=== PATIENT | female | born 1980 | race Caucasian/White ===

== ENCOUNTER → 2016-08-29 | Outpatient (CLI) | payer BC, OTHER ==
[~2016-08-29] MED LIST: ADAL1KIT INJ; ALPR-411 PO; AMT50 PO; CITA20TA4 PO; CLOP1TAB54 PO; DTR5 PO; HYDR-5688 PO; MELO15TA3 PO; MRP1 PO; OMEP40CA PO
--- NOTE | 2016-08-29 13:29 | MAMMOGRAPHY REPORT ---
BILATERAL DIGITAL DIAGNOSTIC MAMMOGRAM TOMOSYNTHESIS WITH CAD AND TARGETED BILATERAL ULTRASOUND: 08/01 CLINICAL HISTORY: 35 year old woman with a family history of breast cancer = mother, grandmother and great grandmother who presents with a new palpable lump in the lower inner quadrant of the right br east. On physical exam her physician felt a lump in the superior left breast. TECHNIQUE: Bilateral breast tomosynthesis in addition to standard 2D mammography was performed. Curr ent study was also evaluated with a Computer Aided Detection (CAD) system. COMPARISON: Comparison is made to exams dated: 10/15/2013 mammogram, 02/20/2013 mammogram, 04/20/2014 mammogram, 10/15/2013 ultrasound, 02/20/2013 ultrasound, and 07/15/2010 mammogram - [facility]. BREAST COMPOSITION: The tissue of both breasts is extremely dense, which lowers the sensitivity of mammography. FINDINGS: Triangular skin palpable markers overlie the areas of concern in the lower inner right jamel ast and 12:00 to 1:00 left breast. There are a few benign-appearing microcalcifications scattered i n the right breast. A grouping of coarse heterogeneous microcalcifications previously identified in the upper outer posterior right breast is no longer seen. No suspicious mass, focal area of ramos ectural distortion or cluster of new suspicious microcalcifications is identified. Targeted ultrasound was performed in the area of palpable ridge or cylindrical mass in the 4:00 righ t breast, 5 cm from the nipple, pointed out by the patient. In the area of concern, there is a ridg e of dense glandular tissue that courses near the skin surface in between 2 fat lobules. This may e xplain the palpable abnormality. No suspicious solid mass is seen within this area of concern. In the 9:00 through 12:00 and 1:00 axes of the left breast, numerous scattered anechoic subcentimeter c ysts are seen, compatible with fibrocystic changes. No discrete suspicious solid mass is identified . IMPRESSION: ACR BI-RADS CATEGORY 2: BENIGN, TARGETED ULTRASOUND ACR BI-RADS CATEGORY 2: BENIGN 1. There is no mammographic or targeted sonographic evidence of malignancy. 2. Clinical follow-up is recommended for the palpable lumps in the lower inner right breast and sup erior left breast, as biopsy of a clinically suspicious mass should not be precluded by negative ave ging. 3. These results and recommendations were discussed with the patient at the time of the exam. We h ad an additional discussion regarding follow-up screening recommendations given her strong family hi story of breast cancer and extremely dense breasts. Given that her mother was diagnosed in her 40s she should continue with annual bilateral screening mammography from here forward, and she will also likely qualify for additional screening breast MRI, with mother, grandmother and great grandmother all with a history of breast cancer. Approximately 10% of breast cancers are not detected with mammography. A negative mammographic repor t should not delay biopsy if a clinically suggestive mass is present. Juanita Arce M.D. ay/:08/29/2016 12:15:29 Broadcast Meteorologist: Ryland CORDERO)([place]), [facility] letter sent: Normal 1/2 BI-RADS Code: ACR BI-RADS Category 2: Benign Ultrasound BI-RADS: ACR BI-RADS Category 2: Benign
== END | disposition home or self-care (01) ==
LOC: C.MAMM 09:01
DX: N63 Unspecified lump in breast (principal); Z80.3 Family history of malignant neoplasm of breast

== ENCOUNTER 2024-04-08 10:44 | Inpatient (IN) ==
--- NOTE | 2024-04-08 11:03 | Emergency Department Note ---
Impression & Plan Pyelonephritis, Hypokalemia, Hyponatremia, Acute hypotension ED Provider Note NAME: WILLIS GUERRA AGE: 43 SEX: F : 1980 ARRIVES VIA: Walk-In INFORMANT: Patient ED PROVIDER(S): Stan Beebe DO CHIEF COMPLAINT: abdominal pain HPI: Patient is a 43-year-old female who presents ER with dysuria, urgency, and frequency that started on Sunday. Has been gradually getting worse. Denies any headache or change in vision. No chest pain or shortness of breath. Admits to shaking chills and sweats. Does feel really weak and rundown. Notes this feels like her previous UTIs but worse. ADDITIONAL HISTORY OBTAINED: Per HPI Chronic Medical/Social Conditions Affecting Care: Per HPI PAST MEDICAL HISTORY:See Below PAST SURGICAL HISTORY:See Below FAMILY HISTORY:See Below SOCIAL HISTORY:See Below HOME MEDICATIONS:See Below ALLERGIES:See Below VITALS:See Below PHYSICAL EXAMINATION: GENERAL: Sitting up in bed, alert, ill-appearing, diaphoretic EYE EXAM: normal conjunctiva. PERRL and EOM's grossly intact. OROPHARYNX: Dry mucous membranes LUNGS: Clear to auscultation. Normal chest wall mechanics HEART: no murmurs, S1 normal and S2 normal ABDOMEN: abdomen soft, non-tender, normo-active bowel sounds, no masses, no rebound or guarding. BACK: Back is symmetrical on inspection and there is no deformity, no midline tenderness, no CVA tenderness. UPPER EXTREMITIES: upper extremities are grossly normal. LOWER EXTREMITIES: No pitting edema. NEURO EXAM: Normal sensorium, cranial nerves II-XII grossly intact, normal speech, no gross weakness of arms, no gross weakness of legs. MEDICAL DECISION MAKING: Patient is a 43-year-old female who presents to the ER for the above-stated complaint. IV was established medicos obtained. Vitals were remarkable for hypertension with systolic pressures of 80. Labs show no significant leukocytosis or anemia. BMP with mild hyponatremia at 132. Mild hypokalemia 3.3. LFTs bilirubin is unremarkable. Lipase is unremarkable. UA is consistent with UTI. CT abdomen pelvis confirms pyelonephritis. Patient was given IV Rocephin and IV fluids. Systolic pressures improved. Discussed case with the hospitalist for further evaluation management treatment. Patient was also given IV Toradol while in the ER. Consults/Care Managements Discussions: Per MDM Triage Nursing notes reviewed. Limited review of prior medical records performed Vital Signs: reviewed and remarkable for hypotension and tachy Differential diagnosis: Differential diagnoses includes but is not limited to gastritis, peptic ulcer disease, GERD, gallbladder disease, pancreatitis, small bowel obstruction, appendicitis, diverticulitis, hernia, urinary tract infection, torsion, /ectopic (if female), perforation, trauma, infectious. ER treatment provided: See below Diagnostics interpreted by me include EKG and cardiac monitoring as listed below: -Cardiac Monitoring: An order was placed for continuous cardiac monitoring. The monitor shows a rate of 80 with sinus rhythm. -ECG: none -Laboratory studies:Interpreted by me as stated above in MDM and shown below. Imaging studies: Xrays: As interpreted by me:none CTs show: CT abdomen pelvis per my pulm interpretation showed no obvious bowel obstruction CT and pelvis per radiology shows cystitis and pyelonephritis Procedures:none Critical Care: None Past Med/Surg History Problem List (Updated 04/08/24 @ 14:24 by Stan Beebe DO) Acute hypotension (Acute) Hypotension Hyponatremia (Acute) Hypokalemia (Acute) Pyelonephritis (Acute) Malignant neoplasm of overlapping sites of left breast in female, estrogen receptor positive (Chronic 09/26/21) Thumb laceration (Acute) Headache (Acute) Arthritis (Chronic) COVID-19 (Acute) Encounter for pre-operative examination Medical History Endometriosis Chronic back pain Gastroparesis Fibromyalgia Ankylosing spondylitis Depression Anxiety Factor 5 Leiden mutation, heterozygous reason for plavix Surgical History H/O: hysterectomy 07/2020 H/O bilateral mastectomy History of right breast biopsy benign History of left breast biopsy benign History of endometrial ablation History of colonoscopy with polypectomy History of esophagogastroduodenoscopy (EGD) History of oral surgery History of wisdom tooth extraction History of tonsillectomy and adenoidectomy Hx of sinus surgery Family History Father Family history of diabetes mellitus Mother Cancer breast Grandmother (Maternal) Cancer breast Sister Cancer breast Other No family history of adverse response to anesthesia Social History Smoking Status: Former smoker Tobacco Type: Cigarettes Cigarettes Per Day: 4 per day; Second Hand Exposure: No; Do You Dip or Chew Tobacco: No; Hx Alcohol Use: Yes Alcohol type: beer Hx Substance Use: No Preferred Language: Sami Communication Ability: Effective Hearing Ability: Normal 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 Beliefs That Will Affect Care: None marital status: Current Living Situation: Spouse and Family Current Living Situation Comment: Lives with and daughter Feels Safe at Home: Yes Diet: regular during the past year weight has: remained stable Physical Activity Frequency: Does not Exercise Assistive Devices: Contacts and Glasses Allergies Allergies Allergy/AdvReac Type Severity Reaction Status Date / Time No Known Allergies Allergy Unknown Verified 12/06/21 08:25 Home Meds Home Medications Medication Instructions Recorded Confirmed alprazolam 0.5 mg tablet (Xanax) 0.5 mg PO DAILY PRN Anxiety 01/30/20 04/08/24 clopidogrel 75 mg tablet (Plavix) 75 mg PO HS 01/30/20 04/08/24 omeprazole 40 mg capsule,delayed 40 mg PO HS 01/30/20 04/08/24 release citalopram 40 mg tablet (Celexa) 40 mg PO DAILY 08/09/21 04/08/24 hydrocodone 5 mg-acetaminophen 325 1 tab PO DIRECTED PRN Pain 08/09/21 04/08/24 mg tablet cholecalciferol (vitamin D3) 50 50 mcg PO DAILY 12/06/21 04/08/24 mcg (2,000 unit) capsule gabapentin 100 mg capsule 300 mg PO TID 12/06/21 04/08/24 vitamin B complex (B 1 tab PO DAILY 12/06/21 04/08/24 Complex-Vitamin B12 tablet) Rinvoq 15 mg PO Q OTHER DAY 04/08/24 04/08/24 Results & Data (ED) Vital Signs Vital Signs - 24 hr 04/08/24 10:46 04/08/24 12:17 04/08/24 13:59 Temperature 36.8 C Temperature Source Oral Pulse Rate 113 H Pulse Rate [Radial] 93 H 78 Pulse Rhythm [Radial] Regular Regular Respiratory Rate 14 18 18 Respiratory Effort / Characteristics Non-Labored Non-Labored Respiratory Depth Normal Normal Respiratory Pattern Regular Regular Blood Pressure 81/58 L Blood Pressure [Left Arm] 91/56 L 90/58 L Blood Pressure Mean 65 Blood Pressure Mean [Left Arm] 67 68 Pulse Oximetry 95 97 96 Oxygen Delivery Method Room Air Room Air Room Air Sepsis New/Unexplained Change in Mental Status No Sepsis Action Taken by Nursing No Action Required Laboratory Data 04/08/24 11:10 04/08/24 11:10 Lab Results 04/08/24 04/08/24 Range/Units 11:10 12:12 WBC 6.32 (4.8-10.8) K/ul RBC 4.55 (4.20-5.40) M/uL Hgb 13.2 (12.0-16.0) g/dl Hct 38.4 (37.0-47.0) % MCV 84.4 (80.0-100.0) fL MCH 29.0 (25.0-34.0) pg MCHC 34.4 (32.0-36.0) g/dL RDW Std Deviation 42.7 (36.4-46.3) fL RDW Coeff of Jean Claude 13.8 (11.5-14.5) % Plt Count 216 (130-400) K/uL MPV 9.6 (9.4-12.4) fL Immature Gran % (Auto) 0.3 % Neut % (Auto) 84.8 % Lymph % (Auto) 10.6 % [place] % (Auto) 4.1 % Eos % (Auto) 0.0 % Baso % (Auto) 0.2 % Neut # (Auto) 5.36 (1.40-6.50) K/uL Lymph # (Auto) 0.67 L (1.20-3.40) K/uL [place] # (Auto) 0.26 (0.11-0.59) K/uL Eos # (Auto) 0.00 (0.00-0.50) K/uL Baso # (Auto) 0.01 (0.00-0.20) K/uL Immature Gran # (Auto) 0.02 (0.01-0.20) K/uL Sodium 132 L (136-145) mmol/L Potassium 3.3 L (3.5-5.1) mmol/L Chloride 96 L (98-107) mmol/L Carbon Dioxide 24 (21-32) mmol/L Anion Gap 12 H (3-11) BUN 8 (6-23) mg/dl Creatinine 0.88 (0.6-1.2) mg/dl Est Cr Clr Drug Dosing Not Reportable Est GFR ( Amer) 92.6 ml/min Est GFR (Non-Af Amer) 79.9 ml/min BUN/Creatinine Ratio 9.1 L (10-20) Glucose 134 H (70-99(Fasting)) mg/dl Calcium 9.3 (8.6-10.3) mg/dl Total Bilirubin 0.9 (0.2-1.0) mg/dl AST 27 (13-39) U/L ALT 26 (7-52) U/L Alkaline Phosphatase 108 H (34-104) U/L Total Protein 7.5 (6.0-8.3) gm/dl Albumin 4.5 (3.4-5.0) gm/dl Globulin 3.0 (2.5-4.0) gm/dl Albumin/Globulin Ratio 1.5 (0.9-2) Lipase 6 L (11-82) U/L Urine Color Yellow Urine Appearance Clear (Clear) Urine pH 6.5 (4.5-7.5) Ur Specific [place] 1.016 (1.000-1.030) Urine Protein Negative (Negative) Urine Glucose (UA) Negative (Negative) Urine Ketones Negative (Negative) Urine Blood Trace H (Negative) Urine Nitrite Negative (Negative) Urine Bilirubin Negative (Negative) Urine Urobilinogen Negative (Negative) Ur Leukocyte Esterase 2+ H (Negative) Urine WBC (Auto) 11-20 H (0-5) /hpf Urine RBC (Auto) 0-2 (0-2) /hpf U Hyaline Cast (Auto) 0-2 (0-2) /lpf U Epithel Cells (Auto) 0-2 (0-2) /hpf Urine Bacteria (Auto) None Seen (None Seen) Administered Medications Discontinued Medications Sodium Chloride (Nss) 1,000 mls @ 999 mls/hr IV .Q1H1M MOI Stop: 04/08/24 13:00 Last Infusion: 04/08/24 13:35 Dose: Infused Documented By: Admin: 04/08/24 12:15 Dose: 999 mls/hr Documented By: Infusion: 04/08/24 12:15 Dose: Infused Documented By: Admin: 04/08/24 11:14 Dose: 999 mls/hr Documented By: SHERWIN Ceftriaxone Sodium (Rocephin) 2,000 mg in 50 mls @ 100 mls/hr IV NOW STA Stop: 04/08/24 11:27 Last Infusion: 04/08/24 12:15 Dose: Infused Documented By: Admin: 04/08/24 11:28 Dose: 100 mls/hr Documented By: SHERWIN Ioversol (Optiray 320 100ml) 93 ml IV ONCE ONE Stop: 04/08/24 11:51 Last Admin: 04/08/24 11:51 Dose: 93 ml Documented By: OSCAR Ketorolac Tromethamine (Ketorolac Tromethamine 15 Mg/Ml Vial) 15 mg IV NOW ONE Stop: 04/08/24 12:38 Last Admin: 04/08/24 12:43 Dose: 15 mg Documented By: ANH Potassium Chloride (Potassium Chloride Crtab 20 Meq Tabcr) 40 meq PO NOW STA Stop: 04/08/24 13:36 Last Admin: 04/08/24 13:57 Dose: 40 meq Documented By: SHERWIN Imaging Data Radiologist's Impression: Abdomen/Pelvis CT 04/08/24 10:59 CT OF THE ABDOMEN AND PELVIS WITH CONTRAST CLINICAL HISTORY: Abdominal and back pain. COMPARISON STUDY: CT of the abdomen and pelvis December 09, 2020. PET/CT April 26, 2023. Renal ultrasound September 12, 2023. TECHNIQUE: Following IV administration of 93 mL of Optiray, axial images of the abdomen and pelvis were obtained from the lung bases to the proximal femurs. Images were reviewed in the axial, sagittal, and coronal planes. IV contrast was administered without complication. Automated exposure control was utilized for the study. A dose lowering technique was utilized adhering to the principles of ALARA. CT DOSE: 927.51 mGy.cm FINDINGS: A small left lower lobe pulmonary nodules unchanged since CT of December 09, 2020. This is benign given stability. There is hepatic steatosis. There are no hepatic lesions. Spleen, adrenal glands and pancreas are unremarkable. There is moderate wall thickening of the bladder with mild adjacent stranding. There is also urothelial thickening of both ureters and collecting systems. There is subtle heterogeneous enhancement within the upper pole the left kidney. There is no renal fluid collection. Slight bilateral perinephric stranding is present. There is no evidence for a bowel obstruction. The appendix is normal. There is no lymphadenopathy. There are no suspicious lesions within the visualized skeletal structures. Intracanalicular catheter is in place. IMPRESSION: 1. Findings suggestive of cystitis, bilateral pyelitis and probable left pyelonephritis. No hydronephrosis. No renal abscess. 2. No bowel obstruction. No bowel wall thickening. ACT 112: Negative or not required by law. Electronically signed by: Jose De Jesus Bennett M.D. 04/08/2024 12:26 PM Discharge Plan Visit Data Chief Complaint: Urinary Symptoms Stated Complaint: UTI, ABD PAIN, BACK PAIN ED Provider: Stan Beebe Discharge Problem: Pyelonephritis, Hypokalemia, Hyponatremia, Acute hypotension Forms Stand Alone Forms: My [employer] Prescriptions Prescriptions: No Action cholecalciferol (vitamin D3) 50 mcg (2,000 unit) capsule 50 mcg PO DAILY vitamin B complex [B Complex-Vitamin B12] Tablet 1 tab PO DAILY clopidogrel [Plavix] 75 mg Tablet 75 mg PO HS omeprazole 40 mg Capsule,Delayed Release(Dr/Ec) 40 mg PO HS alprazolam [Xanax] 0.5 mg Tablet 0.5 mg PO DAILY PRN (Reason: Anxiety) citalopram [Celexa] 40 mg Tablet 40 mg PO DAILY hydrocodone-acetaminophen 5-325 mg Tablet 1 tab PO DIRECTED PRN (Reason: Pain) gabapentin 100 mg capsule 300 mg PO TID Rinvoq tablet 15 mg PO Q OTHER DAY Referrals Referrals: Ian Morocho MD [Primary Care Provider] -
[2024-04-08] MEDS: SODIUM CHLORIDE 0.9% 1,000 ML IV SCH (11:14)
[2024-04-08 11:28] LABS: Basophils # (auto) 0.01 K/uL (0.00-0.20); Basophils % (auto) 0.2 %; Hematocrit (blood only) 38.4 % (37.0-47.0); Hemoglobin 13.2 g/dl (12.0-16.0); Immature Granulocytes # (auto) 0.02 K/uL (0.01-0.20); Immature Granulocytes % (auto) 0.3 %; Lymphocytes # (auto) 0.67 K/uL (1.20-3.40); Lymphocytes % (auto) 10.6 %; Mean Corpuscular Hgb Conc 34.4 g/dL (32.0-36.0); Mean Corpuscular Volume 84.4 fL (80.0-100.0); Mean Platelet Volume 9.6 fL (9.4-12.4); Monocytes # (auto) 0.26 K/uL (0.11-0.59); Monocytes % (auto) 4.1 %; Neutrophils # (auto) 5.36 K/uL (1.40-6.50); Neutrophils % (auto) 84.8 %; Platelet Count 216 K/uL (130-400); RDW Coefficient of Variation 13.8 % (11.5-14.5); RDW Standard Deviation 42.7 fL (36.4-46.3); Red Blood Count 4.55 M/uL (4.20-5.40); White Blood Count 6.32 K/ul (4.8-10.8)
[2024-04-08] MEDS: cefTRIAXone SODIUM 2,000 MG/50 ML BAG IV STA (11:28)
[2024-04-08 11:50] LABS: Alanine Aminotransferase 26 U/L (7-52); Albumin Globulin Ratio 1.5 (0.9-2); Albumin Level 4.5 gm/dl (3.4-5.0); Alkaline Phosphatase 108 U/L (34-104); Anion Gap 12 (3-11); Aspartate Aminotransferase 27 U/L (13-39); BUN Creatinine Ratio 9.1 (10-20); Bilirubin,Total 0.9 mg/dl (0.2-1.0); Blood Urea Nitrogen 8 mg/dl (6-23); Calcium 9.3 mg/dl (8.6-10.3); Carbon Dioxide 24 mmol/L (21-32); Chloride 96 mmol/L (98-107); Est GFR (African American) 92.6 ml/min; Est GFR (Non-African American) 79.9 ml/min; Glucose 134 mg/dl (70-99(Fasting)); Lipase 6 U/L (11-82); Potassium 3.3 mmol/L (3.5-5.1); Sodium 132 mmol/L (136-145); Total Protein 7.5 gm/dl (6.0-8.3)
[2024-04-08] MEDS: OPTIRAY 320 100ml IV ONE (11:51)
--- NOTE | 2024-04-08 12:27 | CT Scan Report ---
CT OF THE ABDOMEN AND PELVIS WITH CONTRAST CLINICAL HISTORY: Abdominal and back pain. COMPARISON STUDY: CT of the abdomen and pelvis December 09, 2020. PET/CT April 26, 2023. Renal ultras ound September 12, 2023. TECHNIQUE: Following IV administration of 93 mL of Optiray, axial images of the abdomen and pelvis we re obtained from the lung bases to the proximal femurs. Images were reviewed in the axial, sagittal, and coronal planes. IV contrast was administered without complication. Automated exposure control wa s utilized for the study. A dose lowering technique was utilized adhering to the principles of ALARA . CT DOSE: 927.51 mGy.cm FINDINGS: A small left lower lobe pulmonary nodules unchanged since CT of December 09, 2020. This is benig n given stability. There is hepatic steatosis. There are no hepatic lesions. Spleen, adrenal glands a nd pancreas are unremarkable. There is moderate wall thickening of the bladder with mild adjacent str anding. There is also urothelial thickening of both ureters and collecting systems. There is subtle h eterogeneous enhancement within the upper pole the left kidney. There is no renal fluid collection. S light bilateral perinephric stranding is present. There is no evidence for a bowel obstruction. The a ppendix is normal. There is no lymphadenopathy. There are no suspicious lesions within the visualized skeletal structures. Intracanalicular catheter is in place. IMPRESSION: 1. Findings suggestive of cystitis, bilateral pyelitis and probable left pyelonephritis. No hydroneph rosis. No renal abscess. 2. No bowel obstruction. No bowel wall thickening. ACT 112: Negative or not required by law. Electronically signed by: Jose De Jesus Bennett M.D. 04/08/2024 12:26 PM
[2024-04-08 12:32] LABS: Appearance Urine Clear (Clear); Bacteria Urine Automated None Seen (None Seen); Bilirubin Urine Negative (Negative); Blood Urine Trace (Negative); Cast Urine Automated 0-2 /lpf (0-2); Color Urine Yellow; Epithelial Cell Urine Auto 0-2 /hpf (0-2); Glucose Urine UA Negative (Negative); Ketones Urine Negative (Negative); Leukocyte Esterase Urine 2+ (Negative); Nitrite Urine Negative (Negative); Protein Urine Negative (Negative); RBC Urine Automated 0-2 /hpf (0-2); Specific Gravity Urine 1.016 (1.000-1.030); Urobilinogen Urine Negative (Negative); pH Urine 6.5 (4.5-7.5)
[2024-04-08] MEDS: KETOROLAC TROMETHAMINE 15 MG/ML VIAL IV ONE (12:43)
--- NOTE | 2024-04-08 12:59 | History & Physical Report ---
Date of Service April 08, 2024 Assessment & Plan (1) Pyelonephritis: Plan: - with UTI, bilateral pyelitis, and left pyelonephritis seen on CT scan - patient with increased urinary frequency, urinary incontinence, abdominal pain, low back pain, and chills on admission - UA on admission showed trace blood and WBCs - 2 g of IV Rocephin given in ER - WBC on admission 6.32, hypotensive, other VSS; no other signs of systemic infection at this time - CRP on admission 15.30, lactate 0.7 - Tylenol and oxy 5 mg for pain prn - Zofran as needed, QTc 483 on admisson - Continue with Ceftriaxone 2g IV Q24h - Continue to trend CBC - Urine culture pending - Holding home Rinvoq (2) Hypokalemia: Plan: - asymptomatic - K+ 3.3 on admission - Given 40 MeQ potassium PO on admission - Recheck BMP with AM labs (3) Hyponatremia: Plan: - asymptomatic - Na+ 132 on admission - likely secondary to recent increase in hydration with Liquid IV - Recheck BMP with AM labs (4) Hypotension: Plan: - hypotensive on admission - likely secondary to infection - asymptomatic on admission - continue to monitor for MAP < 60 - 2 L NSS bolus ordered Plan VTE ppx: continue home plavix and SCDs Diet: Regular Code status: FULL CODE Chronic stable diagnoses: Anxiety/depression - Continue Xanax prn and Celexa Gastroparesis - continue omeprazole and MiraLAX. Factor 5 Liden - continue plavix Ankylosing spondylitis - Continue hydrocodone, holding Rinvoq at this time Low lipase level on admission (6) - no signs of chronic pancreatitis on CT Admission and Anticipated Discharge Date Admission Date: 04/08/24 History of Present Illness Chief Complaint: UTI Primary Care Provider: Ian Morocho MD Patient is a 43-year-old with a past medical history of fibromyalgia, endom etriosis, gastroparesis, ankylosing spondylitis, depression, anxiety, factor 5 liden, and breast cancer s/p double mastectomy. She presents today with ongoing UTI symptoms since Sunday last week. She stated that it started with increasing urinary frequency on Sunday. By Sunday she started to have constant abdominal and low back pain along with urinary incontinence. She has felt feverish on and off; with sweats and chills. Last night was her worst episode of chills. She also has had headaches on and off since her symptoms began on Sunday. On Sunday she started drinking liquid IV to help with hydration. She has had a history of UTIs that felt similar, but never pyelonephritis. She denies dizziness, lightheadedness, nausea, vomiting, swelling, numbness, and tingling. Her appetite has not been well since symptoms began about one week ago. She has chronic constipation which she takes Miralax as needed at home. She was on her way to her cardiology appointment this morning to be assessed for POTS disease, but came to the ER instead. She currently takes Rinvoq for her ankylosing spondylitis, along with daily hydrocodone. She take Xanax for anxiety about 2-3 times per week. She had a history of breast cancer in which she has a double mastectomy in 2021. She was a former smoker who quit in December of this year, she smoke 1 ppd for 20 years. She does not drink alcohol or use illicit drugs. She took her home medications last night, but not this morning. She quit taking her Rinvoq 2 days ago due to her UTI like symptoms. She wishes to be full code at this time. Allergies Allergy/AdvReac Type Severity Reaction Status Date / Time No Known Allergies Allergy Unknown Verified 12/06/21 08:25 Home Medications Medication Instructions Recorded Confirmed Type alprazolam 0.5 mg tablet (Xanax) 0.5 mg PO DAILY PRN Anxiety 01/30/20 04/08/24 History clopidogrel 75 mg tablet (Plavix) 75 mg PO HS 01/30/20 04/08/24 History omeprazole 40 mg capsule,delayed 40 mg PO HS 01/30/20 04/08/24 History release citalopram 40 mg tablet (Celexa) 40 mg PO DAILY 08/09/21 04/08/24 History hydrocodone 5 mg-acetaminophen 325 1 tab PO DIRECTED PRN Pain 08/09/21 04/08/24 History mg tablet cholecalciferol (vitamin D3) 50 50 mcg PO DAILY 12/06/21 04/08/24 History mcg (2,000 unit) capsule gabapentin 100 mg capsule 300 mg PO TID 12/06/21 04/08/24 History vitamin B complex (B 1 tab PO DAILY 12/06/21 04/08/24 History Complex-Vitamin B12 tablet) Rinvoq 15 mg PO Q OTHER DAY 04/08/24 04/08/24 History Past Med/Surg History Problem List (Updated 04/08/24 @ 14:24 by Stan Beebe DO) Acute hypotension (Acute) Hypotension Hyponatremia (Acute) Hypokalemia (Acute) Pyelonephritis (Acute) Malignant neoplasm of overlapping sites of left breast in female, estrogen receptor positive (Chronic 09/26/21) Thumb laceration (Acute) Headache (Acute) Arthritis (Chronic) COVID-19 (Acute) Encounter for pre-operative examination Medical History Endometriosis Chronic back pain Gastroparesis Fibromyalgia Ankylosing spondylitis Depression Anxiety Factor 5 Leiden mutation, heterozygous reason for plavix Surgical History H/O: hysterectomy 07/2020 H/O bilateral mastectomy History of right breast biopsy benign History of left breast biopsy benign History of endometrial ablation History of colonoscopy with polypectomy History of esophagogastroduodenoscopy (EGD) History of oral surgery History of wisdom tooth extraction History of tonsillectomy and adenoidectomy Hx of sinus surgery Family History Father Family history of diabetes mellitus Mother Cancer breast Grandmother (Maternal) Cancer breast Sister Cancer breast Other No family history of adverse response to anesthesia Social History Smoking Status: Former smoker Tobacco Type: Cigarettes Cigarettes Per Day: 4 per day; Second Hand Exposure: No; Do You Dip or Chew Tobacco: No; Hx Alcohol Use: No Hx Substance Use: No Preferred Language: Ukrainian Communication Ability: Effective Hearing Ability: Normal Pit Recorder Required: No Beliefs That Will Affect Care: None marital status: Current Living Situation: Family Current Living Situation Comment: Lives with and daughter Feels Safe at Home: Yes Diet: regular during the past year weight has: remained stable Physical Activity Frequency: Does not Exercise Assistive Devices: Cane, Contacts and Wheelchair Review of Systems Review of Systems: See hpi Physical Exam Physical Exam: The patient is awake, alert and oriented 3, well developed and well nourished, normocephalic and atraumatic, in no acute distress. Non-toxic appearing. HEENT- EOMI, mucous membranes moist. Hearing grossly intact. Heart-normal S1 and S2. No murmurs, rubs or gallops. Lungs-clear bilaterally, no respiratory distress, no accessory muscle use. Abdomen-normal bowel sounds and soft. No ascites noted. Non-tender. No CVA tenderness. Extremities- no clubbing, cyanosis, or edema. Rheumatologic-normal range of motion. Results & Data Results & Data Vital Signs (Past 12 Hours) Vital Signs Temp Pulse Pulse Resp BP BP Pulse Ox 04/08/24 12:17 93 H 18 91/56 L 97 04/08/24 10:46 36.8 C 113 H 14 81/58 L 95 O2 Del Method 04/08/24 12:17 Room Air 04/08/24 10:46 Room Air Code Status & VTE Plan Code Status Full code VTE Prophylaxis Plan VTE Prophylaxis will be ordered: Yes Supervising Physician Co-Signing Physician Notes I personally saw and examined the patient. I independently reviewed the labs, EKG, imaging, problem list, medication list, past medical history and family history. I verified all buchanan points and agree with Shelly Yarbrough PA-C with the following exceptions and/or additions: 43 year old female presents to the ER with urinary frequency, incontinence, abdominal/back pain. O/E A&Ox3, HS RRR, no murmurs, Chest CTAB, Abdo SNT, b/l CVA tenderness A/P Pyelonephritis - noted on CT although no WBC, UA with LE and WBC, Similar symptoms with prior UTIs, no Hx pseudomonas, Ceftriaxone IV daily, Follow up urine and blood culture PG Care Time/CCT Total # of Minutes Spent Total Time Spent with Patient: Total time spent is greater than 50% in coordination of care (as documented) at patient's floor/unit and/or counseling patient: Coding Level of Care Code None Diagnoses Pyelonephritis N12 Hypokalemia E87.6 Hyponatremia E87.1 Hypotension I95.9
[2024-04-08] MEDS: POTASSIUM CHLORIDE CRTAB 20 MEQ TABCR PO STA (13:57)
[2024-04-08] MEDS: LACTATED RINGER'S 1,000 ML IV SCH (14:37)
[2024-04-08 14:56] LABS: Pregnancy Test, Serum Negative (Negative)
[2024-04-08] MEDS: SODIUM CHLORIDE 0.9% 1,000 ML IV STA ×2 (15:00→18:31)
--- OUTSIDE RECORDS SUMMARY | 2024-04-08 15:19 | External Medical Summary | Summary of Care ---
Author Name Unknown Organization [facility] Address [address] [place] [address] Phone [phone] Care Team Providers Care Alumni Relations Coordinator Name Role Phone Ian Morocho MD Primary Care Provid er Reason for Visit * Auth/Cert Specialty Diagnoses / Procedures Referred By Jose nelson Referred To Contact Diagnoses History of colon polyps History of colon polyps [Z86.010] Procedures COLONOSCOPY, DIAGNOSTIC (RECTUM) COLONOSCOPY FLEXIBLE PROXIMAL DIAGNOSTIC Beatriz Tony MD [address] [place] [address] [facility] [address] [place] [address] Referral ID Status Reason Start Date Expiration Date Visits Re quested Visits Authorized [id number] [phone] Encounter Details Date Type Department Care Team (Latest Contact Info) Description 03/27/2024 9:35 AM EDT - 03/27/2024 11:32 AM EDT Hospital Encounter [facility], Endoscopy [facility] [address] [place] [phone] Radha Zabala DO [address] [place] [address] Colonoscopy Discharge Disposition: Home - Self Care Allergies Active Allergy Reactions Criticality Noted Date Comments Sulfamethoxazole-Trimethoprim Nausea/vomiting 0 04/13/2023 Duloxetine 07/27/2020 MALAISE documented as of this encounter (statuses as of 03/27/2024) Medications Medication Sig Dispensed Refills Start Date End Date Status ondansetron ODT (ZOFRAN) [address] 1 Tab on tongue every 8 hours as needed for Nausea. dissolve on tongue. 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 30 Tab 3 07/19/2020 Active Additional Information Patient not taking.Reported on 03/19/2024 Cholecalciferol 50 MCG (2000 UT) Oral Capsule Take 1 Capsule by mouth. Active Saccharomyces boulardii 250 MG Oral Capsule (FLORASTOR) Take 1 Capsule by mouth. Active Cyanocobalamin 1000 MCG/ML Injection Solution (Cyanocobalamin) Inject 1 mL subcutaneous every 2 weeks. 05/19/2021 Active Albuterol Sulfate HFA 108 (90 Base) MCG/ACT Inhalation Aerosol SolutionIndication s:Wheezing Inhale by mouth 2 Puffs every 4 hours as needed for Shortness of Breath or Wheezing. 18 g 04/17/2022 Active Additional Information Patient not taking.Reported on 03/19/2024 Fluticasone Furoate-Vilanterol 200-25 MCG/INH Inhalation Aerosol Powder Breath Activated (BREO ellipta) Inhale by mouth 1 Puff in the morning. 60 Blister Dosing Unit 3 05/16/2022 Active Additional Information Patient not taking.Reported on 03/19/2024 Clopidogrel Bisulfate 75 MG Oral Tablet (pLAVix) Take by mouth 1 Tablet in the morning. 30 Tablet 5 05/19/2022 Active HYDROcodone-Acetam inophen 10-325 MG Oral TabletIndications: Inflammation of sacroiliac joint (HCC),Ankylosing spondylitis of multiple sites in spine (HCC),Sacroiliitis (HCC),Neuropathy,C hronic prescription opiate use,MEDICATION USE AGREEMENT Take 2 Tablets by mouth every 6 hours as needed for Pain, Severe. 170 Tablet 07/11/2022 Active Syringe 23G X 1" 3 MLIndications:Anky losing spondylitis of multiple sites in spine (HCC),Sacroiliitis (HCC) Use to inject toradol once daily as needed for pain in lower back. 10 Each 11 09/05/2022 Active Omeprazole 40 MG Oral Capsule Delayed Release (PriLOSEC) TAKE ONE CAPSULE BY MOUTH EVERY MORNING AND AT BEDTIME 60 Capsule 5 09/29/2022 Active Additional Information Patient taking differently: 40 mg Daily(AM), Reported on 02/23/2023 ALPRAZolam 0.5 MG Oral Tablet (xaNAX) 1/2-1 tablet every 6-8 hours as needed for anxiety. 30 Tablet 10/19/2022 Active Citalopram Hydrobromide 40 MG Oral Tablet (CeleXA) TAKE ONE TABLET BY MOUTH EVERY MORNING 30 Tablet 5 10/30/2022 Active Additional Information Patient taking differently: HS, Reported on 03/19/2024 NSS 0.9 % SOLN 19.8 mL with HYDROmorphone 50 MG/5ML SOLN 2 mg Inject into spinal canal continuous. ? dose Active Ketorolac Tromethamine 30 MG/ML Injection Solution Inject 30 mg into a large muscle once as needed for Pain, Severe. 03/08/2023 Active BD Luer-Keri Syringe 25G X 1" 3 ML 04/04/2023 Active Mupirocin 2 % External Ointment (Bactroban) Apply topically to affected area 2 times a day. Apply to open area 22 g 04/09/2023 Active Additional Information Patient not taking.Reported on 03/19/2024 Prochlorperazine Maleate 5 MG Oral Tablet (Compazine)Indicat ions:Nausea Take 1 Tablet by mouth every 6 hours as needed for Nausea. 30 Tablet 2 11/12/2023 Active Additional Information Patient not taking.Reported on 03/19/2024 mupirocin calcium 2 % NA OINT Administer 0.5 g into each nostril in the morning and 0.5 g before bedtime. 15 g 2 02/13/2024 Active Sulfamethoxazole-T rimethoprim 800-160 MG Oral Tablet (Bactrim DS) Take 1 Tablet by mouth in the morning and 1 Tablet before bedtime. Active Rinvoq 15 MG Oral Tablet Extended Release 24 Hour (Upadacitinib ER)Indications:Ank ylosing spondylitis of multiple sites in spine (HCC) Take 1 Tablet by mouth every other day. 30 Tablet 1 03/25/2024 Active Rinvoq 15 MG Oral Tablet Extended Release 24 Hour (Upadacitinib ER)Indications:Ank ylosing spondylitis of multiple sites in spine (HCC) Take 1 Tablet by mouth every other day. 30 Tablet 12/03/2023 03/24/20 24 Discontinu ed(Refill) documented as of this encounter (statuses as of 03/27/2024) Active Problems Problem Noted Date Diagnosed Date Cigarette smoker 05/05/2022 Malignant neoplasm of upper- outer quadrant of left female breast 01/22/2022 Factor V Leiden mutation 01/18/2022 Vitamin D deficiency 01/18/2022 Vitamin B 12 deficiency 01/18/2022 Trigeminal neuralgia 01/18/2022 Tobacco user 01/18/2022 Positive autoantibody screening for celiac disea se 01/18/2022 History of Clostridium difficile colitis 022 Gastroesophageal reflux disease 01/18/2022 BRCA negative 12/28/2021 Overview: Genetic Testing Completed 12/27/2021: Test Results: Negative Type of test: Expansive testing for breast and nutritional services host cancer risk -- 36 genes Genes Included: ABRAXAS1, AKT1, EARL, BARD1, BRCA1, BRCA2, BRIP1, CDC73, CDH1, CHEK2, DICER1, EPCAM, FANCC, FANCM, MLH1, MRE11, MSH2, MSH6, MUTYH, NBN, NF1, PALB2, PIK3CA, PMS2, POLD1, PTEN, RAD51C, RAD51D, RECQL, RINT1, SDHB, SDHD, SMARCA4, STK11, TP53, XRCC2' Laboratory: [facility] History of transient ischemic attack (TIA) 11/30 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 ?vasculitis, ?Behcet's, documented uveitis and sacroiliitis on xray; 12/15/13 ordered MRI brain, cervical, thoracic and lumbar spine Sacroiliitis 12/26/2013 Overview: Chronic back pain, disabled. HLA B 27 negative, no h/o enthesopathy, synovitis or dactylitis; No h/o IBD or psoriasis. H/o MRI small L5-S1 disc herniation small; prior imaging not c/w Anklyosing Spondylitis (seen by two rheumatologists including Dr. Osorio and recently Dr. Lazar 12/10) was on MTX up to 30 mg weekly without much improvement. Prior followed by pain management Dr. Rubio with radiofrequency ablation and SI joint injections with temporary relief. Insomnia 12/26/2013 Fibromyalgia 12/26/2013 Overview: Chronic pain, disabled. Cymbalta, Meloxicam, Hydrocodone prn, Amitriptyline 25 QHS; s/p trigger point injections Dr. Ramires [facility] [phone] Anxiety 12/26/2013 Depression 12/26/2013 Overview: Reviewed prior records - no history of bridgette, h/o anger/rage sec to depression. Headache 12/26/2013 Overview: ICD-10 update of inactive term Other social stressor 12/26/2013 Overview: Psychosocial stress related to son's behavior (defiant) according to prior records. Displacement of lumbar inter vertebral disc without myelopathy 05/25/2011 ADVANCE DIRECTIVE INFORMATION 12/14/2004 Overview: Brochure declined documented as of this encounter (statuses as of 03/27/2024) Resolved Problems Problem Noted Date Diagnosed Date Resolved Date Inflammation of sacroiliac joint 09/05/2017 06/05/2022 Factor V Leiden 12/26/2013 06/05/2022 Overview: No h/o documented VTE, on Pradaxa due to ?TIA, did not tolerate Warfarin TIA (transient ischemic attack) 12/26/2013 11/30/2021 Overview: ?complex migraines vs TIA, consultants did not recommend Coumadin but PCP and pt prefer to continue. Coumadin exacerbated her fibromyalgia generalized pain so switched to Pradaxa 2012 (pt assistance program) off label Not current TIA-Hx added to PL documented as of this encounter (statuses as of 03/27/2024) Immunizations Name Administration Dates Next Due DTaP Dipth/Tet/Acell Pertussis (Infanrix), Peds 02/01/2010 Pneumococcal Conjugate Vacc, 13 Valent (Prevnar) 08/04/2019 Pneumococcal Polysaccharide PPV23 (Pneumovax) 03/02/2014 Seasonal Influenza Virus Vac cine, Unspecified Formulation 07/30/2019 Seasonal Influenza, PF, 6 M & above, IM , (FluLaval or Fluzone) 05/16/2022,05/24/2020,05/23/2018,06/13 Seasonal Influenza, Quadriva lent, No Preserve, IM 05/22/2016 Seasonal Influenza, Recombin ant, RIV4, PF, (Flublock) 08/04/2019 Seasonal Influenza, Trivalen t, (IIV3), with Preserv, (Fluzone) 09/17/2010,07/30/2007 Zoster Vaccine Recombinant (Shingrix) 01/28/2018 ,11/26/2017 documented as of this encounter Social History Tobacco Use Types Packs/Day Years Used Date Smoking Tobacco: Every Day Cigarettes 0.5 5 Smokeless Tobacco: Never Comments:1/2 pack a day,6 ye arssmokes electronic cigarette - currently using nicotine patches 10/19/23 Alcohol Use Standard Drinks/Week Comments Not Currently 0 (1 standard drink = 0.6 oz pur e alcohol) rare PHQ-2 Answer Date Recorded PHQ Adult Total Score 1 01/18/2022 Utilities Answer Date Recorded Do you have trouble paying y our heating, water, or electric bill? (Adult - for ages 18 years and over) Not on file 01/15/2024 Is your family able to pay t he heat, water, or electric bill? (Household - for ages 0-17 years) Not on file 01/15/2024 Does your family have access to good internet? (Household - for ages 0-17 years) Not on file 01/15/2024 Social Connections Answer Date Recorded How often do you feel lonely or isolated from those around you? (Adult - for ages 18 years and over) Not on file 01/15/2024 Sex and Gender Information Value Date Recorded Sex Assigned at Female 08/11/2022 9:00 AM EST Gender Identity Female 08/11/2022 9:00 AM EST Sexual Orientation Straight 08/11/2022 9: 00 AM EST Job Start Date Occupation Industry Not on file Not on file Not on file documented as of this encounter Last Filed Vital Signs Vital Sign Reading Time Taken Comments Blood Pressure 99/68 03/27/2024 11:20 AM EDT Pulse 64 03/27/2024 11:20 AM EDT Temperature 36.8 C (98.2 F) 03/27/2024 11:03 AM E DT Respiratory Rate 16 03/27/2024 11:20 AM EDT Oxygen Saturation 97% 03/27/2024 11:03 AM EDT Inhaled Oxygen Concentration - - Weight 71.7 kg (158 lb) 03/19/2024 9:47 AM EDT Height 165.1 cm (5' 5") 03/19/2024 9:47 AM EDT Body Mass Index 26.29 03/19/2024 9:47 AM EDT documented in this encounter Functional Status Functional Status Response Date of Assess ment Are you deaf or do you have serious difficulty h earing? No 02/05/2014 Are you blind or do you have serious difficulty seeing, even when wearing glasses? No 02/05/2014 Do you have serious difficul ty walking or climbing stairs? (5 years old or older) Yes 02/05/2014 Do you have difficulty dress ing or bathing? (5 years old or older) Yes 02/05/2014 Because of a physical, menta l, or emotional condition, do you have difficulty doing errands alone such as visiting a doctor s office or shopping? (15 years old or older) Yes 02/06/20 14 Cognitive Status Response Date of Assessm ent Because of a physical, menta l, or emotional condition, do you have serious difficulty concentrating, remembering, or making decisions? (5 years old or older) Yes 02/05/2014 documented as of this encounter H&P Notes * Radha Zaabla DO - 03/27/2024 10:29 AM EDT Endoscopy Pre-Procedure Assessment Name: Shwetha Bolanos Date: 03/27/2024 Time: 10:29 AM Procedure: Colonoscopy; with Indication(s) of colon polyp surveillance Endoscopy Pre-Procedure Assessment: Prior to the procedure, the patient was identified. The patient's history, medications and allergies were reviewed as per the Anesthesia Assessment. The patient is competent. The risks and benefits of the proposed procedure and the planned sedation were discussed with the patient. All questions were answered and informed consent for the procedure was obtained. This patient has undergone a preprocedural evaluation. A determination has been made to proceed with the planned procedure under [facility] procedural guidelines and the [facility] Non-Emergent, Elective Medical Services and Treatment Recommendations (published on 11-04-19). The community and hospital prevalence of COVID-19 has been discussed as well as this patient's specific risks associated with SARS-CoV-19 infection. Based upon the clinical acuity and patient-specific care considerations, this procedure is deemed a Tier II - Intermediate acuity treatment or service with either progression or the threat of progressive disease related to the delay in treatment. Not providing the service has the potential for increasing morbidity or mortality. BP 117/91 | Pulse 79 | Temp 36.9 C (98.4 F) (Tympanic) | Resp 14 | Ht 1.651 m (5' 5") | Wt 71.7kg (158 lb) | LMP 10/11/2018 | SpO2 98% | BMI 26.29 kg/m | BSA 1.81 m Prior to Admission medications Medication Sig Last Dose Discont. Rinvoq 15 MG Oral Tablet Extended Release 24 Hour (Upadacitinib ER) Take 1 Tablet by mouth every other day. 03/26/2024 Sulfamethoxazole-Trimethoprim 800-160 MG Oral Tablet (Bactrim DS) Take 1 Tablet by mouth in the morning and 1 Tablet before bedtime. Past Week mupirocin calcium 2 % NA OINT Administer 0.5 g into each nostril in the morning and 0.5 g before bedtime. 03/18/2024 BD Luer-Keri Syringe 25G X 1" 3 ML Past Week Ketorolac Tromethamine 30 MG/ML Injection Solution Inject 30 mg into a large muscle once as needed for Pain, Severe. Past Week Citalopram Hydrobromide 40 MG Oral Tablet (CeleXA) TAKE ONE TABLET BY MOUTH EVERY MORNING Patient taking differently: at bedtime. 03/26/2024 ALPRAZolam 0.5 MG Oral Tablet (xaNAX) 1/2-1 tablet every 6-8 hours as needed for anxiety. Past Week Omeprazole 40 MG Oral Capsule Delayed Release (PriLOSEC) TAKE ONE CAPSULE BY MOUTH EVERY MORNING AND AT BEDTIME Patient taking differently: 1 Capsule in the morning. 03/26/2024 Syringe 23G X 1" 3 ML Use to inject toradol once daily as needed for pain in lower back. Past Week HYDROcodone-Acetaminophen 10-325 MG Oral Tablet Take 2 Tablets by mouth every 6 hours as needed forPain, Severe. 03/27/2024 Clopidogrel Bisulfate 75 MG Oral Tablet (pLAVix) Take by mouth 1 Tablet in the morning. 03/22/2024 Cyanocobalamin 1000 MCG/ML Injection Solution (Cyanocobalamin) Inject 1 mL subcutaneous every 2 weeks. Past Week Cholecalciferol 50 MCG (2000 UT) Oral Capsule Take 1 Capsule by mouth. Past Month Saccharomyces boulardii 250 MG Oral Capsule (FLORASTOR) Take 1 Capsule by mouth. Past Week Clindamycin HCl 150 MG Oral Capsule (Cleocin) Take 2 Capsules by mouth in the morning and 2 Capsules before bedtime. Do all this for 14 days. for 14 days.. Prochlorperazine Maleate 5 MG Oral Tablet (Compazine) Take 1 Tablet by mouth every 6 hours as needed for Nausea. Patient not taking: Reported on 03/19/2024 Not Taking Mupirocin 2 % External Ointment (Bactroban) Apply topically to affected area 2 times a day. Apply to open area Patient not taking: Reported on 03/19/2024 Not Taking NSS 0.9 % SOLN 19.8 mL with HYDROmorphone 50 MG/5ML SOLN 2 mg Inject into spinal canal continuous. ? dose Patient not taking: Reported on 03/19/2024 Not Taking Fluticasone Furoate-Vilanterol 200-25 MCG/INH Inhalation Aerosol Powder Breath Activated (BREO ellipta) Inhale by mouth 1 Puff in the morning. Patient not taking: Reported on 03/19/2024 Not Taking Albuterol Sulfate HFA 108 (90 Base) MCG/ACT Inhalation Aerosol Solution Inhale by mouth 2 Puffs every 4 hours as needed for Shortness of Breath or Wheezing. 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 Patient not taking: Reported on 03/19/2024 Not Taking ondansetron ODT (ZOFRAN) [address] 1 Tab on tongue every 8 hours as needed for Nausea. dissolve on tongue. Patient not taking: Reported on 03/27/2024 Not Taking Review of patient's allergies indicates: Allergen Reactions Bactrim [Sulfamethoxazole-Trimethoprim] Nausea/vomiting Duloxetine MALAISE Physical Exam: Mental Status Examination: alert and oriented. General: nad, calm Airway Examination: normal oropharyngeal airway and neck mobility. Respiratory Examination: symmetrical excursion Cardiac: RRR, no murmurs Abd:soft/ntd ASA Grade: II - A patient with mild systemic disease. After reviewing the risks and benefits, the patient was deemed in satisfactory condition to undergothe procedure. The anesthesia plan was to use general anesthesia. Radha Zabala DO Gastroenterology and Hepatology 03/27/2024 documented in this encounter Procedure Notes * Ian Morocho MD - 03/27/2024 10:35 AM EDTAssociated Order(s): COLONOSCOPY [facility] Patient Name: Shwetha Bolanos Procedure Date: 03/27/2024 10:35 AM Date of : 1980 Admit Type: Outpatient Note Status: Finalized Date of : 1980 Admit Type: Outpatient Age: 43 Room: [facility] 3 Gender: Female Note Status: Finalized Procedure: Colonoscopy Indications: High risk colon cancer surveillance: Personal history of colonic polyps Providers: Radha Zabala DO (Doctor) Patient Profile: This is a 43 year old female. Refer to note in patient chart for documentation of history and physical. Referring MD: Ian Morocho MD (Referring MD) Medicines: General Anesthesia Complications: No immediate complications. Procedure: Pre-Anesthesia Assessment: - Prior to the procedure, a History and Physical was performed, and patient medications and allergies were reviewed. The risks and benefits of the procedure and the sedation options and risks were discussed with the patient. All questions were answered and informed consent was obtained. Patient identification and proposed procedure were verified by the physician, the nurse and the senior windows systems administrator in the procedure room. Mental Status Examination: alert and oriented. Airway Examination: Mallampati Class II (the uvula but not tonsillar pillars visualized). Respiratory Examination: clear to auscultation. CV Examination: RRR, no murmurs, no S3 or S4. Prophylactic Antibiotics: The patient does not require prophylactic antibiotics. Prior Anticoagulants: The patient has taken Plavix (clopidogrel), last dose was 5 days prior to procedure. ASA Grade Assessment: II - A patient with mild systemic disease. After reviewing the risks and benefits, the patient was deemed in satisfactory condition to undergo the procedure. The anesthesia plan was to use general anesthesia. Immediately prior to administration of medications, the patient was re-assessed for adequacy to receive sedatives. The physical status of the patient was re-assessed after the procedure. After I obtained informed consent, the scope was passed under direct vision. All instruments were visually inspected immediately before and after removal from the patient to ensure they are fully intact. Throughout the procedure, the patient's blood pressure, pulse, and oxygen saturations were monitored continuously. The colonoscopy was performed without difficulty. The patient tolerated the procedure well. The quality of the bowel preparation was good. The [id number]-[id number] Colonoscope ([id number]) was introduced through the anus and advanced to the cecum, identified by appendiceal orifice and ileocecal valve. Findings & Specimens: Hemorrhoids were found on perianal exam. Internal hemorrhoids were found during retroflexion. The exam was otherwise normal throughout the examined colon. Impression: - Hemorrhoids found on perianal exam. - Internal hemorrhoids. - No specimens collected. Recommendation: - Patient has a contact number available for emergencies. The signs and symptoms of potential delayed complications were discussed with the patient. Return to normal activities tomorrow. Written discharge instructions were provided to the patient. - The patient will be observed post-procedure, until all discharge criteria are met. - Discharge patient to home (with escort). - Resume previous diet. - Continue present medications. - Repeat colonoscopy in 5 years for surveillance. Radha Zabala DO 03/27/2024 11:03:12 AM This report has been signed electronically. documented in this encounter Nursing Notes * Doug Carcamo RN - 03/27/2024 11:32 AM EDT Patient is alert, pain free and tolerating po fluids prior to discharge. Patient has been visited by Dr. Zabala. Patient has received and demonstrates understanding of discharge instructions. Patient ambulated to private auto accompanied by endo staff. * Doug Carcamo RN - 03/27/2024 11:03 AM EDT Patient transferred to post endo s/p colonoscopy. Patient sleeping Respirations are even and unlabored on room air. NSR in the 60s on the monitor. Abdomen soft and non distended. Vital signs stable. * Naomi Gonzalez RN - 03/27/2024 11:02 AM EDT See anesthesia record for medication administered during procedure. Naomi Gonzalez RN Pre cleaning of scope at the bedside started by electromechanical technologist. Mid abdominal pressure given per Dr. Zabala to assist with scope advancement. Pt tolerated well * Nevaeh Deleon RN - 03/27/2024 10:13 AM EDT The following pt discharge instructions reviewed with pt prior to prodedure: No driving today. No alcohol today. No signing of legal documents. Rest as much as possible today and can return to normal activities tomorrow. No operating any heavy equipment today. Diet as tolerated. Pt verbalized understanding. * Nevaeh Deleon RN - 03/27/2024 10:13 AM EDT Pt prepped and ready for anesthesia to assess. Call harden in reach. * Nevaeh Deleon RN - 03/27/2024 10:12 AM EDT Patient does not meet criteria for testing. documented in this encounter Plan of Treatment Upcoming Encounters Date Type Department Care Team (Late st Contact Info) Description 04/03/2024 11:00 AM EDT Office Visit Gastroenterology, [facility] [place] [address] [place] [address] Tatiana Bee CRNP [address] [place] [address] 04/23/2024 10:30 AM EDT Telemedicine Rheumatology, [place] [address] [place] [address] Agc5, Pharmacist Rheumatology [address] [place] [address] 04/25/2024 9:00 AM EDT Office Visit Radiation Oncology, [facility] [address] [place] [address] IovoliNahun MD [address] [place] [phone] 05/01/2024 9:15 AM EDT [facility] [address] [place] [address] Karli Aldana MD [address] [place] [address] 05/22/2024 10:00 AM EDT Office [facility] [address] [place] [address] BackerRomana CRNP [address] [facility] [address] 06/09/2024 1:15 PM EST Office Visit Plastic Surgery, [place] [address] [place] [address] Olena Baldwin PA-C [address] [place] [address] [place], Nurse Plastic Surg [address] [place] [address] 07/08/2024 7:15 AM EST Hospital Encounter OR [facility], OPERATING ROOM [facility], [facility] [address] [place] [id number] Gera Julien MD [address], [place] [id number] 07/08/2024 7:15 AM EST - 07/08/2024 4:25 PM EST Surgery OR [facility], OPERATING ROOM [facility], [address] [place] [address] [id number] Gera Julien MD [address], [place] [id number] BREAST RECONSTRUCTION; WITH FREE FLAP (EG, FTRAM, TAE, SIEA, GAP FLAP) 08/29/2024 9:10 AM EST Office Visit Rheumatology, [place] [address], [place] [id number] Soha Amato MD [address] [place] [address] Scheduled Procedures Name Priority Associated Diagnoses Date/Ti me COLONOSCOPY FLEXIBLE PROXIMAL DIAGNOSTIC Recall History of colon polyps 03/27/2024 10:42 AM EDT BREAST RECONSTRUCTION; WITH FREE FLAP (EG, FTRAM, TAE, SIEA, GAP FLAP) Malignant neoplasm of left female breast, unspecified estrogen receptor status, unspecified site of breast (HCC) 07/08/2024 7:15 AM EST Health Maintenance Due Date Last Done Comments HIV Screening 12/06/1994 Hepatitis B Vaccine (1 of 3 - 19+ 3-dose series) 12/06/1998 DTap/Tdap Vaccines (2 - Tdap) 02/02/2020 02/01/2010, 12/14/2004 Depression Monitoring 01/18/2023 01/18/2022 COVID-19 Vaccine (1 - season) 2023 Influenza Vaccine (FLU shot) (#1) 2024 05/16/2022, 05/24/2020, 08/04/2019, Additional history exists Diabetes Screening 07/04/2026 07/04/2023, 1 08/02/2021, 05/05/2022, Additional history exists Lipid Panel 10/17/2028 10/18/2023, 11/28, 12/17/2014 Colonoscopy 03/27/2029 03/27/2024, 11/2018, 11/01/2018 Pneumococcal Vaccine: Pediatrics (0 to 5 Years) and At-Risk Patients (6 to 64 Years) (3 of 3 - PPSV23 or PCV20) 12/06/2044 08/04/2019, 03/02/2014 Pap Smear Discontinued 04/13/2023, 01/03/2022 RETIRED - COLONOSCOPY-EVERY 5 YRS AGES 18-100 Discontinued 03/27/2024, 11/01/2018, 11/01/2018 HPV (Gardasil) Vaccine Aged Out No lo nger eligible based on patient's age to complete this topic MENINGOCOCCAL (MENACTRA/MENVEO) Aged Out No longer eligible based on patient's age to complete this topic documented as of this encounter Medical Devices Implanted Type Area Form Presser Device Identifier Shelf Expiration Date Model / Serial / Lot Alloderm Select 16x20 (320 Units) - [id number] - [id number] Implanted:Qty: 1 on 11/03/2021 by Gera Julien MD at OR [facility] [place] Right: Breast ALLERGAN 02/26/2023 [id number] / [id number] / [id number] Alloderm Select 16x20 (320 Units) - [id number] - [id number] Implanted:Qty: 1 on 11/03/2021 by Gera Julien MD at OR [facility] [place] Left: Breast ALLERGAN 04/28/2023 [id number] / [id number] / [id number] Breast [employer] Implanted:Qty: 1 on 11/03/2021 by Gera Julien MD at OR [facility] [place] Right: Breast MENTOR BREAST IMPLANTS 2024 [facility] [place], [place]-120H / [id number] [address] Breast [employer] Implanted:Qty: 1 on 11/03/2021 by Gera Julien MD at OR [facility] [place] Left: Breast [employer]ENTOR BREAST IMPLANT[employer] 2024 [facility] [place] [place]-120H / [id number] / [id number] documented as of this encounter Procedures Procedure Name Priority Date/Time Associated Diagnosis Comments COLONOSCOPY 03/27/2024 10:35 AM EDT documented in this encounter Results * COLONOSCOPY (03/27/2024 10:35 AM EDT) 03/27/2024 10:3 5 AM EDT Narrative Procedure Note Ian Morocho MD - 03/27/2024 10:35 AM EDT [facility] Patient Name: Shwetha Bolanos Procedure Date: 03/27/2024 10:35 AM Date of : 1980 Admit Type: Outpatient Note Status:Finalized Date of : 1980 Admit Type: Outpatient Age: 43 Room: [facility] 3 Gender: Female Note Status: Finalized Procedure: Colonoscopy Indications: High risk colon cancer surveillance: Personalhistory of colonic polyps Providers: Radha Zabala DO (Doctor) Patient Profile: This is a 43 year old female. Refer to note inpatient chart for documentation of history and physical. Referring MD: Ian Morocho MD (Referring MD) Medicines: General Anesthesia Complications: No immediate complications. Procedure: Pre-Anesthesia Assessment: - Prior to the procedure, a History and Physicalwas performed, and patient medications and allergies were reviewed. The risksand benefits of the procedure and the sedation options and risks were discussed withthe patient. All questions were answered and informed consent was obtained. Patientidentification and proposed procedure were verified by the physician, the nurseand the senior windows systems administrator in the procedure room. Mental Status Examination: alertand oriented. Airway Examination: Mallampati Class II (the uvula but not tonsillarpillars visualized). Respiratory Examination: clear to auscultation. CV Examination:RRR, no murmurs, no S3 or S4. Prophylactic Antibiotics: The patient does notrequire prophylactic antibiotics. Prior Anticoagulants: The patient has taken Plavix(clopidogrel), last dose was 5 days prior to procedure. ASA Grade Assessment: II -A patient with mild systemic disease. After reviewing the risks and benefits,the patient was deemed in satisfactory condition to undergo the procedure.The anesthesia plan was to use general anesthesia. Immediately prior toadministration of medications, the patient was re-assessed for adequacy to receive sedatives.The physical status of the patient was re-assessed after the procedure. After I obtained informed consent, the scope waspassed under direct vision. All instruments were visually inspected immediatelybefore and after removal from the patient to ensure they are fully intact. Throughout the procedure, the patient's bloodpressure, pulse, and oxygen saturations were monitored continuously. The colonoscopy wasperformed without difficulty. The patient tolerated the procedure well. The qualityof the bowel preparation was good. The [id number] Colonoscope ([id number]) was introducedthrough the anus and advanced to the cecum, identified by appendiceal orifice andileocecal valve. Findings & Specimens: Hemorrhoids were found on perianal exam. Internal hemorrhoids were found during retroflexion. The exam was otherwise normal throughout the examined colon. Impression: - Hemorrhoids found on perianal exam. - Internal hemorrhoids. - No specimens collected. Recommendation: - Patient has a contact number available foremergencies. The signs and symptoms of potential delayed complications were discussed withthe patient. Return to normal activities tomorrow. Written discharge instructionswere provided to the patient. - The patient will be observed post-procedure,until all discharge criteria are met. - Discharge patient to home (with escort). - Resume previous diet. - Continue present medications. - Repeat colonoscopy in 5 years for surveillance. Radha ZabalaDO 03/27/2024 11:03:12 AM This report has been signed electronically. Ian Morocho MD GASTRO LOWER documented in this encounter Administered Medications Inactive Administered Medications - up to 3 most recent administrations Medication Order MAR Action Action Date Dose Rate Site isolyte-S pH 7.4 infusion Intravenous, at 75 mL/hr, for Outpatient patient Plasma-LYTE 148, isolyte-S, and isolyte-S pH 7.4 are considered equivalent - including for MAR barcode scanning., CONTINUOUS, Starting on Opal 03/27/24 at 1030, Until Opal 03/27/24 at 1532, Pre-Op Continue from Pre-Op 03/27/2024 10:40 AM EDT 75 mL/hr New Bag 03/27/2024 10:30 AM EDT 75 mL/hr 75 mL/hr documented in this encounter Active and Recently Administered Medications Times are shown in EDT. Continuous Medication Order 03/25/2024 03/26/2024 03/27/2024 isolyte-S pH 7.4 infusion Intravenous, at 75 mL/hr, for Outpatient patient Plasma-LYTE 148, isolyte-S, and isolyte-S pH 7.4 are considered equivalent - including for MAR barcode scanning., CONTINUOUS, Starting on Opal 03/27/24 at 1030, Until Opal 03/27/24 at 1532, Pre-Op 1030 (New Bag - Prov ider: Nevaeh Deleon RN)1040 (Continue from Pre-Op - Provider: Genesis Jarrell CRNA)1101 (Anes Intra-Op Fluid - Provider: Genesis Jarrell CRNA) documented in this encounter Advance Directives * Full Code (Latest Code Status on File) Date Activated Date Inactivated Comments 11/03/2021 11:07 AM 11/04/2021 1:17 PM This order re flects the patients wishes and were consensually agreed upon. Care Teams Alumni Relations Coordinator Relationship Specialty Start Date End Date Ian Morocho MD [address] [place] [address] PCP - General Family Medicine 12/06/22 documented as of this encounter
--- OUTSIDE RECORDS SUMMARY | 2024-04-08 15:19 | External Medical Summary | Continuity of Care Document ---
Author Name Unknown Organization [facility] [id number] [address] [place] [address] [id number] Care Team Providers Care Core Checker Name Role Phone Ian Morocho Primary Care Physician [phone] [id number] Date(s): 04/01/24 - 04/01/24 [facility] [address] [facility] [address] [place] [phone] Encounter Diagnosis Physical exam(Discharge Diagnosis) - 04/01/24 Acute infection of nasal sinus(Discharge Diagnosis) - 04/01/24 Acute sinusitis, unspecified(Final) - Discharge Disposition: Home or Self Care Attending Physician: MD Morocho Christopher Allergies, Adverse Reactions, Alerts Substance Criticality Severity Reaction Reaction Severity Status buPROPion agitation, nastiness Active naloxegol worsening of chronic pain Active varenicline agitation Active DULoxetine Anxiety Active Assessment and Plan Extracted from: Title:Office Visit Note Author:DO Wallace Alonn a Paige Date:04/01/24 1.Physical exam - encouraged diet and exercise routine that is appropriate for age and history - dental and eye care discussed - encouraged yearly eye exams and biannual dental care - reviewed vaccinations, discussed COVID/Flu - screening labs ordered, none at visit, UTD - breast cancer screening ongoing w/ Oncologist - colon cancer screening discussed, up to date - cervical cancer screening discussed, UTD at visit, follows w/ [facility] - not actively smoking or overusing alcohol 2.Acute infection of nasal sinus - Acute on chronic, not at goal - Diagnosed with MSSA infection at ENT - Failed trial of Bactrim (unable to complete) and Mupirocin - Prior cultures negative for MRSA - Repeat culture at visit - Will Rx Abxpending cultures d/t hx of CDifficile - Advised starting probiotic now Immunizations Given and Recorded Vaccine Date Status Refusal Reason zoster vaccine, inactivated 08/20/23 Recorded pneumococcal 13-valent vaccine 1 08/04/19 Recorded tetanus/diphtheria/pertuss, acel (Tdap) 2 01/15/15 Recorded diphtheria/pertussis, whole cell/tetanus 3 01/15/15 Recorded poliovirus vaccine, inactivated 4 02/08/05 Recorde d tetanus toxoids-diphtheria, Td (Adult) 5 12/14/04 Recorded 1Result Comment: 2022-08-31: Historical information-source unspecified 2Result Comment: 2022-08-31: Historical information-source unspecified 3Result Comment: 2022-08-31: Historical information-source unspecified 4Result Comment: 2022-08-31: Historical information-source unspecified 5Result Comment: 2022-08-31: Historical information-source unspecified Medications acetaminophen-HYDROcodone 325 mg-5 mg oral tablet Start: 11/16/22 10:16:00 AM EDT, 2 tab, PO, q6h, Refills: 0, PRN: as needed for pain Start Date: 11/16/22 Status: Ordered Albuterol (Eqv-ProAir HFA) 90 mcg/inh inhalation aerosol Start: 11/16/22 10:11:00 AM EDT Start Date: 11/16/22 Status: Ordered ALPRAZolam 0.5 mg oral tablet Start: 02/11/24 1:59:00 PM EDT, See Instructions, Disp# 30 tab, Refills: 0, TAKE 1 TABLET BY MOUTH ONCE DAILY IF NEEDED FOR ANXIETY, Pharmacy: [id number] Start Date: 02/11/24 Status: Ordered BD 3 mL Luer-Keri Syringe 25G x 1" Start: 06/20/23 10:08:00 AM EST, See Instructions, Disp# 100 each, Refills: 0, Use as directed. Max1/day. Use new syringe with each injection., Pharmacy: [id number] Start Date: 06/20/23 Status: Ordered BD Luer-Keri Syringe Miscellaneous 25G X 1" 3 ML Start: 09/17/23 11:28:00 AM EST, BD Luer-Keri Syringe Miscellaneous 25G X 1" 3 ML, See Instructions, Disp# 100 unknown unit, Refills: 0, USE DIRECTED. MAX 1/DAY. USE NEW SYRINGE WITH EACH INJECTION., Pharmacy [id number] Start Date: 09/17/23 Status: Ordered citalopram 40 mg oral tablet Start: 12/10/23 3:54:00 PM EDT, 1 tab, PO, Daily, Disp# 90 tab, Refills: 4, Pharmacy: [id number] Start Date: 12/10/23 Status: Ordered cloNIDine Start: 03/12/24 3:13:00 PM EDT Start Date: 03/12/24 Status: Ordered clopidogrel 75 mg oral tablet Start: 02/11/24 8:45:00 AM EDT, 1 tab, PO, Daily, Disp# 30 tab, Refills: 2, Pharmacy: [id number] Start Date: 02/11/24 Status: Ordered cyanocobalamin 1000 mcg/mL injectable solution Start: 01/07/24 10:04:00 AM EDT, 1 mL, IM, [id number], Disp# 30 mL, Refills: 0, Pharmacy: [id number] Start Date: 01/07/24 Status: Ordered ergocalciferol 1.25 mg (50,000 intl units) oral capsule Start: 11/16/22 10:15:00 AM EDT, 1 cap, PO, q7days Start Date: 11/16/22 Status: Ordered hydromorphone Start: 02/15/23 10:19:00 AM EDT, hydromorphone, pump Start Date: 02/15/23 Status: Ordered HYDROmorphone 2 mg oral tablet Start: 11/16/22 10:02:00 AM EDT, 1 tab, PO, q4h, Refills: 0, PRN: as needed for pain Start Date: 11/16/22 Status: Ordered ketoconazole 2% topical shampoo Start: 11/16/22 10:16:00 AM EDT, 1 appl, topical Start Date: 11/16/22 Status: Ordered ketorolac 30 mg/mL injectable solution Start: 03/13/24 10:57:00 AM EDT, See Instructions, Disp# 2 mL, Refills: 0, INJECT 1 ML INTO A MUSCLEEVERY 2 WEEKS, Pharmacy: [id number] Start Date: 03/13/24 Status: Ordered Milk of Magnesia 8% oral suspension Start: 10/29/23 9:42:00 AM EDT, 15 mL, PO, qhs, Disp# 360 mL, PRN: as needed for constipation, Pharmacy: [id number] Start Date: 10/29/23 Status: Ordered omeprazole 40 mg oral delayed release capsule Start: 12/10/23 3:54:00 PM EDT, 1 cap, PO, qhs, Disp# 90 cap, Refills: 4, Pharmacy: [id number] Start Date: 12/10/23 Status: Ordered ondansetron 4 mg oral tablet, disintegrating Start: 11/16/22 10:17:00 AM EDT, 1 tab, PO, tid, PRN: as needed for nausea/vomiting Start Date: 11/16/22 Status: Ordered Penlac Nail Lacquer 8% topical solution Start: 11/16/22 10:58:00 AM EDT, 1 appl, topical, Daily, Disp# 6.6 mL, Refills: 1, Pharmacy: [id number] Start Date: 11/16/22 Stop Date: 09/18/24 Status: Ordered Rinvoq 15 mg oral tablet, extended release Start: 09/05/23 3:00:00 PM EST, 1 tab, PO, Daily, Supply Start Date: 09/05/23 Status: Ordered saccharomyces boulardii lyo 250 mg oral capsule Start: 11/16/22 10:18:00 AM EDT, 1 cap, PO, bid, PRN: as needed for loose stool Start Date: 11/16/22 Status: Ordered triamcinolone 0.1% topical cream Start: 03/12/23 2:08:00 PM EDT, See Instructions, Disp# 30 g, Refills: 0, APPLY TOPICAL TWICE A DAY FOR 14 DAYS, Pharmacy: [id number] Start Date: 03/12/23 Status: Ordered Mental Status 04/01/24 Barriers to Learning one year None evide nt Mandatory Health Literacy Documentation Yes Health Literacy Communication Barriers N ever Primary Language Northern Irish Problem List Condition Confirmation Course Effective Dates Status H ealt Status Informant Ankylosing spondylitis 1 Confirmed Active Asthma Confirmed Active Chronic pain syndrome Confirmed Active Constipation Confirmed Active Depression Confirmed Active Factor V Confirmed Active Fibromyalgia Confirmed Active GERD without esophagitis Confirmed Active Gastroparesis Confirmed Active History of Clostridium difficile colitis Confirmed Active Right hip pain Confirmed Active History of breast cancer in female Confirmed Active Implantable intrathecal infusion pump present Confirmed Active Knee pain, right Confirmed Active Lumbar radiculopathy, chronic Confirmed Active Opioid dependence Confirmed Active Tobacco user Confirmed Active 1diagnosed 2013; neg. HLA-B27; has had uveitus twice. See Diagnosis Diagnosis Type Effective Dates Health Status Cl inical Service Informant Physical exam Discharge Diagnosis 04/01/24 Non-Specified Acute infection of nasal sinus Discharge Diagnosis 04/01/24 Non-Specified Procedures Procedure Date Related Diagnosis Body Site Status Oophorectomy 10/2022 Completed Bilateral mastectomy 10/2021 Comp leted Lumpectomy of breast 08/2020 Comp leted Laparoscopic total hysterect beverley using robotic assistance 08/27/20 Completed FESS - Functional endoscopic sinus surgery 2014 Completed Tonsillectomy and adenoidectomy 2010 Completed Endometrial ablation 07/29/09 Comp leted Colposcopy of cervix 07/29/04 Comp leted Results Orders for Microbiology Reports Name Date Nasal Culture (THROAT/NASAL CULTURE) 04/01 Microbiology Reports TEST:Thr/Nasal.Cx STATUS:Auth (Verified) BODY SITE: SOURCE:Nasal COLLECTED DATE/TIME:04/01/24 3:20 PM Status FINAL 04/03/2024 Vital Signs Most recent to oldest [Reference Range]: 1 Height 165 cm (04/01/24 1:17 PM) Patient Weight 73.9 kg (04/01/24 1:17 PM) Body Mass Index 27.14 kg/m2 (04/01/24 1:17 PM) Temperature [36.5-37.9 DegC] 37.2 DegC (04/01/24 1:17 PM) Blood Pressure 122/74mmHg (04/01/24 1:17 PM) BP Location # 1 Left Arm (04/01/24 1:17 PM) Social History Social History Type Response Tobacco Current every day sm oker, Cigarettes, 0.5 per day. Started age 17 Years. Ready to change: Yes. 1 Smoking Status Former Smoker, quit in last 30 days Sex Female Sex Representation Female (finding) 1has had hypnotherapy once. FCM Outpt Note * DO Walalce Alonna Paige: ELIZABETH Hernández MD, Merrill Amezcua: MODIFY Event Display: FCM Outpt Note Authored Date: [id number] Chief Complaint Here for CPE. History of Present Illness Millie javier 43F w/ PMH of CPS, asthma, depression, fibromyalgia, gastroparesis, GERD, breast cancer, ankylosing spondylitis, lumbar radiculopathy and opioid dependence who presents for CPE. Acute Concerns: - Cardio/Neuro referrals pending from 03/12/24 appointment - Staph Infection in Nostril - S/p Bactrim, couldn't complete d/t gastroparesis associated nausea and emesis, diagnosed in November, was MRSA negative at that time, does note increased amount of clear drainage from the nose, mostly concerned with pain, no pain extending into cheek,no fevers or chills,did have a sinus endoscope in 2010 but no prior surgeries. Has been using Mupirocin BID for 2 months. Has seen ENT for nasal lesion in the past. Interval History: - No hospitalizations or UC visits in last 12 mo. - Receives dental care q6mo. - Receives eye care q1yr. w/o complaint - PMH and PSH reviewed & updated - Immunizations reviewed & updated Problems - Hx BC - Dx 2020, s/p double mastectomy, s/p radiation no chemotherapy, reconstruction later this year, some pain ongoing from radiation - CPS/Fibromyalgia/Radiculopathy - Intrathecal pain pump w/ Clonidine and Hydromorphone - GERD: Ongoing omeprazole, sx controlled - Asthma: Stable, no need for inhalers - Depression: Stable on current meds - Gastroparesis: FH, 5 years of sx,no helpful interventions thus far,s tarted prior to intrathecal pain medications Social: Feeling safe at home and in relationships without concern. Job: Disabled Enjoys her dogs Alcohol: None Tobacco: 4 weeks ago quit with patch Diet: Limited intake d/t gastroparesis pain, Premier protein supplements Exercise: None Health Maintenance: - Cervical Cancer Screening: UTD, prior abnormals but last 2 were wnl, last done 2022, follows jules Caba of endometriosis - Breast Cancer Screening: Following with oncology and breast surgeon for imaging and treatments - Colon Cancer Screening: No FH, not indicated at this time, 2023 wnl - Lung Cancer Screening: Not indicated at this time, but will be at 49 d/t smoking history - Metabolic Screening: Not indicated at this time, had fasting CMPand Lipid Profile in September 2023 - Depression Screening: Performed, negative Physical Exam Vitals & Measurements T:37.2C BP:122/74 SpO2:97% HT:165cm WT:73.900kg(Dosing) WT:73.9kg BMI:27.14 PHQ2 Data(Data Documented on:04/01/2024 13:16) Emotional health assessment NEGATIVE General: NAD, alert, interactive HEENT: NC/AT, PERRL, EOMI, MMM - Patent nares bilaterally, right w/ increased erythema, significant erythema to lateral wall and nasal turbinates, R nasal ring Neck: Supple, no LAD, normal ROM Respiratory: Non-labored, no wheezing/rhonchi/rales, CTAB Cardiovascular: RRR, normal S1/S2, no murmur/rubs/gallops Abdomen: Soft, non-distended, no TTP, normoactive bowel sounds, no masses Extremities: Full ROM, strength/sensation intact, cap refill <2s, 2+ dp bilaterally, no peripheral edema Neurologic: Alert/oriented X3, CN II-XII grosslyintact, reflexes 2+ Assessment/Plan 1.Physical exam - encouraged diet and exercise routine that is appropriate for age and history - dental and eye care discussed - encouraged yearly eye exams and biannual dental care - reviewed vaccinations, discussed COVID/Flu - screening labs ordered, none at visit, UTD - breast cancer screening ongoing w/ Oncologist - colon cancer screening discussed, up to date - cervical cancer screening discussed, UTD at visit, follows w/ [facility] - not actively smoking or overusing alcohol 2.Acute infection of nasal sinus - Acute on chronic, not at goal - Diagnosed with MSSA infection at ENT - Failed trial of Bactrim (unable to complete) and Mupirocin - Prior cultures negative for MRSA - Repeat culture at visit - Will Rx Abxpending cultures d/t hx of CDifficile - Advised starting probiotic now Attestation I separately obtained a brief history and evaluation on this patient, discussed the case with and agree with the assessment and plan of Dr. Wallace. Problem List/Past Medical History Ongoing Ankylosing spondylitis Asthma Chronic pain syndrome Constipation Depression Factor V Fibromyalgia Gastroparesis GERD without esophagitis History of breast cancer in female History of Clostridium difficile colitis Implantable intrathecal infusion pump present Knee pain, right Lumbar radiculopathy, chronic Opioid dependence Right hip pain Tobacco user Procedure/Surgical History Oophorectomy| Service Date: ilateral mastectomy| Service Date: 10/2021Lumpectomy of breast| Service Date: aparoscopic total hysterectomy using robotic assistance| Service Date: 08/27/2020FESS - Functional endoscopic sinus surgery| Service Date: 2014Tonsillectomy and adenoidectomy| Service Date: 2010Endometrial ablation| Service Date: 07/29/2009Colposcopy ofcervix| Service Date: 07/29/2004 Medications acetaminophen-HYDROcodone(acetaminophen-HYDROcodone 325 mg-5 mg oral tablet), 2 tab, PO, q6h, PRN albuterol(Albuterol (Eqv-ProAir HFA) 90 mcg/inh inhalation aerosol) ALPRAZolam(ALPRAZolam 0.5 mg oral tablet), See Instructions ciclopirox topical(Penlac Nail Lacquer 8% topical solution), 1 appl, topical, Daily, 1 refills citalopram(citalopram 40 mg oral tablet), 1 tab, PO, Daily cloNIDine clopidogrel(clopidogrel 75 mg oral tablet), 1 tab, PO, Daily cyanocobalamin(cyanocobalamin 1000 mcg/mL injectable solution), 1 mL, IM, [id number] ergocalciferol(ergocalciferol 1.25 mg (50,000 intl units) oral capsule), [id number] Int_Unit= 1 cap, PO,q7days HYDROmorphone(HYDROmorphone 2 mg oral tablet), 2 mg= 1 tab, PO, q4h, PRN ketoconazole topical(ketoconazole 2% topical shampoo), 1 appl, topical ketorolac(ketorolac 30 mg/mL injectable solution), See Instructions magnesium hydroxide(Milk of Magnesia 8% oral suspension), 1.2 g= 15 mL, PO, qhs, PRN omeprazole(omeprazole 40 mg oral delayed release capsule), 1 cap, PO, qhs ondansetron(ondansetron 4 mg oral tablet, disintegrating), 4 mg= 1 tab, PO, tid, PRN saccharomyces boulardii lyo(saccharomyces boulardii lyo 250 mg oral capsule), 250 mg= 1 cap, PO, bid, PRN syringe(BD 3 mL Luer-Keri Syringe 25G x 1"), See Instructions triamcinolone topical(triamcinolone 0.1% topical cream), See Instructions unlisted medication(BD Luer-Keri Syringe Miscellaneous 25G X 1" 3 ML), See Instructions unlisted medication(hydromorphone) upadacitinib(Rinvoq 15 mg oral tablet, extended release), 15 mg= 1 tab, PO, Daily Allergies DULoxetineAnxiety buPROPionagitation, nastiness naloxegolworsening of chronic pain vareniclineagitation Social History Smoking Status Former Smoker, quit in last 30 days Alcohol - Denies Alcohol Use Nutrition/Health Type of diet:Regular Wants to lose weight:Yes Substance Abuse - Denies Substance Abuse Tobacco - Low Risk Use:Current every day smoker Type:Cigarettes Tobacco use per day:0.5 Started at age:17Years Ready to change:Yes - Comments: has had hypnotherapy once. Family History Bleeding disorder: Unknown. Breast cancer: Mother (Dx at 56 years). Cancer: Unknown. Diabetes: Unknown. Factor V Leiden mutation......: Father. Migraine: Mother. Type II diabetes mellitus: Father. Health Status Family Member(s) Immunizations Vaccine Date Status zoster vaccine, inactivated 08/20/2023 Recorded pneumococcal 13-valent vaccine 08/04/2019 Recorded Comments : 2022-08-31: Historical information-source unspecified tetanus/diphtheria/pertuss, acel (Tdap) 01/15/2015 Recorded Comments : 2022-08-31: Historical information-source unspecified diphtheria/pertussis, whole cell/tetanus 01/15/2015 Recorded Comments : 2022-08-31: Historical information-source unspecified poliovirus vaccine, inactivated 02/08/2005 Recorded Comments : 2022-08-31: Historical information-source unspecified tetanus toxoids-diphtheria, Td (Adult) 12/14/2004 Recorded Comments : 2022-08-31: Historical information-source unspecified Recommendations Health Maintenance Pending(in the next year) OverDue Adult Influenza Vaccine due01/27/24and every 1year Due Adult COVID-19 Vaccination due04/01/24Unknown Frequency Adult Folic Acid Supplementation due04/01/24and every 3year Adult Social Determinants of Health Screening due04/01/24Unknown Frequency Pneumococcal Vaccine Adults and Adolescents with Chronic Illness due04/01/24One-time only Shingles Vaccine due04/01/24One-time only Satisfied(in the past 1 year) Satisfied Body Mass Index on04/01/24.Satisfied by LINDA Figueroa Paula Lipid Screening on10/05/23.Satisfied by Contributor_system, [id number] Shingles Vaccine on08/20/23.Satisfied by MD Morocho Christopher Electronic Signature on File Electronically Reviewed/Signed by: Rosie Wallace DO Author Signature Dt/Tm:04/01/2024 03:00 PM Resident Department of Family Medicine Electronically Reviewed/Signed by: Merrill Hernández MD Cosigner Signature Dt/Tm: 04/01/2024 03:57 PM Assoc. [facility], [facility] [address] [place] [address] , APQ Patient Care team information Care Team Personnel Name: MD Edgar, Merrill Amezcua Position: Physician - Family Med Member Role: Lifetime Relationship Address: [address] [place] [address] [place] Name: MD Morocho Christopher Position: Physician - Family Med Member Role: Primary Care Provider Address: [address] [place] [address] [place] Care Team Related Persons Name: BEATA GUERRA Name: MARGUERITE BLISS I
--- OUTSIDE RECORDS SUMMARY | 2024-04-08 15:20 | External Medical Summary | Summary of Care ---
Author Name Unknown Organization [facility] Address [address] [place] [address] Phone [phone] Care Team Providers Care Pharmacy Resource Tech Name Role Phone Ian Morocho MD Primary Care Provid er Reason for Visit * Reason Onset Date Comments Surgery 03/10/2024 Encounter Details Date Type Department Care Team ([facility] st Contact Info) Description 03/10/2024 Telephone Plastic Surgery, [place] [address], [place] [phone] Gera Julien MD [address], [place] [phone] Surgery Allergies Active Allergy Reactions Criticality Noted Date Comments Sulfamethoxazole-Trimethoprim Nausea/vomiting 0 04/13/2023 Duloxetine 07/27/2020 MALAISE documented as of this encounter (statuses as of 03/10/2024) Medications Medication Sig Dispensed Refills Start Date End Date Status ondansetron ODT (ZOFRAN) [address] 1 Tab on tongue every 8 hours as needed for Nausea. dissolve on tongue. 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 Active Saccharomyces boulardii 250 MG Oral Capsule (FLORASTOR) Take 1 Capsule by mouth. Active Cyanocobalamin 1000 MCG/ML Injection Solution (Cyanocobalamin) Inject 1 mL subcutaneous every 2 weeks. 05/19/2021 Active Albuterol Sulfate HFA 108 (90 Base) MCG/ACT Inhalation Aerosol SolutionIndications :Wheezing Inhale by mouth 2 Puffs every 4 hours as needed for Shortness of Breath or Wheezing. 18 g 04/17/2022 Active Fluticasone Furoate-Vilanterol 200-25 MCG/INH Inhalation Aerosol Powder Breath Activated (BREO ellipta) Inhale by mouth 1 Puff in the morning. 60 Blister Dosing Unit 3 05/16/2022 Active Additional Information Patient taking differently:1 Puff InhalationPRN, Reported on 02/23/2023 Clopidogrel Bisulfate 75 MG Oral Tablet (pLAVix) Take by mouth 1 Tablet in the morning. 30 Tablet 5 05/19/2022 Active HYDROcodone-Acetami nophen 10-325 MG Oral TabletIndications:I nflammation of sacroiliac joint (HCC),Ankylosing spondylitis of multiple sites in spine (HCC),Sacroiliitis (HCC),Neuropathy,Ch ronic prescription opiate use,MEDICATION USE AGREEMENT Take 2 Tablets by mouth every 6 hours as needed for Pain, Severe. 170 Tablet 07/11/2022 Active Syringe 23G X 1" 3 MLIndications:Ankyl osing spondylitis of multiple sites in spine (HCC),Sacroiliitis [...] 10/30/2022 Active Additional Information Patient taking differently: Takes at night, Reported on 11/12/2023 NSS 0.9 % SOLN 19.8 mL with [...] to open area 22 g 04/09/2023 Active Prochlorperazine Maleate 5 MG Oral Tablet (Compazine)Indicati ons:Nausea Take 1 Tablet by mouth every 6 hours as needed for Nausea. 30 Tablet 2 11/12/2023 Active Rinvoq 15 MG Oral Tablet Extended Release 24 Hour (Upadacitinib ER)Indications: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 30 Tablet 12/03/2023 Active mupirocin calcium 2 % NA OINT Administer 0.5 g into each nostril in the morning and 0.5 g before bedtime. 15 g 2 02/13/2024 Active documented as of this encounter (statuses as of 03/10/2024) Active Problems Problem Noted Date Diagnosed Date [...] of test: Expansive testing for breast and astronomy department chair cancer risk -- 36 genes Genes Included: [...] QHS; s/p trigger point injections Dr. [facility] [phone] Anxiety 12/26/2013 Depression 12/26/2013 Overview: Reviewed prior [...] as of this encounter (statuses as of 03/10/2024) Resolved Problems Problem Noted Date Diagnosed Date [...] as of this encounter (statuses as of 03/10/2024) Immunizations Name Administration Dates Next Due DTaP Dipth/Tet/Acell Pertussis (Infanrix), Peds 02/01/2010 Pneumococcal Conjugate Vacc, 13 Valent (Prevnar) 08/04/2019 Pneumococcal Polysaccharide PPV23 (Pneumovax) 03/02/2014 Seasonal Influenza Virus Vac cine, Unspecified Formulation 07/30/2019 Seasonal Influenza, PF, 6 M & above, IM , (FluLaval or Fluzone) 05/16/2022,05/24/2020,05/23/2018,06/13 Seasonal Influenza, Quadriva lent, No Preserve, IM 05/22/2016 Seasonal Influenza, Recombin ant, RIV4, PF, (Flublock) 08/04/2019 Seasonal Influenza, Split, I IV3, With Preserve, Inj 09/17/2010,07/30/2007 Zoster Vaccine Recombinant (Shingrix) 01/28/2018 ,11/26/2017 [...] on file documented as of this encounter Functional Status Functional Status Response [...] Yes 02/05/2014 documented as of this encounter Miscellaneous Notes * Telephone Encounter - Vannessa Carrillo OSA - 03/10/2024 1:45 PM EDT Phoned to discuss OR date, LVM to call us back to discuss [phone] documented in this encounter Plan of Treatment Upcoming Encounters Date Type Department Care Team (Late st Contact Info) Description 03/28/2024 1:30 PM EDT Hospital Encounter ENDO OSS[facility], Endoscopy Room [facility] [address] [place] [phone] Beatriz Tony MD [address] [place] [address] 03/28/2024 1:30 PM EDT - 03/28/2024 2:00 PM EDT Surgery ENDO [facility], Endoscopy Room [facility] [address] [place] [phone] Beatriz Tony MD [address] [place] [address] COLONOSCOPY FLEXIBLE PROXIMAL DIAGNOSTIC 04/03/2024 11:00 AM EDT Office Visit Gastroenterology, [facility] [address] [place] [address] Tatiana Bee CRNP [address] [place] [address] 04/23/2024 10:30 AM EDT Telemedicine Rheumatology, [address] [address] Agc5, Pharmacist Rheumatology [facility] [place] [facility] [address] 04/25/2024 9:00 AM EDT Office Visit Radiation Oncology, [address] [place] [address] Nahun Aguillon MD [address] [place] [phone] 05/01/2024 9:15 AM EDT [facility]medicine [facility] [address] [place] [address] Karli Aldana MD [address] [place] [address] 05/22/2024 10:00 AM EDT Office Visit Gynecology/Obstetr [facility] [address] [place] [address] Romana Streeter CRNP [address] [place] [address] 08/29/2024 9:10 AM EST Office Visit Rheumatology, [place] [address] [place] [address] Soha Amato MD [address] [place] [address] Scheduled Procedures Name Priority Associated Diagnoses Date/Ti me COLONOSCOPY FLEXIBLE PROXIMAL DIAGNOSTIC Recall History of colon polyps 03/28/2024 1:30 PM EDT BREAST RECONSTRUCTION; WITH FREE FLAP (EG, FTRAM, TAE, SIEA, GAP FLAP) Malignant neoplasm of left female breast, unspecified estrogen receptor status, unspecified site of breast (HCC) Health Maintenance Due Date Last Done Comments COVID-19 Vaccine (#1) 12/06/1984 HIV Screening 12/06/1994 Hepatitis B Vaccine (1 of 3 - 19+ 3-dose series) 12/06/1998 Pneumococcal Vaccine: Pediatrics (0 to 5 Years) and At-Risk Patients (6 to 64 Years) (3 of 3 - PPSV23 or PCV20) 09/29/2019 08/04/2019, 03/02/2014 DTaP,Tdap,and Td Vaccines (2 - Tdap) 02/02/2020 02/01/2010, 12/14/2004 Depression Monitoring 01/18/2023 01/18/2022 Influenza Vaccine (FLU shot) (#1) 2024 05/16/2022, 05/24/2020, 08/04/2019, Additional history exists Colonoscopy 12/06/2024 11/01/2018, 11/01/2018 Diabetes Screening 07/04/2026 07/04/2023, 1 08/02/2021, 05/05/2022, Additional history exists Lipid Panel 10/17/2028 10/18/2023, 11/28, 12/17/2014 RETIRED - COLONOSCOPY-EVERY 5 YRS AGES 18-100 Discontinued 11/01/2018, 11/01/2018 Pap Smear Discontinued 04/13/2023, 01/03/2022 HPV (Gardasil) Vaccine Aged Out No lo nger eligible based on patient's age to complete this topic MENINGOCOCCAL (MENACTRA/MENVEO) Aged Out No longer eligible based on patient's age to complete this topic documented as of this encounter Medical Devices Implanted Type Area Resource Manager Device Identifier Shelf Expiration Date Model / Serial / Lot Alloderm Select 16x20 (320 Units) - [id number] - [id number] Implanted:Qty: 1 on 11/03/2021 by Gera Julien [place] [facility] [place]: Breast ALLERGAN 02/26/2023 [id number] / [id number] / [id number] Alloderm Select 16x20 (320 Units) - [id number] - [id number] Implanted:Qty: 1 on 11/03/2021 by Gera Julien MD at [place] [facility] Left: Breast ALLERGAN 04/28/2023 [id number] / [id number] / [id number] 375 [place] Breast Inking Machine Tender Implanted:Qty: 1 on 11/03/2021 by Gera Julien MD [place] [facility] [place] Right: Breast MENTOR BREAST IMPLANTS 2024 [facility] / [id number] 375 [place] Breast Inking Machine Tender Implanted:Qty: 1 on 11/03/2021 by Gera Julien MD at [facility] Left: Breast MENTOR BREAST IMPLANTS 2024 [facility] / [id number] documented as of this encounter Advance Directives * Full Code (Latest Code Status on File) Date Activated Date Inactivated Comments 11/03/2021 11:07 AM 11/04/2021 1:17 PM This order re flects the patients wishes and were consensually agreed upon. Care Teams Pharmacy Resource Tech Relationship Specialty Start Date End Date Ian Morocho MD [address] [address] PCP - General Family Medicine 12/06/22 documented as of this encounter
--- OUTSIDE RECORDS SUMMARY | 2024-04-08 15:20 | External Medical Summary | Summary of Care ---
Author Name Unknown Organization [facility] Address [address] [place] [address] Phone [phone] Care Team Providers Care Entry Level Sales Consultant Name Role Phone Ian Morocho MD Primary Care Provid er Reason for Visit * Reason Onset Date Comments Surgery 03/14/2024 Encounter Details Date Type Department Care Team ([facility] st Contact Info) Description 03/14/2024 Telephone Plastic Surgery, [place] [address], [place] [phone] Gera Julien MD [address], [place] [phone] Surgery Allergies Active Allergy Reactions Criticality Noted Date Comments Sulfamethoxazole-Trimethoprim Nausea/vomiting 0 04/13/2023 Duloxetine 07/27/2020 MALAISE documented as of this encounter (statuses as of 03/14/2024) Medications Medication Sig Dispensed Refills Start Date [...] as of this encounter (statuses as of 03/14/2024) Active Problems Problem Noted Date Diagnosed Date [...] of test: Expansive testing for breast and health care attorney cancer risk -- 36 genes Genes Included: [...] QHS; s/p trigger point injections [facility] [phone] Anxiety 12/26/2013 Depression 12/26/2013 Overview: Reviewed prior [...] as of this encounter (statuses as of 03/14/2024) Resolved Problems Problem Noted Date Diagnosed Date [...] as of this encounter (statuses as of 03/14/2024) Immunizations Name Administration Dates Next Due DTaP [...] Telephone Encounter - Vannessa Carrillo OSA - 03/14/2024 9:47 AM EDT Phoned pt to discuss an OR date, pt accepted OR date 07/08. Call transferred to POD to schedule H&P appt documented in this encounter Plan of Treatment Upcoming Encounters Date Type Department Care Team (Late st Contact Info) Description 03/28/2024 1:30 PM EDT Hospital Encounter ENDO OSSC, Endoscopy Room [facility] [address] [place] [phone] Beatriz Tony MD [address] [place] [address] 03/28/2024 1:30 PM EDT - 03/28/2024 2:00 PM EDT Surgery ENDO O[facility], Endoscopy Room [facility] [address] [place] [phone] Beatriz Tony MD [address] [place] [address] COLONOSCOPY FLEXIBLE PROXIMAL DIAGNOSTIC 04/03/2024 11:00 AM EDT Office Visit Gastroenterology, [facility] [address] [place] [address] Tatiana Bee CRNP [address] [place] [address] 04/23/2024 10:30 AM EDT Telemedicine Rheumatology, [place] [address] [place] [address] Agc5, Pharmacist Rheumatology [address] [place] [facility] [place] [address] 04/25/2024 9:00 AM EDT Office Visit Radiation Oncology, [facility] [address] [place] [address] IovoliNahun MD [address] [place] [address] 05/01/2024 9:15 AM EDT Telemedicine Otolaryngology, [place] [facility] [address] [facility] [address] Karli Aldana MD [address] [place] [address] 05/22/2024 10:00 AM EDT Office Visit Gynecology/Obstetr ics [facility] [address] [place] [address] Romana Streeter CRNP [address] [place] [address] 06/09/2024 1:15 PM EST Office Visit Plastic Surgery, [place] [address] [facility], [place] [phone] Olena Baldwin PA-C [address] [facility], [place] [phone] [place] Nurse Plastic Surg [address] [place] [address] 07/08/2024 7:15 AM EST Hospital Encounter [facility], OPERATING ROOM [facility] [address] [place] [place] [phone] Gera Julien MD [address] [place] [address] 07/08/2024 7:15 AM EST - 07/08/2024 4:25 PM EST Surgery [facility], [facility] ROOM [facility] [address] [facility] [place] [phone] Gera Julien MD [address] [place] [address] BREAST RECONSTRUCTION; WITH FREE FLAP (EG, FTRAM, TAE, SIEA, GAP FLAP) 08/29/2024 9:10 AM EST Office Visit [facility] [address] [place] [address] Soha Amato MD [address] [place] [address] Scheduled Procedures Name Priority Associated Diagnoses Date/Ti [...] of 3 - 19+ 3-dose series) 12/06/1998 DTaP,Tdap,and Td Vaccines (2 - Tdap) 02/02/2020 02/01/2010, 12/14/2004 Depression Monitoring 01/18/2023 01/18/2022 COVID-19 Vaccine ( - season) 2023 Influenza Vaccine (FLU shot) (#1) 2024 05/16/2022, 05/24/2020, 08/04/2019, Additional history exists Colonoscopy 12/06/2024 11/01/2018, 11/01/2018 Diabetes Screening 07/04/2026 07/04/2023, 1 08/02/2021, 05/05/2022, Additional history exists Lipid Panel 10/17/2028 10/18/2023, 11/28, 12/17/2014 Pneumococcal Vaccine: Pediatrics (0 to 5 Years) and At-Risk Patients (6 to 64 Years) (3 of 3 - PPSV23 or PCV20) 12/06/2044 08/04/2019, 03/02/2014 RETIRED - COLONOSCOPY-EVERY 5 YRS AGES 18-100 Discontinued 11/01/2018, 11/01/2018 Pap Smear Discontinued 04/13/2023, 01/03/2022 HPV (Gardasil) Vaccine Aged Out No lo nger eligible based on patient's age to complete this topic MENINGOCOCCAL (MENACTRA/MENVEO) Aged Out No longer eligible based on patient's age to complete this topic documented as of this encounter Medical Devices Implanted Type Area Decorating Consultant Device Identifier Shelf Expiration Date Model / Serial / Lot Alloderm Select 16x20 (320 Units) - [id number] - [id number] Implanted:Qty: 1 on 11/03/2021 by Gera Julien MD [place] [facility] [place]: Breast ALLERGAN 02/26/2023 [id number] / [id number] / [id number] Alloderm Select 16x20 (320 Units) - [id number] - [id number] Implanted:Qty: 1 on 11/03/2021 by Gera Julien MD [place] [facility] [place] Left: Breast ALLERGAN 04/28/2023 [id number] / [id number] / [id number] 375 [place] Breast Brick Unloader Tender Implanted:Qty: 1 on 11/03/2021 by Gera Julien MD [place] [facility] [place]: Breast MENTOR BREAST IMPLANTS 2024 [facility]H / [id number] 375 [place] Breast Brick Unloader Tender Implanted:Qty: 1 on 11/03/2021 by Gera Julien MD [place] [facility] [place]: Breast MENTOR BREAST IMPLANTS 2024 [facility]H / [id number] documented as of this encounter Advance Directives * Full Code (Latest Code Status on File) Date Activated Date Inactivated Comments 11/03/2021 11:07 AM 11/04/2021 1:17 PM This order re flects the patients wishes and were consensually agreed upon. Care Teams Entry Level Sales Consultant Relationship Specialty Start Date End Date Ian Morocho MD [address] [place] [address] PCP - General Family Medicine 12/06/22 documented as of this encounter
--- OUTSIDE RECORDS SUMMARY | 2024-04-08 15:20 | External Medical Summary | Summary of Care ---
Author Name Unknown Organization [facility] Address [address] [place] [address] Phone [phone] Care Team Providers Care Client Services Coordinator Name Role Phone Ian Morocho MD Primary Care Provid er Encounter Details Date Type Department Care Team (Late st Contact Info) Description 03/24/2024 Telephone Gastroenterology, [facility] [address] [place] [address] Radha Zabala DO [address] [place] [address] Allergies Active Allergy Reactions Criticality Noted Date Comments Sulfamethoxazole-Trimethoprim Nausea/vomiting 0 04/13/2023 Duloxetine 07/27/2020 MALAISE documented as of this encounter (statuses as of 03/24/2024) Medications Medication Sig Dispensed Refills Start Date [...] not taking.Reported on 03/19/2024 Cholecalciferol 50 MCG (1999 UT) Oral Capsule Take 1 Capsule by [...] 03/19/2024 Prochlorperazine Maleate 5 MG Oral Tablet (Compazine)Indicati ons:Nausea Take 1 Tablet by mouth every 6 hours as needed for Nausea. 30 Tablet 2 11/12/2023 Active Additional Information Patient not taking.Reported on 03/19/2024 Rinvoq 15 MG Oral Tablet Extended Release 24 Hour (Upadacitinib ER)Indications: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 30 Tablet 12/03/2023 Active Additional Information Patient taking differently:15 mg Oral EVERY OTHER DAY,In the evening, Reported on 03/19/2024 mupirocin calcium 2 % NA OINT Administer 0.5 g into each nostril in the morning and 0.5 g before bedtime. 15 g 2 02/13/2024 Active documented as of this encounter (statuses as of 03/24/2024) Active Problems Problem Noted Date Diagnosed Date [...] of test: Expansive testing for breast and ship's cook cancer risk -- 36 genes Genes Included: [...] 25 QHS; s/p trigger point injections [facility] [phone] Anxiety 12/26/2013 Depression 12/26/2013 Overview: Reviewed prior [...] as of this encounter (statuses as of 03/24/2024) Resolved Problems Problem Noted Date Diagnosed Date [...] as of this encounter (statuses as of 03/24/2024) Immunizations Name Administration Dates Next Due DTaP [...] Yes 02/05/2014 documented as of this encounter Plan of Treatment Upcoming Encounters Date Type Department Care Team (Late st Contact Info) Description 03/27/2024 10:15 AM EDT Hospital Encounter ENDO [facility], Endoscopy Room [facility] [address] [place] [phone] Radha Zabala DO [address] [place] [address] 03/27/2024 10:15 AM EDT - 03/27/2024 10:45 AM EDT Surgery ENDO OSSC, Endoscopy Room [facility] [address] [place] [phone] Radha Zabala DO [address] [place] [address] COLONOSCOPY FLEXIBLE PROXIMAL DIAGNOSTIC 04/03/2024 11:00 AM EDT Office Visit Gastroenterology, [facility] [address] [place] [address] Tatiana Bee CRNP [address] [place] [address] 04/23/2024 10:30 AM EDT Telemedicine Rheumatology, [place] [address] [place] [address] Agc5, Pharmacist Rheumatology [facility] [place] [address] 04/25/2024 9:00 AM EDT Office Visit Radiation Oncology, [facility] [address] [facility] [address] IovoliNahun MD [address] [place] [address] 05/01/2024 9:15 AM EDT Telemedicine Otolaryngology, [facility] [address] [address] Karli Aldana MD [address] [place] [address] 05/22/2024 10:00 AM EDT Office Visit Gynecology/Obstetr ics [facility] [address] [place] [address] Backer, ROSHIN Melgar [address] [place] [address] 06/09/2024 1:15 PM EST Office Visit Plastic Surgery, [place] [address] [place] [address] Olena Baldwin PA-C [address] [place] [address] [facility] [address] [place] [address] 07/08/2024 7:15 AM EST Hospital Encounter [place] [facility] [facility] [address] [place] [phone] Gera Julien MD [address] [place], [place] [phone] 07/08/2024 7:15 AM EST - 07/08/2024 4:25 PM EST Surgery [place] [facility] OPER[facility] ROOM [facility] [address] [place] [facility] [place] [address] Gera Julien MD [address] [place], [place] [phone] BREAST RECONSTRUCTION; WITH FREE FLAP (EG, FTRAM, TAE, SIEA, GAP FLAP) 08/29/2024 9:10 AM EST Office Visit Rheumatology, [place] [address] [place] [address] Soha Amato MD [address] [place] [address] Scheduled Procedures Name Priority Associated Diagnoses Date/Ti me COLONOSCOPY FLEXIBLE PROXIMAL DIAGNOSTIC Recall History of colon polyps 03/27/2024 10:15 AM EDT BREAST RECONSTRUCTION; WITH FREE FLAP [...] this encounter Medical Devices Implanted Type Area Shellfish Grower Device Identifier Shelf Expiration Date Model / Serial / Lot Alloderm Select 16x20 (320 Units) - [id number] - [id number] Implanted:Qty: 1 on 11/03/2021 by Gera Julien MD [place] [facility] [place] Right: Breast ALLERGAN 02/26/2023 [id number] / [id number] / [id number] Alloderm Select 16x20 (320 Units) - [id number] - [id number] Implanted:Qty: 1 on 11/03/2021 by Gera Julien MD [place] [facility] [place] Left: Breast ALLERGAN 04/28/2023 [id number] / [id number] / [id number] 375 [place] Breast Fnps Implanted:Qty: 1 on 11/03/2021 by Gera Julien MD [place] [facility] [place] Right: Breast MENTOR BREAST IMPLANTS 2024 [facility]H / [id number] 375 [place] Breast Fnps Implanted:Qty: 1 on 11/03/2021 by Gera Julien MD [place] [facility] Left: Breast MENTOR BREAST IMPLANTS 2024 [facility] / [id number] documented as of this encounter Advance Directives * Full Code (Latest Code Status on File) Date Activated Date Inactivated Comments 11/03/2021 11:07 AM 11/04/2021 1:17 PM This order re flects the patients wishes and were consensually agreed upon. Care Teams Client Services Coordinator Relationship Specialty Start Date End Date Ian Morocho MD [address] [address] PCP - General Family Medicine 12/06/22 documented as of this encounter
--- OUTSIDE RECORDS SUMMARY | 2024-04-08 15:20 | External Medical Summary | Summary of Care ---
Author Name Unknown Organization [facility] Address [address] [place] [address] Phone [phone] Care Team Providers Care Bag Bleacher Name Role Phone Ian Morocho MD Primary Care Provid er Reason for Visit * Reason Onset Date Comments Medication Refill 03/24/2024 Encounter Details Date Type Department Care Team (Late st Contact Info) Description 03/24/2024 Refill Rheumatology, [place] [address] [place] [address] Soha Eaton MD [address] [place] [address] Ankylosing spondylitis of multiple sites in spine (HCC) Allergies Active Allergy Reactions Criticality Noted Date Comments Sulfamethoxazole-Trimethoprim Nausea/vomiting 0 04/13/2023 Duloxetine 07/27/2020 MALAISE documented as of this encounter (statuses as of 03/25/2024) Medications Medication Sig Dispensed Refills Start Date [...] before bedtime. 15 g 2 02/13/2024 Active Rinvoq 15 MG Oral Tablet Extended [...] as of this encounter (statuses as of 03/25/2024) Active Problems Problem Noted Date Diagnosed Date [...] of test: Expansive testing for breast and leather tacker cancer risk -- 36 genes Genes Included: ABRAXAS1, AKT1, EARL, BARD1, BRCA1, BRCA2, BRIP1, CDC73, CDH1, CHEK2, DICER1, EPCAM, FANCC, FANCM, MLH1, MRE11, MSH2, MSH6, MUTYH, NBN, NF1, PALB2, PIK3CA, PMS2, POLD1, PTEN, RAD51C, RAD51D, RECQL, RINT1, SDHB, SDHD, SMARCA4, STK11, TP53, XRCC2' Laboratory: [facility] History of transient ischemic attack (TIA) 11/30 [...] QHS; s/p trigger point injections [facility] [phone] Anxiety 12/26/2013 Depression 12/26/2013 Overview: Reviewed prior [...] as of this encounter (statuses as of 03/25/2024) Resolved Problems Problem Noted Date Diagnosed Date [...] as of this encounter (statuses as of 03/25/2024) Immunizations Name Administration Dates Next Due DTaP [...] encounter Miscellaneous Notes * Telephone Encounter - Carter Hall RPh - 03/25/2024 12:08 PM EDTSigned Prescriptions: Disp Refills Rinvoq 15 MG Oral Tablet Extended Release *30 Tab*1 Sig: Take 1 Tablet by mouth every other day.Authorizing Provider: SOHA EATON User: Galen HALL * Telephone Encounter - Carter Hall RPh - 03/25/2024 11:56 AM EDT Rheumatology: Refill Request(s) Per review of the refill parameters, Medication was refilled Carter Hall RPh [facility] Clinical Pharmacist Rheumatology Department 03/25/2024,12:01 PM documented in this encounter Plan of Treatment Upcoming Encounters Date Type Department Care Team (Late st Contact Info) Description 03/27/2024 10:15 AM EDT Hospital Encounter ENDO [facility], Endoscopy Room [facility] [address] [place] [phone] Radha Zabala DO [address] [place] [address] 03/27/2024 10:15 AM EDT - 03/27/2024 10:45 AM EDT Surgery ENDO [facility], Endoscopy Room [facility] [address] [place] [phone] Radha Zabala DO [address] [place] [address] COLONOSCOPY FLEXIBLE PROXIMAL DIAGNOSTIC 04/03/2024 11:00 AM EDT Office Visit Gastroenterology, [facility] [address] [place] [address] Tatiana Bee CRNP [address] [place] [address] 04/23/2024 10:30 AM EDT Telemedicine Rheumatology, [address] [address] Agc5, Pharmacist Rheumatology [address] [place] [address] 04/25/2024 9:00 AM EDT Office Visit Radiation Oncology, [facility] [address] [place] [address] IovoliNahun MD [address] [place] [phone] 05/01/2024 9:15 AM EDT Telemedicine Otolaryngology, [facility] [address] [place] [address] Karli Aldana MD [address] [place] [address] 05/22/2024 10:00 AM EDT Office Visit Gynecology/Obstetr ics [facility] [address] [place] [address] Romana Streeter CRNP [address] [place] [address] 06/09/2024 1:15 PM EST Office Visit Plastic Surgery, [place] [address], [place] [phone] Olena Baldwin PA-C [address] [place] [address] [place], Nurse Plastic Surg [address], [place] [phone] 07/08/2024 7:15 AM EST Hospital Encounter OR [facility], OPERATING ROOM [facility], [facility] [place] [phone] Gera Julien MD [facility] [place] [address] 07/08/2024 7:15 AM EST - 07/08/2024 4:25 PM EST Surgery OR [facility], OPERATING ROOM [facility], ESTHELA PAVILI [address] [place] [address] Gera Julien MD [facility] [place] [address] BREAST RECONSTRUCTION; WITH FREE FLAP (EG, FTRAM, TAE, SIEA, GAP FLAP) 08/29/2024 9:10 AM EST Office Visit Rheumatology, [place] [address], [place] [phone] Soha Eaton MD [facility] [place] [address] Scheduled Procedures Name Priority Associated Diagnoses Date/Ti [...] this encounter Medical Devices Implanted Type Area Machine Filler Device Identifier Shelf Expiration Date Model / Serial / Lot Alloderm Select 16x20 (320 Units) - [id number] - [id number] Implanted:Qty: 1 on 11/03/2021 by Gera Julien MD at OR [facility] Right: Breast ALLERGAN 02/26/2023 [id number] / [id number] / [id number] Alloderm Select 16x20 (320 Units) - [id number] - [id number] Implanted:Qty: 1 on 11/03/2021 by Gera Julien MD at OR [facility] Left: Breast ALLERGAN 04/28/2023 [id number] / [id number] / [id number] 375 Superior Breast Clinical Lab Assistant Implanted:Qty: 1 on 11/03/2021 by Gera Julien MD at [facility] Right: Breast MENTOR BREAST IMPLANTS 2024 [facility] / [id number] Superior Breast Clinical Lab Assistant Implanted:Qty: 1 on 11/03/2021 by Gera Julien MD at OR [facility] Left: Breast MENTOR BREAST IMPLANTS 2024 [facility] / [id number] documented as of this encounter Visit Diagnoses Diagnosis Ankylosing spondylitis of multiple sites in spine (HCC) Ankylosing spondylitis History of colon polyps Personal history of colonic polyps Malignant neoplasm of left female breast, unspecified estrogen receptor status, unspecified site of breast (HCC) documented in this encounter Advance Directives * Full Code (Latest Code Status on File) Date Activated Date Inactivated Comments 11/03/2021 11:07 AM 11/04/2021 1:17 PM This order re flects the patients wishes and were consensually agreed upon. Care Teams Bag Bleacher Relationship Specialty Start Date End Date Ian Morocho MD [address] [place] [address] PCP - General Family Medicine 12/06/22 documented as of this encounter
--- OUTSIDE RECORDS SUMMARY | 2024-04-08 15:20 | External Medical Summary | Summary of Care ---
Author Name Unknown Organization [facility] Address [address] [place] [address] Phone [phone] Care Team Providers Care Pneumatic Tool Operator Name Role Phone Ian Morocho MD Primary Care Provid er Reason for Visit * Reason Onset Date Comments Health Maintenance 02/22/2024 Encounter Details Date Type Department Care Team ([facility] st Contact Info) Description 02/22/2024 Telephone [facility] [address] [place] [address] Ian Morocho MD [address] [address] Health Maintenance Allergies Active Allergy Reactions Criticality Noted Date Comments Sulfamethoxazole-Trimethoprim Nausea/vomiting 0 04/13/2023 Duloxetine 07/27/2020 MALAISE documented as of this encounter (statuses as of 02/22/2024) Medications Medication Sig Dispensed Refills Start Date [...] arm., Reported on 02/23/2023 Cholecalciferol 50 MCG (1999 UT) Oral Capsule [...] before bedtime. 15 g 2 02/13/2024 Active Clindamycin HCl 150 MG Oral Capsule (Cleocin) Take 2 Capsules by mouth in the morning and 2 Capsules before bedtime. Do all this for 14 days. for 14 days.. 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 Ramires [facility] [phone] Anxiety 12/26/2013 Depression 12/26/2013 Overview: Reviewed prior [...] as of this encounter (statuses as of 02/22/2024) Resolved Problems Problem Noted Date Diagnosed Date [...] as of this encounter (statuses as of 02/22/2024) Immunizations Name Administration Dates Next Due DTaP [...] encounter Miscellaneous Notes * Telephone Encounter - Kelly Vela LPN - 02/22/2024 10:22 AM EDT Care Gaps Comprehensive Care Outreach Last Office/Telemedicine Visit: 07/21/2022 (in office), 08/15/2022 (telemedicine) Next Office Visit: Visit date not found Hemoglobin AIC Results: Lab Results Component Value Date/Time HEMOGLOBIN A1C - [facility] 5.4 01/27/2022 10:26 AM HEMOGLOBIN A1C - [facility] 5.3 09/20/2004 05:00 PM BP Readings from Last 1 Encounters: 01/18/24 122/72 Reviewed Health Maintenance below: Health Maintenance Topic Date Due COVID-19 Vaccine (1) Never done HIV Screening Never done Hepatitis B Vaccine (1 of 3 - 19+ 3-dose series) Never done Pneumococcal Vaccine: Pediatrics (0 to 5 Years) and At-Risk Patients (6 to 64 Years) (3 of 3 - PPSV23 or PCV20) 09/29/2019 DTaP,Tdap,and Td Vaccines (2 - Tdap) 02/02/2020 Depression Monitoring 01/18/2023 Influenza Vaccine (FLU shot) (1) 03/30/2024 Colonoscopy 12/06/2024 Diabetes Screening 07/04/2026 Lipid Panel 10/17/2028 MENINGOCOCCAL (MENACTRA/MENVEO) Aged Out HPV (Gardasil) Vaccine Aged Out Pap Smear Discontinued RETIRED - COLONOSCOPY-EVERY 5 YRS AGES 18-100 Discontinued Ghp recapture Care Gap Outreach Action Taken: Non-[facility] PCP chart updated documented in this encounter Plan of Treatment Upcoming Encounters Date Type Department Care Team (Late st Contact Info) Description 03/28/2024 1:30 PM EDT Hospital Encounter [facility]O [facility], Endoscopy Room [facility] [address] [place] [address] Beatriz Tony MD [address] [place] [address] 03/28/2024 1:30 PM EDT - 03/28/2024 2:00 PM EDT Surgery ENDO [facility], Endoscopy Room [facility] [address] [place] [phone] Beatriz Tony MD [address] [place] [address] COLONOSCOPY FLEXIBLE PROXIMAL DIAGNOSTIC 04/03/2024 11:00 AM EDT Office Visit Gastroenterology, [facility] [address] [place] [address] Tatiana Bee CRNP [address] [place] [address] 04/23/2024 10:30 AM EDT Telemedicine Rheumatology, [place] [address] [place] [address] Agc5, Pharmacist Rheumatology [facility] [place] [address] 04/25/2024 9:00 AM EDT Office Visit Radiation Oncology, [facility] [address] [place], [place] [phone] IovoliNahun MD [address] [place] [phone] 05/01/2024 9:15 AM EDT Telemedicine Otolaryngology, [facility] [address] [place] [address] Karli Aldana MD [address] [place] [address] 05/22/2024 10:00 AM EDT Office Visit Gynecology/Obstetr ics Alexi Roche [address] [place] [address] [place], ROSHNI Melgar [address] [place] [address] 08/29/2024 9:10 AM EST Office Visit Rheumatology, [place] [address] [place] [address] Soha Amato MD [address] [place] [address] Scheduled Procedures Name Priority Associated Diagnoses Date/Ti [...] Additional history exists Lipid Panel 10/17/2028 10/18/2023, 0509/2017, 12/17/2014 RETIRED - COLONOSCOPY-EVERY 5 YRS AGES 18-100 Discontinued 11/01/2018, 11/01/2018 Pap Smear Discontinued 04/13/2023, 01/03/2022 HPV (Gardasil) Vaccine Aged Out No lo nger eligible based on patient's age to complete this topic MENINGOCOCCAL (MENACTRA/MENVEO) Aged Out No longer eligible based on patient's age to complete this topic documented as of this encounter Medical Devices Implanted Type Area Epilepsy Physician Device Identifier Shelf Expiration Date Model / Serial / Lot Alloderm Select 16x20 (320 Units) - [id number] - [id number] Implanted:Qty: 1 on 11/03/2021 by Gera Julien MD at OR [facility] Right: Breast ALLERGAN 02/26/2023 [id number] / [id number] / [id number] Alloderm Select 16x20 (320 Units) - [id number] - [id number] Implanted:Qty: 1 on 11/03/2021 by Gera Julien MD at OR [facility] Left: Breast ALLERGAN 04/28/2023 [id number] / [id number] / [id number] 375 [place] Breast Decatizer Implanted:Qty: 1 on 11/03/2021 by Gera Julien MD at OR [facility] Right: Breast MENTOR BREAST IMPLANTS 2024 [facility] / [id number] 375 [place] Breast Decatizer Implanted:Qty: 1 on 11/03/2021 by Gera Julien MD at OR [facility] Left: Breast MENTOR BREAST IMPLANTS 2024 [facility] / [id number] documented as of this encounter Advance Directives * Full Code (Latest Code Status on File) Date Activated Date Inactivated Comments 11/03/2021 11:07 AM 11/04/2021 1:17 PM This order re flects the patients wishes and were consensually agreed upon. Care Teams Pneumatic Tool Operator Relationship Specialty Start Date End Date Ian Morocho MD [address] [place] [address] PCP - General Family Medicine 12/06/22 documented as of this encounter
--- OUTSIDE RECORDS SUMMARY | 2024-04-08 15:20 | External Medical Summary | Summary of Care ---
Author Name Unknown Organization [facility] Address [address] [place] [address] Phone [phone] Care Team Providers Care Torch Straightener And Heater Name Role Phone Ian Morocho MD Primary Care Provid er Reason for Visit * Reason Onset Date Comments Test Results 02/13/2024 Encounter Details Date Type Department Care Team ([facility] st Contact Info) Description 02/13/2024 Telephone [facility] Otolaryngology [address] [facility] [place] [address] Karli Aldana MD [address] [facility] [address] Test Results Allergies Active Allergy Reactions Criticality Noted Date Comments Sulfamethoxazole-Trimethoprim Nausea/vomiting 0 04/13/2023 Duloxetine 07/27/2020 MALAISE documented as of this encounter (statuses as of 02/13/2024) Medications Medication Sig Dispensed Refills Start Date [...] as of this encounter (statuses as of 02/13/2024) Active Problems Problem Noted Date Diagnosed Date [...] of test: Expansive testing for breast and glass furnace tender cancer risk -- 36 genes Genes Included: [...] QHS; s/p trigger point injections Dr. Ramires [facility] [phone] Anxiety 12/26/2013 Depression 12/26/2013 Overview: Reviewed prior [...] as of this encounter (statuses as of 02/13/2024) Resolved Problems Problem Noted Date Diagnosed Date [...] as of this encounter (statuses as of 02/13/2024) Immunizations Name Administration Dates Next Due DTaP [...] encounter Miscellaneous Notes * Telephone Encounter - Jacqueline Casas LPN - 02/13/2024 11:08 AM EDT Patient verbalizes understanding of all instructions and explanations given. * Telephone Encounter - Karli Aldana MD - 02/13/2024 11:03 AM EDT Please let patient know culture grew staph aureus. I can send in a rx for mupirocen ointment to [facility] two weeks. If that doesn't seem to help can try oral bactrim documented in this encounter Plan of Treatment Upcoming Encounters Date Type Department Care Team (Late st Contact Info) Description 03/28/2024 1:30 PM EDT Hospital Encounter ENDO [facility], Endoscopy Room [facility] [address] [place] [phone] Beatriz Tony MD [address] [place] [address] 03/28/2024 1:30 PM EDT - 03/28/2024 2:00 PM EDT Surgery ENDO [facility], Endoscopy Room [facility] [address] [place] [phone] Beatriz Tony MD [address] [place] [address] COLONOSCOPY FLEXIBLE PROXIMAL DIAGNOSTIC 04/03/2024 11:00 AM EDT Office Visit Gastroenterology, [facility] [address] [place] [address] Tatiana Bee CRNP [address] [place] [address] 04/23/2024 10:30 AM EDT Telemedicine Rheumatology, [address] [address] Agc5, Pharmacist Rheumatology [address] [place] [address] 04/25/2024 9:00 AM EDT Office Visit Radiation Oncology, [facility] [address] [place] [address] IovoliNahun MD [address] [place] [address] 05/01/2024 9:15 AM EDT Telemedicine Otolaryngology, [facility] [address] [place] [address] Karli Aldana MD [address] [facility] [place] [address] 05/22/2024 10:00 AM EDT Office Visit [facility]necology[facility] [address] [facility] [place] [address] BackRomana benavides CRNP [address] [place] [address] 08/29/2024 9:10 AM EST Office Visit Rheumatology, [address] [address] Soha Amato MD [address] [place] [address] Scheduled Procedures Name Priority Associated Diagnoses Date/Ti [...] this encounter Medical Devices Implanted Type Area Tapper Hand Device Identifier Shelf Expiration Date Model / Serial / Lot Alloderm Select 16x20 (320 Units) - [id number] - [id number] Implanted:Qty: 1 on 11/03/2021 by Gera Julien MD at [place] [facility] Right: Breast ALLERGAN 02/26/2023 [id number] / [id number] / [id number] Alloderm Select 16x20 (320 Units) - [id number] - [id number] Implanted:Qty: 1 on 11/03/2021 by Gera Julien MD at [place] [facility] Left: Breast ALLERGAN 04/28/2023 [id number] / [id number] / [id number] 375 [place] Breast Fiber Locking Supervisor Implanted:Qty: 1 on 11/03/2021 by Gera Julien MD at [place] [facility] Right: Breast MENTOR BREAST IMPLANTS 2024 [facility] / [id number] [place] Breast Fiber Locking Supervisor Implanted:Qty: 1 on 11/03/2021 by Gera Julien MD at [place] [facility] Left: Breast MENTOR BREAST IMPLANTS 2024 [facility] / [id number] / [id number] documented as of this encounter Advance Directives * Full Code (Latest Code Status on File) Date Activated Date Inactivated Comments 11/03/2021 11:07 AM 11/04/2021 1:17 PM This order re flects the patients wishes and were consensually agreed upon. Care Teams Torch Straightener And Heater Relationship Specialty Start Date End Date Ian Morocho MD [address] [place] [address] PCP - General Family Medicine 12/06/22 documented as of this encounter
--- OUTSIDE RECORDS SUMMARY | 2024-04-08 15:20 | External Medical Summary | Continuity of Care Document ---
Author Name Unknown Organization [facility] [address] [place] [address] [phone] Care Team Providers Care Watcher Lookout Tower Name Role Phone Ian Morocho Primary Care Physician [phone] Encounter [facility] [id number] Date(s): 03/12/24 - 03/12/24 [facility] [address] [facility] [address] [place] [phone] Encounter Diagnosis Dizziness(Discharge Diagnosis) - 03/12/24 Arm paresthesia, left(Discharge Diagnosis) - 03/12/24 Discharge Disposition: Home or Self Care Attending Physician: MD Morocho Christopher Allergies, Adverse Reactions, Alerts Substance Criticality Severity Reaction Reaction Severity Status buPROPion agitation, nastiness Active naloxegol worsening of chronic pain Active varenicline agitation Active DULoxetine Anxiety Active Assessment and Plan Extracted from: Title:FCM - tachycardia posi tionally, paresthesias Author:MD Morocho Christopher Date:03/12/24 1.Dizziness Undifferentiated new problem with uncertain prognosis Goal: evaluation Data:EKG, CBC,TSH, CMP Plan: - reviewed results and orthostatics today - symptoms reported are concerning but with shared decisionmaking will defer inpatient evaluation unless symptoms arise - referral to cardiology placed for evaluation for undelryingcause in the setting of breast cancer history 2.Arm paresthesia, left Undifferentiated new problem with uncertain prognosis Goal: evaluation Data:none Plan: - pareshtesiasseem like ulnar nerve compression but without reproducible sx andwith subjective sxinconsistent with that diagnosis - would be worthwhile to evaluate for nerve entrapment vs. other etiology w/ EMG, referral placed to Dr. Coates, though can consider neurology referral instead if needed with precautions for worsening/changing symptoms and instructions for follow up. Time:Total time spent with this patient on day of evaluation including chart review, ordering, education and coordination of care elements: 45 minutes Immunizations Given and Recorded Vaccine Date Status [...] ONCE DAILY IF NEEDED FOR ANXIETY, Pharmacy: [id number] Start Date: 02/11/24 Status: Ordered Bactrim DS 800 mg-160 mg oral tablet Start: 03/12/24 3:40:00 PM EDT, trimethoprim 1 tab, PO, bid, Disp# 20 tab, X 10 day, Stop: 03/22/24 3:40:00 PM EDT, Pharmacy: [id number] Start Date: 03/12/24 Stop Date: 03/22/24 Status: Ordered BD 3 mL Luer-Keri Syringe 25G x 1" Start: 06/20/23 10:08:00 AM EST, See Instructions, Disp# 100 each, Refills: 0, Use as directed. Max1/day. Use new syringe with each injection., Pharmacy: [id number] Start Date: 06/20/23 Status: Ordered BD Luer-Keri Syringe Miscellaneous 25G X 1" 3 ML Start: 09/17/23 11:28:00 AM EST, BD Luer-Keri Syringe Miscellaneous 25G X 1" 3 ML, See Instructions, Disp# 100 unknown unit, Refills: 0, USE DIRECTED. MAX 1/DAY. USE NEW SYRINGE WITH EACH INJECTION., Pharmacy [id number] Start Date: 09/17/23 Status: Ordered Breo Ellipta 200 mcg-25 mcg/inh inhalation powder Start: 11/16/22 10:15:00 AM EDT, 1 puff, inhaled, Daily, Disp# 1 each Start Date: 11/16/22 Stop Date: 12/16/22 Status: Ordered citalopram 40 mg oral tablet Start: 12/10/23 3:54:00 PM EDT, 1 tab, PO, Daily, Disp# 90 tab, Refills: 4, Pharmacy: [id number] Start Date: 12/10/23 Status: Ordered cloNIDine Start: 03/12/24 3:13:00 PM EDT Start Date: 03/12/24 Status: Ordered clopidogrel 75 mg oral tablet Start: 02/11/24 8:45:00 AM EDT, 1 tab, PO, Daily, Disp# 30 tab, Refills: 2, Pharmacy: [facility] Start Date: 02/11/24 Status: Ordered cyanocobalamin 1000 mcg/mL injectable solution Start: 01/07/24 10:04:00 AM EDT, 1 mL, IM, [id number], Disp# 30 mL, Refills: 0, Pharmacy: [facility] Start Date: 01/07/24 Status: Ordered ergocalciferol [...] ML INTO A MUSCLEEVERY 2 WEEKS, Pharmacy: [facility] Start Date: 03/13/24 Status: Ordered Milk of Magnesia 8% oral suspension Start: 10/29/23 9:42:00 AM EDT, 15 mL, PO, qhs, Disp# 360 mL, PRN: as needed for constipation, Pharmacy: [facility] Start Date: 10/29/23 Status: Ordered omeprazole 40 mg oral delayed release capsule Start: 12/10/23 3:54:00 PM EDT, 1 cap, PO, qhs, Disp# 90 cap, Refills: 4, Pharmacy: [facility] Start Date: 12/10/23 Status: Ordered ondansetron 4 mg oral tablet, disintegrating Start: 11/16/22 10:17:00 AM EDT, 1 tab, PO, tid, PRN: as needed for nausea/vomiting Start Date: 11/16/22 Status: Ordered Penlac Nail Lacquer 8% topical solution Start: 11/16/22 10:58:00 AM EDT, 1 appl, topical, Daily, Disp# 6.6 mL, Refills: 1, Pharmacy: [id number] Start Date: 11/16/22 Stop Date: [...] TWICE A DAY FOR 14 DAYS, Pharmacy: [facility] Start Date: 03/12/23 Status: Ordered Mental Status 03/12/24 Barriers to Learning one year None evide nt Mandatory Health Literacy Documentation Yes Health Literacy Communication Barriers N ever Primary Language Congolese Problem List Condition Confirmation Course Effective Dates Status H ealth Status Informant Ankylosing spondylitis 1 Confirmed Active Asthma Confirmed Active Chronic pain syndrome Confirmed Active Constipation Confirmed Active Depression Confirmed Active Factor V Confirmed Active Fibromyalgia Confirmed Active GERD without esophagitis Confirmed Active Gastroparesis Confirmed Active Right hip pain Confirmed Active History of breast cancer in female Confirmed Active Implantable intrathecal infusion pump present Confirmed Active Knee pain, right Confirmed Active Lumbar radiculopathy, chronic Confirmed Active Opioid dependence Confirmed Active Tobacco user Confirmed Active 1diagnosed 2013; neg. HLA-B27; has had uveitus twice. See Diagnosis Diagnosis Type Effective Dates Health Status Cl inical Service Informant Dizziness Discharge Diagnosis 03/12/24 Non-Specified Arm paresthesia, left Discharge Diagnosis 03/12/24 Non-Specified Procedures Procedure Date Related Diagnosis Body Site Status Oophorectomy 10/2022 Completed Bilateral mastectomy 10/2021 Comp leted Lumpectomy of breast 08/2020 Comp leted Laparoscopic total hysterect beverley using robotic assistance 08/27/20 Completed FESS - Functional endoscopic sinus surgery 2014 Completed Tonsillectomy and adenoidectomy 2010 Completed Endometrial ablation 07/29/09 Comp leted Colposcopy of cervix 07/29/04 Comp leted Vital Signs Most recent to oldest [Reference Range]: 1 Patient Weight 71.9 kg (03/12/24 3:16 PM) Temperature [36.5-37.9 DegC] 36.6 DegC (03/12/24 3:16 PM) Blood Pressure 100/78mmHg (03/12/24 3:16 PM) Social History Social History Type Response Tobacco Current every day sm oker, Cigarettes, 0.5 per day. Started age 17 Years. Ready to change: Yes. 1 Smoking Status Former Smoker, quit in last 30 days Sex Female Sex Representation Female (finding) 1has had hypnotherapy once. FCM Outpt Note * MD Morocho Christopher: PERFORM Event Display: FCM Outpt Note Authored Date: [id number] Chief Complaint Here for 3 month f/u. History of Present Illness Dizziness with tachycardia - previously evaluated with CBC, TSH, CMP (reviewed) and EKG (reviewed) - no significant changes - home BP still with significant swings with mild presyncopal symptoms - symptoms today remained unchanged during orthostatics today - general overall fatigue with intermittent tremulousness/palpitations when she feels her HR is up - reports no syncopal episodes in this interval, some darkening at vision edges with sudden standing - no previous cardiac evaluation reported Paresthesias of the left arm x 8 months - no apparent trauma/trigger at onset - noted paresthesias of the forearm/hand/fingers distal to the elbow when leaning on it in bed - symptoms quickly resolve with relief of direct pressure but will rapidly recur - has been doing postural modification to avoid exacerbation with some benefit but without change in sensitivity over months - reports diffuse paresthesia at the elbow and distally Physical Exam Vitals & Measurements T:36.6C BP:100/78 SpO2:97% WT:71.9kg WT:71.900kg(Dosing) PHQ2 Data(Data Documented on:03/12/2024 15:14) Emotional health assessment NEGATIVE General: _Alert and oriented, No acute distress Cardiovascular: _Normal rate, Regular rhythm, No murmur, No gallop. Respiratory: _Lungs are clear to auscultation, Respirations are non-labored, Breath sounds are equal Psych: Mood-affect congruence. Reports no SI/HI. Speech is of normal pace and content Neurologic:Normal sensory, Normal motor function of the bilateral UE from the elbow, shoulder, wrist, fingers. No pain w/ tap of the ulnar nerve or with phalens/tinnel of the wrist Integumentary: _Warm, Dry, [place]psoriatic patch over the left olecranon Assessment/Plan 1.Dizziness Undifferentiated new problem with uncertain prognosis Goal: evaluation Data:EKG, CBC,TSH, CMP Plan: - reviewed results and orthostatics today - symptoms reported are concerning but with shared decisionmaking will defer inpatient evaluation unless symptoms arise - referral to cardiology placed for evaluation for undelryingcause in the setting of breast cancer history 2.Arm paresthesia, left Undifferentiated new problem with uncertain prognosis Goal: evaluation Data:none Plan: - pareshtesiasseem like ulnar nerve compression but without reproducible sx andwith subjective sxinconsistent with that diagnosis - would be worthwhile to evaluate for nerve entrapment vs. other etiology w/ EMG, referral placedto Dr. Coates, though can consider neurology referral instead if needed with precautions for worsening/changing symptoms and instructions for follow up. Time:Total time spent with this patient on day of evaluation including chart review, ordering, education and coordination of care elements: 45 minutes Problem List/Past Medical History Ongoing Ankylosing spondylitis Asthma Chronic pain syndrome Constipation Depression Factor V Fibromyalgia Gastroparesis GERD without esophagitis History of breast cancer in female Implantable intrathecal infusion pump present Knee pain, [...] 1000 mcg/mL injectable solution), 1 mL, IM, [id number] ergocalciferol(ergocalciferol 1.25 mg (50,000 intl units) oral capsule), 24339 Int_Unit= 1 cap, PO,q7days fluticasone-vilanterol(Breo Ellipta 200 mcg-25 mcg/inh inhalation powder), 1 puff, inhaled, Daily HYDROmorphone(HYDROmorphone 2 mg oral tablet), 2 mg= [...] 250 mg= 1 cap, PO, bid, PRN sulfamethoxazole-trimethoprim(Bactrim DS 800 mg-160 mg oral tablet), 1 tab, PO, bid syringe(BD 3 mL Luer-Keri Syringe 25G x [...] due01/27/24and every 1year Due Adult COVID-19 Vaccination due03/12/24Unknown Frequency Adult Folic Acid Supplementation due03/12/24and every 3year Adult Social Determinants of Health Screening due03/12/24Unknown Frequency Pneumococcal Vaccine Adults and Adolescents with Chronic Illness due03/12/24One-time only Shingles Vaccine due03/12/24One-time only Satisfied(in the past 1 year) Satisfied Body Mass Index on01/11/24.Satisfied by Corneal, JOURNEYMAN PRESSMAN, Jono Lipid Screening on10/05/23.Satisfied by Contributor_system, [email or web address] Shingles Vaccine on08/20/23.Satisfied by MD Morocho Christopher Electronic Signature on File Electronically Reviewed/Signed by: Ian Morocho MD Author Signature Dt/Tm:03/12/2024 04:33 PM Department of Family Medicine [facility] Patient Care team information Care Team Personnel Name: MD Morocho Christopher Position: Physician - Family Med Member Role: Primary Care Provider Address: [facility] [place] [address] [place] Care Team Related Persons Name: BEATA GUERRA Name: MARGUERITE BLISS I
--- OUTSIDE RECORDS SUMMARY | 2024-04-08 15:20 | External Medical Summary | Summary of Care ---
Author Name Unknown Organization [facility] Address [address] [place] [address] Phone [phone] Care Team Providers Care Other Spatial Scientist Name Role Phone Ian Morocho MD Primary Care Provid er Reason for Visit * Reason Onset Date Comments Surgery 03/10/2024 Encounter Details Date Type Department Care Team ([facility] st Contact Info) Description 03/10/2024 Telephone Plastic Surgery, [place] [address], [place] [phone] Gera Julien MD [address], [place] [phone] Surgery Allergies Active Allergy Reactions Criticality Noted Date Comments Sulfamethoxazole-Trimethoprim Nausea/vomiting 0 04/13/2023 Duloxetine 07/27/2020 MALAISE documented as of this encounter (statuses as of 03/13/2024) Medications Medication Sig Dispensed Refills Start Date [...] as of this encounter (statuses as of 03/13/2024) Active Problems Problem Noted Date Diagnosed Date [...] of test: Expansive testing for breast 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 Ramires [facility] [phone] Anxiety 12/26/2013 Depression 12/26/2013 Overview: Reviewed prior [...] as of this encounter (statuses as of 03/13/2024) Resolved Problems Problem Noted Date Diagnosed Date [...] as of this encounter (statuses as of 03/13/2024) Immunizations Name Administration Dates Next Due DTaP Dipth/Tet/Acell Pertussis (Infanrix), Peds 02/01/2010 IPV - Polio Virus Vaccine (Inact) 02/08/2005 Pneumococcal Conjugate Vacc, 13 Valent (Prevnar) 08/04/2019 Pneumococcal Polysaccharide PPV23 (Pneumovax) 03/02/2014 Seasonal Influenza Virus Vac cine, Unspecified Formulation 07/30/2019 Seasonal Influenza, PF, 6 M & above, IM , (FluLaval or Fluzone) 05/16/2022,05/24/2020,05/23/2018,06/13 Seasonal Influenza, Quadriva lent, No Preserve, IM 05/22/2016 Seasonal Influenza, Recombin ant, RIV4, PF, (Flublock) 08/04/2019 Seasonal Influenza, Split, I IV3, With Preserve, Inj 09/17/2010,07/30/2007 TD - Tetanus/Diptheria (ADULT) 12/14/2004 Zoster Vaccine Recombinant (Shingrix) 01/28/2018 ,11/26/2017 documented [...] shopping? (15 years old or older) Yes 07/10/20 14 Cognitive Status Response Date of Assessm ent Because of a physical, menta l, or emotional condition, do you have serious difficulty concentrating, remembering, or making decisions? (5 years old or older) Yes 02/05/2014 documented as of this encounter Miscellaneous Notes * Telephone Encounter - Radha Cervantes OSA - 03/13/2024 12:50 PM EDT Pt called back in to try and get scheduled I tried to call over but got no answer so I told the pt I would have you call her back. * Telephone Encounter - Vannessa Carrillo OSA - 03/10/2024 1:45 PM EDT Phoned to discuss OR date, LVM to call us back to discuss [phone] documented in this encounter Plan of Treatment Upcoming Encounters Date Type Department Care Team (Late st Contact Info) Description 03/28/2024 1:30 PM EDT Hospital Encounter ENDO [facility], Endoscopy Room [facility] [address] [phone] Beatriz Tony MD [address] [place] [address] 03/28/2024 1:30 PM EDT - 03/28/2024 2:00 PM EDT Surgery ENDO [facility], Endoscopy Room [facility] [address] [phone] Beatriz Tony MD [address] [place] [address] COLONOSCOPY FLEXIBLE PROXIMAL DIAGNOSTIC 04/03/2024 11:00 AM EDT Office Visit Gastroenterology, [facility] [address] [place] [address] Tatiana Bee CRNP [address] [place] [address] 04/23/2024 10:30 AM EDT Telemedicine Rheumatology, [address] [address] Agc5, Pharmacist Rheumatology [address] [place] [address] 04/25/2024 9:00 AM EDT Office Visit Radiation Oncology, [facility] [address] [place] [address] [place], Nahun Alvarez MD [address] [place] [phone] 05/01/2024 9:15 AM EDT Telemedicine Otolaryngology, [facility] [address] [place] [address] Karli Aldana MD [address] [place] [address] 05/22/2024 10:00 AM EDT Office Visit Gynecology/[facility] [address] [place] [address] Romana Streeter CRNP [address] [facility] [address] 08/29/2024 9:10 AM EST Office Visit Rheumatology, [address] [address] Soha Amato MD [address] [place] [address] Scheduled Procedures Name Priority Associated Diagnoses Date/Ti [...] Monitoring 01/18/2023 01/18/2022 COVID-19 Vaccine (1 - 2022- season) 2023 Influenza Vaccine (FLU shot) (#1) [...] this encounter Medical Devices Implanted Type Area Physician Device Identifier Shelf Expiration Date Model / Serial / Lot Alloderm Select 16x20 (320 Units) - [id number] - [id number] Implanted:Qty: 1 on 11/03/2021 by Gera Julien MD at [place] [facility] Right: Breast ALLERGAN 02/26/2023 [id number] / [id number] / [id number] Alloderm Select 16x20 (320 Units) - [id number] - [id number] Implanted:Qty: 1 on 11/03/2021 by Gera Julien MD at OR [facility] Left: Breast ALLERGAN 04/28/2023 [id number] / [id number] / [id number] Breast Senior Project Manager Implanted:Qty: 1 on 11/03/2021 by Gera Julien MD at OR [facility] Right: Breast [employer]PL[employer] [address] [facility]-120H / [id number] Breast Senior Project Manager Implanted:Qty: 1 on 11/03/2021 by Gera Julien MD at OR [facility] Left: Breast [employer] [address] [facility]-120H / [id number] / [id number] documented as of this encounter Advance Directives * Full Code (Latest Code Status on File) Date Activated Date Inactivated Comments 11/03/2021 11:07 AM 11/04/2021 1:17 PM This order re flects the patients wishes and were consensually agreed upon. Care Teams Other Spatial Scientist Relationship Specialty Start Date End Date Ian Morocho MD [address] [place] [address] PCP - General Family Medicine 12/06/22 documented as of this encounter
--- OUTSIDE RECORDS SUMMARY | 2024-04-08 15:21 | External Medical Summary | Summary of Care ---
Author Name Unknown Organization [facility] Address [address] [place] [address] Phone [phone] Care Team Providers Care Aeronautical Engineering Officer Name Role Phone Ian Morocho MD Primary Care Provid er Reason for Visit * Reason Onset Date Comments Advice 01/10/2024 Encounter Details Date Type Department Care Team ([facility] st Contact Info) Description 01/10/[address] [facility] [address], [place] [phone] Soha Amato MD [address], [place] [phone] Advice Allergies Active Allergy Reactions Criticality Noted Date Comments Sulfamethoxazole-Trimethoprim Nausea/vomiting 0 04/13/2023 Duloxetine 07/27/2020 MALAISE documented as of this encounter (statuses as of 01/11/2024) Medications Medication Sig Dispensed Refills Start Date [...] differently: Takes at night, Reported on 11/12/2023 Magnesium 250 MG Oral Tablet Take by mouth daily. Active NSS 0.9 % SOLN 19.8 mL with [...] for Nausea. 30 Tablet 2 11/12/2023 Active Lubiprostone 24 MCG Oral Capsule (Amitiza) Take 1 Capsule by mouth 2 times a day with morning and evening meals. 180 Capsule 3 11/19/2023 Active Naloxegol Oxalate 25 MG Oral Tablet (Movantik) Take 1 Tablet by mouth in the morning. 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 Ramires [facility] [phone] Anxiety 12/26/2013 Depression 12/26/2013 Overview: Reviewed prior [...] as of this encounter (statuses as of 01/11/2024) Resolved Problems Problem Noted Date Diagnosed Date [...] as of this encounter (statuses as of 01/11/2024) Immunizations Name Administration Dates Next Due DTaP [...] Recorded PHQ Adult Total Score 1 01/18/2022 Sex and Gender Information Value Date Recorded [...] encounter Miscellaneous Notes * Telephone Encounter - Maureen Arora LPN - 01/11/2024 1:04 PM EDT Patient was called and identified and reports she did go see her PCP today. I relayed the message that the low blood pressure is not a usual side effect of Rinvoq and patient voiced understanding. * Telephone Encounter - Soha Amato MD - 01/11/2024 12:33 PM EDT Rheum Nursing: Please let patient know low blood pressure would not be usual side effect of rinvoq.Please contact patient and find out if any additional symptoms or symptoms of infection or bleeding, which could cause low blood pressure. If continues to have issues, would recommend see PCP for further evaluation. * Telephone Encounter - Fara Duenas OSA - 01/10/2024 4:16 PM EDT Please review and advise. TOVA Coe * Telephone Encounter - Shilpi Owens OSA - 01/10/2024 3:33 PM EDT Voice Writing Reporter - Patient Related Communication Reason for Call: Pt called in stated she has been having issues with low BP . She is wondering of it could be a sideeffect from her RINVOQ 107/65. She would like a call back to discuss TOVA Ureña documented in this encounter Plan of Treatment Upcoming Encounters Date Type Department Care Team (Late st Contact Info) Description 01/18/2024 2:30 PM EDT Office Visit Rheumatology, [facility] [address] [place] [address] Soha Amato MD [address] [place] [address] 03/28/2024 1:30 PM EDT Hospital Encounter [facility], Endoscopy [facility] [address] [place] [phone] Beatriz Tony MD [address] [place] [address] 03/28/2024 1:30 PM EDT - 03/28/2024 2:00 PM EDT Surgery ENDO [facility], Endoscopy Room [facility] [address] [place] [phone] Beatriz Tony MD [address] [place] [phone] COLONOSCOPY FLEXIBLE PROXIMAL DIAGNOSTIC 04/03/2024 11:00 AM EDT Office Visit Gastroenterology, [facility] [address] [place] [phone] Tatiana Bee CRNP [address] [place] [phone] 04/23/2024 10:30 AM EDT Telemedicine Rheumatology, [facility] [address] [place] [address] Agc5, Pharmacist Rheumatology [address] [place] [address] 04/25/2024 9:00 AM EDT Office Visit Radiation Oncology, [place] [address] [place] [address] Rich Benavidez MD [address] [place] [id number] 05/22/2024 10:00 AM EDT Office Visit Gynecology/Obstetr ics [facility] [address] [place] [phone] Romana Streeter CRNP [address] [place] [phone] Scheduled Procedures Name Priority Associated Diagnoses Date/Ti me COLONOSCOPY FLEXIBLE PROXIMAL DIAGNOSTIC Recall History of colon polyps 03/28/2024 1:30 PM EDT BREAST RECONSTRUCTION; WITH FREE FLAP (EG, FTRAM, TAE, SIEA, GAP FLAP) Malignant neoplasm of left female breast, unspecified estrogen receptor status, unspecified site of breast (HCC) Health Maintenance Due Date Last Done Comments COVID-19 Vaccine (#1) 12/06/1984 HIV Screening 12/06/1994 Hepatitis B (1 of 3 - 19+ 3-dose series) 12/06/1998 Pneumococcal Vaccine: Pediatrics (0 to 5 Years) and At-Risk Patients (6 to 64 Years) (3 of 3 - PPSV23 or PCV20) 09/29/2019 08/04/2019, 03/02/2014 DTaP,Tdap,and Td Vaccines (2 - Tdap) 02/02/2020 02/01/2010, 12/14/2004 Depression Monitoring 01/18/2023 01/18/2022 Influenza Vaccine (FLU shot) (Season Ended) 2024 05/16/2022, 05/24/2020, 08/04/2019, Additional history exists Colonoscopy 12/06/2024 11/01/2018, 11/01/2018 Diabetes Screening 07/04/2026 07/04/2023, 1 08/02/2021, 05/05/2022, Additional history exists Lipid Panel 10/17/2028 10/18/2023, 11/28, 12/17/2014 RETIRED - COLONOSCOPY-EVERY 5 YRS AGES 18-100 Discontinued 11/01/2018, 11/01/2018 Pap Smear Discontinued 04/13/2023, 01/03/2022 GARDASIL-HPV IMMUNIZATION SERIES Aged Out No longer eligible based on patient's age to complete this topic MENINGOCOCCAL (MENACTRA/MENVEO) Aged Out No longer eligible based on patient's age to complete this topic documented as of this encounter Medical Devices Implanted Type Area Light Out Examiner Device Identifier Shelf Expiration Date Model / Serial / Lot Alloderm Select 16x20 (320 Units) - [id number] - [id number] Implanted:Qty: 1 on 11/03/2021 by Gera Julien MD [place] [facility] [place]: Breast [employer]ERGAN 02/26/2023 [id number] / [id number] / [id number] Alloderm Select 16x20 (320 Units) - [id number] - [id number] Implanted:Qty: 1 on 11/03/2021 by Gera Julien MD at [place] [facility] [place] Left: Breast [employer]ERGAN 04/28/2023 [id number] / [id number] / [id number] Breast Chief Physical Therapist Implanted:Qty: 1 on 11/03/2021 by Gera Julien MD at [place] [facility] [place] Right: Breast [employer] IMPLANT[employer] 2024 [facility] [place] / [id number] Breast Chief Physical Therapist Implanted:Qty: 1 on 11/03/2021 by Gera Julien MD at [place] [facility] [place] Left: Breast [employer] 2024 [facility] [place]H / [id number] / [id number] documented as of this encounter Advance Directives * Full Code (Latest Code Status on File) Date Activated Date Inactivated Comments 11/03/2021 11:07 AM 11/04/2021 1:17 PM This order re flects the patients wishes and were consensually agreed upon. Care Teams Aeronautical Engineering Officer Relationship Specialty Start Date End Date Ian Morocho MD [address] [place] [address] PCP - General Family Medicine 12/06/22 documented as of this encounter
--- OUTSIDE RECORDS SUMMARY | 2024-04-08 15:21 | External Medical Summary | Summary of Care ---
Author Name Unknown Organization [facility] Address [address] [place] [address] Phone [phone] Care Team Providers Care Shop Worker Name Role Phone Ian Morocho MD Primary Care Provid er Reason for Visit * Reason Comments NEW PATIENT Lesion in right nost ril Encounter Details Date Type Department Care Team (Late st Contact Info) Description 02/07/2024 8:00 AM EDT Office Visit Otolaryngology, [facility] [address] [address] Karli Aldana MD [address] [place] [address] Nasal lesion* Allergies Active Allergy Reactions Criticality Noted Date Comments Sulfamethoxazole-Trimethoprim Nausea/vomiting 0 04/13/2023 Duloxetine 07/27/2020 MALAISE documented as of this encounter (statuses as of 02/07/2024) Medications Medication Sig Dispensed Refills Start Date [...] as of this encounter (statuses as of 02/07/2024) Active Problems Problem Noted Date Diagnosed Date [...] of test: Expansive testing for breast and soil tester cancer risk -- 36 genes Genes Included: [...] QHS; s/p trigger point injections [facility] [phone] Anxiety 12/26/2013 Depression 12/26/2013 Overview: Reviewed prior [...] as of this encounter (statuses as of 02/07/2024) Resolved Problems Problem Noted Date Diagnosed Date [...] as of this encounter (statuses as of 02/07/2024) Immunizations Name Administration Dates Next Due DTaP [...] Day Cigarettes 0.5 5 Smokeless Tobacco: Never Tobacco Cessation:Ready to Q uit: Not Asked; Counseling Given: Not Answered Comments:1/2 pack a day,6 yearssmokes electronic cigarette - currently using nicotine patches [...] Sign Reading Time Taken Comments Blood Pressure - - Pulse - - Temperature 36.6 C (97.9 F) 02/07/2024 8:07 AM ED T Respiratory Rate - - Oxygen Saturation - - Inhaled Oxygen Concentration - - Weight 74.3 kg (163 lb 11.2 oz) 02/07/2024 8:07 AM EDT Height 165.1 cm (5' 5") 02/07/2024 8:07 AM EDT Body Mass Index 27.24 02/07/2024 8:07 AM EDT documented in this encounter Functional [...] Yes 02/05/2014 documented as of this encounter Progress Notes * Karli Aldana MD - 02/07/2024 8:41 AM EDT 02/07/2024 HISTORY OF PRESENT ILLNESS This 43 year old year old female is seen today for the initial complaint of nasal lesion. The provider requesting consultation is Self. Nursing Notes: Mata Santiago, [facility] 02/07/24 0810 Signed Chief Complaint Patient presents with NEW PATIENT Lesion in right nostril Shwetha Bolanos is a 43 year old female who presents today with a sore inside her right nostril that first appeared 2 months ago on her nasal septum and moved laterally over the past 6 months. She states that the sore appeared after a flare of her autoimmune conditions including ankylosing spondylitis. She states that the lesion is painful and bleeds and crusts over. She uses Vaseline and antibiotic ointments. 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) Positive autoantibody screening for celiac disease History of Clostridium difficile colitis Gastroesophageal reflux disease Endometriosis Displacement of lumbar intervertebral disc without myelopathy Malignant neoplasm of upper-outer quadrant of left female breast (HCC) Cigarette smoker Past Medical History: Diagnosis Date Anxiety 12/26/2013 BRCA negative 12/28/2021 Genetic Testing Completed 12/27/2021: Test Results: Negative Type of test: Expansive testing for breast and soil tester cancer risk -- 36 genes Genes Included: ABRAXAS1, AKT1, EARL, BARD1, BRCA1, BRCA2, BRIP1,CDC73, CDH1, CHEK2, DICER1, EPCAM, FANCC, FANCM, MLH1, MRE11, MSH2, MSH6, MUTYH, NBN, NF1, PALB2, PIK3CA, PMS2, POLD1, PTEN, RAD51C, RAD51D, RECQL, RINT1, SDHB, SDHD, SMARCA4, STK11, TP53, XRCC2' Breast cancer ([facility]) 09/26/2021 US bx results Cigarette smoker 05/05/2022 Depression 12/26/2013 Depressive disorder, not elsewhere classified Endometriosis 02/14/2020 See report of diagnostic laparoscopy January 2020 Factor V Leiden ([facility]) 12/26/2013 heterozygous Fibromyalgia 12/26/2013 Cymbalta, Meloxicam, Hydrocodone prn, Amitriptyline 25 QHS Gastroparesis pt reported hx Headache(784.0) 12/26/2013 Insomnia 12/26/2013 Myalgia and myositis Positive autoantibody screening for celiac disease 01/18/2022 Spondyloarthropathy TIA (transient ischemic attack) 12/26/2013 ?complex migraines vs TIA, consultants did not recommend Coumadin but PCP and pt prefer to continue. Coumadin exacerbated her fibromyalgia generalized pain so switched to Pradaxa 2012 (pt assistance program) off label Not current TIA-Hx added to PL Past Surgical History: Procedure Laterality Date BREAST RECONSTRUCTION W/AD COPY WRITER Bilateral 11/03/2021 TISSUE AD COPY WRITER PLACEMENT IN BREAST RECONSTRUCTION performed by Gera Julien MD at [facility] BX LYMPH NODE DEEP AXIL Bilateral 11/03/2021 BIOPSY LYMPH NODE DEEP AXILLARY OPEN performed by Camille Dunne MD at [facility] COLONOSCOPY, DIAGNOSTIC (RECTUM) 11/01/2018 hyperplastic polyps, repeat 5 yrs/COLONOSCOPY FLEXIBLE PROXIMAL DIAGNOSTIC performed by Beatriz Tony MD at ENDOSCOPY [facility] COLPOSCOPY OF CERVIX W/BIOPSY 2003 EGD, FLEXIBLE, DIAGNOSTIC 03/23/2015 acid reflux, sm HH/ESOPHAGOGASTRODUODENOSCOPY (EGD), FLEXIBLE, TRANSORAL, DIAGNOSTIC performed by Brice Manzo MD at ENDOSCOPY [facility] EGD, FLEXIBLE, DIAGNOSTIC 10/28/2018 normal bx, hiatal hernia/ESOPHAGOGASTRODUODENOSCOPY (EGD), FLEXIBLE, TRANSORAL, DIAGNOSTIC performed by Beatriz Tony MD at [facility]OSCOPY [facility] EXC BREAST LESION RADMARK Right 12/22/2020 EXCISION OF BREAST LESION RADIOLOGICAL MARKER performed by Camille Dunne MD at OR [facility] HYSTEROSCOPY;ENDOMETRIAL ABLAT 2009 IMPLANT, BIOLOGIC, SOFT TISSUE REINFORCE Bilateral 11/03/2021 IMPLANT, BIOLOGIC, SOFT TISSUE REINFORCE performed by Gera Julien MD at [facility] MAMMOGRAM BREAST NEEDLE BIOPSY CORE RIGHT Right 02/28/2017 Benign MAMMOGRAM BREAST NEEDLE BIOPSY CORE RIGHT Right 09/26/2021 MASTECTOMY, SIMPLE, COMPLETE Bilateral 11/03/2021 MASTECTOMY SIMPLE COMPLETE performed by Camille Dunne MD at [facility] MRI GUIDED BREAST BX RIGHT Right 11/10/2020 complex sclerosing lesion MT TOTAL ABDOMINAL HYSTERECT W/WO RMVL TUBE OVARY 08/09/2020 REMOVAL OF OVARY/OVIDUCT(S) Bilateral 09/2022 endometriosis REMOVAL OF TONSILS, UNDER AGE 11 1988 and adenoidectomy SENTINAL LYMPH NODE IDENTIFICATION, INTRAOP Bilateral 11/03/2021 SENTINAL LYMPH NODE IDENTIFICATION, INTRAOP performed by Camille Dunne MD at [facility] SINUS SURGERY PROCEDURE NEC 2010 US GUIDED BREAST BIOPSY LEFT Left 09/26/2021 breast & axilla Medications Current Outpatient Medications Medication Sig Dispense Refill valACYclovir HCl 500 MG Oral Tablet (Valtrex) Take 1 pill daily due to recurrent HSV II infections on arm. (Patient taking differently: as needed. Take 1 pill daily due to recurrent HSV II infectionson arm.) 30 Tab 3 Cholecalciferol 50 MCG (2000 UT) Oral Capsule Take 1 Capsule by mouth. Saccharomyces boulardii 250 MG Oral Capsule (FLORASTOR) Take 1 Capsule by mouth. Cyanocobalamin 1000 MCG/ML Injection Solution (Cyanocobalamin) Inject 1 mL subcutaneous every 2 weeks. Albuterol Sulfate HFA 108 (90 Base) MCG/ACT Inhalation Aerosol Solution Inhale by mouth 2 Puffs every 4 hours as needed for Shortness of Breath or Wheezing. 18 g 0 Fluticasone Furoate-Vilanterol 200-25 MCG/INH Inhalation Aerosol Powder Breath Activated (BREO ellipta) Inhale by mouth 1 Puff in the morning. (Patient taking differently: Inhale 1 Puff by mouth as needed.) 60 Blister Dosing Unit 3 Clopidogrel Bisulfate 75 MG Oral Tablet (pLAVix) Take by mouth 1 Tablet in the morning. 30 Tablet 5 HYDROcodone-Acetaminophen 10-325 MG Oral Tablet Take 2 Tablets by mouth every 6 hours as needed forPain, Severe. 170 Tablet 0 Syringe 23G X 1" 3 ML Use to inject toradol once daily as needed for pain in lower back. 10 Each 11 Omeprazole 40 MG Oral Capsule Delayed Release (PriLOSEC) TAKE ONE CAPSULE BY MOUTH EVERY MORNING AND AT BEDTIME (Patient taking differently: 1 Capsule in the morning.) 60 Capsule 5 ALPRAZolam 0.5 MG Oral Tablet (xaNAX) 1/2-1 tablet every 6-8 hours as needed for anxiety. 30 Tablet0 Citalopram Hydrobromide 40 MG Oral Tablet (CeleXA) TAKE ONE TABLET BY MOUTH EVERY MORNING (Patient taking differently: Takes at night) 30 Tablet 5 NSS 0.9 % SOLN 19.8 mL with HYDROmorphone 50 MG/5ML SOLN 2 mg Inject into spinal canal continuous. ? dose Ketorolac Tromethamine 30 MG/ML Injection Solution Inject 30 mg into a large muscle once as needed for Pain, Severe. BD Luer-Keri Syringe 25G X 1" 3 ML Mupirocin 2 % External Ointment (Bactroban) Apply topically to affected area 2 times a day. Apply to open area 22 g 0 Prochlorperazine Maleate 5 MG Oral Tablet (Compazine) Take 1 Tablet by mouth every 6 hours as needed for Nausea. 30 Tablet 2 Rinvoq 15 MG Oral Tablet Extended Release 24 Hour (Upadacitinib ER) Take 1 Tablet by mouth every other day. 30 Tablet 0 ondansetron ODT (ZOFRAN) [address] 1 Tab on tongue every 8 hours as needed for Nausea. dissolve on tongue. 30 Tab 5 No current facility-administered medications for this visit. Allergies Review of patient's allergies indicates: Allergen Reactions Bactrim [Sulfamethoxazole-Trimethoprim] Nausea/vomiting Duloxetine MALAISE Family History Family History Problem Relation Name Age of Onset Gastro-intestinal disorder Mother Amelia Gastroporesis Breast Cancer Mother Amelia 49 Diabetes Father Gabbie type 2 Hypertension Father [place] Blood Disorder Father Gabbie Endocrine Disorder Sister Breast Cancer Sister 46 Other (Autoimmune Disorder) Sister lupus Other (Blood Disorder) Sister Factor V Breast Cancer Grandmother (Maternal) Vanesa 60 Cancer Grandmother (Paternal) Bren Cancer Grandfather (Paternal) ?colon Social History Social History Tobacco Use Smoking status: Every Day Current packs/day: 0.50 Average packs/day: 0.5 packs/day for 5.0 years (2.5 ttl pk-yrs) Types: Cigarettes Smokeless tobacco: Never Tobacco comments: 1/2 pack a day,6 yearssmokes electronic cigarette - currently using nicotine patches 10/19/23 Substance Use Topics Alcohol use: Not Currently Comment: rare Vaping/E-Cigarette Use Vaping/E-Cigarette Use Former User Vaping/E-Cigarette Substances Nicotine No Other No Flavoring No THC No Cannabidiol (CBD) No Vaping/E-Cigarette Devices Disposable No Pre-filled or Refillable Cartridge No Refillable Tank No Pre-filled Pod No Occupational History Work: Review of Systems Negative for constitutional, eyes, cardiac, pulmonary, hepatic, renal, digestive, hematologic, epileptic, syncopal, musculo-skeletal, mental health, integumentary, hypertensive, lipid, arthritic, diabetic, thyroid or neurologic disorders (except as listed in the PMH and Problem List). Physical Examination: Temp 36.6 C (97.9 F) (Tympanic) | Ht 1.651 m (5' 5") | Wt 74.3 kg (163 lb 11.2 oz) | LMP 10/11/2018 | BMI 27.24 kg/m | BSA 1.85 m PHYSICAL EXAM General: This is a healthy appearing female who appears her stated age. The patient is alert and appropriately verbally conversant without hoarseness. Face: The face was inspected and no cutaneous masses or lesions were visualized. There was no erythema or edema noted. Facial movement was symmetric without weakness. No skin lesions were detected. The parotid and submandibular glands were normal to palpation. Eyes: Extra-ocular muscle function was intact. No nystagmus was observed. Pupils were equal. Cranial Nerves: Grossly intact Nose: Examination of the nose prior to decongestion revealed no masses, polyps, mucopus, or other lesion. The nasal septum was non-obstructing. The turbinates were without abnormality. No septal perforation. Small fissure along right floor of nose, cultured Oral Cavity: Examination of the oral cavity revealed no mass lesions nor infection. The palate was noted to be intact without evidence of clefting. The tongue exhibited normal mobility. Mucosa was moist without lesion. The lips were free of lesion. Gums were free of inflammation. Dentition: Unremarkable Oropharynx: The oral pharynx was free of mass lesion or mucosal abnormality. The palate was noted to be without lesion. The uvula was normal appearing. The tonsils were unremarkable. Hypopharynx: indirect exam did not provide good visualization. Flexible fiberoptic examination was not done since the patient did not have symptoms referable to this area. Larynx: indirect exam did not provide good visualization. Flexible fiberoptic examination was not done since the patient did not have symptoms referable to this area. Ears: Examination of the ears revealed that the auricles were normally formed with no lesions. The external auditory canals were cleaned of any obstructing cerumen. The tympanic membranes were intact. There are no significant retraction pockets. There is no inflammation visualized. No effusions areseen. Neck: Visualization and palpation of the neck revealed no mass lesions, no thyromegaly or thyroid masses. No skin lesions or inflammatory processes were detected. The cervical musculature was normal to palpation. Lymphatics (cervical): There were no palpable lymph nodes in the posterior triangle, submandibular triangle, jugulodigastric region, or central neck. Lungs: Breathing quietly. No use of accessory muscles. Heart: Regular rate. No JVD. Plan: Nasal lesion (Primary) - CULTURE, SINUS, AEROBIC AND ANAEROBIC; Future; Expected date: 02/07/2024 Will try RGO. Phone in 12 weeks, can see if improved start sinus regimen Extensive time was spent discussing the above diagnosis, management and treatment. I reviewed all outside documentation, labs, and imaging. I spent a total of 40-54 minutes (exact time 45 mins) on the date of service in preparation, delivery, and documentation of the care provided to Shwetha Bolanos excluding any time spent in the performance of separately billed services. Karli Aldana MD [facility] Otolaryngology - Head and Neck [place] 02/07/2024 8:41 AM documented in this encounter Nursing Notes * Mata Santiago CMA - 02/07/2024 8:08 AM EDT Chief Complaint Patient presents with NEW PATIENT Lesion in right nostril Shwetha Bolanos is a 43 year old female who presents today with a sore inside her right nostril that first appeared 2 months ago on her nasal septum and moved laterally over the past 6 months. She states that the sore appeared after a flare of her autoimmune conditions including ankylosing spondylitis. She states that the lesion is painful and bleeds and crusts over. She uses Vaseline and antibiotic ointments. documented in this encounter Plan of Treatment Upcoming Encounters Date Type Department Care Team (Late st Contact Info) Description 03/28/2024 1:30 PM EDT Hospital Encounter [facility]O [facility], Endoscopy Room [facility] [address] [place] [phone] Beatriz Tony MD [address] [place] [address] 03/28/2024 1:30 PM EDT - 03/28/2024 2:00 PM EDT Surgery ENDO [facility], Endoscopy Room [facility] [address] [place] [id number] Beatriz Tony MD [address] [place] [address] COLONOSCOPY FLEXIBLE PROXIMAL DIAGNOSTIC 04/03/2024 11:00 AM EDT Office Visit Gastroenterology, [facility] [address] [place] [address] Tatiana Bee CRNP [address] [place] [id number] 04/23/2024 10:30 AM EDT Telemedicine Rheumatology, [address] [address] Agc5, Pharmacist Rheumatology [address] [place] [address] 04/25/2024 9:00 AM EDT Office Visit Radiation Oncology, [facility] [address] [place] [address] IovoliNahun MD [address] [place] [id number] 05/01/2024 9:15 AM EDT Telemedicine Otolaryngology, [facility] [address] [place] [address] Karli Aldana MD [address] [place] [address] 05/22/2024 10:00 AM EDT Office Visit Gynecology/Obstetr ics [facility] [address] [place] [address] Romana Streeter CRNP [address] [place] [address] 08/29/2024 9:10 AM EST Office Visit Rheumatology, [address] [address] Soha Amato MD [facility]note 3[facility] [place] [address] Pending Results Name Type Priority Associated Diagnoses Date /Time CULTURE, SINUS, AEROBIC AND ANAEROBIC Lab Routine Nasal lesion 02/07/2024 11:22 AM EDT Scheduled Orders Name Type Priority Associated Diagnoses Orde r Schedule CULTURE, SINUS, AEROBIC AND ANAEROBIC Lab Routine Nasal lesion Expected: 02/07/2024, Expires: 02/06/2025 Scheduled Procedures Name Priority Associated Diagnoses Date/Ti [...] this encounter Medical Devices Implanted Type Area Invoice Coder Device Identifier Shelf Expiration Date Model / Serial / Lot Alloderm Select 16x20 (320 Units) - [id number] - [id number] Implanted:Qty: 1 on 11/03/2021 by Gera Julien MD at [facility] Right: Breast ALLERGAN 02/26/2023 [id number] / [id number] / [id number] Alloderm Select 16x20 (320 Units) - [id number] - [id number] Implanted:Qty: 1 on 11/03/2021 by Gera Julien MD at [facility] Left: Breast ALLERGAN 04/28/2023 [id number] / [id number] / [id number] [address] [place] Breast Scholarship Counselor Implanted:Qty: 1 on 11/03/2021 by Gera Julien MD at [facility] Right: Breast [employer] BREAST IMPLANT[employer] 2024 [facility]-120H / [id number] [place] Breast Scholarship Counselor Implanted:Qty: 1 on 11/03/2021 by Gera Julien MD at [facility] Left: Breast [employer] BREAST IMPLANT[employer] 2024 [facility]-120H / [id number] documented as of this encounter Visit Diagnoses Diagnosis Nasal lesion- Primary Other diseases of nasal cavity and sinuses History of colon polyps Personal history of colonic polyps documented in this encounter Advance Directives * Full Code (Latest Code Status on File) Date Activated Date Inactivated Comments 11/03/2021 11:07 AM 11/04/2021 1:17 PM This order re flects the patients wishes and were consensually agreed upon. Care Teams Shop Worker Relationship Specialty Start Date End Date Ian Morocho MD [address] [address] PCP - General Family Medicine 12/06/22 documented as of this encounter
--- OUTSIDE RECORDS SUMMARY | 2024-04-08 15:21 | External Medical Summary | Summary of Care ---
Author Name Unknown Organization [facility] Address [address] [place] [address] Phone [phone] Care Team Providers Care Senior Actuarial Analyst Name Role Phone Ian Morocho MD Primary Care Provid er Reason for Visit * Reason Comments NEW PATIENT Lesion in right nost ril Encounter Details Date Type Department Care Team (Late st Contact Info) Description 02/07/2024 8:00 AM EDT Office Visit Otolaryngology, [facility] Goldman [address] [address] Karli Aldana MD [address] [address] [...] of test: Expansive testing for breast and office support cancer risk -- 36 genes Genes Included: [...] QHS; s/p trigger point injections Dr. Ramires [facility] [phone] Anxiety 12/26/2013 Depression 12/26/2013 Overview: Reviewed prior [...] consultation is Self. Nursing Notes: Mata Santiago, [facility] 02/07/24 0810 Signed Chief Complaint Patient [...] List Diagnosis ADVANCE DIRECTIVE INFORMATION Neuropathy Sacroiliitis ([facility]) Insomnia Fibromyalgia Anxiety Depression Headache Other social [...] of test: Expansive testing for breast and office support cancer risk -- 36 genes Genes Included: ABRAXAS1, AKT1, EARL, BARD1, BRCA1, BRCA2, BRIP1,CDC73, CDH1, CHEK2, DICER1, EPCAM, FANCC, FANCM, MLH1, MRE11, MSH2, MSH6, MUTYH, NBN, NF1, PALB2, PIK3CA, PMS2, POLD1, PTEN, RAD51C, RAD51D, RECQL, RINT1, SDHB, SDHD, SMARCA4, STK11, TP53, XRCC2' Breast cancer ([facility]) 09/26/2021 bx results Cigarette smoker 05/05/2022 Depression 12/26/2013 Depressive disorder, not elsewhere classified Endometriosis 02/14/2020 See report of diagnostic laparoscopy January 2020 Factor V Leiden ([facility]) 12/26/2013 heterozygous Fibromyalgia 12/26/2013 Cymbalta, Meloxicam, Hydrocodone [...] Surgical History: Procedure Laterality Date BREAST RECONSTRUCTION W/MATERIAL REQUIREMENTS PLANNING MANAGER Bilateral 11/03/2021 TISSUE MATERIAL REQUIREMENTS PLANNING MANAGER PLACEMENT IN BREAST RECONSTRUCTION performed by Gera Julien MD at OR [facility] BX LYMPH NODE DEEP AXIL Bilateral 11/03/2021 BIOPSY LYMPH NODE DEEP AXILLARY OPEN performed by Camille Dunne MD at OR [facility] COLONOSCOPY, DIAGNOSTIC (RECTUM) 11/01/2018 hyperplastic polyps, repeat 5 yrs/COLONOSCOPY FLEXIBLE PROXIMAL DIAGNOSTIC performed by Beatriz Tony MD at ENDOSCOPY [facility] COLPOSCOPY OF CERVIX W/BIOPSY 2003 EGD, FLEXIBLE, DIAGNOSTIC 03/23/2015 acid reflux, sm HH/ESOPHAGOGASTRODUODENOSCOPY (EGD), FLEXIBLE, TRANSORAL, DIAGNOSTIC performed by Brice Manzo MD at ENDOSCOPY [facility] EGD, FLEXIBLE, DIAGNOSTIC 10/28/2018 normal bx, hiatal hernia/ESOPHAGOGASTRODUODENOSCOPY (EGD), FLEXIBLE, TRANSORAL, DIAGNOSTIC performed by Beatriz Tony MD at ENDOSCOPY [facility] EXC BREAST LESION RADMARK Right 12/22/2020 EXCISION OF BREAST LESION RADIOLOGICAL MARKER performed by Camille Dunne MD at OR [facility] HYSTEROSCOPY;ENDOMETRIAL ABLAT 2008 IMPLANT, BIOLOGIC, SOFT TISSUE REINFORCE Bilateral 11/03/2021 IMPLANT, BIOLOGIC, SOFT TISSUE REINFORCE performed by Gera Julien MD at OR [facility] MAMMOGRAM BREAST NEEDLE BIOPSY CORE RIGHT Right 02/28/2017 Benign MAMMOGRAM BREAST NEEDLE BIOPSY CORE RIGHT Right 09/26/2021 MASTECTOMY, SIMPLE, COMPLETE Bilateral 11/03/2021 MASTECTOMY SIMPLE COMPLETE performed by Camille Dunne MD at OR [facility] MRI GUIDED BREAST BX RIGHT Right 11/10/2020 complex sclerosing lesion VT TOTAL ABDOMINAL HYSTERECT W/WO RMVL TUBE OVARY 08/09/2020 REMOVAL OF OVARY/OVIDUCT(S) Bilateral 09/2022 endometriosis REMOVAL OF TONSILS, UNDER AGE 11 1988 and adenoidectomy SENTINAL LYMPH NODE IDENTIFICATION, INTRAOP Bilateral 11/03/2021 SENTINAL LYMPH NODE IDENTIFICATION, INTRAOP performed by Camille Dunne MD at OR [facility] SINUS SURGERY PROCEDURE NEC 2010 US GUIDED [...] arm.) 30 Tab 3 Cholecalciferol 50 MCG (1999 [place]) Oral Capsule [...] Diabetes Father Gabbie type 2 Hypertension Father Gabbie Blood Disorder Father Gabbie Endocrine Disorder Sister [...] of separately billed services. Karli Aldana MD [facility] Otolaryngology - Head and Neck [place] 02/07/2024 8:41 AM documented in this [...] Hospital Encounter ENDO [facility], Endoscopy Room [facility] [address] [place] [phone] Beatriz Tony MD [address] [place] [address] 03/28/2024 1:30 PM EDT - 03/28/2024 2:00 PM EDT Surgery ENDO [facility], Endoscopy Room [facility] [address] [place] [phone] Beatriz Tony MD [address] [place] [address] COLONOSCOPY FLEXIBLE PROXIMAL DIAGNOSTIC 04/03/2024 11:00 AM EDT Office Visit [facility] [address] [facility] [place] [address] Tatiana Bee CRNP [facility] [place] [address] 04/23/2024 10:30 AM EDT Telemedicine Rheumatology, [address] [address] Agc5, Pharmacist Rheumatology [address] [place] [address] 04/25/2024 9:00 AM EDT Office Visit Radiation Oncology, [facility] [address] [place] [address] IovoliNahun MD [address] [place] [phone] 05/01/2024 9:15 AM EDT Telemedicine Otolaryngology, [facility] [address] [place] [address] Karli Aldana MD [address] [facility] [address] 05/22/2024 10:00 AM EDT Office Visit Gynecology/Obstetr ics [facility] [address] [employer] [place] [address] Romana Streeter CRNP [address] [place] [place] [address] 08/29/2024 9:10 AM EST Office Visit Rheumatology, [address] [address] Soha Amato MD [address] [place] [address] Scheduled Orders Name Type Priority Associated Diagnoses [...] this encounter Medical Devices Implanted Type Area Terminal Gauger Device Identifier Shelf Expiration Date Model / Serial / Lot Alloderm Select 16x20 (320 Units) - [id number] - [id number] Implanted:Qty: 1 on 11/03/2021 by Gera Julien MD at OR [facility] Right: Breast ALLERGAN 02/26/2023 [id number] / [id number] / [id number] Alloderm Select 16x20 (320 Units) - [id number] - [id number] Implanted:Qty: 1 on 11/03/2021 by Gera Julien MD at OR [facility] Left: Breast ALLERGAN 04/28/2023 [id number] / [id number] / [id number] [address] [place] Breast Textile Pin Worker Implanted:Qty: 1 on 11/03/2021 by Gera Julien MD at OR [facility] Right: Breast MENTOR BREAST IMPLANTS 2024 [facility]-120H / [id number] [place] Breast Textile Pin Worker Implanted:Qty: 1 on 11/03/2021 by Gera Julien MD at OR [facility] Left: Breast MENTOR BREAST IMPLANTS 2024 [facility]-120H / [id number] documented as of this encounter Visit Diagnoses [...] and were consensually agreed upon. Care Teams Senior Actuarial Analyst Relationship Specialty Start Date End Date Ian Morocho MD [address] [place] [address] PCP - General Family Medicine 12/06/22 documented as of this encounter
--- OUTSIDE RECORDS SUMMARY | 2024-04-08 15:21 | External Medical Summary | Summary of Care ---
Author Name Unknown Organization [facility] Address [address] [place] [address] Phone [phone] Care Team Providers Care Butcher Or Smallgoods Maker Name Role Phone Ian Morocho MD Primary Care Provid er Reason for Visit * Reason Comments Medication Management Dosage Adjustment In Person (Anticoag Cl inic) Encounter Details Date Type Department Care Team (Late st Contact Info) Description 12/25/2023 10:30 AM EDT Telemedicine Rheumatology, [place] [address] [place] [id number] Agc5, Pharmacist Rheumatology [address] [place] [address] Ankylosing spondylitis of multiple sites in spine (HCC)* Allergies Active Allergy Reactions Criticality Noted Date Comments Sulfamethoxazole-Trimethoprim Nausea/vomiting 0 04/13/2023 Duloxetine 07/27/2020 MALAISE documented as of this encounter (statuses as of 12/25/2023) Medications Medication Sig Dispensed Refills Start Date [...] as of this encounter (statuses as of 12/25/2023) Active Problems Problem Noted Date Diagnosed Date [...] of test: Expansive testing for breast and boatbuilder apprentice wood cancer risk -- 36 genes Genes Included: [...] s/p trigger point injections Dr. Ramires [facility] [phone] Anxiety 12/26/2013 Depression 12/26/2013 Overview: Reviewed prior [...] as of this encounter (statuses as of 12/25/2023) Resolved Problems Problem Noted Date Diagnosed Date [...] as of this encounter (statuses as of 12/25/2023) Immunizations Name Administration Dates Next Due DTaP [...] as of this encounter Progress Notes * Soha Amato MD - 12/25/2023 4:03 PM EDT Yes, ok to resume rinvoq every other day now. Agree with obtaining lab work done at [facility] * Toan Gómez [facility] - 12/25/2023 12:02 PM EDT REviewed Clinical manager pharmacy's Note. Agree with the plan. We will obtain recent labs resultsfrom outside facility. Will also discuss with Dr. Amato if ok to resume Rinvoq 15mg every otherday Toan Gómez, Pharm. D., [facility] Clinical Pharmacist 12/25/2023,12:03 PM * Ozzie Leavitt, [facility] - 12/25/2023 10:34 AM EDT Clinical Pharmacy Service (Rheumatology): Medication Management Patient location: HOME. I was in a hospital or clinic location. After connecting through Direct Access Software,patient was verified with two unique identifiers. Patient (or authorized legal malt liquors sales representative) was then informed that this was a Telemedicine visit and being conducted confidentially over secure lines. Methods to assure confidentiality were taken. Patient acknowledged consent and understanding of pr ivacy and security of the Telemedicine visit. The patient agreed to participate. [facility] secretaries: Would you please be able to obtain patient's labs from [facility]? PHYSICIAN ACTION NEEDED: Patient has been off of Rinvoq since [id number] October and reports she ishaving a flare that has been ongoing for past 6 weeks. Patient also has a sore in her nostril that has been evaluated by her family doctor and is negative for infection. She had labs recently obtained at [facility] that we need to obtain. Is it okay for patient to restart Rinvoq 15 mg every o ther day, or should we wait for the blood work to be scanned into the chart? PROTOCOL IN PLACE Referral for: 3 month Diagnosis: Ankylosing spondylitis [M45.9] ASSESSMENT Patient is on the following medication(s): None Patient has been off of since [id number]-[id number] October Patient has been having a flare about 6 weeks Held Rinvoq for UTI that she was receiving antibiotic for and has not restarted, UTI symptoms resolved Reports red sore in her nostril, negative for HSV Had lab work completed recently at [facility] - will request lab results PLAN OF ACTION Medication Regimen: RESTART Rinvoq 15 mg PO once every other day - pending discussion with Dr. Amato Labs Needed: recently completed - need to obtain Follow-Up Appointment: Pharmacist: on 04/23/24 Physician: on 01/18/24 SOCIAL HISTORY CURRENT MEDICATION REGIMEN None Patient has been on this medication for Off since gustt-fz-rbo October Chronic use of prednisone or NSAIDS: using Tylenol Patient account of regimen effectiveness: Currently off of Rinvoq Patient reports side effects while being on medication: n/a DISEASE ACTIVITY ASSESSMENT Symptoms Include: Pain (Neuropathic) and Swelling Location of Symptoms: Face (Includes Neck/Scalp) , Upper Extremities (Hands/Fingers/Wrists/Elbows/Arms), and Lower Extremities (Feet, Toes, Ankles, Knees/Legs) Flares within past month: 1 flare within past month Hospitalization, ED visits, Infections, or surgery since last visit: no Activities of Daily Living: Cook, Drive, and Work Patient Global = 10 Considering all the ways in which your illness may affect you at this time, howare you doing? LABORATORY VALUES Lab Results Component Value Date/Time WBC 4.25 10/24/2023 10:48 AM WBC 3.88 (L) 10/18/2023 10:14 AM WBC 6.37 07/04/2023 10:26 AM WBC 6.34 05/24/2020 03:31 PM WBC 5.76 10/24/2019 08:41 AM WBC 5.75 08/02/2019 01:46 PM WBC, URINE - [facility] 0-2 07/04/2023 10:26 AM WBC, URINE - [facility] 0-2 07/02/2015 11:11 AM WBC, URINE - [facility] 1-4 02/13/2005 02:32 PM Lab Results Component Value Date/Time HGB 13.3 10/24/2023 10:48 AM HGB 13.5 10/18/2023 10:14 AM HGB 14.5 07/04/2023 10:26 AM HGB 14.7 05/24/2020 03:31 PM HGB 13.6 10/24/2019 08:41 AM HGB 14.3 08/02/2019 01:46 PM Lab Results Component Value Date/Time HCT 38.4 10/24/2023 10:48 AM HCT 40.1 10/18/2023 10:14 AM HCT 44.6 07/04/2023 10:26 AM HCT 44.3 05/24/2020 03:31 PM HCT 39.7 10/24/2019 08:41 AM HCT 43.6 08/02/2019 01:46 PM Lab Results Component Value Date/Time PLT 204 10/24/2023 10:48 AM PLT 191 10/18/2023 10:14 AM PLT 302 07/04/2023 10:26 AM PLT 293 05/24/2020 03:31 PM PLT 234 10/24/2019 08:41 AM PLT 250 08/02/2019 01:46 PM Lab Results Component Value Date/Time CREATINE KINASE, TOTAL 27 (L) 08/16/2021 02:55 PM CREATININE - [facility] 0.6 10/18/2023 10:14 AM CREATININE - [facility] 0.6 07/04/2023 10:26 AM CREATININE - [facility] 0.7 04/09/2023 12:00 PM CREATININE - [facility] 0.7 05/24/2020 03:31 PM CREATININE - [facility] 0.8 08/02/2019 01:46 PM CREATININE - [facility] 0.9 04/01/2019 03:54 PM CREATININE, RANDOM URINE - [facility] 171 07/04/2023 10:26 AM CREATININE, RANDOM URINE - [facility] 44 07/02/2015 11:11 AM Lab Results Component Value Date/Time BUN - [facility] 9 07/04/2023 10:26 AM BUN - [facility] 6 02/15/2023 02:25 PM BUN - [facility] 4 (L) 06/02/2022 11:33 AM BUN - [facility] 7 05/24/2020 03:31 PM BUN - [facility] 6 08/02/2019 01:46 PM BUN - [facility] 6 04/01/2019 03:54 PM Lab Results Component Value Date/Time AST - [facility] 54 (H) 10/18/2023 10:14 AM AST - [facility] 20 07/04/2023 10:26 AM AST - [facility] 19 04/09/2023 12:00 PM AST - [facility] 15 05/24/2020 03:31 PM AST - [facility] 12 08/02/2019 01:46 PM AST - [facility] 17 04/01/2019 03:54 PM Lab Results Component Value Date/Time ALT - [facility] 47 (H) 10/18/2023 10:14 AM ALT - [facility] 18 07/04/2023 10:26 AM ALT - [facility] 18 04/09/2023 12:00 PM ALT - [facility] 17 05/24/2020 03:31 PM ALT - [facility] 10 08/02/2019 01:46 PM ALT - [facility] 31 04/01/2019 03:54 PM Lab Results Component Value Date/Time LDL CHOLESTEROL (CALCULATED) - [facility] 139 (H) 10/18/2023 10:14 AM LDL CHOLESTEROL (CALCULATED) - [facility] 63 12/19/2017 08:51 AM LDL CHOLESTEROL (CALCULATED) - [facility] 58 12/17/2014 11:24 AM Ozzie Leavitt RPh [facility] Clinical Pharmacist Rheumatology Department 12/25/2023,10:34 AM documented in this encounter Plan of Treatment Upcoming Encounters Date Type Department Care Team (Late st Contact Info) Description 01/18/2024 2:30 PM EDT Office Visit Rheumatology, [place] [address] [place] [facility] [place] [address] Soha Amato MD [address] [place] [facility] [place] [address] 03/28/2024 1:30 PM EDT Hospital Encounter ENDO [facility], Endoscopy Room [facility] [address] [facility] [place] [phone] Beatriz Tony MD [address] [place] [address] 03/28/2024 1:30 PM EDT - 03/28/2024 2:00 PM EDT Surgery ENDO [facility], Endoscopy Room [facility] [address] [place] [phone] Beatriz Tony MD [address] [place] [address] COLONOSCOPY FLEXIBLE PROXIMAL DIAGNOSTIC 04/03/2024 11:00 AM EDT Office Visit Gastroenterology, [facility] [address] [place] [address] Tatiana Bee CRNP [address] [place] [address] 04/23/2024 10:30 AM EDT Telemedicine Rheumatology, [place] [address] [place] [address] Agc5, Pharmacist Rheumatology [facility] [address] 04/25/2024 9:00 AM EDT Office Visit Radiation Oncology, [address] [address] Rich Benavidez MD [address] [place] [address] 05/22/2024 10:00 AM EDT Office Visit Gynecology/Obstetr ics [facility] [address] [place] [address] Romana Streeter CRNP [address] [place] [address] Scheduled Procedures Name Priority Associated Diagnoses Date/Ti [...] Vaccines (2 - Tdap) 02/02/2020 02/01/2010, 12/14/2004 Influenza Vaccine (FLU shot) (Season Ended) 2024 [...] this encounter Medical Devices Implanted Type Area Sports Medicine Specialist Device Identifier Shelf Expiration Date Model / Serial / Lot Alloderm Select 16x20 (320 Units) - [id number] - [id number] Implanted:Qty: 1 on 11/03/2021 by Gera Julien MD at OR [facility] Right: Breast ALLERGAN 02/26/2023 [id number] / [id number] / [id number] Alloderm Select 16x20 (320 Units) - [id number] - [id number] Implanted:Qty: 1 on 11/03/2021 by Gera Julien MD at OR [facility] Left: Breast ALLERGAN 04/28/2023 [id number] / [id number] / [id number] [address] [place] Breast Welding Machine Assembler Implanted:Qty: 1 on 11/03/2021 by Gera Julien MD at OR [facility] Right: Breast MENTOR BREAST IMPLANTS 2024 [facility]-120H / [id number] [address] [place] Breast Welding Machine Assembler Implanted:Qty: 1 on 11/03/2021 by Gera Julien MD at OR [facility] Left: Breast MENTOR BREAST IMPLANTS 2024 [facility]-120H / [id number] / [id number] documented as of this encounter Visit Diagnoses Diagnosis Ankylosing spondylitis of multiple sites in spine (HCC)- Primary Ankylosing spondylitis History of colon polyps Personal history of colonic polyps documented in this encounter Advance Directives * Full Code (Latest Code Status on File) Date Activated Date Inactivated Comments 11/03/2021 11:07 AM 11/04/2021 1:17 PM This order re flects the patients wishes and were consensually agreed upon. Care Teams Butcher Or Smallgoods Maker Relationship Specialty Start Date End Date Ian Morocho MD [address] [place] [address] PCP - General Family Medicine 12/06/22 documented as of this encounter
--- OUTSIDE RECORDS SUMMARY | 2024-04-08 15:21 | External Medical Summary | Summary of Care ---
Author Name Unknown Organization [facility] Address [address] [place] [address] Phone [phone] Care Team Providers Care Nuclear Physics Teacher Name Role Phone Ian Morocho MD Primary Care Provid er Reason for Visit * Reason Onset Date Comments Med Request 12/25/2023 Encounter Details Date Type Department Care Team ([facility] st Contact Info) Description 12/25/2023 Telephone [facility] [address] [place] [address] [facility] [address] [place] [address] Med Request Allergies Active Allergy Reactions Criticality Noted Date Comments Sulfamethoxazole-Trimethoprim Nausea/vomiting 0 04/13/2023 Duloxetine 07/27/2020 MALAISE documented as of this encounter (statuses as of 01/02/2024) Medications Medication Sig Dispensed Refills Start Date [...] as of this encounter (statuses as of 01/02/2024) Active Problems Problem Noted Date Diagnosed Date [...] of test: Expansive testing for breast and credit union manager cancer risk -- 36 genes Genes Included: [...] QHS; s/p trigger point injections Dr. Ramires [facility] [phone] Anxiety 12/26/2013 Depression 12/26/2013 Overview: Reviewed prior [...] as of this encounter (statuses as of 01/02/2024) Resolved Problems Problem Noted Date Diagnosed Date [...] as of this encounter (statuses as of 01/02/2024) Immunizations Name Administration Dates Next Due DTaP [...] encounter Miscellaneous Notes * Telephone Encounter - Romana Swenson [facility] - 01/02/2024 12:03 PM EDT Labs scanned in. Plts 441 Cholesterol not complete. Per other msg Dr. Amato gave the okay to restart rinvoq QOD * Telephone Encounter - Fara Duenas OSA - 01/02/2024 11:55 AM EDT Labs were received from [facility]. They are scanned under the Media tab. TOVA Coe * Telephone Encounter - Fara Duenas OSA - 01/01/2024 2:54 PM EDT I called [facility]. #[phone]. They are faxing labs results that the patient completed in November 2023. TOVA Coe * Telephone Encounter - Ozzie Leavitt RPh - 12/25/2023 2:12 PM EDT [facility] secretaries- Would you please be able to obtain patient's recent labs from [facility]? Thanks! Ozzie Leavitt PharmD, [facility] PGY-1 Delinquent Notice Machine Operator - [facility] 12/25/2023, 2:14 PM documented in this encounter Plan of Treatment Upcoming Encounters Date Type Department Care Team (Late st Contact Info) Description 01/18/2024 2:30 PM EDT Office Visit Rheumatology, [place] [address] [facility] [address] Soha Amato MD [address] [facility] [place] [address] 03/28/2024 1:30 PM EDT Hospital Encounter ENDO [facility], Endoscopy Room [facility] [address] [place] [phone] Beatriz Tony MD [address] [place] [address] 03/28/2024 1:30 PM EDT - 03/28/2024 2:00 PM EDT Surgery ENDO [facility], Endoscopy Room [facility] [address] [place] [phone] Beatriz Tony MD [address] [place] [address] COLONOSCOPY FLEXIBLE PROXIMAL DIAGNOSTIC 04/03/2024 11:00 AM EDT Office Visit Gastroenterology, [facility] [address] [place] [address] Tatiana Bee CRNP [address] [place] [address] 04/23/2024 10:30 AM EDT Telemedicine Rheumatology, [address] [address] Agc5, Pharmacist Rheumatology [address] [place] [address] 04/25/2024 9:00 AM EDT Office Visit Radiation Oncology, [place] [address] [place], [place] [phone] Rich Benavidez MD [address] [place] [address] 05/22/2024 10:00 AM EDT Office Visit Gynecology/Obstetr ics [facility] [address] [place] [address] Romana Streeter CRNP [address] [place] [address] Scheduled Procedures Name Priority Associated Diagnoses Date/Ti [...] this encounter Medical Devices Implanted Type Area Sciences Dean Device Identifier Shelf Expiration Date Model / Serial / Lot Alloderm Select 16x20 (320 Units) - [id number] - [id number] Implanted:Qty: 1 on 11/03/2021 by Gera Julien MD at OR [facility] Right: Breast ALLERGAN 02/26/2023 [id number] / [id number] / [id number] Alloderm Select 16x20 (320 Units) - [id number] - [id number] Implanted:Qty: 1 on 11/03/2021 by Gera Julien MD at OR [facility] Left: Breast ALLERGAN 04/28/2023 [id number] / [id number] / [id number] [address] [place] Breast Infectious Disease Technician Implanted:Qty: 1 on 11/03/2021 by Gera Julien MD at [facility] Right: Breast MENTOR BREAST IMPLANTS 2024 [facility]120H / [id number] [address] [place] Breast Infectious Disease Technician Implanted:Qty: 1 on 11/03/2021 by Gera Julien MD at OR [facility] Left: Breast MENTOR BREAST IMPLANTS 2024 [facility]H / [id number] documented as of this encounter Advance Directives * Full Code (Latest Code Status on File) Date Activated Date Inactivated Comments 11/03/2021 11:07 AM 11/04/2021 1:17 PM This order re flects the patients wishes and were consensually agreed upon. Care Teams Nuclear Physics Teacher Relationship Specialty Start Date End Date Ian Morocho MD [address] [place] [address] PCP - General Family Medicine 12/06/22 documented as of this encounter
--- OUTSIDE RECORDS SUMMARY | 2024-04-08 15:21 | External Medical Summary ---
Author Name Unknown Address Unknown Organization K01:LABORATORY [facility] - [facility] [address] [place] [address] Laboratory Report Ordering Provider Test Date Status ANGELITO HARRIS 01/18/2024 14:01:30 Final Observation Date Value Abnormality Reference (Units ) Status Creatinine 01/18/2024 14:01:30 0.6 0.5-1.0 (mg/dL) Final Glomerular filtration rate/1.73 sq M.predicted [Volume Rate/Area] in Serum, Plasma or Blood by Creatinine-based formula (CKD-EPI) 01/18/2024 14:01:30 >90 >=60 (mL/min) Final eGFR is calculated based on the CKD-EPI 2020 equation Performing Location LABORATORY [facility] - [facility] [address] [place] [address]
--- OUTSIDE RECORDS SUMMARY | 2024-04-08 15:21 | External Medical Summary | Summary of Care ---
Author Name Unknown Organization [facility] Address [address] [place] [address] Phone [phone] Care Team Providers Care In Flight Refueling Craftsman Name Role Phone Ian Morocho MD Primary Care Provid er Reason for Visit * Reason Comments Medication Management Dosage Adjustment In Person (Anticoag Cl inic) Encounter Details Date Type Department Care Team (Late st Contact Info) Description 12/25/2023 10:30 AM EDT Telemedicine Rheumatology, [place] [address] [phone] Agc5, Pharmacist Rheumatology [address] [place] [address] Ankylosing spondylitis of multiple sites in spine [...] of test: Expansive testing for breast and yard clerk cancer risk -- 36 genes Genes Included: [...] QHS; s/p trigger point injections Dr. Ramires [facility] [phone] Anxiety 12/26/2013 Depression 12/26/2013 Overview: Reviewed prior [...] as of this encounter Progress Notes * Toan Gómez, [facility] - 12/25/2023 12:02 PM EDT REviewed Clinical digital traffic coordinator's Note. Agree with the plan. We will obtain recent labs resultsfrom outside facility. Will also discuss with Dr. Amato if ok to resume Rinvoq 15mg every otherday Toan Gómez, Pharm. D., [facility] Clinical Pharmacist 12/25/2023,12:03 PM Electronically signed by Toan Gómez [facility] at 12/25/2023 12:03 PM EDT * Ozzie Leavitt, [facility] - 12/25/2023 10:34 AM EDT Clinical Pharmacy Service (Rheumatology): Medication Management Patient location: HOME. I was in a hospital or clinic location. After connecting through [employer],patient was verified with two unique identifiers. Patient (or authorized legal retail service representative) was then informed that this was a Telemedicine visit and being conducted confidentially over secure lines. Methods to assure confidentiality were taken. Patient acknowledged consent and understanding of pr ivacy and security of the Telemedicine visit. The patient agreed to participate. [facility] secretaries: Would you please be able to obtain patient's labs from [facility]? PHYSICIAN ACTION NEEDED: Patient has been off of Rinvoq since dqrfx-qy-bqs October and reports she ishaving a flare that has been ongoing for past 6 weeks. Patient also has a sore in her nostril that has been evaluated by her family doctor and is negative for infection. She had labs recently obtained at [facility] that we need to obtain. Is it okay for patient to restart Rinvoq 15 mg every o ther day, or should we wait for the blood work to be scanned into the chart? PROTOCOL IN PLACE Referral for: 3 month Diagnosis: Ankylosing spondylitis [M45.9] ASSESSMENT Patient is on the following medication(s): None Patient has been off of since bgdwp-jy-kbf October Patient has been having a flare about 6 weeks Held Rinvoq for UTI that she was receiving antibiotic for and has not restarted, UTI symptoms resolved Reports red sore in her nostril, negative for HSV Had lab work completed recently at [facility] - will request lab results PLAN OF ACTION Medication Regimen: RESTART Rinvoq 15 mg PO once every other day - pending discussion with Dr. Amato Labs Needed: recently completed - need to obtain Follow-Up Appointment: Pharmacist: on 04/23/24 Physician: on 01/18/24 SOCIAL HISTORY CURRENT MEDICATION REGIMEN None Patient has been on this medication for Off since fgsdt-hs-xax October Chronic use of prednisone or NSAIDS: [...] [facility] 12/17/2014 11:24 AM Ozzie Leavitt [facility] Clinical Pharmacist Rheumatology Department 12/25/2023,10:34 AM documented in this encounter Plan of Treatment Upcoming Encounters Date Type Department Care Team (Late st Contact Info) Description 01/18/2024 2:30 PM EDT [facility] [address] [place] [address] Soha Amato MD [address] [place] [address] 03/28/2024 1:30 PM EDT Hospital Encounter ENDO [facility], Endoscopy Room [facility] [address] [place] [phone] Beatriz Tony MD [address] [place] [address] 03/28/2024 1:30 PM EDT - 03/28/2024 2:00 PM EDT Surgery ENDO [facility], Endoscopy Room [facility] [address] [place] [phone] Beatriz Tony MD [address] [place] [address] COLONOSCOPY FLEXIBLE PROXIMAL DIAGNOSTIC 04/03/2024 11:00 AM EDT Office Visit Gastroenterology, [facility] [address] [place] [address] Tatiana Bee CRNP [address] [place] [address] 04/23/2024 10:30 AM EDT Telemedicine Rheumatology, [place] [address] [place] [address] Agc5, Pharmacist Rheumatology [facility] [place] [address] 04/25/2024 9:00 AM EDT Office Visit Radiation Oncology, [place] [address] [place] [address] Rich Benavidez MD [address] [place] [phone] 05/22/2024 10:00 AM EDT Office Visit Gynecology/Obstetr [facility] [address] [facility] [place] [address] Romana Streeter CRNP [address] [place] [address] Scheduled Procedures Name Priority Associated Diagnoses Date/Ti [...] this encounter Medical Devices Implanted Type Area Child Care Attendant Device Identifier Shelf Expiration Date Model / Serial / Lot Alloderm Select 16x20 (320 Units) - [id number] - [id number] Implanted:Qty: 1 on 11/03/2021 by Gera Julien MD at OR [facility] Right: Breast ALLERGAN 02/26/2023 [id number] / [id number] / [id number] Alloderm Select 16x20 (320 Units) - [id number] - [id number] Implanted:Qty: 1 on 11/03/2021 by Gera Julien MD at OR [facility] Left: Breast ALLERGAN 04/28/2023 [id number] / [id number] / [id number] [address] [place] Breast Real Estate Associate Attorney Implanted:Qty: 1 on 11/03/2021 by Gera Julien MD at OR [facility] Right: Breast MENTOR BREAST IMPLANTS 2024 [facility]H / [id number] / [id number] [address] [place] Breast Real Estate Associate Attorney Implanted:Qty: 1 on 11/03/2021 by Gera Julien MD at [facility] Left: Breast MENTOR BREAST IMPLANTS 2024 [facility]H / [id number] / [id number] documented as of this encounter Visit Diagnoses [...] and were consensually agreed upon. Care Teams In Flight Refueling Craftsman Relationship Specialty Start Date End Date Ian Morocho MD [address] [address] PCP - General Family Medicine 12/06/22 documented as of this encounter
--- OUTSIDE RECORDS SUMMARY | 2024-04-08 15:21 | External Medical Summary ---
Author Name Unknown Address Unknown Organization K01:[facility] - [address] [place] [address] Laboratory Report Ordering Provider Test Date Status KEEGAN SEQUEIRAELIER 02/07/2024 11:22:14 Final No anaerobic growth.
Lig ht growth normal roxanne Observation Date Value Abnormality Reference (Units ) Status Bacteria identified in Specimen by Culture 02/07/2024 11:22:14 [id number]^STAPHY LOCOCCUS AUREUS Abnormal Final Moderate Staphylococcus jaquan us Gram Stain 02/07/2024 11:22:14 Occasional Polymorphonuclear leukocytes Final Gram Stain 02/07/2024 11:22:14 Occasional Gram positive cocc i Final Performing Location [facility] - [address] [place] [address] Ordering Provider Test Date Status KEEGAN SEQUEIRAELIER 02/07/2024 11:22:14 Final Observation Date Value Abnormality Reference (Units ) Status Clindamycin 02/07/2024 11:22:14 <=0.25 Susceptible Final Erythromycin susceptibility 02/07/2024 11:22:14 <=0.25 Susceptible Final Oxacillinsusceptibility 02/07/2024 11:22:14 <=0.25 Susceptible Final Tetracyclinesusceptibility 02/07/2024 11:22:14 <=1 Susceptible Final TMP-SMZ susceptibility 02/07/2024 11:22:14 <=10 Susceptible Final Vancomycinsusceptibility 02/07/2024 11:22:14 <=0.5 Susceptible Final Test: Culture, Sinus, Aerobi c and Anaerobic
Specimen Source: Maxillary Sinus, Right
Specimen Type: Upper Respiratory
Specimen Date: 02/07/2024 1122
Result Date: 02/12/2024 1432
Result Status: Final result
Abnormal: Yes
Resulting Lab: LABORATORY [facility]
[address]
[place] [address]

CULTURE

Moderate Staphylococcus aureus (Abnormal)

No anaerobic growth.Light growth normal roxanne

STAIN

Occasional Polymorphonuclear leukocytes

Occasional Gram positive cocci

SUSCEPTIBILITY

Staphylococcus
aureus
METHOD MICROBROTH
DILUTIONS

CLINDAMYCIN <=0.25 Susceptible
ERYTHROMYCIN <=0.25 Susceptible
OXACILLIN <=0.25 Susceptible
TETRACYCLINE <=1 Susceptible
TRIMETH/SULFAMETHOXAZOLE <=10 Susceptible
VANCOMYCIN <=0.5 Susceptible

null Performing Location LAB[facility]ORY [facility] - [address] [facility] [address]
--- OUTSIDE RECORDS SUMMARY | 2024-04-08 15:21 | External Medical Summary | Summary of Care ---
Author Name Unknown Organization [facility] Address [address] [place] [address] Phone [phone] Care Team Providers Care Distribution Driver Name Role Phone Ian Morocho MD Primary Care Provid er Reason for Visit * Reason Comments Medication Management Dosage Adjustment In Person (Anticoag Cl inic) Encounter Details Date Type Department Care Team (Late st Contact Info) Description 12/25/2023 10:30 AM EDT Telemedicine Rheumatology, [place] [address] [phone] Agc5, Pharmacist Rheumatology [address] [place] [address] Ankylosing spondylitis of multiple sites in spine (HCC)* Allergies Active Allergy Reactions Criticality Noted Date Comments Sulfamethoxazole-Trimethoprim Nausea/vomiting 0 04/13/2023 Duloxetine 07/27/2020 MALAISE documented as of this encounter (statuses as of 12/26/2023) Medications Medication Sig Dispensed Refills Start Date [...] as of this encounter (statuses as of 12/26/2023) Active Problems Problem Noted Date Diagnosed Date [...] of test: Expansive testing for breast and cook cold meat cancer risk -- 36 genes Genes Included: [...] s/p trigger point injections Dr. Ramires [facility] [phone] Anxiety 12/26/2013 Depression 12/26/2013 Overview: Reviewed prior [...] as of this encounter (statuses as of 12/26/2023) Resolved Problems Problem Noted Date Diagnosed Date [...] as of this encounter (statuses as of 12/26/2023) Immunizations Name Administration Dates Next Due DTaP [...] as of this encounter Progress Notes * Ozzie Leavitt, formerly [facility] - 12/26/2023 3:12 PM EDT Called and spoke with patient. Informed patient per Dr. Amato ok to resume Rinvoq 15 mg every other day. Patient expressed understanding. Ozzie Leavitt PharmD, formerly [facility] PGY-1 Systems Architecture Analyst - [facility] 12/26/2023, 3:14 PM * Soha Amato MD - 12/25/2023 4:03 PM EDT Yes, ok to resume rinvoq every other day now. Agree with obtaining lab work done at [facility] * Toan Gómez formerly [facility] - 12/25/2023 12:02 PM EDT REviewed Clinical senior dot net developer's Note. Agree with the plan. We will obtain recent labs resultsfrom outside facility. Will also discuss with Dr. Amtao if ok to resume Rinvoq 15mg every otherday Toan Gómez PharmJacob D., [facility] Clinical Pharmacist 12/25/2023,12:03 PM * Ozzie Leavitt, formerly [facility] - 12/25/2023 10:34 AM EDT Clinical Pharmacy Service (Rheumatology): Medication Management Patient location: HOME. I was in a hospital or clinic location. After connecting through [employer],patient was verified with two unique identifiers. Patient (or authorized legal c s s representative) was then informed that this was a Telemedicine visit and being conducted confidentially over secure lines. Methods to assure confidentiality were taken. Patient acknowledged consent and understanding of pr ivacy and security of the Telemedicine visit. The patient agreed to participate. [facility] secretaries: Would you please be able to obtain patient's labs from [facility]? PHYSICIAN ACTION NEEDED: Patient has been off of Rinvoq since djuth-nf-azv October and reports she ishaving a flare that has been ongoing for past 6 weeks. Patient also has a sore in her nostril that has been evaluated by her family doctor and is negative for infection. She had labs recently obtained at [facility] that we need to obtain. Is it okay for patient to restart Rinvoq 15 mg every o ther day, or should we wait for the blood work to be scanned into the chart? PROTOCOL IN PLACE Referral for: 3 month Diagnosis: Ankylosing spondylitis [M45.9] ASSESSMENT Patient is on the following medication(s): None Patient has been off of since xpzhc-sz-uxp April Patient has been having a flare about 6 weeks Held Rinvoq for UTI that she was receiving antibiotic for and has not restarted, UTI symptoms resolved Reports red sore in her nostril, negative for HSV Had lab work completed recently at [facility] - will request lab results PLAN OF ACTION Medication Regimen: RESTART Rinvoq 15 mg PO once every other day - pending discussion with Dr. Amato Labs Needed: recently completed - need to obtain Follow-Up Appointment: Pharmacist: on 04/23/24 Physician: on 01/18/24 SOCIAL HISTORY CURRENT MEDICATION REGIMEN None Patient has been on this medication for Off since pdhis-rf-qgn April Chronic use of prednisone or NSAIDS: using [...] 57 12/17/2014 11:24 AM Ozzie Leavitt RPh [facility] Clinical Pharmacist Rheumatology Department 12/25/2023,10:34 AM documented in this encounter Plan of Treatment Upcoming Encounters Date Type Department Care Team (Late st Contact Info) Description 01/18/2024 2:30 PM EDT Office Visit Rheumatology, [place] [address] [facility] [place] [address] Soha Amato MD [address] [place] [address] 03/28/2024 1:30 PM EDT Hospital Encounter ENDO [facility], Endoscopy Room [facility] [address] [place] [phone] Beatriz Tony MD [address] [place] [address] 03/28/2024 1:30 PM EDT - 03/28/2024 2:00 PM EDT Surgery ENDO [facility], Endoscopy Room [facility] [address] [place] [phone] Beatriz Tony MD [address] [place] [address] COLONOSCOPY FLEXIBLE PROXIMAL DIAGNOSTIC 04/03/2024 11:00 AM EDT Office Visit Gastroenterology, [facility] [address] [place] [address] Tatiana Bee CRNP [address] [place] [address] 04/23/2024 10:30 AM EDT Telemedicine Rheumatology, [place] [address] [place] [address] Agc5, Pharmacist Rheumatology [facility] [place] [facility] [place] [address] 04/25/2024 9:00 AM EDT Office Visit Radiation Oncology, [place] [address] [place] [address] Rich Benavidez MD [address] [place] [address] 05/22/2024 10:00 AM EDT Office Visit Gynecology/Obstetr ics Alexi Roche [address] [place] [address] [place], ROSHNI Melgar [address] [place] [address] Scheduled Procedures Name Priority Associated Diagnoses Date/Ti [...] this encounter Medical Devices Implanted Type Area Medical Information Officer Device Identifier Shelf Expiration Date Model / Serial / Lot Alloderm Select 16x20 (320 Units) - [id number] - [id number] Implanted:Qty: 1 on 11/03/2021 by Gera Julien [place] [facility] Right: Breast ALLERGAN 02/26/2023 [id number] / [id number] / [id number] Alloderm Select 16x20 (320 Units) - [id number] - [id number] Implanted:Qty: 1 on 11/03/2021 by Gera Julien MD [place] [facility] Left: Breast ALLERGAN 04/28/2023 [id number] / [id number] / [id number] [address] [place] Breast Supervisor Coke Handling Implanted:Qty: 1 on 11/03/2021 by Gera Julien MD [place] [facility] Right: Breast MENTOR BREAST IMPLANTS 2024 [facility] / [id number] [address] [place] Breast Supervisor Coke Handling Implanted:Qty: 1 on 11/03/2021 by Gera Julien MD [place] [facility] Left: Breast MENTOR BREAST IMPLANTS 2024 [facility] / [id number] documented as of this encounter Visit Diagnoses [...] and were consensually agreed upon. Care Teams Distribution Driver Relationship Specialty Start Date End Date Ian Morocho MD [address] [address] PCP - General Family Medicine 12/06/22 documented as of this encounter
--- OUTSIDE RECORDS SUMMARY | 2024-04-08 15:21 | External Medical Summary | Summary of Care ---
Author Name Unknown Organization [facility] Address [address] [place] [address] Phone [phone] Care Team Providers Care Survey Research Associate Name Role Phone Ian Morocho MD Primary Care Provid er Reason for Visit * Reason Comments Rheum Follow Up Encounter Details Date Type Department Care Team ([facility] st Contact Info) Description 01/18/2024 2:30 PM EDT Office Visit Rheumatology, [place] [address] [place] [address] Soha Amato MD [address] [place] [address] Ankylosing spondylitis of multiple sites in spine (HCC)*; Encounter for therapeutic drug monitoring Allergies Active Allergy Reactions Criticality Noted Date Comments Sulfamethoxazole-Trimethoprim Nausea/vomiting 0 04/13/2023 Duloxetine 07/27/2020 MALAISE documented as of this encounter (statuses as of 01/18/2024) Medications Medication Sig Dispensed Refills Start Date [...] Active Prochlorperazine Maleate 5 MG Oral Tablet (Compazine)Indicat ions:Nausea Take 1 Tablet by mouth every 6 hours as needed for Nausea. 30 Tablet 2 11/12/2023 Active Rinvoq 15 MG Oral Tablet Extended Release 24 Hour (Upadacitinib ER)Indications:Ank ylosing spondylitis of multiple sites in spine (HCC) Take 1 Tablet by mouth every other day. 30 Tablet 12/03/2023 Active Magnesium 250 MG Oral Tablet Take by mouth daily. 01/18/20 24 Discontinu ed(Medicat ion List Clean Up) Lubiprostone 24 MCG Oral Capsule (Amitiza) Take 1 Capsule by mouth 2 times a day with morning and evening meals. 180 Capsule 3 11/19/2023 01/18/20 24 Discontinu ed(Medicat ion List Clean Up) Naloxegol Oxalate 25 MG Oral Tablet (Movantik) Take 1 Tablet by mouth in the morning. 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 [phone] Anxiety 12/26/2013 Depression 12/26/2013 Overview: Reviewed prior [...] as of this encounter (statuses as of 01/18/2024) Resolved Problems Problem Noted Date Diagnosed Date [...] as of this encounter (statuses as of 01/18/2024) Immunizations Name Administration Dates Next Due DTaP [...] Sign Reading Time Taken Comments Blood Pressure 122/72 01/18/2024 2:21 PM EDT Pulse 96 01/18/2024 2:21 PM EDT Temperature 36.3 C (97.3 F) 01/18/2024 2:21 PM ED T Respiratory Rate - - Oxygen Saturation 98% 01/18/2024 2:21 PM EDT Inhaled Oxygen Concentration - - Weight 72.1 kg (159 lb) 01/18/2024 2:21 PM EDT Height - - Body Mass Index 26.46 04/13/2023 3:02 PM EDT documented in this encounter Functional Status [...] Progress Notes * Soha Amato MD - 01/18/2024 2:30 PM EDT Since Last Visit: Last seen 10/12/2023. Since our last visit, she has been tolerating rinvoq every other day with improvement in lab work and less nausea and headaches with this dose. She had flares of pain in back and severe diffuse pain as well as pain in legs after ablations for her back done in November. Has also been having low blood pressure and lightheaded and dizzy. Has been evaluated by PCP and thought to have possible POTS/autonomic dysfunction, recommended compression and increase salt intake. Reviewed PCP notes and labs during visit today. Would not be typical side effect of rinvoq. Swapna notes a heaviness and aching in her legs bilaterally from thighs to feet and some swelling in her knees and legs worse the longer she is on her feet over the day. Has ulcer right nares that is not healing, swabbed for HSV that was negative, seeing ENT for it next month. Permanent History: Per initial consult 01/01/2014: "33 year old female with a past medical history dating back 10 years or more. During delivery in 1997, she recalls having epidural for control of labor pain and remembers several attempts needed for correct placement of the medication, during the procedure, she developed a shooting neuropathic type of pain down her R leg. She did not have any residual symptoms after that until 4-5 years later when she began to develop similar neuropathic type symptoms in the R side (pain and parasthesias of the upper and lower extremities). In 2001, she noted problems with increased fatigue and myofascial pain in her shoulders, upper and mid-back as well as mood disturbance, fatigue and sleep difficulties. She had seen Dr. Ramires as a teenager, but started seeing him again in 2005 for these symptoms. He diagnosed her with fibromyalgia and myofascial pain syndrome. She has been treated over the years with various TCAs and SSRI's and is currently on amitriptyline and citalopram as well as cymbalta. She did not tolerate lyrica due to sedation. For these symptoms, she has also received trigger point injections from Dr. Ramires. Due to worsening symptoms as well as new symptoms in the low back, buttock and hip area, she eventually was unable to work andhas been disabled since 2012. 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 She developed other symptoms over the years as well, which I will attempt to summarize below: In 2006, she had sudden episode of transient visual blurriness where she couldn't read with associated numbness in the R upper and lower extremity. There was an episode in 2007 as well. She was seen in a local ER for this and then developed severe headache once there. The visual symptoms lasted about 10-15 minutes and were in both eyes. Eventually, she underwent an extensive hypercoagulable evaluation, which showed she is heterozygous + for Factor V Leiden. 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 Because of the factor V Leiden, she was started on anticoagulation with coumadin. I am not sure exactly when this was started. Coumadin was stopped due to thought that it might be worsening her myofascial pain and several months later, in 2010, she had another similar episode. Then she was started on pradaxa and remains on this. She has not had any other visual loss episodes since being on Pradaxa. Other symptoms include: 1. Uveitis: 2 episodes of L eye pain and redness in 2012. Seen by Dr. Ramires and then account information clerk (Dr. Waldron, his note was reviewed) diagnosed with grade 1 anterior uveitis. She was treated with pred-forte drops at that time. She has not had another episode since then. 2. Cutaneous Ulcers: Notes painful mouth ulcers every 3-4 months as well as painful ulcer in inner labia about every 4 months. These go away on their own. She has apparently seen [facility] for this and wastold she was negative for herpes (I didn't find those test results) and that this might be from HPV, which she had been positive for in the past. No abnormal paps recently. 2001 started noticing problems with fibromyalgia and chronic fatigue syndrome. Mid back numbness and tingling and trigger point pain and shoulders and chest wall at that time. Problems with hip area into lower buttocks on both sides. Lately in the neck and L arm. Morning stiffness for about 2 hours, wiped out by 2:30 pm. [phone], progressed more into chronic pain syndrome and hasn't been able to work. 2010, primary care physician wondered about ankylosing spondylitis with methotrexate and folic acid and trigger point injections, has improved her symptoms by about 40-45%. I am the 3rd match marker she has seen. Saw Dr. Osorio at [facility] and saw Dr. Lazar at [facility]. Lost insurance for a period of time. 3. Raynaud's: For several years in fingers and toes. Symptomatic for an hour. 4. Bowel Symptoms and Reflux: Can have alternating constipation or diarrhea, non-bloody. Reviewed 2006 EGD with esophageal biopsy (chronic inflammation, no eosinophils), gastric biopsy (non-specific inflammation), and small bowel biopsy (villous atrophy, but not with characteristic crypts seen in celiac disease). Of note, her celiac antibodies were negative in 2012 with a normal IgA. She has never had a colonoscopy. 5. Low back and buttock pain: This developed over the last 3-4 years and is associated with morningstiffness of about 2 hours and feels different to her than her fibromyalgia/myofascial pain. This pain has become gradually worse and is what led her to not be able to work. She has had various imaging of her spine, which I will outline below, but continues to show sclerosis of b/l SI joints on iliac side with plain film and MRI imaging, initially more on R side, but now visible on both sides. HLA B27 is negative, checked twice. Her inflammatory markers have always been normal. At some point, she had seen match marker at [facility] and this was apparently reviewed with [facility] radiologists there and the question of osteitis condensans ilii was discussed. She has seen several Rheumatologists for this and I have reviewed their notes, Dr. Osorio (2010 and 2011), Dr. Lazar (2013), and Dr. Weber (2010). They did not feel that this was ankylosing spondylitis. In the midst of this evaluation, Dr. Ramires tried her on hydroxychloroquine, this did not help her symptoms. She was started on methotrexate and folic acid. The dose has been gradually increased and she is currently on 30mg weekly. She did thinkthat the methotrexate has improved her symptoms by about 40%, but recently it doesn't seem to help as much. She received intermittent prednisone tapers, which provided some relief. She has also seen pain specialists and had steroid injections to the SI joints as well as radiofrequency ablation withsome mild improvement in symptoms. She lost her insurance at some point in time and was not able toreceive regular care. No family history of IBD, sister with lupus. No family history of psoriasis or personal history of psoriasis. No family history of ankylosing spondylitis, thyroid disease or other rheumatologic autoimmune condition. Testing summary per Dr. Corcoran's note, with modification based on numerous records which I have reviewed include: "11/28/13 - nl BMP, AST/ALT, VPA level 6 (50-100 normal range), CBC/diff normal except WBC 4.46 (4.8-10.8 normal range) 07/31/13 - CBC/diff normal 12/09 D dimer < 190 (negative) 10/10/12: SI joint xray: Bilateral sacroiliac joint sclerosis, no erosions. 11/11/11: L femur xray: focal area of thickening prox posterior femoral shaft 11/09/11: BONE SCAN - small area of uptake within midshaft of L femur, nonspecific, otherwise normalbody scan 11/09/11 LUE doppler - neg DVT, probable ganglion cyst L wrist 11/09/11: MRI lumbar spine - mild lateral disc bulge L4-5 creating mild narrowing of L and R neuroalforamina (L>R), otherwise negative; normal MRI cervical spine; MRI thoracic spine - min degenerative intervertebral disc change w slight degenerative endplate changes, no disc herniation or stenosis. 11/03/[address] - indeterminate 5 mm pulm nodule LLL, no abnormality of L clavicle 11/03/11 CT Chest - two tiny nodular densities within lungs, too small to evaluate, otherwise normal. 09/07/11 TSH 0.59, FT4 0.80, aldolase 6 (0-8.1 normal); MARCELINA negative, HCV Ab negative, HBsAg negative, u/a neg, ESR 13 05/25/11 Anti CCP Ab < 16, negative; CRP < 0.9 01/06/11 MRI lumbar spine and pelvis - disc bulge L5-S1, sclerosis and edema R>L SI joints suggest non-specific sacroiliitis 01/05/11 CT Abd/Pelvis - negative/normal 11/09/10 Lyme negative, ESR 1; TSH 0.79, FT4 1.11, FT3 3.53, HLA B27 negative, MARCELINA negative 09/2010: CT PE study negative" Reviewed her lumbar spine and SI joint xrays, which shows bilateral sacroiliitis and there is also possible erosive changes as well consistent with an inflammatory spondyloarthropathy. I reviewed this with our [facility] radiologist as well since last visit. 03/2014: Seen in neurology regarding hyperreflexia and hyperesthesia with concern for demyelinating process. Had MRI brain, cervical and thoracic spine with some mild disc bulging in thoracic spine, otherwise unremarkable. Reviewed neurology note. No evidence demyelinating process. Also seen in Opht[facility] regarding her history of uveitis and no inflammatory changes seen including posteriorly and the note was reviewed. Started on Enbrel beginning of February, has had 4 injections. Mid January had incapacitation low back pain, but this is starting to improve. Has had a few good days interspersed with baddays. Some adjustments in her cymbalta by Dr. Ramires. [place] and did better than in other years. No new ulcers, no red painful eye, nooral or genital ulcers. 06/2021 visit: Since last visit, we had switched her to secukinumab which she started in December of 2020 due to worsening ankylosing spondylitis symptoms in SI joints and lumbar spine. She has been taking the medication and has not noted any improvement in her symptoms, in fact, she has been doing worse over the last 4 months or so with she continues to have symptoms of ankylosing spondylitis in theSI joints and lumbar spine. Tried going back on humira but had some side effects. Reviewed xray cervical spine from last visit, which showed a fair amount of OA and DDD. Has gained quite a bit of weight since hysterectomy end of July 2020 with preservation of ovaries. No inflammatory eye symptoms since last visit. No peripheral joint swelling or stiffness. Started on gabapentin by PCP, which has helped a little bit. Also on baclofen. Currently on prednisone taper from Dr. Ramires (2nd one) and not helping, currently on 60 mg daily. Severe low back pain into his thighs, had lumbar MRI which showed some narrowing and facet arthropathy. She is scheduled with interventional pain clinic for inj ections in early July. Also have cervical pain which radiates into the right shoulder and arm. No weakness. Diffuse myofascial pain. 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 09/2021 visit: had double mastectomy for breast cancer ER/MD positive, Her2 negative. Having radiation therapy. Started on infliximab due to worsening after discussion with her oncologist, had first infusion earlier this week. Currently with expanders and will have a reconstruction 6 months or longer after radiation completed. Has struggled a lot of with low back pain, SI joint pain and buttockpain and stiffness as not on any therapies during initial cancer treatment. No peripheral symptoms.Significant myofascial pain right shoulder. Is using celebrex. Will be evaluated in [place] with pain management for spinal stimulator and pain pump. All other 10 point ROS completed and negative. Musculoskeletal ROS: . Joint pain and back pain and back stiffness, neck pain Other ROS: . Constitutional: fatigue . Head normal . Eyes: normal . Ears, nose, throat, mouth: nasal ulcers . Cardiovascular: normal . Respiratory: normal . Gastrointestinal: normal . Genitourinary: normal . Skin: rash . Neurologic: numbness . Psychiatric: normal . Endocrine: normal . Hematologic/lymphatic: normal . Allergic/immunologic: normal PMH was updated at this visit. 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 -- 36 genes Genes Included: ABRAXAS1, AKT1, EARL, BARD1, BRCA1, BRCA2, BRIP1,CDC73, CDH1, CHEK2, DICER1, EPCAM, FANCC, FANCM, MLH1, MRE11, MSH2, MSH6, MUTYH, NBN, NF1, PALB2, PIK3CA, PMS2, POLD1, PTEN, RAD51C, RAD51D, RECQL, RINT1, SDHB, SDHD, SMARCA4, STK11, TP53, XRCC2' Breast cancer (HCC) 09/26/2021 US bx results Cigarette smoker 05/05/2022 Depression 12/26/2013 Depressive disorder, not elsewhere classified Endometriosis 02/14/2020 See report of diagnostic laparoscopy January 2020 Factor V Leiden (HCC) 12/26/2013 heterozygous Fibromyalgia 12/26/2013 Cymbalta, Meloxicam, Hydrocodone [...] label Not current TIA-Hx added to PL PSH was updated at this visit. Past Surgical History: Procedure Laterality Date BREAST RECONSTRUCTION W/BAROMETERS CALIBRATOR Bilateral 11/03/2021 TISSUE BAROMETERS CALIBRATOR PLACEMENT IN BREAST RECONSTRUCTION performed by Gera Julien MD at [place] [facility] BX LYMPH NODE DEEP AXIL Bilateral 11/03/2021 BIOPSY LYMPH NODE DEEP AXILLARY OPEN performed by Camille Dunne MD at [facility] COLONOSCOPY, DIAGNOSTIC (RECTUM) 11/01/2018 hyperplastic polyps, repeat 5 yrs/COLONOSCOPY FLEXIBLE PROXIMAL DIAGNOSTIC performed by Beatriz Tony MD at [facility] COLPOSCOPY OF CERVIX W/BIOPSY 2003 EGD, FLEXIBLE, DIAGNOSTIC 03/23/2015 acid reflux, sm HH/ESOPHAGOGASTRODUODENOSCOPY (EGD), FLEXIBLE, TRANSORAL, DIAGNOSTIC performed by Brice Manzo MD at [facility]OSCOPY [facility] EGD, FLEXIBLE, DIAGNOSTIC 10/28/2018 normal bx, hiatal hernia/ESOPHAGOGASTRODUODENOSCOPY (EGD), FLEXIBLE, TRANSORAL, DIAGNOSTIC performed by Beatriz Tony MD at [facility] EXC BREAST LESION RADMARK Right 12/22/2020 EXCISION OF BREAST LESION RADIOLOGICAL MARKER performed by Camille Dunne MD at OR [facility] HYSTEROSCOPY;ENDOMETRIAL ABLAT 2009 IMPLANT, BIOLOGIC, SOFT TISSUE REINFORCE Bilateral 11/03/2021 IMPLANT, BIOLOGIC, SOFT TISSUE REINFORCE performed by Gera Julien MD at [place] [facility] MAMMOGRAM BREAST NEEDLE BIOPSY CORE RIGHT Right 02/28/2017 Benign MAMMOGRAM BREAST NEEDLE BIOPSY CORE RIGHT Right 09/26/2021 MASTECTOMY, SIMPLE, COMPLETE Bilateral 11/03/2021 MASTECTOMY SIMPLE COMPLETE performed by Camille Dunne MD at [facility] MRI GUIDED BREAST BX RIGHT Right 11/10/2020 complex sclerosing lesion MD TOTAL ABDOMINAL HYSTERECT W/WO RMVL TUBE OVARY 08/09/2020 REMOVAL OF OVARY/OVIDUCT(S) Bilateral 09/2022 endometriosis REMOVAL OF TONSILS, UNDER AGE 11 1988 and adenoidectomy SENTINAL LYMPH NODE IDENTIFICATION, INTRAOP Bilateral 11/03/2021 SENTINAL LYMPH NODE IDENTIFICATION, INTRAOP performed by Camille Dunne MD at [place] [facility] SINUS SURGERY PROCEDURE NEC 2010 US GUIDED BREAST BIOPSY LEFT Left 09/26/2021 breast & axilla Home Medications Current Outpatient Medications Medication Sig Dispense Refill Cholecalciferol 50 MCG (1999 UT) Oral Capsule [...] as needed forPain, Severe. 170 Tablet 0 Omeprazole 40 MG Oral Capsule Delayed Release [...] Luer-Keri Syringe 25G X 1" 3 ML Prochlorperazine Maleate 5 MG Oral Tablet (Compazine) [...] Nausea. dissolve on tongue. 30 Tab 5 valACYclovir HCl 500 MG Oral Tablet (Valtrex) Take 1 pill daily due to recurrent HSV II infections on arm. (Patient taking differently: as needed. Take 1 pill daily due to recurrent HSV II infectionson arm.) 30 Tab 3 Syringe 23G X 1" 3 ML Use to inject toradol once daily as needed for pain in lower back. 10 Each 11 Mupirocin 2 % External Ointment (Bactroban) Apply topically to affected area 2 times a day. Apply to open area 22 g 0 No current facility-administered medications for this visit. Social History was updated at this visit. Social History Tobacco Use Smoking status: Current Every Day Smoker Packs/day: 0.50 Years: 5.00 Pack years: 2.50 Types: Cigarettes Last attempt to quit: 12/29/2012 Years since quittin.5 Smokeless tobacco: Never Used Tobacco comment: 1/2 pack a day,6 yearssmokes electronic cigarette Substance Use Topics Alcohol use: Yes Comment: rare Physical Exam: BP 122/72 | Pulse 96 | Temp 36.3 C (97.3 F) | Wt 72.1 kg (159 lb) | LMP 10/11/2018 | SpO2 98% |BMI 26.46 kg/m | BSA 1.82 m General: alert, fatigued Head: normocephalic, atraumatic Eyes: sclera clear without injection or icterus, no redness Nose: right nare with erythema/ulceration Lungs: clear to auscultation bilaterally without wheezes, rales or rhonchi Heart: regular rate & rhythm, +S1, +S2, no murmurs, rubs or gallops Extremities: no clubbing, cyanosis, or edema Neuro: alert and answers questions appropriately Skin: acneform rash on chin, left elbow with non-tender hyperpigmentation MUSCULOSKELETAL: -Hands: normal -Wrists: normal -Elbows: normal -Shoulders: normal -Back: diffuse paraspinal muscle tenderness -Hips: normal -Knees: normal -Ankles: normal Assessment: 43 y/o female with history of fibromyalgia and chronic pain, with inflammatory low backpain and sacroiliitis consistent with ankylosing spondylitis, and prior history of anterior uveitisand cutaneous ulcers. Prior treatments included enbrel (initial benefit and lost response), humira (did well for several years and then lost response). Secukinumab initiated 12/2020 and no significantresponse. Had been on infliximab 5mg/kg every 6 weeks (lost response) and recently on rinvoq which was ok'd by her oncologist. (Dr. Marilee Tovar at [facility]). Rinvoq significantly improved symptoms for her overall, currently on every other day dosing as had nausea, headaches, and le ukopenia with daily dosing. Labs today are reassuring. Will continue current dosing. Some autonomicdysfunction, possible POTS. This as well as venous insufficiency could be contributing to overall leg heaviness. Consideration could be given to autonomic PT training. ICD-10-CM 1. Ankylosing spondylitis of multiple sites in spine (HCC) M45.0 2. Encounter for therapeutic drug monitoring Z51.81 Plan: 1. CBC/diff, LFT, Cr again in 2 months for medication toxicity monitoring 2. Continue rinvoq every other day dosing for now, can consider increasing dose after next labs 3. Defer to PCP re: management of autonomic symptoms. 4. Follow-up visit in 6 months I spent a total of 40-54 minutes (exact time 47 mins) on the date of service in preparation, delivery, and documentation of the care provided to Shwetha Bolanos excluding any time spent in the performance of separately billed services. Note to Drs. Morocho and La Amato MD Associate Department of Rheumatology [facility] documented in this encounter Plan of Treatment Upcoming Encounters Date Type Department Care Team (Late st Contact Info) Description 02/07/2024 8:00 AM EDT Office Visit Otolaryngology, [facility] [address] [id number] Karli Aldana MD [address] [place] [phone] 03/28/2024 1:30 PM EDT Hospital Encounter ENDO [facility], Endoscopy Room [facility] [address] [phone] Beatriz Tony MD [address] [place] [phone] 03/28/2024 1:30 PM EDT - 03/28/2024 2:00 PM EDT Surgery ENDO [facility], Endoscopy Room [facility] [address] [place] [phone] Beatriz Tony MD [address] [place] [address] COLONOSCOPY FLEXIBLE PROXIMAL DIAGNOSTIC 04/03/2024 11:00 AM EDT Office Visit Gastroenterology, [facility] [address] [place] [address] Tatiana Bee CRNP [address] [place] [address] 04/23/2024 10:30 AM EDT Telemedicine Rheumatology, [address] [address] Agc5, Pharmacist Rheumatology [address] [place] [address] 04/25/2024 9:00 AM EDT Office Visit Radiation Oncology, [address] [address] Rich Benavidez MD [address] [place] [address] 05/22/2024 10:00 AM EDT Office Visit Gynecology/Obstetr ics [facility] [address] [place] [phone] Romana Streeter CRNP [address] [place] [address] 08/29/2024 9:10 AM EST Office Visit Rheumatology, [address] [address] Soha Amato MD [facility] [place] [address] Scheduled Orders Name Type Priority Associated Diagnoses Orde r Schedule CREATININE Lab Routine Encounter for therapeutic drug monitoring Every 3 Months for 6 Occurrences starting 01/18/2024 until 01/17/2025 Scheduled Procedures Name Priority Associated Diagnoses Date/Ti [...] this encounter Medical Devices Implanted Type Area Automotive General Manager Device Identifier Shelf Expiration Date Model / Serial / Lot Alloderm Select 16x20 (320 Units) - [id number] - [id number] Implanted:Qty: 1 on 11/03/2021 by Gera Julien [place] [facility] [place]: Breast ALLERGAN 02/26/2023 [id number] / [id number] / [id number] Alloderm Select 16x20 (320 Units) - [id number] - [id number] Implanted:Qty: 1 on 11/03/2021 by Gera Julien MD [place] [facility] [place] Left: Breast ALLERGAN 04/28/2023 [id number] / [id number] / [id number] Falkner Breast Sumac Tanner Implanted:Qty: 1 on 11/03/2021 by Gera Julien MD [place] [facility] [place]: Breast MENTOR BREAST IMPLANTS 2024 [facility] / [id number] Falkner Breast Sumac Tanner Implanted:Qty: 1 on 11/03/2021 by Gera Julien MD [place] [facility] [place]: Breast MENTOR BREAST IMPLANTS 2024 [facility] / [id number] documented as of this encounter Visit Diagnoses Diagnosis Ankylosing spondylitis of multiple sites in spine (HCC)- Primary Ankylosing spondylitis Encounter for therapeutic drug monitoring History of colon polyps Personal history of colonic polyps documented in this encounter Advance Directives * Full Code (Latest Code Status on File) Date Activated Date Inactivated Comments 11/03/2021 11:07 AM 11/04/2021 1:17 PM This order re flects the patients wishes and were consensually agreed upon. Care Teams Survey Research Associate Relationship Specialty Start Date End Date Ian Morocho MD [address] [place] [address] PCP - General Family Medicine 12/06/22 documented as of this encounter
--- OUTSIDE RECORDS SUMMARY | 2024-04-08 15:21 | External Medical Summary ---
Author Name Unknown Address Unknown Organization K01:[facility] - [address] [facility] [address] Laboratory Report Ordering Provider Test Date Status ANGELITO HARRIS 01/18/2024 14:01:30 Final Observation Date Value Abnormality Reference (Units ) Status SYNC LEUKOCYTES IN BLOOD BY AUTOMATED COUNT 01/18/2024 14:01:30 6.10 4.00-10.80 (K/uL) Final Segs 01/18/2024 14:01:30 57.2 40.0-75.0 (%) Final Lymphs % 01/18/2024 14:01:30 35.4 18.0-42.0 (%) Final Monos 01/18/2024 14:01:30 5.9 1.0-11.0 (%) Final Eosinophils 01/18/2024 14:01:30 0.8 0.0-6.0 (%) Final Basos 01/18/2024 14:01:30 0.5 0.0-2.0 (%) Final Immature Granulocyte, Percent 01/18/2024 14:01:30 0.2 0.0-2.0 (%) Final Absolute Segs 01/18/2024 14:01:30 3.49 1.80-7.70 (K/uL) Final Lymphs, absolute 01/18/2024 14:01:30 2.16 1.00-4.80 (K/ul) Final Monos, Abs 01/18/2024 14:01:30 0.36 0.00-1.10 (K/uL) Final Eos, Abs 01/18/2024 14:01:30 0.05 0.00-0.70 (K/uL) Final Basos, Abs 01/18/2024 14:01:30 0.03 0.00-0.20 (K/uL) Final Immature Granulocytes, Number 01/18/2024 14:01:30 0.01 0.00-0.20 (K/uL) Final Performing Location [facility] - [address] [facility] [address]
--- OUTSIDE RECORDS SUMMARY | 2024-04-08 15:21 | External Medical Summary | Continuity of Care Document ---
Author Name Unknown Organization [place] [address] [place] [phone] Care Team Providers Care Change Management Lead Name Role Phone Ian Morocho Primary Care Physician [phone] Encounter [facility] JORGE LUISNBR [id number] Date(s): 01/11/24 - 01/11/24 [facility] [address] [address] [phone] Encounter Diagnosis Body mass index [BMI] 26.0-26.9, adult(Discharge Diagnosis) - 01/11/24 Tachycardia(Discharge Diagnosis) - 01/11/24 Lightheadedness(Discharge Diagnosis) - 01/11/24 Hypotension(Discharge Diagnosis) - 01/11/24 Autonomic dysfunction(Discharge Diagnosis) - 01/11/24 Tachycardia, unspecified(Final) - Dizziness and giddiness(Final) - Discharge Disposition: Home or Self Care Attending Physician: MD Romo Joseph P Allergies, Adverse Reactions, Alerts Substance Criticality Severity Reaction Reaction Severity Status buPROPion agitation, nastiness Active DULoxetine Anxiety Active naloxegol worsening of chronic pain Active varenicline agitation Active Assessment and Plan Extracted from: Title:FCM - Hypotension, Dizziness Author:MD Kaiser Margaret Date:01/11/24 Autonomic dysfunction Chronic condition exacerbated/progressive/side effects of treatment Goal:_Symptom management Data:unique tests ordered: _CBC TSH BMP Plan: Patient likely with some degree of underlying autonomic dysfunction. Orthostatics stable but with significant tachycardia upon standing. EKG sinus rhythm 91 BPM. Relativelyunchanged from prior. Would r/o metabolic causes with CBC TSH BMP. Recommend increased salt intake, hydration, and compression stockings. Patient has f/u scheduled with Dr. Morocho. Body mass index [BMI] 26.0-26.9, adult Hypotension Lightheadedness Tachycardia Immunizations Given and Recorded Vaccine Date Status [...] Ordered ALPRAZolam 0.5 mg oral tablet Start: 01/07/24 10:03:00 AM EDT, See Instructions, Disp# 30 tab, Refills: 0, TAKE 1 TABLET BY MOUTH ONCE DAILY IF NEEDED FOR ANXIETY, Pharmacy: [id number] Start Date: 01/07/24 Status: Ordered BD 3 mL Luer-Keri Syringe 25G x 1" Start: 06/20/23 10:08:00 AM EST, See Instructions, Disp# 100 each, Refills: 0, Use as directed. Max1/day. Use new syringe with each injection., Pharmacy: [id number] Start Date: 06/20/23 Status: Ordered BD Luer-Keri Syringe Miscellaneous 25G X 1" 3 ML Start: 09/17/23 11:28:00 AM EST, BD Luer-Keri Syringe Miscellaneous 25G X 1" 3 ML, See Instructions, Disp# 100 unknown unit, Refills: 0, USE DIRECTED. MAX 1/DAY. USE NEW SYRINGE WITH EACH INJECTION., Pharmacy [id number] Start Date: 09/17/23 Status: Ordered Breo Ellipta 200 mcg-25 mcg/inh inhalation powder Start: 11/16/22 10:15:00 AM EDT, 1 puff, inhaled, Daily, Disp# 1 each Start Date: 11/16/22 Stop Date: 12/16/22 Status: Ordered citalopram 40 mg oral tablet Start: 12/10/23 3:54:00 PM EDT, 1 tab, PO, Daily, Disp# 90 tab, Refills: 4, Pharmacy: [id number] Start Date: 12/10/23 Status: Ordered clopidogrel 75 mg oral tablet Start: 01/10/24 4:54:00 PM EDT, 1 tab, PO, Daily, Disp# 30 tab, Refills: 0, Pharmacy: [id number] Start Date: 01/10/24 Status: Ordered cyanocobalamin 1000 mcg/mL injectable solution Start: 01/07/24 10:04:00 AM EDT, 1 mL, IM, g1oclfv, Disp# 30 mL, Refills: 0, Pharmacy: [facility] Start Date: 01/07/24 Status: Ordered ergocalciferol [...] Ordered ketorolac 30 mg/mL injectable solution Start: 01/07/24 10:04:00 AM EDT, See Instructions, Disp# 2 mL, Refills: 0, INJECT 1 ML INTO A MUSCLEEVERY 2 WEEKS, Pharmacy: [id number] Start Date: 01/07/24 Status: Ordered Milk of Magnesia 8% oral suspension Start: 10/29/23 9:42:00 AM EDT, 15 mL, PO, qhs, Disp# 360 mL, PRN: as needed for constipation, Pharmacy: [id number] Start Date: 10/29/23 Status: Ordered omeprazole 40 mg oral delayed release capsule Start: 12/10/23 3:54:00 PM EDT, 1 cap, PO, qhs, Disp# 90 cap, Refills: 4, Pharmacy: [id number] Start Date: 12/10/23 Status: Ordered ondansetron 4 mg oral tablet, disintegrating Start: 11/16/22 10:17:00 AM EDT, 1 tab, PO, tid, PRN: as needed for nausea/vomiting Start Date: 11/16/22 Status: Ordered Penlac Nail Lacquer 8% topical solution Start: 11/16/22 10:58:00 AM EDT, 1 appl, topical, Daily, Disp# 6.6 mL, Refills: 1, Pharmacy: [id number] Start Date: 11/16/22 Stop Date: [...] TWICE A DAY FOR 14 DAYS, Pharmacy: [id number] Start Date: 03/12/23 Status: Ordered Mental Status 01/11/24 Barriers to Learning one year None evide nt Mandatory Health Literacy Documentation Yes Health Literacy Communication Barriers N ever Primary Language Dutch Problem List Condition Confirmation Course Effective Dates Status H ealth Status Informant Ankylosing spondylitis 1 Confirmed Active Asthma Confirmed Active Chronic pain syndrome Confirmed Active Constipation Confirmed Active Depression Confirmed Active Narcotic dependence Confirmed Active Factor V Confirmed Active Fibromyalgia Confirmed Active GERD without esophagitis Confirmed Active Gastroparesis Confirmed Active Right hip pain Confirmed Active History of breast cancer in female Confirmed Active Implantable intrathecal infusion pump present Confirmed Active Knee pain, right Confirmed Active Lumbar radiculopathy, chronic Confirmed Active Tobacco user Confirmed Active 1diagnosed 2013; neg. HLA-B27; has had uveitus twice. See Diagnosis Diagnosis Type Effective Dates Health Status Clinical Service Informant Lightheadedness Discharge Diagnosis 01/11/24 Non-Specified Body mass index [BMI] 26.0-26.9, adult Discharge Diagnosis 01/11/24 Non-Specified Hypotension Discharge Diagnosis 01/11/24 Non-Specified Autonomic dysfunction Discharge Diagnosis 01/11/24 Non-Specified Tachycardia Discharge Diagnosis 01/11/24 Non-Specified Procedures Procedure Date Related Diagnosis Body Site Status Oophorectomy 10/2022 Completed Bilateral mastectomy 10/2021 Comp leted Lumpectomy of breast 08/2020 Comp leted Laparoscopic total hysterect beverley using robotic assistance 08/27/20 Completed FESS - Functional endoscopic sinus surgery 2014 Completed Tonsillectomy and adenoidectomy 2010 Completed Endometrial ablation 07/29/09 Comp leted Colposcopy of cervix 07/29/04 Comp leted Results Laboratory List Name Date Basic Metabolic Panel (BASIC METAB PANEL ) 01/11/24 Complete Blood Count w Differential (CBC ,DIFFH) 01/11/24 Thyroid Stimulating Hormone (TSH) 4 Most recent to oldest [Reference Range]: 1 eGFR CKD-EPI [>60 mL/min/1.73 m2] >90 mL /min/1.73 m2 1 (01/11/24 10:05 AM) Estimated CrCl 141.03 mL/min (01/11/24 1:56 PM) MPV [9.0-12.2 fL] 9.6 fL (01/11/24 10:05 AM) Immature Gran% 0.7 % (01/11/24 10:05 AM) Neut% 67.6 % (01/11/24 10:05 AM) Lymph% 23.6 % (01/11/24 10:05 AM) Guadalupe% 6.8 % (01/11/24 10:05 AM) Baso% 0.6 % (01/11/24 10:05 AM) Eos% 0.7 % (01/11/24 10:05 AM) Immat Gran, Abs [0-0.4 K/uL] 0.05 K/uL (01/11/24 10:05 AM) Neut, Abs [2.0-7.7 K/uL] 4.84 K/uL (01/11/24 10:05 AM) Lymph, Abs [1.0-3.4 K/uL] 1.69 K/uL (01/11/24 10:05 AM) Guadalupe, Abs [0-1.0 K/uL] 0.49 K/uL (01/11/24 10:05 AM) Baso, Abs [0-0.1 K/uL] 0.04 K/uL (01/11/24 10:05 AM) Eos, Abs [0-0.5 K/uL] 0.05 K/uL (01/11/24 10:05 AM) Type of Diff: AUTO *Unknown* (01/11/24 10:05 AM) RDW [11.5-14.2 %] 12.3 % (01/11/24 10:05 AM) Anion Gap [5-14 mmol/L] 5 mmol/L (01/11/24 10:05 AM) BUN [7-20 mg/dL] 3 mg/dL *LOW* (01/11/24 10:05 AM) Ca [8.4-10.2 mg/dL] 9.2 mg/dL (01/11/24 10:05 AM) Cl- [96-107 mmol/L] 103 mmol/L (01/11/24 10:05 AM) HCO3 [22-30 mmol/L] 29 mmol/L (01/11/24 10:05 AM) Cret [0.60-1.00 mg/dL] 0.51 mg/dL *LOW* (01/11/24 10:05 AM) Glu [74-106 mg/dL] 108 mg/dL *HI* (01/11/24 10:05 AM) Hct [35-44 %] 40.6 % (01/11/24 10:05 AM) Hgb [11.7-15.0 g/dL] 13.8 g/dL (01/11/24 10:05 AM) K [3.5-5.1 mmol/L] 4.0 mmol/L (01/11/24 10:05 AM) MCH [28-33 pg] 30.3 pg (01/11/24 10:05 AM) MCHC [32-36 g/dL] 34.0 g/dL (01/11/24 10:05 AM) MCV [81-96 fL] 89.2 fL (01/11/24 10:05 AM) Na [137-145 mmol/L] 137 mmol/L (01/11/24 10:05 AM) Plts [150-350 K/uL] 381 K/uL *HI* (01/11/24 10:05 AM) RBC [3.90-5.00 M/uL] 4.55 M/uL (01/11/24 10:05 AM) TSH [0.47-4.68 uIU/mL] 1.36 uIU/mL 2 (01/11/24 10:05 AM) WBC [4.0-10.4 K/uL] 7.16 K/uL (01/11/24 10:05 AM) 1Result Comment: Testing Performed By: Dept of Pathology [facility] Calderon Perez, [address] [place] [address] 2Result Comment: Testing Performed [facility]: [facility], [address] [place] [address] Vital Signs Most recent to oldest [Reference Range]: 1 Height 165 cm (01/11/24 9:07 AM) Patient Weight 73.3 kg (01/11/24 9:07 AM) Body Mass Index 26.92 kg/m2 (01/11/24 9:07 AM) Heart Rate 114 bpm (01/11/24 9:07 AM) Respiratory Rate 12 br/min (01/11/24 9:07 AM) Blood Pressure 108/84mmHg (01/11/24 9:07 AM) Cuff Pulse Pressure 24 mmHg (01/11/24 9:07 AM) Social History Social History Type Response Tobacco Current every day sm oker, Cigarettes, 0.5 per day. Started age 17 Years. Ready to change: Yes. 1 Smoking Status Current every day he royer smoker Sex Female 1has had hypnotherapy once. Cardiology * Contributor_system, [id number]: VERIFY, PERFORM Event Display: EKG Authored Date: Please click on link to see image. FCM Outpt Note * MD Romo Joseph P: MODIFY MD Romo Joseph P: MODIFY Event Display: FCM Outpt Note Authored Date: [id number] Chief Complaint low BP dizzy and light headness x 1-2 months. History of Present Illness 43 y/o female with a PMHx of chronic pain syndrome, gastroparesis, fibromyalgia, ankylosing spondylitis, opioid induced constipation, intrathecal infusion pump placement, and tobacco use here to discuss hypotension, lightheadedness, dizziness. Patient with low BP for about a month. Is also having some dizziness and lightheaded for the last 24 hours. No CP, SOB, heart racing, or palpitations. Does have some reproducible sternal chest discomfort which she attributes to her multiple inflammatory conditions. No SOB, no bowel habit changes. Is generally on the dehydrated side with her gastroparesis. Nursing comes to fill her pain pump months and has noticed low blood pressuresthe lasttwo visits. Generally in the 100s/50s-60s. Orthostatics: 102/78 - 97 100/80 - 148 102/84 - 127 Physical Exam Vitals & Measurements HR:114(Monitored) RR:12 BP:108/84 SpO2:98% HT:165cm WT:73.300kg(Dosing) WT:73.3kg BMI:26.92 PHQ2 Data(Data Documented on:01/11/2024 09:07) Emotional health assessment NEGATIVE Gen: chronically ill appearing female in NAD HEENT: AT NC MMM CV: tachycardic, regularrhythm, no m/r/g 2+ peripheral pulses, clinically well perfused Resp: CTAB no wheezing no increased work of breathing Abd: non-distended MSK: no obvious deformities Skin: no bruising or rashes noted Psych: appropriate mood and affect Neuro: alert and oriented Assessment/Plan Autonomic dysfunction Chronic condition exacerbated/progressive/side effects of treatment Goal:_Symptom management Data:unique tests ordered: _CBC TSH BMP Plan: Patient likely with some degree of underlying autonomic dysfunction. Orthostatics stable but with significant tachycardia upon standing. EKG sinus rhythm 91 BPM. Relativelyunchanged from prior. Would r/o metabolic causes with CBC TSH BMP. Recommend increased salt intake, hydration, and compression stockings. Patient has f/u scheduled with Dr. Morocho. Body mass index [BMI] 26.0-26.9, adult Hypotension Lightheadedness Tachycardia Attestation I saw patient and was present for the buchanan portions of the history and physical. I agree with theresident's note and plan as documented in the resident's note. EKG reviewed and check TSH, CBC, BMP and try compression hose, increase salt intake and watch for syncope symptoms, especially at night. Chely Romo Problem List/Past Medical History Ongoing Ankylosing spondylitis Asthma Chronic pain syndrome Constipation Depression Factor V Fibromyalgia Gastroparesis GERD without esophagitis History of breast cancer in female Implantable intrathecal infusion pump present Knee pain, right Lumbar radiculopathy, chronic Narcotic dependence Right hip pain Tobacco user Procedure/Surgical [...] mg oral tablet), 1 tab, PO, Daily clopidogrel(clopidogrel 75 mg oral tablet), 1 tab, PO, Daily cyanocobalamin(cyanocobalamin 1000 mcg/mL injectable solution), 1 mL, IM, [id number] ergocalciferol(ergocalciferol 1.25 mg (50,000 intl units) oral capsule), 19918 Int_Unit= 1 cap, PO,q7days fluticasone-vilanterol(Breo Ellipta 200 [...] chronic pain vareniclineagitation Social History Smoking Status Current every day heavy smoker Alcohol - Denies Alcohol Use Nutrition/Health Type [...] the next year) OverDue Adult Influenza Vaccine due01/26/23and every 1year Due Adult COVID-19 Vaccination due01/11/24Unknown Frequency Adult Folic Acid Supplementation due01/11/24and every 3year Adult Social Determinants of Health Screening due01/11/24Unknown Frequency Pneumococcal Vaccine Adults and Adolescents with Chronic Illness due01/11/24One-time only Shingles Vaccine due01/11/24One-time only Satisfied(in the past 1 year) Satisfied Body Mass Index on01/11/24.Satisfied by Corneal, LUMBER HANDLER, Jono Lipid Screening on10/05/23.Satisfied by Contributor_system, [id number] Shingles Vaccine on08/20/23.Satisfied by MD Morocho Christopher Electronic Signature on File Electronically Reviewed/Signed by: Bailey Kaiser MD Author Signature Dt/Tm:01/11/2024 10:17 AM Resident Department of Family Medicine Electronically Reviewed/Signed by: Jonathon Romo MD Cosigner Signature Dt/Tm: 01/11/2024 10:56AM Department of Family Medicine MP Patient Care team information Care Team Personnel Name: MD Morocho Christopher Position: Physician - Family Med Member Role: Primary Care Provider Address: Address: [address] [address] [place] Care Team Related Persons Name: BEATA GUERRA Address: [place] Address: home [address], [place] [id number] Name: MARGUERITE BLISS I Address: [place] Address: home [address] [phone]
--- OUTSIDE RECORDS SUMMARY | 2024-04-08 15:21 | External Medical Summary | Summary of Care ---
Author Name Unknown Organization [facility] Address [address] [place] [address] Phone [phone] Care Team Providers Care Quitline Counselor Name Role Phone Ian Morocho MD Primary Care Provid er Reason for Visit * Reason Comments Outpatient Testing Encounter Details Date Type Department Care Team (Late st Contact Info) Description 01/18/2024 2:00 PM EDT Laboratory Outpatient Laboratory, [place] [address] [place] [address] [facility], Lab B1a [address] [place] [address] Encounter for therapeutic drug monitoring; Neutropenia, unspecified type (HCC) Allergies Active Allergy Reactions Criticality Noted [...] of test: Expansive testing for breast and safety supervisor cancer risk -- 36 genes Genes Included: [...] injections Dr. Ramires [facility] [phone] Anxiety 12/26/2013 Depression 12/26/2013 Overview: Reviewed prior [...] 01/18/2024 2:30 PM EDT Office Visit Rheumatology, [place] [address] [place] [address] Soha Amato MD [address] [place] [address] Ankylosing spondylitis of multiple sites in spine (HCC)*; Encounter for therapeutic drug monitoring 02/07/2024 8:00 AM EDT Office Visit Otolaryngology, [facility] [address] [address] Karli Aldana MD [address] [place] [address] 03/28/2024 1:30 PM EDT Hospital Encounter ENDO [facility], Endoscopy Room [facility] [address] [place] [phone] Beatriz Tony MD [address] [place] [address] 03/28/2024 1:30 PM EDT - 03/28/2024 2:00 PM EDT Surgery ENDO [facility], Endoscopy Room [facility] [address] [place] [phone] Beatriz Tony MD [address] [place] [address] COLONOSCOPY FLEXIBLE PROXIMAL DIAGNOSTIC 04/03/2024 11:00 AM EDT Office Visit Gastroenterology, [facility] [address] [place] [address] Tatiana Bee CRNP [address] [place] [address] 04/23/2024 10:30 AM EDT Telemedicine Rheumatology, [facility] [address] [place] [address] Agc5, Pharmacist Rheumatology [address] [place] [address] 04/25/2024 9:00 AM EDT Office Visit Radiation Oncology, [facility] [address] [place] [address] Rich Benavidez MD [address] [place] [phone] 05/22/2024 10:00 AM EDT Office Visit Gynecology/Obstetr [facility] [address] [place] [address] Romana Streeter CRNP [address] [place] [address] Scheduled Orders Name Type Priority Associated Diagnoses Orde r Schedule CBC Lab Routine Encounter for therapeutic drug monitoring Ordered: 01/18/2024 DIFFERENTIAL, AUTOMATED Lab Routine Encounter for therapeutic drug monitoring Ordered: 01/18/2024 Scheduled Procedures Name Priority Associated Diagnoses Date/Ti [...] this encounter Medical Devices Implanted Type Area Facility Operations Manager Device Identifier Shelf Expiration Date Model / Serial / Lot Alloderm Select 16x20 (320 Units) - [id number] - [id number] Implanted:Qty: 1 on 11/03/2021 by eGra Julien MD at OR [facility] [place] Right: Breast ALLERGAN 02/26/2023 [id number] / [id number] / [id number] Alloderm Select 16x20 (320 Units) - [id number] - [id number] Implanted:Qty: 1 on 11/03/2021 by Gera Julien MD at OR [facility] Left: Breast ALLERGAN 04/28/2023 [id number] / [id number] / [id number] Wallace Breast Computational Mathematician Implanted:Qty: 1 on 11/03/2021 by Gear Julien MD at OR [facility] Right: Breast MENTOR BREAST IMPLANTS 2024 [facility] / [id number] [address] Breast Computational Mathematician Implanted:Qty: 1 on 11/03/2021 by Gera Julien MD at [facility] Left: Breast MENTOR BREAST IMPLANTS 2024 [facility] / [id number] documented as of this encounter Visit Diagnoses Diagnosis Ankylosing spondylitis of multiple sites in spine (HCC)- Primary Ankylosing spondylitis Encounter for therapeutic drug monitoring Encounter for therapeutic drug monitoring Neutropenia, unspecified type (HCC) History of colon polyps Personal history of colonic polyps documented in this encounter Advance Directives * Full Code (Latest Code Status on File) Date Activated Date Inactivated Comments 11/03/2021 11:07 AM 11/04/2021 1:17 PM This order re flects the patients wishes and were consensually agreed upon. Care Teams Quitline Counselor Relationship Specialty Start Date End Date Ian Morocho MD [address] [address] PCP - General Family Medicine 12/06/22 documented as of this encounter
--- OUTSIDE RECORDS SUMMARY | 2024-04-08 15:21 | External Medical Summary ---
Author Name Unknown Address Unknown Organization K01:[facility] [address] [facility] [address] [facility] [address] Laboratory Report Ordering Provider Test Date Status ANGELITO HARRIS 01/18/2024 14:01:30 Final Observation Date Value Abnormality Reference (Units ) Status WBC, Total 01/18/2024 14:01:30 6.10 4.00-10.80 (K/uL) Final RBC 01/18/2024 14:01:30 4.56 3.85-5.15 (M/uL) Final Hemoglobin 01/18/2024 14:01:30 13.9 12.0-15.3 (g/dL) Final HCT 01/18/2024 14:01:30 42.3 36.0-45.2 (%) Final MCV 01/18/2024 14:01:30 92.8 81.5-97.5 (fL) Final MCH 01/18/2024 14:01:30 30.5 27.0-34.0 (pg) Final MCHC 01/18/2024 14:01:30 32.9 32.0-36.0 (g/dL) Final RDW 01/18/2024 14:01:30 12.2 11.5-15.5 (%) Final Platelets 01/18/2024 14:01:30 298 140-400 (K/uL) Final MPV 01/18/2024 14:01:30 9.3 6.6-11.1 (fL) Final Nucleated erythrocytes/100 leukocytes [Ratio] in Blood by Automated count 01/18/2024 14:01:30 0 <=0 (/100 WBCs) Final Performing Location [facility] [place] [address] [place] [address]
--- OUTSIDE RECORDS SUMMARY | 2024-04-08 15:22 | External Medical Summary | Summary of Care ---
Author Name Unknown Organization [facility] Address [address] [place] [address] Phone [phone] Care Team Providers Care Pipe Insulator Helper Name Role Phone Ian Morocho MD Primary Care Provid er Reason for Visit * Reason Comments Medication Management Dosage Adjustment In Person (Anticoag Cl inic) Encounter Details Date Type Department Care Team (Late st Contact Info) Description 12/25/2023 10:30 AM EDT Telemedicine Rheumatology, [place] [address] [phone] Agc5, Pharmacist Rheumatology [address] [place] [address] Ankylosing spondylitis of multiple sites in spine [...] of test: Expansive testing for breast and pest control applicator cancer risk -- 36 genes Genes Included: [...] QHS; s/p trigger point injections [facility] [phone] Anxiety 12/26/2013 Depression 12/26/2013 Overview: Reviewed prior [...] this encounter Progress Notes * Ozzie Leavitt, [facility] - 12/25/2023 10:34 AM EDT Clinical Pharmacy Service (Rheumatology): Medication Management Patient location: HOME. I was in a hospital or clinic location. After connecting through televDeYapao,patient was verified with two unique identifiers. Patient (or authorized legal sales representative printing) was then informed that this was a Telemedicine visit and being conducted confidentially over secure lines. Methods to assure confidentiality were taken. Patient acknowledged consent and understanding of pr ivacy and security of the Telemedicine visit. The patient agreed to participate. PHYSICIAN ACTION NEEDED: Patient has been off of Rinvoq since fiaab-pe-cag April and reports she ishaving a flare that has been ongoing for past 6 weeks. Patient also has a sore in her nostril that has been evaluated by her family doctor and is negative for infection. She had labs recently obtained at [facility] that we need to obtain. Is it okay for patient to restart Rinvoq 15 mg every o ther day, or should we wait for the blood work to be scanned into the chart? PROTOCOL IN PLACE Referral for: 3 month Diagnosis: Ankylosing spondylitis [M45.9] ASSESSMENT Patient is on the following medication(s): None Patient has been off of since ysnom-ue-xyu April Patient has been having a flare about 6 weeks Held Rinvoq for UTI that she was receiving antibiotic for and has not restarted, UTI symptoms resolved Reports red sore in her nostril, negative for HSV Had lab work completed recently at [facility] - will request lab results PLAN OF ACTION Medication Regimen: RESTART Rinvoq 15 mg PO once every other day - pending discussion with Dr. Amato Labs Needed: recently completed - need to obtain Follow-Up Appointment: Pharmacist: on 04/23/24 Physician: on 01/18/24 SOCIAL HISTORY CURRENT MEDICATION REGIMEN None Patient has been on this medication for Off since rfvcf-te-qwt April Chronic use of prednisone or NSAIDS: [...] [facility] 12/17/2014 11:24 AM Ozzie Leavitt [facility] Clinical Pharmacist Rheumatology Department 12/25/2023,10:34 AM Electronically signed by Ozzie Leavitt [facility] at 12/25/2023 11:28 AM EDT documented in this encounter Plan of Treatment Upcoming Encounters Date Type Department Care Team (Late st Contact Info) Description 01/18/2024 2:30 PM EDT [place] [address] [place] [address] Soha Amato MD [address] [place] [address] 03/28/2024 1:30 PM EDT Hospital Encounter ENDO OSS, Endoscopy Room [facility] [address] [place] [phone] Beatriz Tony MD [address] [place] [address] 03/28/2024 1:30 PM EDT - 03/28/2024 2:00 PM EDT Surgery ENDO OSSC, Endoscopy Room [facility] [address] [place] [phone] Beatriz Tony MD [address] [place] [address] COLONOSCOPY FLEXIBLE PROXIMAL DIAGNOSTIC 04/03/2024 11:00 AM EDT Office Visit Gastroenterology, [facility] [address] [place] [address] Tatiana Bee CRNP [address] [place] [address] 04/23/2024 10:30 AM EDT Telemedicine Rheumatology, [place] [address] [place] [address] Agc5, Pharmacist Rheumatology [address] [place] [address] 04/25/2024 9:00 AM EDT Office Visit Radiation Oncology, [facility] [address] [place] [address] Rich Benavidez MD [address] [place] [address] [phone] 05/22/2024 10:00 AM EDT Office Visit Gynecology/Obstetr ics [facility] [address] [place] [address] Romana Streeter CRNP [address] [place] [address] Scheduled Procedures Name Priority Associated Diagnoses Date/Ti [...] this encounter Medical Devices Implanted Type Area Business Law Professor Device Identifier Shelf Expiration Date Model / Serial / Lot Alloderm Select 16x20 (320 Units) - [id number] - [id number] Implanted:Qty: 1 on 11/03/2021 by Gera Julien MD at [place] [facility] Right: Breast ALLERGAN 02/26/2023 [id number] / [id number] / [id number] Alloderm Select 16x20 (320 Units) - [id number] - [id number] Implanted:Qty: 1 on 11/03/2021 by Gera Julien MD at OR [facility] [place] Left: Breast ALLERGAN 04/28/2023 [id number] / [id number] / [id number] [address] [place] Breast It Service Delivery Manager Implanted:Qty: 1 on 11/03/2021 by Gera Julien MD at OR [facility] [place] Right: Breast MENTOR BREAST IMPLANTS 2024 [facility] [place] / [id number] [address] [place] Breast It Service Delivery Manager Implanted:Qty: 1 on 11/03/2021 by Gera Julien MD at OR [facility] [place] Left: Breast MENTOR BREAST IMPLANTS 2024 [facility] [place] / [id number] / [id number] documented as of this encounter Visit Diagnoses [...] and were consensually agreed upon. Care Teams Pipe Insulator Helper Relationship Specialty Start Date End Date Ian Morocho MD [address] [facility] [address] [place] [address] PCP - General Family Medicine 12/06/22 documented as of this encounter
--- OUTSIDE RECORDS SUMMARY | 2024-04-08 15:22 | External Medical Summary | Summary of Care ---
Author Name Unknown Organization [facility] Address [address] [place] [address] Phone [phone] Care Team Providers Care Cloth Cutting Inspector Name Role Phone Ian Morocho MD Primary Care Provid er Reason for Visit * Reason Comments Medication Management Dosage Adjustment In Person (Anticoag Cl inic) Encounter Details Date Type Department Care Team (Late st Contact Info) Description 12/25/2023 10:30 AM EDT Telemedicine Rheumatology, [place] [address] [phone] Agc5, Pharmacist Rheumatology [address] [place] [address] Ankylosing spondylitis of multiple sites in spine [...] of test: Expansive testing for breast and medical assistant ob gyn cancer risk -- 36 genes Genes Included: [...] [facility] [phone] Anxiety 12/26/2013 Depression 12/26/2013 Overview: Reviewed prior [...] this encounter Progress Notes * Toan Gómez, [facility] - 12/25/2023 12:02 PM EDT REviewed Clinical teacher theater arts's Note. Agree with the plan. We will obtain recent labs resultsfrom outside facility. Will also discuss with Dr. Amato if ok to resume Rinvoq 15mg every otherday Toan Gómez, Pharm. D., [facility] Clinical Pharmacist 12/25/2023,12:03 PM * Ozzie Leavitt, [facility] - 12/25/2023 10:34 AM EDT Clinical Pharmacy Service (Rheumatology): Medication Management Patient location: HOME. I was in a hospital or clinic location. After connecting through Meddik,patient was verified with two unique identifiers. Patient (or authorized legal food service representative) was then informed that this was a Telemedicine visit and being conducted confidentially over secure lines. Methods to assure confidentiality were taken. Patient acknowledged consent and understanding of pr ivacy and security of the Telemedicine visit. The patient agreed to participate. [facility] secretaries: Would you please be able to obtain patient's labs from [facility]? PHYSICIAN ACTION NEEDED: Patient has been off of Rinvoq since ttkpt-ua-tti October and reports she ishaving a flare that has been ongoing for past 6 weeks. Patient also has a sore in her nostril that has been evaluated by her family doctor and is negative for infection. She had labs recently obtained at [facility] that we need to obtain. Is it okay for patient to restart Rinvoq 15 mg every o ther day, or should we wait for the blood work to be scanned into the chart? PROTOCOL IN PLACE Referral for: 3 month Diagnosis: Ankylosing spondylitis [M45.9] ASSESSMENT Patient is on the following medication(s): None Patient has been off of since qfhoy-ft-rik October Patient has been having a flare about 6 weeks Held Rinvoq for UTI that she was receiving antibiotic for and has not restarted, UTI symptoms resolved Reports red sore in her nostril, negative for HSV Had lab work completed recently at [facility] - will request lab results PLAN OF ACTION Medication Regimen: RESTART Rinvoq 15 mg PO once every other day - pending discussion with Dr. Amato Labs Needed: recently completed - need to obtain Follow-Up Appointment: Pharmacist: on 04/23/24 Physician: on 01/18/24 SOCIAL HISTORY CURRENT MEDICATION REGIMEN None Patient has been on this medication for Off since skzom-ig-fss October Chronic use of prednisone or NSAIDS: [...] [facility] 58 12/17/2014 11:24 AM Ozzie Leavitt [facility] Clinical Pharmacist Rheumatology Department 12/25/2023,10:34 AM documented in this encounter Plan of Treatment Upcoming Encounters Date Type Department Care Team (Late st Contact Info) Description 01/18/2024 2:30 PM EDT Office Visit Rheumatology, [place] [address] [place] [address] Soha Amato MD [address] [place] [facility] [place] [address] 03/28/2024 1:30 PM EDT Hospital Encounter ENDO [facility], Endoscopy Room [facility] [address] [place] [phone] Beatriz Tony MD [address] [place] [address] 03/28/2024 1:30 PM EDT - 03/28/2024 2:00 PM EDT Surgery ENDO O[facility]C, Endoscopy Room [facility] [address] [place] [phone] Beatriz Tony MD [address] [place] [address] COLONOSCOPY FLEXIBLE PROXIMAL DIAGNOSTIC 04/03/2024 11:00 AM EDT Office Visit Gastroenterology, [facility] [address] [place] [address] Tatiana Bee CRNP [address] [place] [address] 04/23/2024 10:30 AM EDT Telemedicine Rheumatology, [address] [address] Agc5, Pharmacist Rheumatology [address] [place] [address] 04/25/2024 9:00 AM EDT Office Visit Radiation Oncology, [address] [address] Rich Benavidez MD [address] [place] [address] [phone] 05/22/2024 10:00 AM EDT Office Visit Gynecology/Obstetr ics [facility] [address] [place] [address] Romana Streeter CRNP [address] [place] [address] Scheduled Procedures Name Priority Associated Diagnoses Date/Ti [...] this encounter Medical Devices Implanted Type Area Cloth Measurer Device Identifier Shelf Expiration Date Model / Serial / Lot Alloderm Select 16x20 (320 Units) - [id number] - [id number] Implanted:Qty: 1 on 11/03/2021 by Gera Julien MD at [place] [facility] Right: Breast ALLERGAN 02/26/2023 [id number] / [id number] / [id number] Alloderm Select 16x20 (320 Units) - [id number] - [id number] Implanted:Qty: 1 on 11/03/2021 by Gera Julien MD at [place] [facility] Left: Breast ALLERGAN 04/28/2023 [id number] / [id number] / [id number] [address] [place] Breast Corporate Director Talent Assessment Implanted:Qty: 1 on 11/03/2021 by Gera Julien MD at [place] [facility] Right: Breast MENTOR BREAST IMPLANTS 2024 [facility] [place] / [id number] / [id number] [address] [place] Breast Corporate Director Talent Assessment Implanted:Qty: 1 on 11/03/2021 by Gear Julien MD at [facility] Left: Breast MENTOR BREAST IMPLANTS 2024 [facility] [place] / [id number] / [id number] documented as of this encounter Visit Diagnoses [...] and were consensually agreed upon. Care Teams Cloth Cutting Inspector Relationship Specialty Start Date End Date Ian Morocho MD [address] [place] [address] PCP - General Family Medicine 12/06/22 documented as of this encounter
--- OUTSIDE RECORDS SUMMARY | 2024-04-08 15:22 | External Medical Summary | Summary of Care ---
Author Name Unknown Organization [facility] Address [address] [place] [address] Phone [phone] Care Team Providers Care Barrel Assembly Inspector Name Role Phone Ian Morocho MD Primary Care Provid er Reason for Visit * Reason Onset Date Comments Medication Problem 12/03/2023 Encounter Details Date Type Department Care Team (Late st Contact Info) Description [facility]/03[facility] [address] [place] [address] Soha Eaton MD [address] [place] [address] Ankylosing spondylitis of multiple sites in spine (HCC) Allergies Active Allergy Reactions Criticality Noted Date Comments Sulfamethoxazole-Trimethoprim Nausea/vomiting 0 04/13/2023 Duloxetine 07/27/2020 MALAISE documented as of this encounter (statuses as of 12/03/2023) Medications Medication Sig Dispensed Refills Start Date [...] Oral Capsule Take 1 Capsule by mouth. 0 Active Saccharomyces boulardii 250 MG Oral Capsule (FLORASTOR) Take 1 Capsule by mouth. 0 Active Cyanocobalamin 1000 MCG/ML Injection Solution (Cyanocobalamin) Inject 1 mL subcutaneous every 2 weeks. 0 05/19/2021 Active Albuterol Sulfate HFA 108 (90 Base) MCG/ACT Inhalation Aerosol SolutionIndication s:Wheezing Inhale by mouth 2 Puffs every 4 hours as needed for Shortness of Breath or Wheezing. 18 g 0 04/17/2022 Active Fluticasone Furoate-Vilanterol 200-25 MCG/INH Inhalation [...] as needed for Pain, Severe. 170 Tablet 0 07/11/2022 Active Syringe 23G X 1" 3 [...] hours as needed for anxiety. 30 Tablet 0 10/19/2022 Active Citalopram Hydrobromide 40 MG Oral Tablet (CeleXA) TAKE ONE TABLET BY MOUTH EVERY MORNING 30 Tablet 5 10/30/2022 Active Additional Information Patient taking differently: Takes at night, Reported on 11/12/2023 Magnesium 250 MG Oral Tablet Take by mouth daily. 0 Active NSS 0.9 % SOLN 19.8 mL with HYDROmorphone 50 MG/5ML SOLN 2 mg Inject into spinal canal continuous. ? dose 0 Active Ketorolac Tromethamine 30 MG/ML Injection Solution Inject 30 mg into a large muscle once as needed for Pain, Severe. 0 03/08/2023 Active BD Luer-Keri Syringe 25G X 1" 3 ML 0 04/04/2023 Active Mupirocin 2 % External Ointment (Bactroban) Apply topically to affected area 2 times a day. Apply to open area 22 g 0 04/09/2023 Active Prochlorperazine Maleate 5 MG Oral [...] mouth every other day. 30 Tablet 0 12/03/2023 Active Rinvoq 15 MG Oral Tablet Extended Release 24 Hour (Upadacitinib ER)Indications:Ank ylosing spondylitis of multiple sites in spine (HCC) Take 1 Tablet by mouth every other day. 15 Tablet 2 11/08/2023 12/03/19 24 Discontinu ed(Refill) documented as of this encounter (statuses as of 12/03/2023) Active Problems Problem Noted Date Diagnosed Date [...] of test: Expansive testing for breast and quality facilitator cancer risk -- 36 genes Genes Included: [...] injections Dr. [facility] [phone] Anxiety 12/26/2013 Depression 12/26/2013 Overview: Reviewed prior [...] as of this encounter (statuses as of 12/03/2023) Resolved Problems Problem Noted Date Diagnosed Date [...] as of this encounter (statuses as of 12/03/2023) Immunizations Name Administration Dates Next Due DTaP [...] encounter Miscellaneous Notes * Telephone Encounter - Jas Klein [facility] - 12/03/2023 5:41 PM EDTSigned Prescriptions: Disp Refills Rinvoq 15 MG Oral Tablet Extended Release *30 Tab*0 Sig: Take 1 Tablet by mouth every other day.Authorizing Provider: SOHA EATON User: JAS KLEIN * Telephone Encounter - Jas Klein [facility] - 12/03/2023 5:40 PM EDT Rx was resent to pharmacy for a quantity of 30 as requested. Thank you, Jas Klein, PharmD [facility] Clinical Pharmacist Rheumatology Department [phone] 12/03/2023 * Telephone Encounter - Romana Perez, spanisher - 12/03/2023 4:13 PM EDT [facility] qty of 30- as the medication comes in unbreakable packs of 30. Pharmacy call back number if needing any additional info- [phone]. Please send to pharmacy if appropriate, Thank you, Romana Perez Software Development Advisor [facility] ([facility]) 12/03/2023,4:14 PM documented in this encounter Plan of Treatment Upcoming Encounters Date Type Department Care Team (Late st Contact Info) Description 12/25/2023 10:30 AM EDT Telemedicine Rheumatology, [address] [place] [address] Agc5, Pharmacist Rheumatology [address] [facility] [place] [address] 01/18/2024 2:30 PM EDT Office Visit Rheumatology, [place] [address] [place] [address] Soha Eaton MD [address] [place] [address] 03/28/2024 1:30 PM EDT Hospital Encounter ENDO OSS, Endoscopy Room [facility] [address] [place] [phone] Beatriz Tony MD [address] [place] [address] 03/28/2024 1:30 PM EDT - 03/28/2024 2:00 PM EDT Surgery ENDO OSS, Endoscopy Room [facility] [address] [place] [phone] Beatriz Tony MD [address] [place] [address] COLONOSCOPY FLEXIBLE PROXIMAL DIAGNOSTIC 04/03/2024 11:00 AM EDT Office Visit Gastroenterology, [facility] [address] [place] [address] Tatiana Bee CRNP [address] [place] [address] 04/25/2024 9:00 AM EDT Office Visit Radiation Oncology, [address] [address] Rich Benavidez MD [address] [place] [phone] 05/22/2024 10:00 AM EDT Office Visit Gynecology/Obstetr ics Alexi Roche [address] [place] [address] Backer, ROSHNI Melgar [address] [place] [address] Scheduled Procedures Name Priority Associated Diagnoses Date/Ti [...] this encounter Medical Devices Implanted Type Area Pole Peeling Machine Operator Device Identifier Shelf Expiration Date Model / Serial / Lot Alloderm Select 16x20 (320 Units) - [id number] - [id number] Implanted:Qty: 1 on 11/03/2021 by Gera Julien MD at OR [facility] Right: Breast ALLERGAN 02/26/2023 [id number] / [id number] / [id number] Alloderm Select 16x20 (320 Units) - [id number] - [id number] Implanted:Qty: 1 on 11/03/2021 by Gera Julien MD at OR [facility] Left: Breast ALLERGAN 04/28/2023 [id number] / [id number] / [id number] 375 [place] Breast Concession Worker Implanted:Qty: 1 on 11/03/2021 by Gera Julien MD at OR [facility] Right: Breast MENTOR BREAST IMPLANTS 2024 [facility] [place] / [id number] 375 [place] Breast Concession Worker Implanted:Qty: 1 on 11/03/2021 by Gera Julien MD at OR [facility] Left: Breast MENTOR BREAST IMPLANTS 2024 [facility] [place] [id number] documented as of this encounter Visit Diagnoses Diagnosis Ankylosing spondylitis of multiple sites in spine (HCC) Ankylosing spondylitis History of colon polyps Personal history of colonic polyps documented in this encounter Advance Directives Latest Code Status on File Code Status Date Activated Date Inactivated Comments Full Code 11/03/2021 11:07 AM 11/04/2021 1:17 PM This o rder reflects the patients wishes and were consensually agreed upon. Care Teams Barrel Assembly Inspector Relationship Specialty Start Date End Date Ian Morocho MD [address] [place] [address] PCP - General Family Medicine 12/06/22 documented as of this encounter
--- OUTSIDE RECORDS SUMMARY | 2024-04-08 15:22 | External Medical Summary | Summary of Care ---
Author Name Unknown Organization [facility] Address [address] [place] [address] Phone [phone] Care Team Providers Care Race Engine Builder Name Role Phone Ian Morocho MD Primary Care Provid er Encounter Details Date Type Department Care Team (Late st Contact Info) Description 09/06/2023 Telephone Rheumatology [facility] Loly Mckinley [address] [place] [address] [place] [phone] Specified, Zz No Resource [address] [place] [address] Allergies Active Allergy Reactions Criticality Noted Date Comments Sulfamethoxazole-Trimethoprim Nausea/vomiting 0 04/13/2023 Duloxetine 07/27/2020 MALAISE documented as of this encounter (statuses as of 12/06/2023) Medications Medication Sig Dispensed Refills Start Date [...] open area 22 g 0 04/09/2023 Active documented as of this encounter (statuses as of 12/06/2023) Active Problems Problem Noted Date Diagnosed Date [...] of test: Expansive testing for breast and wellness trainer cancer risk -- 36 genes Genes Included: [...] QHS; s/p trigger point injections Dr. Ramires [facility] [phone] Anxiety 12/26/2013 Depression 12/26/2013 Overview: Reviewed prior [...] as of this encounter (statuses as of 12/06/2023) Resolved Problems Problem Noted Date Diagnosed Date [...] as of this encounter (statuses as of 12/06/2023) Immunizations Name Administration Dates Next Due DTaP [...] pack a day,6 ye arssmokes electronic cigarette Alcohol Use Standard Drinks/Week Comments Not Currently [...] Description 12/25/2023 10:30 AM EDT Telemedicine Rheumatology, [place] [address] [place] [address] Agc5, Pharmacist Rheumatology [address] [place] [address] 01/18/2024 2:30 PM EDT [facility] [address] [place] [address] Soha Amato MD [address] [place] [address] 03/28/2024 1:30 PM EDT Hospital Encounter ENDO [facility], Endoscopy Room [facility] [address] [place] [phone] Beatriz Tony MD [address] [place] [address] 03/28/2024 1:30 PM EDT - 03/28/2024 2:00 PM EDT Surgery ENDO [facility], Endoscopy Room [facility] [address] [place] [phone] Beatriz Tony MD [address] [place] [address] COLONOSCOPY FLEXIBLE PROXIMAL DIAGNOSTIC 04/03/2024 11:00 AM EDT Office Visit Gastroenterology, [facility] [address] [place] [address] Tatiana Bee CRNP [address] [place] [address] 04/25/2024 9:00 AM EDT Office Visit Radiation Oncology, [place] [address] [place] [address] Rich Benavidez MD [address] [place] [address] 05/22/2024 10:00 AM EDT Office Visit Gynecology/Obstetr ics [facility] [address] [place] [address] Romana Streeter CRNP [address] [place] [address] Scheduled Procedures Name Priority Associated Diagnoses Date/Ti [...] this encounter Medical Devices Implanted Type Area Logistics Engineer Device Identifier Shelf Expiration Date Model / Serial / Lot Alloderm Select 16x20 (320 Units) - [id number] - [id number] Implanted:Qty: 1 on 11/03/2021 by Gera Julien MD at [place] [facility] Right: Breast ALLERGAN 02/26/2023 [id number] / [id number] / [id number] Alloderm Select 16x20 (320 Units) - [id number] - [id number] Implanted:Qty: 1 on 11/03/2021 by Gera Julien MD at OR [facility] [place] Left: Breast ALLERGAN 04/28/2023 [id number] / [id number] / [id number] [address] [place] [facility] General Milling Superintendent Implanted:Qty: 1 on 11/03/2021 by Gera Julien MD at [place] [facility] [place] Right: Breast MENTOR BREAST IMPLANTS 2024 [facility] / [id number] [address] [place] Breast General Milling Superintendent Implanted:Qty: 1 on 11/03/2021 by Gera Julien MD at [place] [facility] [place] Left: Breast MENTOR BREAST IMPLANTS 2024 [facility] / [id number] documented as of this encounter Advance Directives Latest Code Status on File Code Status Date Activated Date Inactivated Comments Full Code 11/03/2021 11:07 AM 11/04/2021 1:17 PM This o rder reflects the patients wishes and were consensually agreed upon. Care Teams Race Engine Builder Relationship Specialty Start Date End Date Ian Morocho MD [address], [place] [address] PCP - General Family Medicine 12/06/22 documented as of this encounter
--- OUTSIDE RECORDS SUMMARY | 2024-04-08 15:22 | External Medical Summary | Continuity of Care Document ---
Author Name Unknown Organization [facility] [address] [place] [address] [place] [id number] Care Team Providers Care Shop Welder Name Role Phone Ian Morocho Primary Care Physician [phone] Encounter [facility] [id number] Date(s): 12/10/23 - 12/10/23 [facility] [address] [place] [address] [phone] Encounter Diagnosis Chronic pain syndrome(Discharge Diagnosis) - 12/10/23 Constipation(Discharge Diagnosis) - 12/10/23 Narcotic dependence(Discharge Diagnosis) - 12/10/23 Lumbar radiculopathy, chronic(Discharge Diagnosis) - 12/10/23 Fibromyalgia(Discharge Diagnosis) - 12/10/23 Asthma(Discharge Diagnosis) - 12/10/23 Discharge Disposition: Home or Self Care Attending Physician: MD Morocho Christopher Allergies, Adverse Reactions, Alerts Substance Criticality Severity Reaction Reaction Severity Status buPROPion agitation, nastiness Active naloxegol worsening of chronic pain Active varenicline agitation Active DULoxetine Anxiety Active Assessment and Plan Extracted from: Title:FCM - T - chronic pain , coordination of care Author:MD Morocho Christopher Date:12/10/23 1.Chronic pain syndrome Chronic condition exacerbated/progressive/side effects of treatment Goal:improve symptomsof polyarthralgia,spasm Data:none Plan: - multiple potential etiologies, but likely biomechanical from adjustments to recent nerve ablation - we will manage spasms and MSK complaints, pain management fully engaged for chronic symptoms - patient to reach out to office for support if needed 2.Constipation Chronic condition, stable Goal:1 BM/day Data:none Plan: - doing well with protein shakes and miralax daily, continue this - did not tolerate naloxegol, added to sensitivities 3.Narcotic dependence as above 4.Lumbar radiculopathy, chronic as above 5.Fibromyalgia as above 6.Asthma Stable without current flare Time:Total time spent with this patient on day of evaluation including chart review, ordering, education and coordination of care elements:35 minutes Immunizations Given and Recorded Vaccine Date [...] Ordered ALPRAZolam 0.5 mg oral tablet Start: 11/08/23 4:21:00 PM EDT, 1 tab, PO, Daily, Disp# 30 tab, Refills: 0, Note to Pharmacy: PDMP checked, covering for PCP, PRN: as needed for anxiety, Pharmacy: [id number] Start Date: 11/08/23 Status: Ordered BD 3 mL Luer-Keri Syringe 25G x 1" Start: 06/20/23 10:08:00 AM EST, See Instructions, Disp# 100 each, Refills: 0, Use as directed. Max1/day. Use new syringe with each injection., Pharmacy: [id number] Start Date: 06/20/23 Status: Ordered BD Luer-Keri Syringe Miscellaneous 25G X 1" 3 ML Start: 09/17/23 11:28:00 AM EST, BD Luer-Keri Syringe Miscellaneous 25G X 1" 3 ML, See Instructions, Disp# 100 unknown unit, Refills: 0, USE DIRECTED. MAX 1/DAY. USE NEW SYRINGE WITH EACH INJECTION., Pharmacy [id number] Start Date: 09/17/23 Status: Ordered Breo Ellipta 200 mcg-25 mcg/inh inhalation powder Start: 11/16/22 10:15:00 AM EDT, 1 puff, inhaled, Daily, Disp# 1 each Start Date: 11/16/22 Stop Date: 12/16/22 Status: Ordered citalopram 40 mg oral tablet Start: 12/10/23 3:54:00 PM EDT, 1 tab, PO, Daily, Disp# 90 tab, Refills: 4, Pharmacy: [facility] Start Date: 12/10/23 Status: Ordered clopidogrel 75 mg oral tablet Start: 07/02/23 11:12:00 AM EST, 1 tab, PO, Daily, Disp# 30 tab, Refills: 5, Pharmacy: [facility] Start Date: 07/02/23 Status: Ordered ergocalciferol 1.25 mg (50,000 intl [...] Ordered ketorolac 30 mg/mL injectable solution Start: 12/03/23 9:56:00 AM EDT, See Instructions, Disp# 2 mL, Refills: 0, INJECT 1 ML INTO A MUSCLE EVERY 2 WEEKS, Pharmacy: [facility] Start Date: 12/03/23 Status: Ordered Milk of Magnesia 8% oral suspension Start: 10/29/23 9:42:00 AM EDT, 15 mL, PO, qhs, Disp# 360 mL, PRN: as needed for constipation, Pharmacy: [facility] Start Date: 10/29/23 Status: Ordered nicotine 4 mg oral transmucosal lozenge Start: 09/05/23 3:45:00 PM EST, 1 lozenge, buccal, q2h, Disp# 504 lozenge, Pharmacy: [facility] Start Date: 09/05/23 Stop Date: 10/17/23 Status: Ordered nicotine 7 mg/24 hr transdermal film, extended release Start: 09/05/23 3:45:00 PM EST, 1 patch, transdermal, Daily, Disp# 21 patch, Refills: 1, Pharmacy: [facility] Start Date: 09/05/23 Stop Date: 10/17/23 Status: Ordered omeprazole 40 mg oral delayed release capsule Start: 12/10/23 3:54:00 PM EDT, 1 cap, PO, qhs, Disp# 90 cap, Refills: 4, Pharmacy: [facility] Start Date: 12/10/23 Status: Ordered ondansetron 4 mg oral tablet, disintegrating Start: 11/16/22 10:17:00 AM EDT, 1 tab, PO, tid, PRN: as needed for nausea/vomiting Start Date: 11/16/22 Status: Ordered Penlac Nail Lacquer 8% topical solution Start: 11/16/22 10:58:00 AM EDT, 1 appl, topical, Daily, Disp# 6.6 mL, Refills: 1, Pharmacy: [facility] Start Date: 11/16/22 Stop [...] TWICE A DAY FOR 14 DAYS, Pharmacy: [facility] Start Date: 03/12/23 Status: Ordered Vitamin B12 1000 mcg/mL injectable solution Start: 12/01/22 2:16:00 PM EDT, 1,000 mcg =, IM, [id number], Disp# 30 mL, Pharmacy: [facility] Start Date: 12/01/22 Stop Date: 05/30/23 Status: Ordered Mental Status 12/10/23 Barriers to Learning one year None evide nt Mandatory Health Literacy Documentation Yes Health Literacy Communication Barriers N ever Primary Language Kazakh Problem List Condition Confirmation Course Effective Dates [...] Effective Dates Health Status Clinical Service Informant Chronic pain syndrome Discharge Diagnosis 12/10/23 Constipation Discharge Diagnosis 12/10/23 Narcotic dependence Discharge Diagnosis 12/10/23 Lumbar radiculopathy, chronic Discharge Diagnosis 12/10/23 Fibromyalgia Discharge Diagnosis 12/10/23 Asthma Discharge Diagnosis 12/10/23 Procedures Procedure Date Related Diagnosis Body Site Status Oophorectomy 10/2022 Completed Bilateral mastectomy 10/2021 Comp leted Lumpectomy of breast 08/2020 Comp leted Laparoscopic total hysterect beverley using robotic assistance 08/27/20 Completed FESS - Functional endoscopic sinus surgery 2014 Completed Tonsillectomy and adenoidectomy 2010 Completed Endometrial ablation 07/29/09 Comp leted Colposcopy of cervix 07/29/04 Comp leted Social History Social History Type Response Tobacco Current every day sm oker, Cigarettes, 0.5 per day. Started age 17 Years. Ready to change: Yes. 1 Smoking Status Current every day he royer smoker Sex Female 1has had hypnotherapy once. [facility] Outpt Note * MD Morocho Christopher: PERFORM Event Display: FCM Outpt Note Authored Date: TeleHealth Visit Note I have confirmed the patients name and date of . The patient has consented to this service,and I have advised the patient that this is a billable visit for which they may be subject to a copay. The patient initiated this visit after they were informed of the availability of TeleHealth for this medically necessary visit. I am located at my office. The patient is located at home. This visit was conducted via live audio/video technology via [employer]. Chief Complaint 3month f/u - no new concerns History of Present Illness Chronic pain syndrome in the setting of h/o breast cancer, bilateral knee pain, lumbar radiculopathy, fibromyalgia - following with pain management, previously referred to PT for knees - 11.28.2023 - first ablation procedure, right side (h/o multiple) - did have polyarthralgia following that as well - next ablation on the left on 12.12.2023 - has no restarted rinvoq with pending procedure 2/2 leukopenia - minimal response with trigger point injection with lidocaine Chronic constipation in the setting of above -trialed naloxegol for constipation and failed with 'maceylish' experience - has been doing daily PEG as well as protein shakes daily and now with daily - minimized strain and no pain with bowel movements presently - has 5 year colonoscopy upcoming Fall, Jul 25, 2023 with injury toleft elbow - ongoing pain and problems with that elbow - difficulty with sleeping on that side/direct pressure - has noted intermittent cracking sounds and difficulty with full ROM - right handed individual Physical Exam General: _Alert and oriented, No acute distress Psych: Mood-affect congruence. Reports no SI/HI. Speech is of normal pace and content Assessment/Plan 1.Chronic pain syndrome Chronic condition exacerbated/progressive/side effects of treatment Goal:improve symptomsof polyarthralgia,spasm Data:none Plan: - multiple potential etiologies, but likely biomechanical from adjustments to recent nerve ablation - we will manage spasms and MSK complaints, pain management fully engaged for chronic symptoms - patient to reach out to office for support if needed 2.Constipation Chronic condition, stable Goal:1 BM/day Data:none Plan: - doing well with protein shakes and miralax daily, continue this - did not tolerate naloxegol, added to sensitivities 3.Narcotic dependence as above 4.Lumbar radiculopathy, chronic as above 5.Fibromyalgia as above 6.Asthma Stable without current flare Time:Total time spent with this patient on day of evaluation including chart review, ordering, education and coordination of care elements:35 minutes Problem List/Past Medical History Ongoing Ankylosing [...] inhalation aerosol) ALPRAZolam(ALPRAZolam 0.5 mg oral tablet), 0.5 mg= 1 tab, PO, Daily, PRN ciclopirox topical(Penlac Nail Lacquer 8% topical solution), 1 appl, topical, Daily, 1 refills citalopram(citalopram 40 mg oral tablet), 40 mg= 1 tab, PO, Daily, 3 refills clopidogrel(clopidogrel 75 mg oral tablet), 1 tab, PO, Daily cyanocobalamin(Vitamin B12 1000 mcg/mL injectable solution), 1000 mcg, IM, [id number] ergocalciferol(ergocalciferol 1.25 mg (50,000 intl units) oral capsule), [address] Int_Unit= 1 cap, PO,q7days fluticasone-vilanterol(Breo Ellipta 200 mcg-25 mcg/inh inhalation powder), 1 puff, inhaled, Daily HYDROmorphone(HYDROmorphone 2 mg oral tablet), 2 mg= 1 tab, PO, q4h, PRN ketoconazole topical(ketoconazole 2% topical shampoo), 1 appl, topical ketorolac(ketorolac 30 mg/mL injectable solution), See Instructions magnesium hydroxide(Milk of Magnesia 8% oral suspension), 1.2 g= 15 mL, PO, qhs, PRN nicotine(nicotine 7 mg/24 hr transdermal film, extended release), 1 patch, transdermal, Daily, 1 refills nicotine(nicotine 4 mg oral transmucosal lozenge), 4 mg= 1 lozenge, buccal, q2h omeprazole(omeprazole 40 mg oral delayed release capsule), 40 mg= 1 cap, PO, qhs, 3 refills ondansetron(ondansetron 4 mg oral tablet, disintegrating), 4 [...] due01/26/23and every 1year Due Adult COVID-19 Vaccination due12/10/23Unknown Frequency Adult Folic Acid Supplementation due12/10/23and every 3year Adult Social Determinants of Health Screening due12/10/23Unknown Frequency Hepatitis C Screening due12/10/23One-time only Pneumococcal Vaccine Adults and Adolescents with Chronic Illness due12/10/23One-time only Shingles Vaccine due12/10/23One-time only Due In Future Body Mass Index not due until10/29/24and every 366day Satisfied(in the past 1 year) Satisfied Body Mass Index on10/29/23.Satisfied by TOSHA Rojas Courtney Lipid Screening on10/05/23.Satisfied by Contributor_system, [id number] Shingles Vaccine on08/20/23.Satisfied by MD Morocho Christopher Electronic Signature on File Electronically Reviewed/Signed by: Ian Morocho MD Author Signature Dt/Tm:12/10/2023 02:22 PM Department of Family Medicine Patient Care team information Care Team Personnel Name: MD Morocho Christopher Position: Physician - Family Med Member Role: Primary Care Provider Address: Address: [address] [place] [address] [place] Care Team Related Persons Name: BEATA GUERRA Address: [address], [phone] Name: BEATA GUERRA Address: [place] Address: home [address], [place] [id number] Name: BEATA GUERRA Address: home [address], [phone]
--- OUTSIDE RECORDS SUMMARY | 2024-04-08 15:22 | External Medical Summary | Summary of Care ---
Author Name Unknown Organization [facility] Address [address] [place] [address] Phone [phone] Care Team Providers Care Traffic Worker Name Role Phone Ian Morocho MD Primary Care Provid er Reason for Visit * Reason Comments Medication Management Dosage Adjustment In Person (Anticoag Cl inic) Encounter Details Date Type Department Care Team (Late st Contact Info) Description 12/25/2023 10:30 AM EDT Telemedicine Rheumatology, [place] [address] [place] [id number] Agc5, Pharmacist Rheumatology [address] [place] [address] Ankylosing spondylitis of multiple sites in spine [...] of test: Expansive testing for breast and nursing informatics analyst cancer risk -- 36 genes Genes Included: [...] QHS; s/p trigger point injections Dr. Ramires [facility] [phone] Anxiety 12/26/2013 Depression 12/26/2013 Overview: Reviewed prior [...] this encounter Progress Notes * Toan Gómez, [facility] - 12/25/2023 12:02 PM EDT REviewed Clinical it data architect's Note. Agree with the plan. We will obtain recent labs resultsfrom outside facility. Will also discuss with Dr. Amato if ok to resume Rinvoq 15mg every otherday Toan Gómez, Pharm. D., [facility] Clinical Pharmacist 12/25/2023,12:03 PM * Dagmar Ozzie Wyatt, [facility] - 12/25/2023 10:34 AM EDT Clinical Pharmacy Service (Rheumatology): Medication Management Patient location: HOME. I was in a hospital or clinic location. After connecting through [employer],patient was verified with two unique identifiers. Patient (or authorized legal hr representative) was then informed that this was a Telemedicine visit and being conducted confidentially over secure lines. Methods to assure confidentiality were taken. Patient acknowledged consent and understanding of pr ivacy and security of the Telemedicine visit. The patient agreed to participate. PHYSICIAN ACTION NEEDED: Patient has been off of Rinvoq since [id number] October and reports she ishaving a flare that has been ongoing for past 6 weeks. Patient also has a sore in her nostril that has been evaluated by her family doctor and is negative for infection. She had labs recently obtained at [facility] that we need to obtain. Is it okay for patient to restart Rinvoq 15 mg every o ther day, or should we wait for the blood work to be scanned into the chart? PROTOCOL IN PLACE Referral for: 3 month Diagnosis: Ankylosing spondylitis [M45.9] ASSESSMENT Patient is on the following medication(s): None Patient has been off of since [id number] October Patient has been having a flare about 6 weeks Held Rinvoq for UTI that she was receiving antibiotic for and has not restarted, UTI symptoms resolved Reports red sore in her nostril, negative for HSV Had lab work completed recently at [facility] - will request lab results PLAN OF ACTION Medication Regimen: RESTART Rinvoq 15 mg PO once every other day - pending discussion with Dr. Amato Labs Needed: recently completed - need to obtain Follow-Up Appointment: Pharmacist: on 04/23/24 Physician: on 01/18/24 SOCIAL HISTORY CURRENT MEDICATION REGIMEN None Patient has been on this medication for Off since ywbjr-ky-eim October Chronic use of prednisone or NSAIDS: [...] 57 12/17/2014 11:24 AM Ozzie Leavitt RPh [facility] Clinical Pharmacist Rheumatology Department 12/25/2023,10:34 AM documented in this encounter Plan of Treatment Upcoming Encounters Date Type Department Care Team (Late st Contact Info) Description 01/18/2024 2:30 PM EDT Office Visit Rheumatology, [place] [address] [place] [address] Soha Amato MD [address] [place] [address] 03/28/2024 1:30 PM EDT Hospital Encounter ENDO [facility], Endoscopy Room [facility] [address] [place] [phone] Beatriz Tony MD [address] [place] [phone] 03/28/2024 1:30 PM EDT - 03/28/2024 2:00 PM EDT Surgery ENDO [facility], Endoscopy Room [facility] [address] [place] [phone] Beatriz Tony MD [address] [place] [address] COLONOSCOPY FLEXIBLE PROXIMAL DIAGNOSTIC 04/03/2024 11:00 AM EDT Office Visit Gastroenterology, [facility] [address] [facility] [place] [address] Tatiana Bee CRNP [address] [place] [address] 04/23/2024 10:30 AM EDT Telemedicine Rheumatology, [address] [address] Agc5, Pharmacist Rheumatology [facility] [place] [address] 04/25/2024 9:00 AM EDT Office Visit Radiation Oncology, [facility] [address] [place] [address] Rich Benavidez MD [address] [place] [address] 05/22/2024 10:00 AM EDT Office Visit Gynecology/Obstetr [facility] [address] [facility] [place] [address] Romana Streeter CRNP [address] [facility] [place] [address] Scheduled Procedures Name Priority Associated Diagnoses Date/Ti [...] this encounter Medical Devices Implanted Type Area Vp Marketing Device Identifier Shelf Expiration Date Model / Serial / Lot Alloderm Select 16x20 (320 Units) - [id number] - [id number] Implanted:Qty: 1 on 11/03/2021 by Gera Julien MD at OR [facility] Right: Breast ALLERGAN 02/26/2023 [id number] / [id number] / [id number] Alloderm Select 16x20 (320 Units) - [id number] - [id number] Implanted:Qty: 1 on 11/03/2021 by Gera Julien MD at OR [facility] Left: Breast ALLERGAN 04/28/2023 [id number] / [id number] / [id number] [address] [place] Breast After School Coordinator Implanted:Qty: 1 on 11/03/2021 by Gera Julien MD at OR [facility] Right: Breast MENTOR BREAST IMPLANTS 2024 [facility] / [id number] / [id number] [address] [place] Breast After School Coordinator Implanted:Qty: 1 on 11/03/2021 by Gera Julien MD at [facility] Left: Breast MENTOR BREAST IMPLANTS 2024 [facility] / [id number] / [id number] documented as of this encounter Visit Diagnoses [...] and were consensually agreed upon. Care Teams Traffic Worker Relationship Specialty Start Date End Date Ian Morocho MD [address] [address] PCP - General Family Medicine 12/06/22 documented as of this encounter
--- OUTSIDE RECORDS SUMMARY | 2024-04-08 15:22 | External Medical Summary | Continuity of Care Document ---
Author Name Unknown Organization [place] [id number] [place] [phone] Care Team Providers Care Aviation Metalsmith Name Role Phone aIn Morocho Primary Care Physician [phone] Encounter [facility] [id number] Date(s): 12/19/23 - 12/19/23 [facility] [address] [facility] [address] [address] [phone] Encounter Diagnosis Myalgia, unspecified site(Final) - Other fatigue(Final) - Other specified disorders of nose and nasal sinuses(Final) - Myalgia(Discharge Diagnosis) - 12/19/23 Nasal sore(Discharge Diagnosis) - 12/19/23 Fatigue(Discharge Diagnosis) - 12/19/23 Discharge Disposition: Home or Self Care Attending Physician: MD Morocho Christopher Allergies, Adverse Reactions, Alerts Substance Criticality Severity Reaction Reaction Severity Status buPROPion agitation, nastiness Active naloxegol worsening of chronic pain Active varenicline agitation Active DULoxetine Anxiety Active Assessment and Plan Extracted from: Title:FCM - polymyalgia/arthralgia Author:MD Morocho Christopher Date:12/19/23 1.Myalgia Undifferentiated new problem with uncertain prognosis Goal:evaluation Data:CBC, CMP,ESR, CRP,HSVswab Plan: - systemic symptoms of unknown etiology w/ 2-3 episodes remotely behaving similar without described etiology - systemic inflammatory w/u and consider steroid burst but nasal lesion also concerning for new HSV which may instigate systemic symtpoms,though absence of fever is atypical, as is duration - will do steroids if HSV negative, if positive consider valacyclovir 2.Nasal sore as above 3.Fatigue as above Immunizations Given and Recorded Vaccine Date Status [...] PCP, PRN: as needed for anxiety, Pharmacy: [id number] Start Date: 11/08/23 Status: Ordered BD 3 mL Luer-Keri Syringe 25G x 1" Start: 06/20/23 10:08:00 AM EST, See Instructions, Disp# 100 each, Refills: 0, Use as directed. Max1/day. Use new syringe with each injection., Pharmacy: [id number] Start Date: 06/20/23 Status: Ordered BD Luer-Keri Syringe Miscellaneous 25G X 1" 3 ML Start: 09/17/23 11:28:00 AM EST, BD Luer-Keri Syringe Miscellaneous 25G X 1" 3 ML, See Instructions, Disp# 100 unknown unit, Refills: 0, USE DIRECTED. MAX 1/DAY. USE NEW SYRINGE WITH EACH INJECTION., Pharmacy [id number] Start Date: 09/17/23 Status: Ordered Breo Ellipta 200 mcg-25 mcg/inh inhalation powder Start: 11/16/22 10:15:00 AM EDT, 1 puff, inhaled, Daily, Disp# 1 each Start Date: 11/16/22 Stop Date: 12/16/22 Status: Ordered citalopram 40 mg oral tablet Start: 12/10/23 3:54:00 PM EDT, 1 tab, PO, Daily, Disp# 90 tab, Refills: 4, Pharmacy: [id number] Start Date: 12/10/23 Status: Ordered clopidogrel 75 mg oral tablet Start: 07/02/23 11:12:00 AM EST, 1 tab, PO, Daily, Disp# 30 tab, Refills: 5, Pharmacy: [facility] Start Date: 07/02/23 Status: Ordered ergocalciferol [...] INTO A MUSCLE EVERY 2 WEEKS, Pharmacy: [id number] Start Date: 12/03/23 Status: Ordered Milk of Magnesia 8% oral suspension Start: 10/29/23 9:42:00 AM EDT, 15 mL, PO, qhs, Disp# 360 mL, PRN: as needed for constipation, Pharmacy: [facility] Start Date: 10/29/23 Status: Ordered nicotine 4 mg oral transmucosal lozenge Start: 09/05/23 3:45:00 PM EST, 1 lozenge, buccal, q2h, Disp# 504 lozenge, Pharmacy: [id number] Start Date: 09/05/23 Stop Date: 10/17/23 Status: Ordered nicotine 7 mg/24 hr transdermal film, extended release Start: 09/05/23 3:45:00 PM EST, 1 patch, transdermal, Daily, Disp# 21 patch, Refills: 1, Pharmacy: [facility] Start Date: 09/05/23 Stop Date: 10/17/23 Status: Ordered omeprazole 40 mg oral delayed release capsule Start: 12/10/23 3:54:00 PM EDT, 1 cap, PO, qhs, Disp# 90 cap, Refills: 4, Pharmacy: [facility] Start Date: 12/10/23 Status: Ordered ondansetron 4 mg oral tablet, disintegrating Start: 11/16/22 10:17:00 AM EDT, 1 tab, PO, tid, PRN: as needed for nausea/vomiting Start Date: 11/16/22 Status: Ordered Penlac Nail Lacquer 8% topical solution Start: 11/16/22 10:58:00 AM EDT, 1 appl, topical, Daily, Disp# 6.6 mL, Refills: 1, Pharmacy: [facility] Start Date: 11/16/22 Stop [...] TWICE A DAY FOR 14 DAYS, Pharmacy: [id number] Start Date: 03/12/23 Status: Ordered Vitamin B12 1000 mcg/mL injectable solution Start: 12/01/22 2:16:00 PM EDT, 1,000 mcg =, IM, [id number], Disp# 30 mL, Pharmacy: [id number] Start Date: 12/01/22 Stop Date: 05/30/23 Status: Ordered Mental Status 12/19/23 Barriers to Learning one year None evide nt Mandatory Health Literacy Documentation Yes Health Literacy Communication Barriers N ever Primary Language Icelandic Problem List Condition Confirmation Course Effective Dates [...] Diagnosis Diagnosis Type Effective Dates Health Status Clini azam Service Informant Fatigue Discharge Diagnosis 12/19/23 Non-Specified Nasal sore Discharge Diagnosis 12/19/23 Non-Specified Myalgia Discharge Diagnosis 12/19/23 Non-Specified Procedures Procedure Date Related Diagnosis Body Site Status Oophorectomy 10/2022 Completed Bilateral mastectomy 10/2021 Comp leted Lumpectomy of breast 08/2020 Comp leted Laparoscopic total hysterect beverley using robotic assistance 08/27/20 Completed FESS - Functional endoscopic sinus surgery 2014 Completed Tonsillectomy and adenoidectomy 2010 Completed Endometrial ablation 07/29/09 Comp leted Colposcopy of cervix 07/29/04 Comp leted Results Laboratory List Name Date C Reactive Protein, High Sensitivity (C REAC PROT,HI SENS) 12/19/23 Complete Blood Count w Differential (CBC ,DIFFH) 12/19/23 Comprehensive Metabolic Panel (COMP META B PANEL) 12/19/23 Erythrocyte Sedimentation Rate (SEDIMENT ATION RATE) 12/19/23 Most recent to oldest [Reference Range]: 1 eGFR CKD-EPI [>60 mL/min/1.73 m2] >90 mL /min/1.73 m2 (12/19/23 2:33 PM) Estimated CrCl 128.00 mL/min (12/19/23 9:30 PM) C Reactive Prot, high sens >20.0 mg/L 1 (12/19/23 2:33 PM) MPV [9.0-12.2 fL] 9.2 fL (12/19/23 2:33 PM) Immature Gran% 0.5 % (12/19/23 2:33 PM) Neut% 61.8 % (12/19/23 2:33 PM) Lymph% 28.7 % (12/19/23 2:33 PM) [place]% 7.0 % (12/19/23 2:33 PM) Baso% 1.0 % (12/19/23 2:33 PM) Eos% 1.0 % (12/19/23 2:33 PM) Immat Gran, Abs [0-0.4 K/uL] 0.03 K/uL (12/19/23 2:33 PM) Neut, Abs [2.0-7.7 K/uL] 3.77 K/uL (12/19/23 2:33 PM) Lymph, Abs [1.0-3.4 K/uL] 1.75 K/uL (12/19/23 2:33 PM) [place], Abs [0-1.0 K/uL] 0.43 K/uL (12/19/23 2:33 PM) Baso, Abs [0-0.1 K/uL] 0.06 K/uL (12/19/23 2:33 PM) Eos, Abs [0-0.5 K/uL] 0.06 K/uL (12/19/23 2:33 PM) Type of Diff: AUTO *Unknown* (12/19/23 2:33 PM) RDW [11.5-14.2 %] 12.5 % (12/19/23 2:33 PM) Anion Gap [5-14 mmol/L] 14 mmol/L (12/19/23 2:33 PM) Alb [3.5-5.2 g/dL] 3.9 g/dL (12/19/23 2:33 PM) Alk Phos [35-115 unit/L] 180 unit/L 2 *HI* (12/19/23 2:33 PM) ALT [0-33 unit/L] 12 unit/L (12/19/23 2:33 PM) AST [0-32 unit/L] 22 unit/L (12/19/23 2:33 PM) BUN [6-23 mg/dL] 6 mg/dL (12/19/23 2:33 PM) Ca [8.4-10.2 mg/dL] 9.6 mg/dL (12/19/23 2:33 PM) Cl- [98-107 mmol/L] 98 mmol/L (12/19/23:33 PM) HCO3 [22-29 mmol/L] 24 mmol/L (12/19/23 2:33 PM) Cret [0.60-1.00 mg/dL] 0.58 mg/dL *LOW* (12/19/23: PM) ESR [0-30 mm/hr] 47 mm/hr *HI* (12/19/23:33 PM) Glu [74-109 mg/dL] 129 mg/dL 3 *HI* (12/19/23: PM) Hct [35-44 %] 39.7 % (12/19/23: PM) Hgb [11.7-15.0 g/dL] 13.2 g/dL (12/19/23 2:33 PM) K [3.5-5.1 mmol/L] 4.0 mmol/L (12/19/23:33 PM) MCH [28-33 pg] 29.9 pg (12/19/23:33 PM) MCHC [32-36 g/dL] 33.2 g/dL (12/19/23:33 PM) MCV [81-96 fL] 89.8 fL (12/19/23:33 PM) Na [136-145 mmol/L] 136 mmol/L (12/19/23 2:33 PM) Plts [150-350 K/uL] 441 K/uL *HI* (12/19/23: PM) RBC [3.90-5.00 M/uL] 4.42 M/uL (12/19/23 2:33 PM) T Bili [0.0-1.2 mg/dL] 0.3 mg/dL (12/19/23:33 PM) Prot [6.4-8.3 g/dL] 7.2 g/dL (12/19/23 2:33 PM) WBC [4.0-10.4 K/uL] 6.10 K/uL (12/19/23 2:33 PM) 1Result Comment: High sensitivity CRP level indicates inflammatory state which should be followedby routine CRP levels. CHECKED Classification for Cardiovascular Disease Risk Conventional and SI Units (mg/L). LOW <1.0 AVERAGE 1.0-3.0 HIGH >3.0-10.0 INDETERMINANT >10.0 2Result Comment: Low levels of ALKP may indicate a deficiency in zinc, magnesium, or malnutritionbutcan also be an indicator of a rare genetic disease hypophosphatasia (HPP). 3Result Comment: ADA recommendation for FASTING Serum/Plasma Glucose: Normal: 70-100 mg/dL Prediabetes: 100-125 mg/dL Diabetes: 126 mg/dL or higher Orders for Microbiology Reports Name Date Herpes Simplex Virus 1,2 Swab PCR (HSV 1 ,2 PCR) 12/19/23 Microbiology Reports TEST:Herpes Simplex 1,2 by PCR STATUS:Auth (Verified) BODY SITE: SOURCE:Lesion COLLECTED DATE/TIME:12/19/23 2:53 PM Molecular Detection No Herpes simplex virus detected Vital Signs Most recent to oldest [Reference Range]: 1 Heart Rate 136 bpm (12/19/23 1:45 PM) Respiratory Rate 18 br/min (12/19/23 1:45 PM) Blood Pressure 100/70mmHg (12/19/23 1:45 PM) Cuff Pulse Pressure 30 mmHg (12/19/23 1:45 PM) Social History Social History Type Response Tobacco Current every day sm oker, Cigarettes, 0.5 per day. Started age 17 Years. Ready to change: Yes. 1 Smoking Status Current every day he royer smoker Sex Female 1has had hypnotherapy once. [facility] Outpt Note * MD Rashawn, Ian: PERFORM Event Display: FCM Outpt Note Authored Date: [id number] Chief Complaint flare of all over body pain, started 5 weeks ago. 04/08 pain History of Present Illness Diffuse myalgias/arthralgias x 5 wks - aching pain of the entire body, joint and muscle inclusive - no apparent trigger excepting following nerve ablation, no illness reported nor injury - stable current medication - onset with simulataneousdevelopment of intranasal pain/sore c/w HSV without preceeding presentation - no significant palliative attempts at time of evaluation beyond baseline medications Reports no fever, rashes, breathing changes, vision changes, abdominal sx Physical Exam Vitals & Measurements HR:136(Monitored) RR:18 BP:100/70 SpO2:98% PHQ2 Data(Data Documented on:12/19/2023 13:44) Emotional health assessment NEGATIVE General: _Alert and oriented, No acute distress Cardiovascular: _Normal rate, Regular rhythm, No murmur, No gallop. Respiratory: _Lungs are clear to auscultation, Respirations are non-labored, Breath sounds are equal Psych: Mood-affect congruence. Reports no SI/HI. Speech is of normal pace and content MSK: Difficult examination 2/2 pain but no apparent swelling of the knees (a place of prominent discomfort). TTP without particular spasm appreciated over the traps and bilateral quads SKIN:No apparent rashes beyond chronic biltaeralelbow rashes previously noted including no rashes of the fingertips HEENT: _ Normocephalic, TM clear, Nl gross hearing, moist oral mucosa _Visible right naresore w/ mucous Assessment/Plan 1.Myalgia Undifferentiated new problem with uncertain prognosis Goal:evaluation Data:CBC, CMP,ESR, CRP,HSVswab Plan: - systemic symptoms of unknown etiology w/ 2-3 episodes remotely behaving similar without describedetiology - systemic inflammatory w/u and consider steroid burst but nasal lesion also concerning for new HSV which may instigate systemic symtpoms,though absence of fever is atypical, as is duration - will do steroids if HSV negative, if positive consider valacyclovir 2.Nasal sore as above 3.Fatigue as above Problem List/Past Medical History Ongoing Ankylosing spondylitis [...] total hysterectomy using robotic assistance| Service Date: 01/29/2021FESS - Functional endoscopic sinus surgery| Service Date: [...] 1000 mcg/mL injectable solution), 1000 mcg, IM, [id number] ergocalciferol(ergocalciferol 1.25 mg (50,000 intl units) oral capsule), [id number] Int_Unit= 1 cap, PO,q7days fluticasone-vilanterol(Breo Ellipta 200 [...] due01/26/23and every 1year Due Adult COVID-19 Vaccination due12/19/23Unknown Frequency Adult Folic Acid Supplementation due12/19/23and every 3year Adult Social Determinants of Health Screening due12/19/23Unknown Frequency Hepatitis C Screening due12/19/23One-time only Pneumococcal Vaccine Adults and Adolescents with Chronic Illness due12/19/23One-time only Shingles Vaccine due12/19/23One-time only Due In Future Body Mass Index not due until10/29/24and every 366day Satisfied(in the past 1 year) Satisfied Body Mass Index on10/29/23.Satisfied by TOSHA Rojas Courtney Lipid Screening on10/05/23.Satisfied by Contributor_system, [id number] Shingles Vaccine on08/20/23.Satisfied by MD Morocho Christopher Electronic Signature on File Electronically Reviewed/Signed by: Ian Morocho MD Author Signature Dt/Tm:12/19/2023 04:43 PM Department of Family Medicine [facility] Patient Care team information Care Team Personnel Name: MD Morocho Christopher Position: Physician - Family Med Member Role: Primary Care Provider Address: Address: [address] [facility] [address] [place] [address] Care Team Related Persons Name: BEATA GUERRA Address: [place] Address: home [address], [place] [id number] Name: MARGUERITE BLISS I Address: [place] Address: home [address] [facility] [phone]
--- OUTSIDE RECORDS SUMMARY | 2024-04-08 15:22 | External Medical Summary | Summary of Care ---
Author Name Unknown Organization [facility] Address [address] [place] [address] Phone [phone] Care Team Providers Care Sealer Dry Cell Name Role Phone Ian Morocho MD Primary Care Provid er Encounter Details Date Type Department Care Team (Late st Contact Info) Description 11/28/2023 Population Health External Data Unspecified Department Allergies Active Allergy Reactions Criticality Noted Date Comments Sulfamethoxazole-Trimethoprim Nausea/vomiting 0 04/13/2023 Duloxetine 07/27/2020 MALAISE documented as of this encounter (statuses as of 11/28/2023) Medications Medication Sig Dispensed Refills Start Date [...] open area 22 g 0 04/09/2023 Active Rinvoq 15 MG Oral Tablet Extended Release 24 Hour (Upadacitinib ER)Indications: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 15 Tablet 2 11/08/2023 Active Prochlorperazine Maleate 5 MG Oral Tablet [...] the morning. 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 Ram[facility] [phone] Anxiety 12/26/2013 Depression 12/26/2013 Overview: Reviewed prior [...] as of this encounter (statuses as of 11/28/2023) Resolved Problems Problem Noted Date Diagnosed Date [...] as of this encounter (statuses as of 11/28/2023) Immunizations Name Administration Dates Next Due DTaP [...] Description 12/25/2023 10:30 AM EDT Telemedicine Rheumatology, [place] [address] [place] [address] Agc5, Pharmacist Rheumatology [facility] [place] [address] 01/18/2024 2:30 PM EDT Office Visit Rheumatology, [place] [address] [place] [address] Soha Amato MD [facility] [place] [address] 03/28/2024 1:30 PM EDT Hospital Encounter ENDO [facility], Endoscopy Room [facility] [address] [place] [phone] Beatriz Tony MD [address] [place] [address] 03/28/2024 1:30 PM EDT - 03/28/2024 2:00 PM EDT Surgery ENDO [facility], Endoscopy Room [facility] [address] [place] [phone] Beatriz Tony MD [address] [place] [address] COLONOSCOPY FLEXIBLE PROXIMAL DIAGNOSTIC 04/03/2024 11:00 AM EDT Office Visit Gastroenterology, [facility] [address] [place] [address] Tatiana Bee CRNP [address] [place] [address] 04/25/2024 9:00 AM EDT Office Visit Radiation Oncology, [address] [address] Rich Benavidez MD [address] [place] [address] 05/22/2024 10:00 AM EDT Office Visit Gynecology/Obstetr ics [facility] [address] [place] [address] Romana Streeter CRNP [address] [place] [address] Scheduled Procedures Name Priority Associated Diagnoses Date/Ti [...] this encounter Medical Devices Implanted Type Area Coverer Device Identifier Shelf Expiration Date Model / Serial / Lot Alloderm Select 16x20 (320 Units) - [id number] - [id number] Implanted:Qty: 1 on 11/03/2021 by Gera Julien MD [facility] Right: Breast ALLERGAN 02/26/2023 [id number] / [id number] / [id number] Alloderm Select 16x20 (320 Units) - [id number] - [id number] Implanted:Qty: 1 on 11/03/2021 by Gera Julien MD at [facility] Left: Breast ALLERGAN 04/28/2023 [id number] / [id number] / [id number] Breast Chemical Inspector Implanted:Qty: 1 on 11/03/2021 by Gera Julien MD at [facility] Right: Breast [employer]PL[employer] 2024 [facility] / [id number] Breast Chemical Inspector Implanted:Qty: 1 on 11/03/2021 by Gera Julien MD at [place] [facility] Left: Breast [employer]PLANT[employer] 2024 [facility] / [id number] / [id number] documented as of this encounter Advance Directives Latest Code Status on File Code Status Date Activated Date Inactivated Comments Full Code 11/03/2021 11:07 AM 11/04/2021 1:17 PM This o rder reflects the patients wishes and were consensually agreed upon. Care Teams Sealer Dry Cell Relationship Specialty Start Date End Date Ian Morocho MD [address], [place] [address] PCP - General Family Medicine 12/06/22 documented as of this encounter
--- OUTSIDE RECORDS SUMMARY | 2024-04-08 15:22 | External Medical Summary | Summary of Care ---
Author Name Unknown Organization [facility] Address [address] [place] [address] Phone [phone] Care Team Providers Care Branch Service Representative Name Role Phone Ian Morocho MD Primary Care Provid er Reason for Visit * Reason Onset Date Comments Precert Denied 11/13/2023 Lubiprostone Encounter Details Date Type Department Care Team (Late st Contact Info) Description 11/13/2023 Telephone Gastroenterology, [place] [address] [place] [address] Elle Aguilera PA-C [facility] [place] [address] Precert Denied ( Lubiprostone) Allergies Active Allergy Reactions Criticality Noted Date [...] the morning. 30 Tablet 5 11/27/2023 Active Motegrity 2 MG Oral Tablet (Prucalopride Succinate) Take 1 Tablet by mouth in the morning. 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 Ramires [facility] [phone] Anxiety 12/26/2013 Depression 12/26/2013 Overview: Reviewed prior [...] encounter Miscellaneous Notes * Telephone Encounter - Carisa Bowen RN - 12/03/2023 3:15 PM EDT Called pt to notify her rx was sent. No answer. Left message notifying her. "Call with questions." * Addendum Note - Elle Aguilera PA-C - 11/27/2023 4:28 PM EDTAddended by: ELLE AGUILERA on: 11/27/2023 04:28 PM Modules accepted: Orders * Telephone Encounter - Elle Aguilera PA-C - 11/27/2023 4:28 PM EDT Sent in rx for Movantik 25mg #30 R5 * Telephone Encounter - Carisa Bowen RN - 11/27/2023 10:19 AM EDT Although denial stated pt had to try and fail Amitiza before Motegrity, Amitiza was denied. NOW denial says pt must try Movantik first. Per formulary: Movantik Oral Tablet 12.5 Mg Tier 4 Quantity Limit Movantik Oral Tablet 25 Mg Tier 4 Quantity Limit * Telephone Encounter - Carisa Bowen RN - 11/27/2023 10:15 AM EDT Images from the original note were not included. New or re-auth: New authorization Approved/Denied: Denied Drug Name and Formulation: Lubiprostone 24mcg Capsule How Prescribed(directions/sig): Take 1 Capsule by mouth 2 times a day with morning and evening meals Day Supply: 180 per 90 days Did you receive insurance information from outside the chart? No, received insurance information within the chart Valid auth start date: N/A Valid auth end date: N/A Rx Insurance Info: [employer] PARSON Reference #: [id number] Rx Benefits Verified through/on date: [facility] 11/21 Referral (TE) received from: Prescribing Clinic * Telephone Encounter - Carisa Bowen RN - 11/20/2023 1:11 PM EDT Gastro Pre-Cert Request Specialty Medication: No. Medication/Disease State Information: Medication: lupiprostone 24 mcg capsules Diagnosis (including ICD-10): drug induced constipation, K59.03 Site of care: Self-administered - route pre-cert request to [id number] Office Information: Prescriber: Elle Aguilera PA-C Has tried and failed Miralax, Dulcolax, Senokot, suppositories, enemas, and stool softeners. * Telephone Encounter - Elle Aguilera PA-C - 11/19/2023 11:37 AM EDT Sent in rx for generic Amitiza, 24mcg BID. * Telephone Encounter - Abril Ram RN - 11/15/2023 12:21 PM EDT Vero, please see denial. Must have tried and failed Amitiza or Relistor. Please advise Thanks * Telephone Encounter - Abril Ram RN - 11/15/2023 12:20 PM EDT Images from the original note were not included. Type Date User Summary Attachment Precert 11/15/2023 11:24 AM Montserrat Barrera OSA - - Note: New or re-auth: New authorization Approved/Denied: Denied Drug Name and Formulation: MOTEGRITY How Prescribed(directions/sig): DAILY Day Supply: 30 Did you receive insurance information from outside the chart? No, received insurance information within the chart Valid auth start date: N/A Valid auth end date: N/A Rx Insurance Info: TOÑO PARSON Reference #: [id number] Rx Benefits Verified through/on date: EPIC 11/15/2023 Referral (TE) received from: Prescribing Clinic [facility] [employer] Dept at [phone]. Montserrat Barrera Medication Weight Checker III P: [phone] F: [phone] 11/15/23,11:24 AM * Telephone Encounter - Abril Ram RN - 11/13/2023 8:25 AM EDT Gastro Pre-Cert Request Specialty Medication: No. Medication/Disease State Information: Medication: Motegrity Diagnosis (including ICD-10): drug induced constipation, K59.03 Site of care: Self-administered - route pre-cert request to [id number] Office Information: Prescriber: Elle Aguilera PA-C Has tried and failed Miralax, Dulcolax, Senokot, suppositories, enemas, and stool softeners. Please assist with PA. Thanks documented in this encounter Plan of Treatment Upcoming Encounters Date Type Department Care Team (Late st Contact Info) Description 12/25/2023 10:30 AM EDT Telemedicine Rheumatology, [address] [address] Agc5, Pharmacist Rheumatology [address] [place] [address] 01/18/2024 2:30 PM EDT Office Visit Rheumatology[address] [address] Soha Amato MD [address] [place] [address] 03/28/2024 1:30 PM EDT Hospital Encounter ENDO [facility], Endoscopy Room [facility] [address] [place] [address] Beatriz Tony MD [address] [place] [address] 03/28/2024 1:30 PM EDT - 03/28/2024 2:00 PM EDT Surgery ENDO [facility], Endoscopy Room [facility] [address] [place] [phone] Beatriz Tony MD [address] [place] [address] COLONOSCOPY FLEXIBLE PROXIMAL DIAGNOSTIC 04/03/2024 11:00 AM EDT Office Visit Gastroenterology, [facility] [address] [place] [address] Tatiana Bee CRNP [address] [place] [address] 04/25/2024 9:00 AM EDT Office Visit Radiation Oncology, [address] [address] Rich Benavidez MD [address] [place] [address] 05/22/2024 10:00 AM EDT Office Visit Gynecology/Obstetr ics [facility] [address] [place] [address] Romana Streeter CRNP [address] [place] [address] Scheduled Procedures Name Priority Associated Diagnoses Date/Ti [...] this encounter Medical Devices Implanted Type Area Commercial Litigation Attorney Device Identifier Shelf Expiration Date Model / Serial / Lot Alloderm Select 16x20 (320 Units) - [id number] - [id number] Implanted:Qty: 1 on 11/03/2021 by Gera Julien MD at OR [facility] Right: Breast ALLERGAN 02/26/2023 [id number] / [id number] / [id number] Alloderm Select 16x20 (320 Units) - [id number] - [id number] Implanted:Qty: 1 on 11/03/2021 by Gera Julien MD at OR [facility] Left: Breast ALLERGAN 04/28/2023 [id number] / [id number] / [id number] [address] [place] Breast Tech Brazer Tester Implanted:Qty: 1 on 11/03/2021 by Gera Julien MD at [facility] Right: Breast MENTOR BREAST IMPLANTS 2024 [facility] / [id number] [address] [place] Breast Tech Brazer Tester Implanted:Qty: 1 on 11/03/2021 by Gera Julien MD at OR [facility] Left: Breast MENTOR BREAST IMPLANTS 2024 [facility]H / [id number] documented as of this encounter Advance Directives Latest Code Status on File Code Status Date Activated Date Inactivated Comments Full Code 11/03/2021 11:07 AM 11/04/2021 1:17 PM This o rder reflects the patients wishes and were consensually agreed upon. Care Teams Branch Service Representative Relationship Specialty Start Date End Date Ian Morocho MD [address] [address] PCP - General Family Medicine 12/06/22 documented as of this encounter
--- OUTSIDE RECORDS SUMMARY | 2024-04-08 15:23 | External Medical Summary | Summary of Care ---
Author Name Unknown Organization [facility] Address [address] [place] [address] Phone [phone] Care Team Providers Care Application Development Team Lead Name Role Phone Ian Morocho MD Primary Care Provid er Reason for Visit * Reason Onset Date Comments Precert Denied 11/13/2023 Lubiprostone Encounter Details Date Type Department Care Team (Late st Contact Info) Description 11/13/2023 Telephone Gastroenterology, [place] [address] [place] [address] Elle Aguilera PA-C [facility] [place] [address] Precert Denied ( Lubiprostone) Allergies Active Allergy Reactions Criticality Noted Date Comments Sulfamethoxazole-Trimethoprim Nausea/vomiting 0 04/13/2023 Duloxetine 07/27/2020 MALAISE documented as of this encounter (statuses as of 11/27/2023) Medications Medication Sig Dispensed Refills Start Date [...] as of this encounter (statuses as of 11/27/2023) Active Problems Problem Noted Date Diagnosed Date [...] of test: Expansive testing for breast and bending roll hand cancer risk -- 36 genes Genes Included: [...] QHS; s/p trigger point injections Dr. Ramires [facility] [phone] Anxiety 12/26/2013 Depression 12/26/2013 Overview: Reviewed prior [...] as of this encounter (statuses as of 11/27/2023) Resolved Problems Problem Noted Date Diagnosed Date [...] as of this encounter (statuses as of 11/27/2023) Immunizations Name Administration Dates Next Due DTaP [...] as of this encounter Miscellaneous Notes * Addendum Note - Elle Aguilera PA-C [...] auth end date: N/A Rx Insurance Info: [facility] Reference #: [id number] Rx Benefits Verified through/on date: [facility] 11/21 Referral (TE) received from: Prescribing Clinic * Telephone Encounter - Carisa Bowen RN - 11/20/2023 1:11 PM EDT Gastro Pre-Cert Request Specialty Medication: No. Medication/Disease State Information: Medication: lupiprostone 24 mcg capsules Diagnosis (including ICD-10): drug induced constipation, K59.03 Site of care: Self-administered - route pre-cert request to [id number] Office Information: Prescriber: Elle Aguilera PA-C Has [...] Rx Insurance Info: [employer] Reference #: [id number] Rx Benefits Verified through/on date: EPIC 11/15/2023 Referral (TE) received from: Prescribing Clinic [facility] Dept at [phone]. Montserrat Barrera Medication Feed Mill Manager III P: [phone] F: [phone] 11/15/23,11:24 AM * Telephone Encounter - Abril Ram RN - 11/13/2023 8:25 AM EDT Gastro Pre-Cert Request Specialty Medication: No. Medication/Disease State Information: Medication: Motegrity Diagnosis (including ICD-10): drug induced constipation, K59.03 Site of care: Self-administered - route pre-cert request to [id number] Office Information: Prescriber: Elle Aguilera PA-C Has tried and failed Miralax, Dulcolax, Senokot, suppositories, enemas, and stool softeners. Please assist with PA. Thanks documented in this encounter Plan of Treatment Upcoming Encounters Date Type Department Care Team (Late st Contact Info) Description 12/25/2023 10:30 AM EDT Telemedicine Rheumatology, [place] [address] [place] [address] Agc5, Pharmacist Rheumatology [address] [place] [address] 01/18/2024 2:30 PM EDT Office Visit Rheumatology, [place] [address] [place] [address] Soha Amato MD [address] [place] [address] 03/28/2024 1:30 PM EDT Hospital Encounter ENDO [facility], Endoscopy Room [facility] [address] [place] [address] [place] [phone] Beatriz Tony MD [address] [place] [address] 03/28/2024 1:30 PM EDT - 03/28/2024 2:00 PM EDT Surgery ENDO [facility], Endoscopy Room [facility] [address] [place] [phone] Beatriz Tony MD [address] [place] [address] COLONOSCOPY FLEXIBLE PROXIMAL DIAGNOSTIC 04/03/2024 11:00 AM EDT Office Visit Gastroenterology, [facility] [address] [place] [address] Tatiana Bee CRNP [address] [place] [address] 04/25/2024 9:00 AM EDT Office Visit Radiation Oncology, [place] [address] [place] [address] Rich Benavidez MD [address] [place] [address] 05/22/2024 10:00 AM EDT Office Visit Gynecology/Obstetr [facility] [address] [place] [address] Romana Streeter CRNP [address] [place] [address] Scheduled Procedures Name Priority Associated Diagnoses Date/Ti [...] this encounter Medical Devices Implanted Type Area Car Wiper Device Identifier Shelf Expiration Date Model / Serial / Lot Alloderm Select 16x20 (320 Units) - [id number] - [id number] Implanted:Qty: 1 on 11/03/2021 by Gera Julien MD at OR [facility] Right: Breast ALLERGAN 02/26/2023 [id number] / [id number] / [id number] Alloderm Select 16x20 (320 Units) - [id number] - [id number] Implanted:Qty: 1 on 11/03/2021 by Gera Julien MD at OR [facility] Left: Breast ALLERGAN 04/28/2023 [id number] / [id number] / [id number] [address] [place] Breast Vessel Welder Implanted:Qty: 1 on 11/03/2021 by Gera Julien MD at OR [facility] Right: Breast MENTOR BREAST IMPLANTS 2024 [facility] / [id number] / [id number] [place] Breast Vessel Welder Implanted:Qty: 1 on 11/03/2021 by Gera Julien MD at [facility] Left: Breast MENTOR BREAST IMPLANTS 2024 [facility] / [id number] / [id number] documented as of this encounter Advance Directives Latest Code Status on File Code Status Date Activated Date Inactivated Comments Full Code 11/03/2021 11:07 AM 11/04/2021 1:17 PM This o rder reflects the patients wishes and were consensually agreed upon. Care Teams Application Development Team Lead Relationship Specialty Start Date End Date Ian Morocho MD [address] [address] PCP - General Family Medicine 12/06/22 documented as of this encounter
--- OUTSIDE RECORDS SUMMARY | 2024-04-08 15:23 | External Medical Summary | Continuity of Care Document ---
Author Name Unknown Organization [facility] [place] [address] [place] [id number] Care Team Providers Care Multi Care Technician Name Role Phone Ian Morocho Primary Care Physician [phone] [id number]): [facility]23 [facility] [address] [place] [address] [phone] Encounter Diagnosis Trigger point with back pain(Discharge Diagnosis) - 11/15/23 Discharge Disposition: Home or Self Care Attending Physician: DO Vargas Gretchen Elizabeth Allergies, Adverse Reactions, Alerts Substance Reaction Severity Status buPROPion agitation, nastiness Active varenicline agitation Active DULoxetine Anxiety Active Immunizations Given and Recorded Vaccine Date Status [...] mg-5 mg oral tablet Start: 11/16/22 10:16:00 EDT, 2 tab, PO, q6h, Refills: 0, PRN: as needed for pain Start Date: 11/16/22 Status: Ordered Albuterol (Eqv-ProAir HFA) 90 mcg/inh inhalation aerosol Start: 11/16/22 10:11:00 EDT Start Date: 11/16/22 Status: Ordered ALPRAZolam 0.5 mg oral tablet Start: 11/08/23 16:21:00 EDT, 1 tab, PO, Daily, Disp# 30 tab, Refills: 0, Note to Pharmacy: PDMP checked, covering for PCP, PRN: as needed for anxiety, Pharmacy: [id number] Start Date: 11/08/23 Status: Ordered BD 3 mL Luer-Keri Syringe 25G x 1" Start: 06/20/23 10:08:00 EST, See Instructions, Disp# 100 each, Refills: 0, Use as directed. Max 1/day. Use new syringe with each injection., Pharmacy: [id number] Start Date: 06/20/23 Status: Ordered BD Luer-Keri Syringe Miscellaneous 25G X 1" 3 ML Start: 09/17/23 11:28:00 EST, BD Luer-Keri Syringe Miscellaneous 25G X 1" 3 ML, See Instructions, Disp# 100 unknown unit, Refills: 0, USE DIRECTED. MAX 1/DAY. USE NEW SYRINGE WITH EACH INJECTION., Pharmacy [facility] Start Date: 09/17/23 Status: Ordered Breo Ellipta 200 mcg-25 mcg/inh inhalation powder Start: 11/16/22 10:15:00 EDT, 1 puff, inhaled, Daily, Disp# 1 each Start Date: 11/16/22 Stop Date: 12/16/22 Status: Ordered citalopram 40 mg oral tablet Start: 12/01/22 14:17:00 EDT, 1 tab, PO, Daily, Disp# 90 tab, Refills: 3, Pharmacy: [facility] Start Date: 12/01/22 Stop Date: 11/26/23 Status: Ordered clopidogrel 75 mg oral tablet Start: 07/02/23 11:12:00 EST, 1 tab, PO, Daily, Disp# 30 tab, Refills: 5, Pharmacy: [facility] Start Date: 07/02/23 Status: Ordered ergocalciferol 1.25 mg (50,000 intl units) oral capsule Start: 11/16/22 10:15:00 EDT, 1 cap, PO, q7days Start Date: 11/16/22 Status: Ordered hydromorphone Start: 02/15/23 10:19:00 EDT, hydromorphone, pump Start Date: 02/15/23 Status: Ordered HYDROmorphone 2 mg oral tablet Start: 11/16/22 10:02:00 EDT, 1 tab, PO, q4h, Refills: 0, PRN: as needed for pain Start Date: 11/16/22 Status: Ordered ketoconazole 2% topical shampoo Start: 11/16/22 10:16:00 EDT, 1 appl, topical Start Date: 11/16/22 Status: Ordered ketorolac 30 mg/mL injectable solution Start: 11/02/23 14:36:00 EDT, See Instructions, Disp# 2 mL, Refills: 0, INJECT 1 ML INTO A MUSCLE EVERY 2 WEEKS, Pharmacy: [facility] Start Date: 11/02/23 Status: Ordered Milk of Magnesia 8% oral suspension Start: 10/29/23 9:42:00 EDT, 15 mL, PO, qhs, Disp# 360 mL, PRN: as needed for constipation, Pharmacy: [facility] Start Date: 10/29/23 Status: Ordered nicotine 4 mg oral transmucosal lozenge Start: 09/05/23 15:45:00 EST, 1 lozenge, buccal, q2h, Disp# 504 lozenge, Pharmacy: [facility] Start Date: 09/05/23 Stop Date: 10/17/23 Status: Ordered nicotine 7 mg/24 hr transdermal film, extended release Start: 09/05/23 15:45:00 EST, 1 patch, transdermal, Daily, Disp# 21 patch, Refills: 1, Pharmacy: [facility] Start Date: 09/05/23 Stop Date: 10/17/23 Status: Ordered omeprazole 40 mg oral delayed release capsule Start: 12/01/22 14:17:00 EDT, 1 cap, PO, qhs, Disp# 90 cap, Refills: 3, Pharmacy: [facility] Start Date: 12/01/22 Stop Date: 11/26/23 Status: Ordered ondansetron 4 mg oral tablet, disintegrating Start: 11/16/22 10:17:00 EDT, 1 tab, PO, tid, PRN: as needed for nausea/vomiting Start Date: 11/16/22 Status: Ordered Penlac Nail Lacquer 8% topical solution Start: 11/16/22 10:58:00 EDT, 1 appl, topical, Daily, Disp# 6.6 mL, Refills: 1, Pharmacy: [facility] Start Date: 11/16/22 Stop Date: 09/18/24 Status: Ordered Rinvoq 15 mg oral tablet, extended release Start: 09/05/23 15:00:00 EST, 1 tab, PO, Daily, Supply Start Date: 09/05/23 Status: Ordered saccharomyces boulardii lyo 250 mg oral capsule Start: 11/16/22 10:18:00 EDT, 1 cap, PO, bid, PRN: as needed for loose stool Start Date: 11/16/22 Status: Ordered triamcinolone 0.1% topical cream Start: 03/12/23 14:08:00 EDT, See Instructions, Disp# 30 g, Refills: 0, APPLY TOPICAL TWICE A DAY FOR 14 DAYS, Pharmacy: [facility] Start Date: 03/12/23 Status: Ordered Vitamin B12 1000 mcg/mL injectable solution Start: 12/01/22 14:16:00 EDT, 1,000 mcg =, IM, [id number], Disp# 30 mL, Pharmacy: [facility] Start Date: 12/01/22 Stop Date: 05/30/23 Status: Ordered Mental Status 11/15/23 Barriers to Learning one year None evide nt Mandatory Health Literacy Documentation Yes Health Literacy Communication Barriers N ever Primary Language Vietnamese Problem List Condition Confirmation Course Effective Dates [...] Dates Health Status Cl inical Service Informant Trigger point with back pain Discharge Diagnosis 11/15/23 Procedures Procedure Date Related Diagnosis Body Site [...] to oldest [Reference Range]: 1 Heart Rate 96 bpm (11/15/23 1:03 PM) Respiratory Rate 18 br/min (11/15/23 1:03 PM) Blood Pressure 106/78mmHg (11/15/23 1:03 PM) Cuff Pulse Pressure 28 mmHg (11/15/23 1:03 PM) Social History Social History Type Response Tobacco Current every day sm oker, Cigarettes, 0.5 per day. Started age 17 Years. Ready to change: Yes. 1 Smoking Status Current every day he royer smoker Sex Female 1has had hypnotherapy once. Patient Care team information Care Team Personnel Name: MD Morocho Christopher Position: Physician - Family Med Member Role: Primary Care Provider Address: Address: [facility] [address] Care Team Related Persons Name: BEATA GUERRA Address: home [address] [facility], [phone] Name: BEATA GUERRA Address: home [address] [facility], [phone] Name: BEATA GUERRA Address: [facility] Address: home [address] [place], [place] [id number]
--- OUTSIDE RECORDS SUMMARY | 2024-04-08 15:23 | External Medical Summary | Summary of Care ---
Author Name Unknown Organization [facility] Address [address] [place] [address] Phone [phone] Care Team Providers Care Electric Motor Tester Name Role Phone Ian Morocho MD Primary Care Provid er Reason for Visit * Reason Onset Date Comments Precert Denied 11/13/2023 Motegrity Encounter Details Date Type Department Care Team (Late st Contact Info) Description 11/13/2023 Telephone Gastroenterology, [place] [address] [place] [address] Elle Aguilera PA-C [facility] [place] [address] Precert Denied (Motegrity) Allergies Active Allergy Reactions Criticality Noted Date Comments Sulfamethoxazole-Trimethoprim Nausea/vomiting 0 04/13/2023 Duloxetine 07/27/2020 MALAISE documented as of this encounter (statuses as of 11/21/2023) Medications Medication Sig Dispensed Refills Start Date [...] evening meals. 180 Capsule 3 11/19/2023 Active Motegrity 2 MG Oral Tablet (Prucalopride Succinate) Take 1 Tablet by mouth in the morning. 90 Tablet 3 11/12/2023 11/19/19 24 Discontinu ed(Formula ry/Cost) documented as of this encounter (statuses as of 11/21/2023) Active Problems Problem Noted Date Diagnosed Date [...] of test: Expansive testing for breast and dietitian chief cancer risk -- 36 genes Genes Included: [...] QHS; s/p trigger point injections Dr. Ramires [facility] [phone] Anxiety 12/26/2013 Depression 12/26/2013 Overview: Reviewed prior [...] as of this encounter (statuses as of 11/21/2023) Resolved Problems Problem Noted Date Diagnosed Date [...] as of this encounter (statuses as of 11/21/2023) Immunizations Name Administration Dates Next Due DTaP [...] care: Self-administered - route pre-cert request to [id number] Office Information: Prescriber: Elle Aguilera PA-C Has [...] auth end date: N/A Rx Insurance Info: [facility] Reference #: [id number] Rx Benefits Verified through/on date: EPIC 11/15/2023 Referral (TE) received from: Prescribing Clinic [facility] [place] Dept at [phone]. Montserrat Barrera Medication Pathology Supervisor III P: [phone] F: [phone] 11/15/23,11:24 AM * Telephone Encounter - Abril Ram RN - 11/13/2023 8:25 AM EDT Gastro Pre-Cert Request Specialty Medication: No. Medication/Disease State Information: Medication: Motegrity Diagnosis (including ICD-10): drug induced constipation, K59.03 Site of care: Self-administered - route pre-cert request to [id number] Office Information: Prescriber: Elle Aguilera PA-C Has tried and failed Miralax, Dulcolax, Senokot, suppositories, enemas, and stool softeners. Please assist with PA. Thanks documented in this encounter Plan of Treatment Upcoming Encounters Date Type Department Care Team (Late st Contact Info) Description 12/25/2023 10:30 AM EDT Telemedicine Rheumatology, [place] [address] [place] [address] Agc5, Pharmacist Rheumatology [address] [place] [address] 01/18/2024 2:30 PM EDT Office Visit Rheumatology, [place] [address] [place] [address] Soha Amato MD [address] [place] [address] 03/28/2024 1:30 PM EDT Hospital Encounter ENDO [facility], Endoscopy Room [facility] [address] [place] [phone] Beatriz Tony MD [address] [place] [address] 03/28/2024 1:30 PM EDT - 03/28/2024 2:00 PM EDT Surgery ENDO [facility], Endoscopy Room [facility] [address] [place] [phone] Beatriz Tony MD [address] [place] [address] COLONOSCOPY FLEXIBLE PROXIMAL DIAGNOSTIC 04/03/2024 11:00 AM EDT Office Visit Gastroenterology, [facility] [address] [place] [address] Tatiana Bee CRNP [address] [place] [address] 04/25/2024 9:00 AM EDT Office Visit Radiation Oncology, [facility] [address] [place] [address] Rich Benavidez MD [address] [place] [address] 05/22/2024 10:00 AM EDT Office Visit Gynecology/Obstetr [facility] [address] [place] [address] Romana Streeter CRNP [address] [place] [address] Scheduled Procedures Name Priority Associated Diagnoses Date/Ti [...] Vaccines (2 - Tdap) 02/02/2020 02/01/2010, 12/14/2004 COLONOSCOPY-EVERY 5 YRS AGES 18-100 11/02/2023 11/01/2018, 11/01/2018 Influenza Vaccine (FLU shot) (Season Ended) 2024 05/16/2022, 05/24/2020, 08/04/2019, Additional history exists Diabetes Screening 07/04/2026 07/04/2023, 1 08/02/2021, 05/05/2022, Additional history exists Lipid Panel 10/17/2028 10/18/2023, 11/28, 12/17/2014 Pap Smear Discontinued 04/13/2023, 01/03/2022 GARDASIL-HPV IMMUNIZATION SERIES Aged Out No longer eligible based on patient's age to complete this topic MENINGOCOCCAL (MENACTRA/MENVEO) Aged Out No longer eligible based on patient's age to complete this topic documented as of this encounter Medical Devices Implanted Type Area Child Care Centre Manager Device Identifier Shelf Expiration Date Model / Serial / Lot Alloderm Select 16x20 (320 Units) - [id number] - [id number] Implanted:Qty: 1 on 11/03/2021 by Gera Julien MD at [place] [facility] [place] Right: Breast ALLERGAN 02/26/2023 [id number] / [id number] / [id number] Alloderm Select 16x20 (320 Units) - [id number] - [id number] Implanted:Qty: 1 on 11/03/2021 by Gera Julien MD at [place] [facility] Left: Breast ALLERGAN 04/28/2023 [id number] / [id number] / [id number] [address] [place] Breast Reimbursement Auditor Implanted:Qty: 1 on 11/03/2021 by Gera Julien MD at [place] [facility] Right: Breast [employer] IMPLANT[employer] [address] / [id number] / [id number] [place] Breast Reimbursement Auditor Implanted:Qty: 1 on 11/03/2021 by Gera Julien MD at [facility] Left: Breast MENTOR BREAST IMPLANTS 2024 [facility] [place] / [id number] / [id number] documented as of this encounter Advance Directives Latest Code Status on File Code Status Date Activated Date Inactivated Comments Full Code 11/03/2021 11:07 AM 11/04/2021 1:17 PM This o rder reflects the patients wishes and were consensually agreed upon. Care Teams Electric Motor Tester Relationship Specialty Start Date End Date Ian Morocho MD [address] [address] PCP - General Family Medicine 12/06/22 documented as of this encounter
--- OUTSIDE RECORDS SUMMARY | 2024-04-08 15:23 | External Medical Summary | Summary of Care ---
Author Name Unknown Organization [facility] Address [address] [place] [address] Phone [phone] Care Team Providers Care Supervisor Filter Assembly Name Role Phone Ian Morocho MD Primary Care Provid er Reason for Visit * Reason Onset Date Comments Precert Denied 11/13/2023 Motegrity Encounter Details Date Type Department Care Team (Late st Contact Info) Description 11/13/2023 Telephone Gastroenterology, [place] [address] [place] [address] Elle Aguilera PA-C [facility] [place] [address] Precert Denied (Motegrity) Allergies Active Allergy Reactions Criticality Noted Date Comments Sulfamethoxazole-Trimethoprim Nausea/vomiting 0 04/13/2023 Duloxetine 07/27/2020 MALAISE documented as of this encounter (statuses as of 11/19/2023) Medications Medication Sig Dispensed Refills Start Date [...] as of this encounter (statuses as of 11/19/2023) Active Problems Problem Noted Date Diagnosed Date [...] of test: Expansive testing for breast and density control puncher cancer risk -- 36 genes Genes Included: [...] injections Dr. Ramires [facility] [phone] Anxiety 12/26/2013 Depression 12/26/2013 Overview: Reviewed prior [...] as of this encounter (statuses as of 11/19/2023) Resolved Problems Problem Noted Date Diagnosed Date [...] as of this encounter (statuses as of 11/19/2023) Immunizations Name Administration Dates Next Due DTaP [...] encounter Miscellaneous Notes * Telephone Encounter - Elle Aguilera PA-C [...] Rx Insurance Info: [employer] Reference #: [id number] Rx Benefits Verified through/on date: [employer] 11/15/2023 Referral (TE) received from: Prescribing Clinic [facility] Dept at [phone]. Montserrat Barrera Medication Industrial Cleaner III P: [phone] F: [phone] 11/15/23,11:24 AM * Telephone Encounter - Abril Ram RN - 11/13/2023 8:25 AM EDT Gastro Pre-Cert Request Specialty Medication: No. Medication/Disease State Information: Medication: Motegrity Diagnosis (including ICD-10): drug induced constipation, K59.03 Site of care: Self-administered - route pre-cert request to [id number] Office Information: Prescriber: Elle Aguilera PA-C Has tried and failed Miralax, Dulcolax, Senokot, suppositories, enemas, and stool softeners. Please assist with PA. Thanks documented in this encounter Plan of Treatment Upcoming Encounters Date Type Department Care Team (Late st Contact Info) Description 12/25/2023 10:30 AM EDT Telemedicine Rheumatology, [address] [address] Agc5, Pharmacist Rheumatology [address] [place] [address] 01/18/2024 2:30 PM EDT Office Visit Rheumatology[address] [address] Soha Amato MD [address] [place] [address] 03/28/2024 1:30 PM EDT Hospital Encounter ENDO [facility], Endoscopy Room [facility] [address] [place] [phone] Beatriz Tony MD [address] [place] [address] 03/28/2024 1:30 PM EDT - 03/28/2024 2:00 PM EDT Surgery ENDO [facility], Endoscopy Room [facility] [address] [place] [phone] Beatriz Tony MD [address] [place] [address] COLONOSCOPY FLEXIBLE PROXIMAL DIAGNOSTIC 04/03/2024 11:00 AM EDT Office Visit Gastroenterology, [facility] [address] [place] [address] Tatiana Bee CRNP [address] [place] [address] 04/25/2024 9:00 AM EDT Office Visit Radiation Oncology, [facility] [address] [place] [address] Rich Benavidez MD [address] [facility] [place] [address] 05/22/2024 10:00 AM EDT Office Visit Gynecology/Obstetr ics [facility] [address] [place] [address] [place], ROSHNI Melgar [address] [place] [address] Scheduled Procedures Name Priority Associated Diagnoses Date/Ti [...] this encounter Medical Devices Implanted Type Area Manager Winter Device Identifier Shelf Expiration Date Model / Serial / Lot Alloderm Select 16x20 (320 Units) - [id number] - [id number] Implanted:Qty: 1 on 11/03/2021 by Gera Julien MD [place] [facility] Right: Breast ALLERGAN 02/26/2023 [id number] / [id number] / [id number] Alloderm Select 16x20 (320 Units) - [id number] - [id number] Implanted:Qty: 1 on 11/03/2021 by Gera Julien MD at [place] [facility] Left: Breast ALLERGAN 04/28/2023 [id number] / [id number] / [id number] [address] Breast Laborer [place] Implanted:Qty: 1 on 11/03/2021 by Gera Julien MD [place] [facility] Right: Breast MENTOR BREAST IMPLANTS 2024 [facility] / [id number] [address] Breast Laborer [place] Implanted:Qty: 1 on 11/03/2021 by Gera Julien MD [place] [facility] Left: Breast MENTOR BREAST IMPLANTS 2024 [facility] / [id number] / [id number] documented as of this encounter Advance Directives Latest Code Status on File Code Status Date Activated Date Inactivated Comments Full Code 11/03/2021 11:07 AM 11/04/2021 1:17 PM This o rder reflects the patients wishes and were consensually agreed upon. Care Teams Supervisor Filter Assembly Relationship Specialty Start Date End Date Ian Morocho MD [address] [place] [address] PCP - General Family Medicine 12/06/22 documented as of this encounter
--- OUTSIDE RECORDS SUMMARY | 2024-04-08 15:23 | External Medical Summary | Summary of Care ---
Author Name Unknown Organization [facility] Address [address] [place] [address] Phone [phone] Care Team Providers Care Concierge Receptionist Name Role Phone Ian Morocho MD Primary Care Provid er Reason for Visit * Reason Onset Date Comments Precert Denied 11/13/2023 Motegrity Encounter Details Date Type Department Care Team (Late st Contact Info) Description 11/13/2023 Telephone Gastroenterology, [place] [address] [facility] [place] [address] Elle Aguilera PA-C [facility] [place] [address] Precert Denied (Motegrity) Allergies Active Allergy Reactions Criticality Noted Date Comments Sulfamethoxazole-Trimethoprim Nausea/vomiting 0 04/13/2023 Duloxetine 07/27/2020 MALAISE documented as of this encounter (statuses as of 11/20/2023) Medications Medication Sig Dispensed Refills Start Date [...] as of this encounter (statuses as of 11/20/2023) Active Problems Problem Noted Date Diagnosed Date [...] of test: Expansive testing for breast and catering and events manager cancer risk -- 36 genes Genes [...] s/p trigger point injections Dr. Ramires [facility] [phone] Anxiety 12/26/2013 Depression 12/26/2013 Overview: Reviewed prior [...] as of this encounter (statuses as of 11/20/2023) Resolved Problems Problem Noted Date Diagnosed Date [...] as of this encounter (statuses as of 11/20/2023) Immunizations Name Administration Dates Next Due DTaP [...] care: Self-administered - route pre-cert request to [id number] Office Information: Prescriber: Elle Aguilera PA-C Has [...] auth end date: N/A Rx Insurance Info: [facility] Reference #: [id number] Rx Benefits Verified through/on date: EPIC 11/15/2023 Referral (TE) received from: Prescribing Clinic [facility] Dept at [phone]. Montserrat Barrera Medication Landscaping Manager III P: [phone] F: [phone] 11/15/23,11:24 AM * Telephone Encounter - Abril Ram RN - 11/13/2023 8:25 AM EDT Gastro Pre-Cert Request Specialty Medication: No. Medication/Disease State Information: Medication: Motegrity Diagnosis (including ICD-10): drug induced constipation, K59.03 Site of care: Self-administered - route pre-cert request to [id number] Office Information: Prescriber: Elle Aguilera PA-C Has tried and failed Miralax, Dulcolax, Senokot, suppositories, enemas, and stool softeners. Please assist with PA. Thanks documented in this encounter Plan of Treatment Upcoming Encounters Date Type Department Care Team (Late st Contact Info) Description 12/25/2023 10:30 AM EDT Telemedicine Rheumatology, [place] [address] [place] [address] Agc5, Pharmacist Rheumatology [address] [place] [address] 01/18/2024 2:30 PM EDT Office Visit Rheumatology, [place] [address] [place] [address] Soha Amato MD [address] [place] [address] 03/28/2024 1:30 PM EDT Hospital Encounter [facility]O [facility], Endoscopy Room [facility] [address] [place] [phone] Beatriz Tony MD [address] [place] [address] 03/28/2024 1:30 PM EDT - 03/28/2024 2:00 PM EDT Surgery [facility], Endoscopy Room [facility] [address] [place] [phone] Beatriz Tony MD [address] [place] [address] COLONOSCOPY FLEXIBLE PROXIMAL DIAGNOSTIC 04/03/2024 11:00 AM EDT Office Visit Gastroenterology, [facility] [address] [place] [address] Taitana Bee CRNP [address] [place] [address] 04/25/2024 9:00 AM EDT Office Visit Radiation Oncology, [facility] [address] [place] [address] Rich Benavidez MD [address] [place] [address] 05/22/2024 10:00 AM EDT Office Visit Gynecology/Obstetr [facility] [address] [place] [address] Romana Streeter CRNP [address] [place] [address] Scheduled Procedures Name Priority Associated Diagnoses Date/Ti [...] this encounter Medical Devices Implanted Type Area Payer Specialist Device Identifier Shelf Expiration Date Model / Serial / Lot Alloderm Select 16x20 (320 Units) - [id number] - [id number] Implanted:Qty: 1 on 11/03/2021 by Gera Julien MD [place] [facility] [place]: Breast ALLERGAN 02/26/2023 [id number] / [id number] / [id number] Alloderm Select 16x20 (320 Units) - [id number] - [id number] Implanted:Qty: 1 on 11/03/2021 by Gera Julien MD [place] [facility] Left: Breast ALLERGAN 04/28/2023 [id number] / [id number] / [id number] [address] Breast Engagement Manager Implanted:Qty: 1 on 11/03/2021 by Gera Julien MD [place] [facility] [place]: Breast [employer] IMPLANT[employer] [address] / [id number] / [id number] [address] Breast Engagement Manager Implanted:Qty: 1 on 11/03/2021 by Gera Julien MD at [facility] Left: Breast MENTOR BREAST IMPLANTS 2024 [facility] [place] / [id number] / [id number] documented as of this encounter Advance Directives Latest Code Status on File Code Status Date Activated Date Inactivated Comments Full Code 11/03/2021 11:07 AM 11/04/2021 1:17 PM This o rder reflects the patients wishes and were consensually agreed upon. Care Teams Concierge Receptionist Relationship Specialty Start Date End Date Ian Morocho MD [address] [address] PCP - General Family Medicine 12/06/22 documented as of this encounter
--- OUTSIDE RECORDS SUMMARY | 2024-04-08 15:23 | External Medical Summary | Summary of Care ---
Author Name Unknown Organization [facility] Address [address] [place] [address] Phone [phone] Care Team Providers Care Automatic Corn Grinder Operator Name Role Phone Ney Morocho MD Primary Care Provid er Reason for Visit * Reason Comments Abdominal Pain Encounter Details Date Type Department Care Team (Late st Contact Info) Description 11/12/2023 11:00 AM EDT Office Visit Gastroenterology, [address] [phone] Elle Aguilera PA-C [address] [place] [id number] Drug-induced constipation*; History of colonic polyps; Nausea; Gastroparesis; Gastroesophageal reflux disease, unspecified whether esophagitis present Allergies Active Allergy Reactions Criticality Noted Date Comments Sulfamethoxazole-Trimethoprim Nausea/vomiting 0 04/13/2023 Duloxetine 07/27/2020 MALAISE documented as of this encounter (statuses as of 11/12/2023) Medications Medication Sig Dispensed Refills Start Date [...] other day. 15 Tablet 2 11/08/2023 Active Motegrity 2 MG Oral Tablet (Prucalopride Succinate) Take 1 Tablet by mouth in the morning. 90 Tablet 3 11/12/2023 Active Prochlorperazine Maleate 5 MG Oral Tablet (Compazine)Indicati ons:Nausea Take 1 Tablet by mouth every 6 hours as needed for Nausea. 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 [phone] Anxiety 12/26/2013 Depression 12/26/2013 Overview: Reviewed prior [...] as of this encounter (statuses as of 11/12/2023) Resolved Problems Problem Noted Date Diagnosed Date [...] as of this encounter (statuses as of 11/12/2023) Immunizations Name Administration Dates Next Due DTaP [...] Sign Reading Time Taken Comments Blood Pressure 121/87 11/12/2023 11:05 AM EDT Pulse 106 11/12/2023 11:05 AM EDT Temperature 36.6 C (97.9 F) 11/12/2023 11:05 AM E DT Respiratory Rate - - Oxygen Saturation - - Inhaled Oxygen Concentration - - Weight 77.2 kg (170 lb 1.6 oz) 11/12/2023 11:05 AM EDT Height - - Body Mass Index 28.31 04/13/2023 3:02 PM EDT documented in this [...] Yes 02/05/2014 documented as of this encounter Patient Instructions * Patient Instructions* Elle Aguilera PA-C - 11/12/2023 11:41 AM EDT Protein shakes - recommend 2 daily. See GI nutrition - already ordered through [facility] - need to schedule documented in this encounter Progress Notes * Elle Aguilera PA-C - 11/12/2023 11:08 AM EDT PCP: PCP: NEY MOROCHO [address] [address] [phone] CC: Abdominal pain HPI: 42 year old female with a hx of factor V Leiden, endometriosis, Breast cancer, ankylosing spondylitis, fibromyalgia, TIA, chronic pain with implanted pain pump, gastroparesis, IBS and others, last seen by our service in 2019. At that time, she was asked to continue zofran and omeprazole, and consider referral to [facility] functional GI disorders clinic or [facility] gastroparesis clinic. Patient presents today for evaluation of gastroparesis with decreased po intake and weight loss. She is with her mother, who aides in the history. She states she did not follow up with referrals to [facility] GI clinic or [facility]. She reports significant constipation, with BMs once every 2 weeks. Stool is soft to loose and she feels incomplete emptying. No red blood or dark stool. She does not take anything currently for her bowels, but she does do periodic enemas. In the past she has uses Senokot, Dulcolax, Miralax, Suppositories, Enemas and Stool softeners. None of which has provided much relief. She reports lower abdominal pain that she describes as a cramping. This is constant, but improved with a BM. She reports nausea without emesis. Hx heartburn that is controlled with omeprazole. Denies dysphagia. Does not eat much as she is always so bloated and full. States she has lost about 50 pounds in the past 4-5 months. Has an order to see Nutrition through [facility] - needs to schedule. Last colonoscopy 11/01/18 - Impression: - The examined portion of the ileum was normal. - One 6 mm polyp in the transverse colon, removed with a cold snare. Resected and retrieved. - Three 6 mm polyps in the rectum, removed with a cold snare. Resected and retrieved. - Normal mucosa in the entire examined colon. Biopsied. - Non-bleeding internal hemorrhoids. A. Polyp, transverse colon, polypectomy: Hyperplastic polyp. B. Colon, biopsy: Colonic mucosa with focal hyperplastic changes. C. Polyps, rectum, polypectomy: Hyperplastic polyp fragments Repeat recommended in 5 years. Last EGD 10/28/18 - Impression: - Small hiatal hernia. - Z-line regular, 35 cm from the incisors. - Erythematous mucosa in the antrum. Biopsied. - Normal duodenal bulb and second portion of the duodenum. Biopsied. A. Duodenal, biopsy: Duodenal mucosa with no significant histopathological changes. B. Stomach, biopsy: Gastric mucosa with focal minimal chronic inflammation. Negative for H. pylori by immunostain. Blood work 07/04/23 - essentially normal CMP. Blood work 10/18/23 - AST 54, ALT 47. Blood work 10/24/23 - normal CBC. ROS: Constitutional: no weakness, no fatigue, and + weight loss Eyes: no worsening of vision and no eye pain, redness, discharge ENT: no hearing loss, no congestion, no runny nose, no sore throat Resp: no cough, no sputum, no wheezing, and no SOB Cardiac: no chest pain and no dyspnea on exertion Female : no dysuria and no incontinence Neuro: no memory loss and no weakness Heme: no fever, no chills, no bleeding/bruising, and + sweats Endo: no excessive thirst and no excessive urination Skin: no rash, no itching, and no new/changing skin lesions ALLERGIES: Review of patient's allergies indicates: Allergen Reactions Bactrim [Sulfamethoxazole-Trimethoprim] Nausea/vomiting Duloxetine MALAISE Current Outpatient Medications Medication Sig Dispense Refill ondansetron ODT (ZOFRAN) [address] [...] Apply to open area 22 g 0 Rinvoq 15 MG Oral Tablet Extended Release 24 Hour (Upadacitinib ER) Take 1 Tablet by mouth every other day. 15 Tablet 2 Magnesium 250 MG Oral Tablet Take by mouth daily. (Patient not taking: Reported on 10/12/2023) No current facility-administered medications for this visit. Past Medical History: Diagnosis Date Anxiety 12/26/2013 BRCA negative 12/28/2021 Genetic Testing Completed 12/27/2021: Test Results: Negative Type of test: Expansive testing for breast and director corporate compliance cancer risk -- 36 genes Genes Included: ABRAXAS1, AKT1, EARL, BARD1, BRCA1, BRCA2, BRIP1,CDC73, CDH1, CHEK2, DICER1, EPCAM, FANCC, FANCM, MLH1, MRE11, MSH2, MSH6, MUTYH, NBN, NF1, PALB2, PIK3CA, PMS2, POLD1, PTEN, RAD51C, RAD51D, RECQL, RINT1, SDHB, SDHD, SMARCA4, STK11, TP53, XRCC2' Breast cancer (HCC) 09/26/2021 bx results Cigarette smoker 05/05/2022 Depression [...] Surgical History: Procedure Laterality Date BREAST RECONSTRUCTION W/DISK SANDER Bilateral 11/03/2021 TISSUE DISK SANDER PLACEMENT IN BREAST RECONSTRUCTION performed by Gera Julien MD at OR [facility] BX LYMPH NODE DEEP AXIL Bilateral 11/03/2021 BIOPSY LYMPH NODE DEEP AXILLARY OPEN performed by Camille Dunne MD at [facility] COLONOSCOPY, DIAGNOSTIC (RECTUM) 11/01/2018 hyperplastic polyps, repeat 5 yrs/COLONOSCOPY FLEXIBLE PROXIMAL DIAGNOSTIC performed by Beatriz Tony MD at ENDOSCOPY [facility] COLPOSCOPY OF CERVIX W/BIOPSY 2003 EGD, FLEXIBLE, DIAGNOSTIC 03/23/2015 acid reflux, sm HH/ESOPHAGOGASTRODUODENOSCOPY (EGD), FLEXIBLE, TRANSORAL, DIAGNOSTIC performed by Brice Manzo MD at ENDOSCOPY [facility] EGD, FLEXIBLE, DIAGNOSTIC 10/28/2018 normal bx, hiatal hernia/ESOPHAGOGASTRODUODENOSCOPY (EGD), FLEXIBLE, TRANSORAL, DIAGNOSTIC performed by Beatriz Tony MD at ENDOSCOPY [facility] EXC BREAST LESION RADMARK Right 12/22/2020 EXCISION OF BREAST LESION RADIOLOGICAL MARKER performed by Camille Dunne MD at [facility] HYSTEROSCOPY;ENDOMETRIAL ABLAT 2008 IMPLANT, BIOLOGIC, SOFT TISSUE REINFORCE Bilateral 11/03/2021 IMPLANT, BIOLOGIC, SOFT TISSUE REINFORCE performed by Gera Julien MD at OR [facility] MAMMOGRAM BREAST NEEDLE BIOPSY CORE RIGHT Right 02/28/2017 Benign MAMMOGRAM BREAST NEEDLE BIOPSY CORE RIGHT Right 09/26/2021 MASTECTOMY, SIMPLE, COMPLETE Bilateral 11/03/2021 MASTECTOMY SIMPLE COMPLETE performed by Camille Dunne MD at [facility] MRI GUIDED BREAST BX RIGHT Right 11/10/2020 complex sclerosing lesion [place] TOTAL ABDOMINAL HYSTERECT W/WO RMVL TUBE OVARY 08/09/2020 REMOVAL OF OVARY/OVIDUCT(S) Bilateral 09/2022 endometriosis REMOVAL OF TONSILS, UNDER AGE 11 1988 and adenoidectomy SENTINAL LYMPH NODE IDENTIFICATION, INTRAOP Bilateral 11/03/2021 SENTINAL LYMPH NODE IDENTIFICATION, INTRAOP performed by Camille Dunne MD at OR [facility] SINUS SURGERY PROCEDURE NEC 2010 US GUIDED BREAST BIOPSY LEFT Left 09/26/2021 breast & axilla Family History Problem Relation Age of Onset Gastro-intestinal disorder Mother Gastroporesis Breast Cancer Mother 49 Diabetes Father type 2 Hypertension Father Blood Disorder Father Endocrine Disorder Sister Breast Cancer Sister 46 Other (Autoimmune Disorder) Sister lupus Other (Blood Disorder) Sister Factor V Breast Cancer Grandmother (Maternal) 60 Cancer Grandmother (Paternal) Cancer Grandfather (Paternal) ?colon SOCIAL HISTORY: Social History Tobacco Use Smoking status: Every [...] No Refillable Tank No Pre-filled Pod No PHYSICAL EXAM BP 121/87 | Pulse 106 | Temp 36.6 C (97.9 F) | Wt 77.2 kg (170 lb 1.6 oz) | LMP 10/11/2018 | BMI 28.31 kg/m | BSA 1.88 m GENERAL: alert and no distress HEAD: Normocephalic, No masses, lesions or abnormalities EYES: conjunctiva are pink and non-injected, sclera clear NECK: supple LUNGS: clear to auscultation HEART: +tachycardia ABDOMEN: abdomen soft, normal bowel sounds, no masses or organomegaly, and +mild tenderness across the lower abdomen EXTREMITIES: no edema NEURO: alert & oriented x 3 with fluent speech, no focal motor/sensory deficits ASSESSMENT: ICD-10-CM 1. Drug-induced constipation K59.03 2. History of colonic polyps Z86.010 3. Nausea R11.0 4. Gastroparesis K31.84 5. Gastroesophageal reflux disease, unspecified whether esophagitis present K21.9 PLAN: Rxs for motegrity and compazine sent to pharmacy. Patient is due for a colonoscopy and this will be scheduled. Encouraged patient to follow a gastroparesis diet - mostly liquids for now - drink at least 2 protein shakes daily. Agree with seeing GI nutrition - needs to schedule with [facility]. Follow up with GI in 4-6 months. Can consider change to Relistor if Movantik ineffective. Elle Aguilera PA-C documented in this encounter Nursing Notes * Carisa Bowen, RN - 11/12/2023 11:04 AM EDT Pt here for abd pain. C/o generalized abd pain across abd. Rates pain 11/06. H/o endometriosis "on my bowel", gastroporesis, constipation and IBS. Pt denies heartburn (takes PPI). +nausea. Pt says sheeats only a small portion of food once every 3 days "b/c I get so sick and I'm in so much pain." Ptsays her bowels move once every 2 week and "when they do move it's just pure hell. I feel like I'm dying." Denies melena or BRB. Has tried senokot, miralax, enemas. Pt has a pain pump with dilaudid. documented in this encounter Plan of Treatment Upcoming Encounters Date Type Department Care Team (Late st Contact Info) Description 12/25/2023 10:30 AM EDT Telemedicine Rheumatology, [place] [address] [place] [address] Agc5, Pharmacist Rheumatology [address] [place] [address] 01/18/2024 2:30 PM EDT Office Visit Rheumatology, [place] [address] [place] [address] Soha Amato MD [address] [place] [address] 03/28/2024 1:30 PM EDT Hospital Encounter ENDO [facility], Endoscopy Room [facility] [address] [place] [phone] Beatriz Tony MD [address] [place] [address] 03/28/2024 1:30 PM EDT - 03/28/2024 2:00 PM EDT Surgery ENDO [facility], Endoscopy Room [facility] [address] [place] [phone] Beatriz Tony MD [address] [place] [address] COLONOSCOPY FLEXIBLE PROXIMAL DIAGNOSTIC 04/03/2024 11:00 AM EDT Office Visit Gastroenterology, [facility] [address] [place] [phone] Tatiana Bee CRNP [address] [place] [address] 04/25/2024 9:00 AM EDT Office Visit Radiation Oncology, [place] [address] [place] [address] Rich Benavidez MD [address] [place] [address] 05/22/2024 10:00 AM EDT Office Visit Gynecology/Obstetr ics [facility] [address] [place] [address] Romana Streeter CRNP [address] [place] [address] Scheduled Orders Name Type Priority Associated Diagnoses Orde r Schedule COLONOSCOPY Gastro Lower Routine Drug-induced constipation History of colonic polyps Ordered: 11/12/2023 Scheduled Procedures Name Priority Associated Diagnoses Date/Ti [...] this encounter Medical Devices Implanted Type Area Mosaic Worker Device Identifier Shelf Expiration Date Model / Serial / Lot Alloderm Select 16x20 (320 Units) - [id number] - [id number] Implanted:Qty: 1 on 11/03/2021 by Gera Julien MD at OR [facility] Right: Breast ALLERGAN 02/26/2023 [id number] / [id number] / [id number] Alloderm Select 16x20 (320 Units) - [id number] - [id number] Implanted:Qty: 1 on 11/03/2021 by Gera Julien MD at OR [facility] Left: Breast ALLERGAN 04/28/2023 [id number] / [id number] / [id number] [address] [place] Breast Turkish [employer]ber Implanted:Qty: 1 on 11/03/2021 by Gera Julien MD at OR [facility] Right: Breast [employer] BREAST IMPLANT[employer] 2024 [facility] [place] [place] [id number] [place] Breast Turkish Rubber Implanted:Qty: 1 on 11/03/2021 by Gera Julien MD at OR [facility] Left: Breast [employer] BREAST IMPLANTS 2024 [facility] [place] / [id number] documented as of this encounter Visit Diagnoses Diagnosis Drug-induced constipation- Primary Other constipation History of colonic polyps Personal history of colonic polyps Nausea Nausea alone Gastroparesis Gastroesophageal reflux disease, unspecified whether esophagitis present History of colon polyps Personal history of colonic polyps documented in this encounter Advance Directives Latest Code Status on File Code Status Date Activated Date Inactivated Comments Full Code 11/03/2021 11:07 AM 11/04/2021 1:17 PM This o rder reflects the patients wishes and were consensually agreed upon. Care Teams Automatic Corn Grinder Operator Relationship Specialty Start Date End Date Ney Morocho MD [address] [place] [address] PCP - General Family Medicine 12/06/22 documented as of this encounter
--- OUTSIDE RECORDS SUMMARY | 2024-04-08 15:23 | External Medical Summary | Summary of Care ---
Author Name Unknown Organization [facility] Address [address] [place] [address] Phone [phone] Care Team Providers Care Real Estate Appraiser Supervisor Name Role Phone Ian Morocho MD Primary Care Provid er Reason for Visit * Reason Comments eRx-Medication Refill Encounter Details Date Type Department Care Team (Late st Contact Info) Description 11/05/2023 Refill [facility], [place] [address] [place] [address] Soha Eaton MD [address] [place] [address] Ankylosing spondylitis of multiple sites in spine (HCC) Allergies Active Allergy Reactions Criticality Noted Date Comments Sulfamethoxazole-Trimethoprim Nausea/vomiting 0 04/13/2023 Duloxetine 07/27/2020 MALAISE documented as of this encounter (statuses as of 11/08/2023) Medications Medication Sig Dispensed Refills Start Date End Date Status ondansetron ODT (ZOFRAN) [address] 1 Tab on tongue every 8 hours as needed for Nausea. dissolve on tongue. 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 30 Tab 3 0 Active Additional Information Patient taking differently: PRN, [...] 1 mL subcutaneous every 2 weeks. 0 1 Active Albuterol Sulfate HFA 108 (90 Base) MCG/ACT Inhalation Aerosol SolutionIndication s:Wheezing Inhale by mouth 2 Puffs every 4 hours as needed for Shortness of Breath or Wheezing. 18 g 0 2 Active Fluticasone Furoate-Vilanterol 200-25 MCG/INH Inhalation Aerosol Powder Breath Activated (BREO ellipta) Inhale by mouth 1 Puff in the morning. 60 Blister Dosing Unit 3 2 Active Additional Information Patient taking differently:1 Puff InhalationPRN, Reported on 02/23/2023 Clopidogrel Bisulfate 75 MG Oral Tablet (pLAVix) Take by mouth 1 Tablet in the morning. 30 Tablet 5 2 Active HYDROcodone-Acetam inophen 10-325 MG Oral TabletIndications: Inflammation of sacroiliac joint (HCC),Ankylosing spondylitis of multiple sites in spine (HCC),Sacroiliitis (HCC),Neuropathy,C hronic prescription opiate use,MEDICATION USE AGREEMENT Take 2 Tablets by mouth every 6 hours as needed for Pain, Severe. 170 Tablet 0 2 Active Syringe 23G X 1" 3 MLIndications:Anky losing spondylitis of multiple sites in spine (HCC),Sacroiliitis (HCC) Use to inject toradol once daily as needed for pain in lower back. 10 Each 11 3 Active Omeprazole 40 MG Oral Capsule Delayed Release (PriLOSEC) TAKE ONE CAPSULE BY MOUTH EVERY MORNING AND AT BEDTIME 60 Capsule 5 3 Active Additional Information Patient taking differently: 40 mg Daily(AM), Reported on 02/23/2023 ALPRAZolam 0.5 MG Oral Tablet (xaNAX) 1/2-1 tablet every 6-8 hours as needed for anxiety. 30 Tablet 0 3 Active Citalopram Hydrobromide 40 MG Oral Tablet (CeleXA) TAKE ONE TABLET BY MOUTH EVERY MORNING 30 Tablet 5 3 Active Magnesium 250 MG Oral Tablet Take by mouth daily. 0 Active NSS 0.9 % SOLN 19.8 mL with HYDROmorphone 50 MG/5ML SOLN 2 mg Inject into spinal canal continuous. ? dose 0 Active Ketorolac Tromethamine 30 MG/ML Injection Solution Inject 30 mg into a large muscle once as needed for Pain, Severe. 0 3 Active BD Luer-Keri Syringe 25G X 1" 3 ML 0 3 Active Mupirocin 2 % External Ointment (Bactroban) Apply topically to affected area 2 times a day. Apply to open area 22 g 0 3 Active Rinvoq 15 MG Oral Tablet Extended Release 24 Hour (Upadacitinib ER)Indications:Ank ylosing spondylitis of multiple sites in spine (HCC) Take 1 Tablet by mouth every other day. 15 Tablet 2 4 Active Rinvoq 15 MG Oral Tablet Extended Release 24 Hour (Upadacitinib ER)Indications:Ank ylosing spondylitis of multiple sites in spine (HCC) Take 1 Tablet by mouth every other day. 0 4 11/08/19 24 Discontinued documented as of this encounter (statuses as of 11/08/2023) Active Problems Problem Noted Date Diagnosed Date [...] of test: Expansive testing for breast and pickup driver cancer risk -- 36 genes Genes Included: [...] s/p trigger point injections Dr. Ramires [facility] [phone] Anxiety 12/26/2013 Depression 12/26/2013 Overview: Reviewed prior [...] as of this encounter (statuses as of 11/08/2023) Resolved Problems Problem Noted Date Diagnosed Date [...] as of this encounter (statuses as of 11/08/2023) Immunizations Name Administration Dates Next Due DTaP [...] Tobacco: Never Comments:1/2 pack a day,6 ye arssmnilsa electronic cigarette - currently using nicotine patches [...] encounter Miscellaneous Notes * Telephone Encounter - Jonatan Matthew, [facility] - 11/08/2023 8:32 AM EDTSigned Prescriptions: Disp Refills Rinvoq 15 MG Oral Tablet Extended Release *15 Tab*2 Sig: Take 1Tablet by mouth every other day.Authorizing Provider: SOHA EATON User: JONATAN MATTHEW * Telephone Encounter - Jonatan Matthew RPh - 11/08/2023 8:28 AM EDT Rheumatology: Refill Request(s) Per review of the refill parameters, Medication was refilled Sig updated to every other day per 10/24 encounter - physician reviewed most recent labs Jonatan Matthew RPh [facility] Clinical Pharmacist Rheumatology Department 11/08/2023,8:28 AM * Telephone Encounter - Johnathan Ferguson - 11/06/2023 5:45 AM EDTPending Prescriptions: Disp Refills Rinvoq 15 MG Oral Tablet Extended Release *30 Tab* Sig: TAKE 1 TABLET IN THE MORNING * Telephone Encounter - Johnathan Ferguson - 11/06/2023 5:43 AM EDT Did you pend patient's preferred pharmacy and medication before forwarding?yes Pharmacy: [facility] [address] Pending Prescriptions: Disp Refills Rinvoq 15 MG Oral Tablet Extended Release*30 Tab* Sig: TAKE 1 TABLET IN THE MORNING Last Visit: 10/12/2023 (in office), 08/28/2023 (telemedicine) Next Visit: 12/25/2023 If no future appointments scheduled, and last appointment is greater than a year ago, please schedule patient for a follow-up appointment Last date the medication was ordered: 10/25/2023 Is this request for a controlled substance?No Urine Drug Screen: Results for orders placed or performed in visit on 01/18/22 TOXICOLOGY, URINE SCREEN W/O CONFIRMATION Result Value Amphetamines Screen, U Negative Benzodiazepines Screen, U Negative Cannabinoids Screen, U Negative Cocaine Metabolite Screen, U Negative Fentanyl Screen, U Negative Hydrocodone Screen, U Positive (A) Methadone Metabolite Screen, U Negative Morphine/Codeine Screen, U Positive (A) Oxycodone Screen, U Negative Narrative Cutoff Concentrations: Drug Level Amphetamines 500 ng/mL Benzodiazepines 100 ng/mL Cannabinoids 50 ng/mL Cocaine Metabolite 150 ng/mL Fentanyl 1 ng/mL Hydrocodone / Hydromorphone 300 ng/mL Methadone Metabolite 100 ng/mL Morphine / Codeine 300 ng/mL Oxycodone / Oxymorphone 100 ng/mL Screening results are presumptive and can only be used for medical purposes. Confirmatory testing is available upon request. *Note: Due to a large number of results and/or encounters for the requested time period, some results have not been displayed. A complete set of results can be found in Results Review. Patient Phone Numbers Labs: Lab Results Component Value Date/Time CREAT 0.6 10/18/2023 10:14 AM CREAT 0.7 05/24/2020 03:31 PM POTASSIUM 4.8 07/04/2023 10:26 AM POTASSIUM 4.2 05/24/2020 03:31 PM TSH 2.63 10/17/2018 08:11 AM LDLCALC 139 (H) 10/18/2023 10:14 AM LDLCALC 63 12/19/2017 08:51 AM ALT 47 (H) 10/18/2023 10:14 AM ALT 17 05/24/2020 03:31 PM HGBA1C 5.4 01/27/2022 10:26 AM HGBA1C 5.3 09/20/2004 05:00 PM documented in this encounter Plan of Treatment Upcoming Encounters Date Type Department Care Team (Late st Contact Info) Description 11/12/2023 11:00 AM EDT Office Visit Gastroenterology, Eriberto Galeano [address] [place] [address] [place] [phone] Elle Aguilera PA-C [address] [place] [address] [place] [address] 12/25/2023 10:30 AM EDT Telemedicine Rheumatology, [place] [address] [place] [address] Agc5, Pharmacist Rheumatology [address] [place] [address] 01/18/2024 2:30 PM EDT Office Visit Rheumatology, [place] [address] [place] [address] Soha Eaton MD [address] [place] [address] 04/25/2024 9:00 AM EDT Office Visit Radiation Oncology, [facility] [address] [place] [address] Rich Benavidez MD [address] [place] [address] 05/22/2024 10:00 AM EDT Office Visit Gynecology/Obstetrics [facility] [address] [place] [address] Romana Streeter CRNP [address] [place] [address] Scheduled Procedures Name Priority Associated Diagnoses Date/Ti me BREAST RECONSTRUCTION; WITH FREE FLAP (EG, FTRAM, TAE, SIEA, GAP FLAP) Malignant neoplasm of left female breast, unspecified estrogen receptor status, unspecified site of breast (HCC) COLONOSCOPY FLEXIBLE PROXIMA L DIAGNOSTIC Recall History of colon polyps Health Maintenance Due Date Last Done Comments [...] this encounter Medical Devices Implanted Type Area Mechanical Lead Device Identifier Shelf Expiration Date Model / Serial / Lot Alloderm Select 16x20 (320 Units) - [id number] - [id number] Implanted:Qty: 1 on 11/03/2021 by Gera Julien MD at [place] [facility] Right: Breast ALLERGAN 02/26/2023 [id number] / [id number] / [id number] Alloderm Select 16x20 (320 Units) - [id number] - [id number] Implanted:Qty: 1 on 11/03/2021 by Gera Julien MD at [place] [facility] Left: Breast ALLERGAN 04/28/2023 [id number] / [id number] / [id number] Breast Special Agent Secret Service Implanted:Qty: 1 on 11/03/2021 by Gera Julien MD at [place] [facility] Right: Breast MENTOR BREAST IMPLANTS 2024 [facility] / [id number] Breast Special Agent Secret Service Implanted:Qty: 1 on 11/03/2021 by Gera Julien MD at [place] [facility] Left: Breast MENTOR BREAST IMPLANTS 2024 [facility] / [id number] documented as of this encounter Visit Diagnoses Diagnosis Ankylosing spondylitis of multiple sites in spine (HCC) Ankylosing spondylitis documented in this encounter Advance Directives Latest Code Status on File Code Status Date Activated Date Inactivated Comments Full Code 11/03/2021 11:07 AM 11/04/2021 1:17 PM This o rder reflects the patients wishes and were consensually agreed upon. Care Teams Real Estate Appraiser Supervisor Relationship Specialty Start Date End Date Ian Morocho MD [address] [facility] [address] [place] [address] PCP - General Family Medicine 12/06/22 documented as of this encounter
--- OUTSIDE RECORDS SUMMARY | 2024-04-08 15:23 | External Medical Summary | Summary of Care ---
Author Name Unknown Organization [facility] Address [address] [place] [address] Phone [phone] Care Team Providers Care Bin Worker Name Role Phone Ian Morocho MD Primary Care Provid er Reason for Visit * Reason Onset Date Comments Precert In Process 11/13/2023 25 Liza Prim e Lubiprostone Encounter Details Date Type Department Care Team (Late st Contact Info) Description 11/13/2023 Telephone Gastroenterology, [place] [address] [email or web address] [address] Elle Aguilera PA-C [facility] [email or web address] [address] Precert In Process (25 Liza Prime Lubipro... Allergies Active Allergy Reactions Criticality Noted Date Comments Sulfamethoxazole-Trimethoprim Nausea/vomiting 0 04/13/2023 Duloxetine 07/27/2020 MALAISE documented as of this encounter (statuses as of 11/22/2023) Medications Medication Sig Dispensed Refills Start Date [...] as of this encounter (statuses as of 11/22/2023) Active Problems Problem Noted Date Diagnosed Date [...] of test: Expansive testing for breast and livestock speculator cancer risk -- 36 genes Genes Included: [...] injections Dr. Ramires [facility] [phone] Anxiety 12/26/2013 Depression 12/26/2013 Overview: Reviewed prior [...] as of this encounter (statuses as of 11/22/2023) Resolved Problems Problem Noted Date Diagnosed Date [...] as of this encounter (statuses as of 11/22/2023) Immunizations Name Administration Dates Next Due DTaP [...] care: Self-administered - route pre-cert request to [id number] Office Information: Prescriber: Elle Aguilera PA-C Has [...] Rx Insurance Info: TOÑO PARSON Reference #: [id number] Rx Benefits Verified through/on date: EPIC 11/15/2023 Referral (TE) received from: Prescribing Clinic [facility] ffk environment Appeals Dept at [phone]. Montserrat Barrera Medication Nurse Practitioner Physician Assistant III P: [phone] F: [phone] 11/15/23,11:24 AM * Telephone Encounter - Abril Ram RN - 11/13/2023 8:25 AM EDT Gastro Pre-Cert Request Specialty Medication: No. Medication/Disease State Information: Medication: Motegrity Diagnosis (including ICD-10): drug induced constipation, K59.03 Site of care: Self-administered - route pre-cert request to [id number] Office Information: Prescriber: Elle Aguilera PA-C Has tried and failed Miralax, Dulcolax, Senokot, suppositories, enemas, and stool softeners. Please assist with PA. Thanks documented in this encounter Plan of Treatment Upcoming Encounters Date Type Department Care Team (Late st Contact Info) Description 12/25/2023 10:30 AM EDT Telemedicine Rheumatology, [place] [address] [place] [address] Agc5, Pharmacist Rheumatology [facility] [place] [address] 01/18/2024 2:30 PM EDT [facility] [address] [place] [address] Soha Amato MD [address] [place] [address] 03/28/2024 1:30 PM EDT Hospital Encounter ENDO [facility], Endoscopy Room [facility] [address] [place] [phone] Beatriz Tony MD [address] [place] [address] 03/28/2024 1:30 PM EDT - 03/28/2024 2:00 PM EDT Surgery ENDO [facility], Endoscopy Room [facility] [address] [place] [phone] Beatriz Tony MD [address] [place] [address] COLONOSCOPY FLEXIBLE PROXIMAL DIAGNOSTIC 04/03/2024 11:00 AM EDT Office Visit Gastroenterology, [facility] [address] [place] [address] Tatiana Bee CRNP [address] [place] [address] 04/25/2024 9:00 AM EDT Office Visit Radiation Oncology, [facility] [address] [place] [address] Rich Benavidez MD [address] [place] [address] 05/22/2024 10:00 AM EDT Office Visit Gynecology/Obstetr [facility] [address] [place] [address] Romana Streeter CRNP [address] [place] [address] Scheduled Procedures Name Priority Associated Diagnoses Date/Ti [...] this encounter Medical Devices Implanted Type Area Silk Screen Layout Drafter Device Identifier Shelf Expiration Date Model / Serial / Lot Alloderm Select 16x20 (320 Units) - [id number] - [id number] Implanted:Qty: 1 on 11/03/2021 by Gera Julien [place] [facility] [place]: Breast ALLERGAN 02/26/2023 [id number] / [id number] / [id number] Alloderm Select 16x20 (320 Units) - [id number] - [id number] Implanted:Qty: 1 on 11/03/2021 by Gera Julien MD [place] [facility] Left: Breast ALLERGAN 04/28/2023 [id number] / [id number] / [id number] [address] Breast Counselor/Art Therapist Implanted:Qty: 1 on 11/03/2021 by Gera Julien MD [place] [facility] [place]: Breast MENTOR BREAST IMPLANTS 2024 [facility] / [id number] [address] Breast Counselor/Art Therapist Implanted:Qty: 1 on 11/03/2021 by Gera Julien MD [place] [facility] [place]: Breast MENTOR BREAST IMPLANTS 2024 [facility] / [id number] documented as of this encounter Advance Directives Latest Code Status on File Code Status Date Activated Date Inactivated Comments Full Code 11/03/2021 11:07 AM 11/04/2021 1:17 PM This o rder reflects the patients wishes and were consensually agreed upon. Care Teams Bin Worker Relationship Specialty Start Date End Date Ian Morocho MD [address] [address] PCP - General Family Medicine 12/06/22 documented as of this encounter
--- OUTSIDE RECORDS SUMMARY | 2024-04-08 15:23 | External Medical Summary | Summary of Care ---
Author Name Unknown Organization [facility] Address [address] [place] [address] Phone [phone] Care Team Providers Care Engraving Supervisor Name Role Phone Ian Morocho MD Primary Care Provid er Reason for Visit * Reason Onset Date Comments Precert Denied 11/13/2023 Motegrity Encounter Details Date Type Department Care Team (Late st Contact Info) Description 11/13/2023 Telephone Gastroenterology, [place] [address] [place] [address] Elle Aguilera PA-C [facility] [place] [address] Precert Denied (Motegrity) Allergies Active [...] of test: Expansive testing for breast and nondestructive tester cancer risk -- 36 genes Genes [...] point injections Dr. Ramires [facility] [phone] Anxiety 12/26/2013 Depression 12/26/2013 Overview: Reviewed prior [...] end date: N/A Rx Insurance Info: TOÑO PRASON Reference #: [id number] Rx Benefits Verified through/on date: [employer] 11/15/2023 Referral (TE) received from: Prescribing Clinic [facility] YourSportss Dept at [phone]. Montserrat Barrera Medication Project Management It Specialist III P: [phone] F: [phone] 11/15/23,11:24 AM * Telephone Encounter - Abril Ram RN - 11/13/2023 8:25 AM EDT Gastro Pre-Cert Request Specialty Medication: No. Medication/Disease State Information: Medication: Motegrity Diagnosis (including ICD-10): drug induced constipation, K59.03 Site of care: Self-administered - route pre-cert request to [id number] Office Information: Prescriber: Elle Aguilera PA-C Has tried and failed Miralax, Dulcolax, Senokot, suppositories, enemas, and stool softeners. Please assist with PA. Thanks documented in this encounter Plan of Treatment Upcoming Encounters Date Type Department Care Team (Late st Contact Info) Description 12/25/2023 10:30 AM EDT Telemedicine Rheumatology, [address] [address] Agc5, Pharmacist Rheumatology [address] [place] [address] 01/18/2024 2:30 PM EDT Office Visit Rheumatology[address] [address] Soha Amato MD [address] [place] [address] 03/28/2024 1:30 PM EDT Hospital Encounter ENDO [facility], Endoscopy Room [facility] [address] [place] [phone] Beatriz Tony MD [address] [place] [address] 03/28/2024 1:30 PM EDT - 03/28/2024 2:00 PM EDT Surgery ENDO [facility], Endoscopy Room [facility] [address] [place] [phone] Beatriz Tony MD [address] [place] [address] COLONOSCOPY FLEXIBLE PROXIMAL DIAGNOSTIC 04/03/2024 11:00 AM EDT Office Visit [facility], [facility] [address] [place] [address] Tatiana Bee CRNP [address] [place] [address] 04/25/2024 9:00 AM EDT Office Visit Radiation Oncology, [facility] [address] [place] [address] Rich Benavidez MD [address] [facility] [place] [address] 05/22/2024 10:00 AM EDT Office Visit Gynecology/Obstetr ics [facility] [address] [place] [address] [place], ROSHNI Melgar [address] [place] [address] Scheduled Procedures Name Priority Associated Diagnoses Date/Ti [...] this encounter Medical Devices Implanted Type Area Community Assistant Device Identifier Shelf Expiration Date Model / Serial / Lot Alloderm Select 16x20 (320 Units) - [id number] - [id number] Implanted:Qty: 1 on 11/03/2021 by Gera Julien MD [place] [facility] [place]: Breast ALLERGAN 02/26/2023 [id number] / [id number] / [id number] Alloderm Select 16x20 (320 Units) - [id number] - [id number] Implanted:Qty: 1 on 11/03/2021 by Gera Julien MD at [place] [facility] Left: Breast ALLERGAN 04/28/2023 [id number] / [id number] / [id number] [address] Breast Hosiery Looper Implanted:Qty: 1 on 11/03/2021 by Gera Julien MD [place] [facility] Right: Breast MENTOR BREAST IMPLANTS 2024 [facility]H / [id number] Breast Hosiery Looper Implanted:Qty: 1 on 11/03/2021 by Gera Julien MD at [place] [facility] Left: Breast MENTOR BREAST IMPLANTS 2024 [facility]H / [id number] / [id number] documented as of this encounter Advance Directives Latest Code Status on File Code Status Date Activated Date Inactivated Comments Full Code 11/03/2021 11:07 AM 11/04/2021 1:17 PM This o rder reflects the patients wishes and were consensually agreed upon. Care Teams Engraving Supervisor Relationship Specialty Start Date End Date Ian Morocho MD [address] [place] [address] PCP - General Family Medicine 12/06/22 documented as of this encounter
--- OUTSIDE RECORDS SUMMARY | 2024-04-08 15:23 | External Medical Summary | Summary of Care ---
Author Name Unknown Organization [facility] Address [address] [place] [address] Phone [phone] Care Team Providers Care Horse Racer Name Role Phone Ian Morocho MD Primary Care Provid er Reason for Visit * Reason Onset Date Comments Precert Denied 11/13/2023 Lubiprostone Encounter Details Date Type Department Care Team (Late st Contact Info) Description 11/13/2023 Telephone Gastroenterology, [place] [address] [place] [address] Elle Aguilera PA-C [facility] [address] [place] [address] Precert Denied ( Lubiprostone) Allergies [...] of test: Expansive testing for breast and drafter assistant cancer risk -- 36 genes Genes Included: [...] QHS; s/p trigger point injections [facility]. Ram[facility] [phone] Anxiety 12/26/2013 Depression 12/26/2013 Overview: Reviewed prior [...] auth end date: N/A Rx Insurance Info: [facility] Reference #: [id number] Rx Benefits Verified through/on date: [facility] 11/21 Referral (TE) received from: Prescribing Clinic * Telephone Encounter - Carisa Bowen RN - 11/20/2023 1:11 PM EDT Gastro Pre-Cert Request Specialty Medication: No. Medication/Disease State Information: Medication: lupiprostone 24 mcg capsules Diagnosis (including ICD-10): drug induced constipation, K59.03 Site of care: Self-administered - route pre-cert request to [id number] Office Information: Prescriber: Elle Aguilera PA-C Has [...] Rx Insurance Info: [employer] [facility] Reference #: [id number] Rx Benefits Verified through/on date: [facility] 11/15/2023 Referral (TE) received from: Prescribing Clinic [facility] [employer] Appeals Dept at [phone]. Montserrat Barrera Medication Lead Inspector III P: [phone] F: [phone] 11/15/23,11:24 AM * Telephone Encounter - Abril Ram RN - 11/13/2023 8:25 AM EDT Gastro Pre-Cert Request Specialty Medication: No. Medication/Disease State Information: Medication: Motegrity Diagnosis (including ICD-10): drug induced constipation, K59.03 Site of care: Self-administered - route pre-cert request to [id number] Office Information: Prescriber: Elle Aguilera PA-C Has tried and failed Miralax, Dulcolax, Senokot, suppositories, enemas, and stool softeners. Please assist with PA. Thanks documented in this encounter Plan of Treatment Upcoming Encounters Date Type Department Care Team (Late st Contact Info) Description 12/25/2023 10:30 AM EDT Telemedicine Rheumatology, [place] [address] [place] [address] Agc5, Pharmacist Rheumatology [address] [place] [address] 01/18/2024 2:30 PM EDT Office Visit Rheumatology, [address] [address] Soha Amato MD [facility] [place] [address] 03/28/2024 1:30 PM EDT Hospital Encounter ENDO [facility], Endoscopy Room [facility] [address] [place] [phone] Beatriz Tony MD [address] [place] [address] 03/28/2024 1:30 PM EDT - 03/28/2024 2:00 PM EDT Surgery ENDO [facility], Endoscopy Room [facility] [address] [place] [phone] Beatriz Tony MD [address] [place] [address] COLONOSCOPY FLEXIBLE PROXIMAL DIAGNOSTIC 04/03/2024 11:00 AM EDT Office Visit Gastroenterology, [facility] [address] [place] [address] Tatiana Bee CRNP [address] [place] [address] 04/25/2024 9:00 AM EDT Office Visit Radiation Oncology, [facility] [address] [facility] [place] [address] Rich Benavidez MD [address] [place] [address] 05/22/2024 10:00 AM EDT Office Visit Gynecology/Obstetr ics [facility] [address] [place] [address] Romana Streeter CRNP [address] [place] [address] Scheduled Procedures Name Priority Associated Diagnoses Date/Ti [...] this encounter Medical Devices Implanted Type Area Blind Lacer Device Identifier Shelf Expiration Date Model / Serial / Lot Alloderm Select 16x20 (320 Units) - [id number] - [id number] Implanted:Qty: 1 on 11/03/2021 by Gera Julien MD at OR [facility] Right: Breast ALLERGAN 02/26/2023 [id number] / [id number] / [id number] Alloderm Select 16x20 (320 Units) - [id number] - [id number] Implanted:Qty: 1 on 11/03/2021 by Gera Julien MD at OR [facility] Left: Breast ALLERGAN 04/28/2023 [id number] / [id number] / [id number] 375 [place] Breast Air Liaison And Special Staff Implanted:Qty: 1 on 11/03/2021 by Gera Julien MD at OR [facility] Right: Breast MENTOR BREAST IMPLANTS 2024 [facility]-120H / [id number] [place] Breast Air Liaison And Special Staff Implanted:Qty: 1 on 11/03/2021 by Gera Julien MD at OR [facility] Left: Breast MENTOR BREAST IMPLANTS 2024 [facility]-120H / [id number] documented as of this encounter Advance Directives Latest Code Status on File Code Status Date Activated Date Inactivated Comments Full Code 11/03/2021 11:07 AM 11/04/2021 1:17 PM This o rder reflects the patients wishes and were consensually agreed upon. Care Teams Horse Racer Relationship Specialty Start Date End Date Ian Morocho MD [address] [place] [address] PCP - General Family Medicine 12/06/22 documented as of this encounter
--- OUTSIDE RECORDS SUMMARY | 2024-04-08 15:23 | External Medical Summary | Summary of Care ---
Author Name Unknown Organization [facility] Address [address] [place] [address] Phone [phone] Care Team Providers Care Quality Engineering Manager Name Role Phone Ian Morocho MD Primary Care Provid er Reason for Visit * Reason Onset Date Comments Precert Denied 11/13/2023 Lubiprostone Encounter Details Date Type Department Care Team (Late st Contact Info) Description 11/13/2023 Telephone Gastroenterology, [place] [address] [place] [address] Elle Aguilera PA-C [facility] [place] [address] Precert Denied ( Lubiprostone) Allergies Active Allergy Reactions Criticality Noted Date Comments Sulfamethoxazole-Trimethoprim Nausea/vomiting 0 04/13/2023 Duloxetine 07/27/2020 MALAISE documented as of this encounter (statuses as of 11/23/2023) Medications Medication Sig Dispensed Refills Start Date [...] as of this encounter (statuses as of 11/23/2023) Active Problems Problem Noted Date Diagnosed Date [...] of test: Expansive testing for breast and chemical tester cancer risk -- 36 genes Genes [...] QHS; s/p trigger point injections Dr. Ramires [facility] [phone] Anxiety 12/26/2013 Depression 12/26/2013 Overview: Reviewed prior [...] as of this encounter (statuses as of 11/23/2023) Resolved Problems Problem Noted Date Diagnosed Date [...] as of this encounter (statuses as of 11/23/2023) Immunizations Name Administration Dates Next Due DTaP [...] care: Self-administered - route pre-cert request to [id number] Office Information: Prescriber: Elle Aguilera PA-C Has [...] auth end date: N/A Rx Insurance Info: [facility] Reference #: [id number] Rx Benefits Verified through/on date: EPIC 11/15/2023 Referral (TE) received from: Prescribing Clinic [facility] [employer] Dept at [phone]. Montserrat Barrera Medication Surgical Elastic Knitter III P: [phone] F: [phone] 11/15/23,11:24 AM * Telephone Encounter - Abril Ram RN - 11/13/2023 8:25 AM EDT Gastro Pre-Cert Request Specialty Medication: No. Medication/Disease State Information: Medication: Motegrity Diagnosis (including ICD-10): drug induced constipation, K59.03 Site of care: Self-administered - route pre-cert request to [id number] Office Information: Prescriber: Elle Aguilera PA-C Has tried and failed Miralax, Dulcolax, Senokot, suppositories, enemas, and stool softeners. Please assist with PA. Thanks documented in this encounter Plan of Treatment Upcoming Encounters Date Type Department Care Team (Late st Contact Info) Description 12/25/2023 10:30 AM EDT Telemedicine Rheumatology, [place] [address] [place] [address] Agc5, Pharmacist Rheumatology [address] [place] [address] 01/18/2024 2:30 PM EDT Office Visit Rheumatology, [place] [address] [place] [address] Soha Amato MD [address] [place] [address] 03/28/2024 1:30 PM EDT Hospital Encounter ENDO [facility], Endoscopy Room [facility] [address] [place] [phone] Beatriz Tony MD [address] [place] [address] 03/28/2024 1:30 PM EDT - 03/28/2024 2:00 PM EDT Surgery ENDO [facility], Endoscopy Room [facility] [address] [place] [phone] Beatriz Tony MD [address] [place] [address] COLONOSCOPY FLEXIBLE PROXIMAL DIAGNOSTIC 04/03/2024 11:00 AM EDT Office Visit Gastroenterology, [facility] [address] [place] [address] Tatiana Bee CRNP [address] [place] [address] 04/25/2024 9:00 AM EDT Office Visit Radiation Oncology, [facility] [address] [place] [address] Rich Benavidez MD [address] [place] [address] 05/22/2024 10:00 AM EDT Office Visit Gynecology/Obstetr [facility] [address] [place] [address] Romana Streeter CRNP [address] [place] [address] Scheduled Procedures Name Priority Associated Diagnoses Date/Ti [...] this encounter Medical Devices Implanted Type Area Broom Bundler Device Identifier Shelf Expiration Date Model / Serial / Lot Alloderm Select 16x20 (320 Units) - [id number] - [id number] Implanted:Qty: 1 on 11/03/2021 by Gera Julien MD at OR [facility] Right: Breast ALLERGAN 02/26/2023 [id number] / [id number] / [id number] Alloderm Select 16x20 (320 Units) - [id number] - [id number] Implanted:Qty: 1 on 11/03/2021 by Gera Julien MD at OR [facility] Left: Breast ALLERGAN 04/28/2023 [id number] / [id number] / [id number] [address] Breast Manufacturing Quality Technician Implanted:Qty: 1 on 11/03/2021 by Gera Julien MD at OR [facility] Right: Breast MENTOR BREAST IMPLANTS [address] / [id number] / [id number] Breast Manufacturing Quality Technician Implanted:Qty: 1 on 11/03/2021 by Gera Julien MD at [facility] Left: Breast MENTOR BREAST IMPLANTS 2024 [facility] / [id number] / [id number] documented as of this encounter Advance Directives Latest Code Status on File Code Status Date Activated Date Inactivated Comments Full Code 11/03/2021 11:07 AM 11/04/2021 1:17 PM This o rder reflects the patients wishes and were consensually agreed upon. Care Teams Quality Engineering Manager Relationship Specialty Start Date End Date Ian Morocho MD [address] [address] PCP - General Family Medicine 12/06/22 documented as of this encounter
--- OUTSIDE RECORDS SUMMARY | 2024-04-08 15:24 | External Medical Summary | Summary of Care ---
Author Name Unknown Organization [facility] Address [address] [place] [address] Phone [phone] Care Team Providers Care Hooker Operator Name Role Phone Ian Morocho MD Primary Care Provid er Reason for Visit * Reason Onset Date Comments Advice 10/25/2023 Encounter Details Date Type Department Care Team ([facility] st Contact Info) Description 10/25/2023 Telephone [facility] [address] [place], [place] [phone] Soha Amato MD [address] [place], [place] [phone] Advice Allergies Active Allergy Reactions Criticality Noted Date Comments Sulfamethoxazole-Trimethoprim Nausea/vomiting 0 04/13/2023 Duloxetine 07/27/2020 MALAISE documented as of this encounter (statuses as of 10/25/2023) Medications Medication Sig Dispensed Refills Start Date [...] by mouth every other day. 0 4 Active Rinvoq 15 MG Oral Tablet Extended Release 24 Hour (Upadacitinib ER)Indications:Ank ylosing spondylitis of multiple sites in spine (HCC) Take 1 Tablet by mouth in the morning. 30 Tablet 2 3 10/25/19 24 Discontinued documented as of this encounter (statuses as of 10/25/2023) Active Problems Problem Noted Date Diagnosed Date [...] of test: Expansive testing for breast and supervisor commissary production cancer risk -- 36 genes Genes Included: [...] injections Dr. Ramires [facility] [phone] Anxiety 12/26/2013 Depression 12/26/2013 Overview: Reviewed prior [...] as of this encounter (statuses as of 10/25/2023) Resolved Problems Problem Noted Date Diagnosed Date [...] as of this encounter (statuses as of 10/25/2023) Immunizations Name Administration Dates Next Due DTaP [...] encounter Miscellaneous Notes * Telephone Encounter - Soha Amato MD - 10/25/2023 8:18 AM EDT Reviewed CBC/differential, which is now normal. Will have her restart rinvoq at 1 tab every other day and repeat CBC/diff in 1 month. Message sent to patient. documented in this encounter Plan of Treatment Upcoming Encounters Date Type Department Care Team (Late st Contact Info) Description 12/25/2023 10:30 AM EDT Telemedicine Rheumatology, [place] [address] [place] [address] Agc5, Pharmacist Rheumatology [address] [place] [address] 01/18/2024 2:30 PM EDT Office Visit Rheumatology, [place] [address] [place] [address] Soha Amato MD [address] [place] [address] 04/25/2024 9:00 AM EDT Office Visit Radiation Oncology, [facility] [address] [place] [address] Rich Benavidez MD [address] [place] [address] 05/22/2024 10:00 AM EDT Office Visit Gynecology/Obstetrics [facility] [address] [place] [address] Romana Streeter CRNP [address] [place] [address] Scheduled Orders Name Type Priority Associated Diagnoses Orde r Schedule CBC WITH WBC DIFFERENTIAL Lab Routine Neutropenia, unspecified type (HCC) Expected: 11/25/2023 (Approximate), Expires: 10/24/2024 Scheduled Procedures Name Priority Associated Diagnoses Date/Ti [...] (2 - Tdap) 02/02/2020 02/01/2010, 12/14/2004 Depression Screening 01/18/2023 01/18/2022 Influenza Vaccine (FLU shot) (#1) 2023 05/16/2022, 05/24/2020, 08/04/2019, Additional history exists COLONOSCOPY-EVERY 5 YRS AGES 18-100 11/02/2023 11/01/2018, 11/01/2018 Diabetes Screening 07/04/2026 07/04/2023, 1 [...] this encounter Medical Devices Implanted Type Area Driller Multiple Spindle Device Identifier Shelf Expiration Date Model / Serial / Lot Alloderm Select 16x20 (320 Units) - [id number] - [id number] Implanted:Qty: 1 on 11/03/2021 by Gera Julien MD [place] [facility] [place]: Breast ALLERGAN 02/26/2023 [id number] / [id number] / [id number] Alloderm Select 16x20 (320 Units) - [id number] - [id number] Implanted:Qty: 1 on 11/03/2021 by Gera Julien MD at [place] [facility] Left: Breast ALLERGAN 04/28/2023 [id number] / [id number] / [id number] [address] [place] Breast Coffee Sommelier Implanted:Qty: 1 on 11/03/2021 by Gera Julien MD [place] [facility] Right: Breast MENTOR BREAST IMPLANTS 2024 [facility]-120 / [id number] [address] [place] Breast Coffee Sommelier Implanted:Qty: 1 on 11/03/2021 by Gera Julien MD at [facility] Left: Breast MENTOR BREAST IMPLANTS 2024 [facility]-120 / [id number] documented as of this encounter Visit Diagnoses Diagnosis Neutropenia, unspecified type (HCC)- Primary Ankylosing spondylitis of multiple sites in spine (HCC) Ankylosing spondylitis documented in this encounter Advance Directives Latest Code Status on File Code Status Date Activated Date Inactivated Comments Full Code 11/03/2021 11:07 AM 11/04/2021 1:17 PM This o rder reflects the patients wishes and were consensually agreed upon. Care Teams Hooker Operator Relationship Specialty Start Date End Date Ian Morocho MD [address] [address] PCP - General Family Medicine 12/06/22 documented as of this encounter
--- OUTSIDE RECORDS SUMMARY | 2024-04-08 15:24 | External Medical Summary | Continuity of Care Document ---
Author Name Unknown Organization [address] Address [address] [place], [place] [address] Care Team Providers Care Director Of Occupational Therapy Name Role Phone Ian Morocho Primary Care Physician [phone] Encounter [facility] [id number] Date(s): 10/29/23 - 10/29/[address] [facility] [address] [facility], [address] [place] [phone] Encounter Diagnosis Body mass index [BMI] 28.0-28.9, adult(Discharge Diagnosis) - 10/29/23 Gastroparesis(Discharge Diagnosis) - 10/29/23 Discharge Disposition: Home or Self Care Attending Physician: ROSHNI Serrato Katy Marie Allergies, Adverse Reactions, Alerts Substance Reaction Severity Status buPROPion agitation, nastiness Active DULoxetine Anxiety Active varenicline agitation Active Assessment and Plan Extracted from: Title:Constipation Author:ROSHNI Serrato Katy Mar ie Date:10/29/23 Body mass index [BMI] 28.0-2 8.9, adult Gastroparesis Problem isChronic - not controlled Goal:_ Data:_ Plan: Pt would like GI referral to [facility]. Can obtain KUB if vomiting or lack of flatus appear. Trial of Milk of Mag Encouraged hydration and miralax use as well. Discussed return precautions and ER precautions. Patient verbalizes understanding and agrees with plan Immunizations Given and Recorded Vaccine Date Status [...] Ordered ALPRAZolam 0.5 mg oral tablet Start: 10/01/23 11:20:00 EST, 1 tab, PO, Daily, Disp# 24 tab, Refills: 0, Note to Pharmacy: PDMP checked, covering for PCP, PRN: as needed for anxiety, Pharmacy: [id number] Start Date: 10/01/23 Stop Date: 10/31/23 Status: Ordered BD 3 mL Luer-Keri Syringe [...] Daily, Disp# 90 tab, Refills: 3, Pharmacy: [id number] Start Date: 12/01/22 Stop Date: 11/26/23 Status: Ordered clopidogrel 75 mg oral tablet Start: 07/02/23 11:12:00 EST, 1 tab, PO, Daily, Disp# 30 tab, Refills: 5, Pharmacy: [facility] Start Date: 07/02/23 Status: Ordered [...] Ordered ketorolac 30 mg/mL injectable solution Start: 10/02/23 15:04:00 EST, See Instructions, Disp# 2 mL, Refills: 0, inject 1 mL into a muscle every 2 weeks, Pharmacy: [facility] Start Date: 10/02/23 Status: Ordered Milk of Magnesia 8% oral suspension Start: 10/29/23 9:42:00 EDT, 15 mL, PO, qhs, Disp# 360 mL, PRN: as needed for constipation, Pharmacy: [facility] Start Date: 10/29/23 Status: Ordered nicotine 4 mg oral transmucosal lozenge Start: 09/05/23 15:45:00 EST, 1 lozenge, buccal, q2h, Disp# 504 lozenge, Pharmacy: [facility] Start Date: 09/05/23 Stop Date: 10/17/23 Status: Ordered nicotine 7 mg/24 hr transdermal film, extended release Start: 09/05/23 15:45:00 EST, 1 patch, transdermal, Daily, Disp# 21 patch, Refills: 1, Pharmacy: [facility] Start Date: 09/05/23 Stop Date: 10/17/23 Status: Ordered omeprazole 40 mg oral delayed release capsule Start: 12/01/22 14:17:00 EDT, 1 cap, PO, qhs, Disp# 90 cap, Refills: 3, Pharmacy: [facility] Start Date: 12/01/22 Stop Date: [...] 12/01/22 14:16:00 EDT, 1,000 mcg =, IM, s7acvlo, Disp# 30 mL, Pharmacy: [facility] Start Date: 12/01/22 Stop Date: 05/30/23 Status: Ordered Problem List Condition Confirmation Course Effective Dates [...] Effective Dates Health Status Clinical Service Informant Body mass index [BMI] 28.0-28.9, adult Discharge Diagnosis 10/29/23 Non-Specified Gastroparesis Discharge Diagnosis 10/29/23 Non-Specified Procedures Procedure Date Related Diagnosis Body [...] oldest [Reference Range]: 1 Height 165 cm (10/29/23 9:18 AM) Patient Weight 78.5 kg (10/29/23 9:18 AM) Body Mass Index 28.83 kg/m2 (10/29/23 9:18 AM) Temperature [36.5-37.9 DegC] 36.5 DegC (10/29/23 9:18 AM) Heart Rate 96 bpm (10/29/23 9:18 AM) Respiratory Rate 16 br/min (10/29/23 9:18 AM) Blood Pressure 98/64mmHg (10/29/23 9:18 AM) Social History Social History Type Response Tobacco Current every day sm oker, Cigarettes, 0.5 per day. Started age 17 Years. Ready to change: Yes. 1 Smoking Status Current every day he royer smoker Sex Female 1has had hypnotherapy once. FCM Outpt Note * ROSHNI Serrato Katy Marie: PERFORM Event Display: FCM Outpt Note Authored Date: [id number] Chief Complaint weakness getting worse and contipation x 5 days History of Present Illness Has had on and off problems with constipation and gastroparesis. Saw Dr. Morocho Has tried miralax and stool softeners. Used an enema. Only had small BM after that. Requesting GI referral. No fevers. Nausea without vomiting. Weight stable. Feeling weakness and fatigue decreased PO intake of fluids Review of Systems A total of 10 systems were reviewed. Pertinent positive and negatives addressed in HPI, all other findings are negative. Physical Exam Vitals & Measurements T:36.5C HR:96(Monitored) RR:16 BP:98/64 SpO2:96% HT:165cm WT:78.5kg WT:78.500kg(Dosing) BMI:28.83 Constitutional: Alert and oriented, No acute distress, Well-appearing, Normal mood and affect Respiratory: Lung sounds are clear, equal chest rise and fall with breathing, no pursed lip breathing Cardiovascular: Heart sounds regular rate and rhythm, without gallop or murmur, no edema HEENT: Normocephalic, atraumatic, conjunctiva are clear, sclera non-icteric Gastrointestinal: abdomen is soft, diffuse tenderness to palpation, normoactive BS, no organomegaly/masses/hernia Skin: Warm, pink, dry, intact Assessment/Plan Body mass index [BMI] 28.0-28.9, adult Gastroparesis Problem isChronic - not controlled Goal:_ Data:_ Plan: Pt would like GI referral to [facility]. Can obtain KUB if vomiting or lack of flatus appear. Trial of Milk of Mag Encouraged hydration and miralax use as well. Discussed return precautions and ER precautions. Patient verbalizes understanding and agrees with plan Problem List/Past Medical History Ongoing Ankylosing spondylitis [...] 1000 mcg/mL injectable solution), 1000 mcg, IM, [id number] ergocalciferol(ergocalciferol 1.25 mg (50,000 intl units) oral capsule), [address] Int_Unit= 1 cap, PO,q7days fluticasone-vilanterol(Breo Ellipta 200 [...] tab, PO, Daily Allergies DULoxetineAnxiety buPROPionagitation, nastiness vareniclineagitation Social History Smoking Status Current every [...] due01/26/23and every 1year Due Adult COVID-19 Vaccination due10/29/23Unknown Frequency Adult Folic Acid Supplementation due10/29/23and every 3year Adult Social Determinants of Health Screening due10/29/23Unknown Frequency Hepatitis C Screening due10/29/23One-time only Pneumococcal Vaccine Adults and Adolescents with Chronic Illness due10/29/23One-time only Shingles Vaccine due10/29/23One-time only Satisfied(in the past 1 year) Satisfied Body Mass Index on10/29/23.Satisfied by TOSHA Garsia, Shilpi Lipid Screening on10/05/23.Satisfied by Contributor_system, [id number] Shingles Vaccine on08/20/23.Satisfied by MD Morocho Christopher Electronic Signature on File CC: Betty Land, DO [address] [facility] 101 [facility] [address] Electronically Reviewed/Signed by: ROSHNI Jo Author Signature Dt/Tm:10/29/2023 10:06 AM Department of Family Medicine [facility] Patient Care team information Care Team Personnel Name: MD Morocho Christopher Position: Physician - Family Med Member Role: Primary Care Provider Address: Address: [address] [facility] [facility] [address] [place] [address] [place] Care Team Related Persons Name: BEATA GUERRA Address: home [address] [facility], [phone] Name: BEATA GUERRA Address: [facility] Address: home [address], [place] [phone] Name: BEATA GUERRA Address: home [address] [facility], [phone]
--- OUTSIDE RECORDS SUMMARY | 2024-04-08 15:24 | External Medical Summary | Summary of Care ---
Author Name Unknown Organization [facility] Address [address] [place] [address] Phone [phone] Care Team Providers Care Marker Maker Name Role Phone Ian Morocho MD Primary Care Provid er Reason for Visit * Reason Comments Outpatient Testing Medication Management Encounter Details Date Type Department Care Team (Late st Contact Info) Description 10/18/2023 10:10 AM EDT Laboratory Laboratory, [place] [address] [place] [address] [place], [facility] [address], [place] [id number] Ankylosing spondylitis of multiple sites in spine ([facility])*; Encounter for therapeutic drug monitoring; MyCode Research Other*[id number]; Neutropenia, unspecified type ([facility]) Allergies Active Allergy Reactions Criticality Noted Date Comments Sulfamethoxazole-Trimethoprim Nausea/vomiting 0 04/13/2023 Duloxetine 07/27/2020 MALAISE documented as of this encounter (statuses as of 11/02/2023) Medications Medication Sig Dispensed Refills Start Date [...] as of this encounter (statuses as of 11/02/2023) Active Problems Problem Noted Date Diagnosed Date [...] of test: Expansive testing for breast and clerical assistant cancer risk -- 36 genes Genes [...] s/p trigger point injections Dr. Ramires [facility] [phone] Anxiety 12/26/2013 Depression 12/26/2013 Overview: Reviewed prior [...] as of this encounter (statuses as of 11/02/2023) Resolved Problems Problem Noted Date Diagnosed Date [...] as of this encounter (statuses as of 11/02/2023) Immunizations Name Administration Dates Next Due DTaP [...] Progress Notes * Soha Amato MD - 11/02/2023 5:10 PM EDT Sin Joya, Yes, would ask PCP to address lipids. Thanks. * Toan Gómez, [facility] - 11/01/2023 3:04 PM EDT Sin Hoyos I did see you addressed the repeat labs and had patient decrease Rinvoq to 15 mg every other day. LDL did increase as well, LFts slightly increased. I can have patient follow-up with PCP for increased cholesterol. I do have follow-up on 12/25/23 Thank you! Pharm. Angeles Casiano, [facility] Clinical Pharmacist 11/01/2023,3:04 PM documented in this encounter Miscellaneous Notes * Result Encounter Note - Toan Gómez RPh - 11/01/2023 3:08 PM EDT Repeat Labs reviewed and ok. Increase in LDL and LFts. Rinvoq decreased to every other day Pharm. [place] Casiano, [facility] Clinical Pharmacist Rheumatology Department 11/01/2023,3:07 PM documented in this encounter Plan of Treatment Upcoming Encounters Date Type Department Care Team (Late st Contact Info) Description 12/25/2023 10:30 AM EDT Telemedicine Rheumatology, [place] [address] [place] [address] Agc5, Pharmacist Rheumatology [facility] [place] [address] 01/11/2024 12:00 PM EDT Office Visit Gastroenterology, [address] [phone] Elle Aguilera PA-C [address] [place] [address] 01/18/2024 2:30 PM EDT Office Visit Rheumatology, [place] [address] [place] [address] Soha Amato MD [address] [place] [address] 04/25/2024 9:00 AM EDT Office Visit Radiation Oncology, [facility] [address] [place] [address] Rich Benavidez MD [address] [facility] [place] [address] 05/22/2024 10:00 AM EDT Office Visit Gynecology/Obstetrics Alexi Roche [address] [facility] [place] [address] Romana Streeter CRNP [address] [place] [address] Scheduled Procedures Name Priority Associated Diagnoses Date/Ti [...] 02/02/2020 02/01/2010, 12/14/2004 Depression Screening 01/18/2023 01/18/2022 COLONOSCOPY-EVERY 5 YRS AGES 18-100 11/02/2023 11/01/2018, 11/01/2018 Influenza Vaccine (FLU shot) (Season Ended) 2024 05/16/2022, 05/24/2020, 08/04/2019, Additional history exists Diabetes Screening 07/04/2026 07/04/2023, 1 08/02/2021, 05/05/2022, Additional history exists Lipid Panel 10/17/2028 10/18/2023, 0509/2017, 12/17/2014 Pap Smear Discontinued 04/13/2023, 01/03/2022 GARDASIL-HPV IMMUNIZATION SERIES Aged Out No longer eligible based on patient's age to complete this topic MENINGOCOCCAL (MENACTRA/MENVEO) Aged Out No longer eligible based on patient's age to complete this topic documented as of this encounter Medical Devices Implanted Type Area Peer Educator Device Identifier Shelf Expiration Date Model / Serial / Lot Alloderm Select 16x20 (320 Units) - [id number] - [id number] Implanted:Qty: 1 on 11/03/2021 [place]era Jul[place] [facility] [place] Breast ALLERGAN 02/26/2023 [id number] / [id number] / [id number] Alloderm Select 16x20 (320 Units) - [id number] - [id number] Implanted:Qty: 1 on 11/03/2021 by Gera Julien [place] [facility]: Breast ALLERGAN 04/28/2023 [id number] / [id number] / [id number] Breast Special Effects Artist Implanted:Qty: 1 on 11/03/2021 by Gera Julien [place] [facility] Breast MENTOR BREAST IMPLANTS 2024 [facility] / [id number] Breast Special Effects Artist Implanted:Qty: 1 on 11/03/2021 by Gera Julien [place] [facility]: Breast MENTOR BREAST IMPLANTS 2024 [facility]-120H / [id number] / [id number] documented as of this encounter Procedures Procedure Name Priority Date/Time Associated Diagnosis Comments MYCODE SST1 Routine 10/18/2023 10:14 AM EDT MyCGigzon Research Other*[id number] MYCODE INITIAL ADULT-2SST Routine 10/18/2023 10:14 AM EDT [employer] Other*[id number] DIFFERENTIAL, AUTOMATED Routine 10/18/2023 10:14 AM EDT Encounter for therapeutic drug monitoring MYCODE SUBSEQUENT ADULT Routine 10/18/2023 10:14 AM EDT [employer] Other*[id number] LIPID PANEL WITH DIRECT LDL IF TG IS HIGH Routine 10/18/2023 10:14 AM EDT Ankylosing spondylitis of multiple sites in spine (HCC) HEPATIC FUNCTION PANEL Routine 10/18/2023 10:14 AM EDT Encounter for therapeutic drug monitoring CBC Routine 10/18/2023 10:14 AM EDT Encounter for therapeutic drug monitoring CREATININE Routine 10/18/2023 10:14 AM EDT Encounter for therapeutic drug monitoring CBC Routine 10/18/2023 10:14 AM EDT Encounter for therapeutic drug monitoring documented in this encounter Results * MYCODE SST2 (10/18/2023 10:14 AM EDT) MyCode Specimen Freezing of extracted DNA, whole blood and/or serum. 10/19/2023 11:02 AM EDT LAB[facility]ATORY [facility] Blood Venous blood specimen / Unknown Venipuncture / Unknown 10/18/2023 10:14 AM EDT 10/18/2023 10:17 AM EDT Kristina FRANKA LAB BLOOD ORDERABLES Performing Organization Address City/[facility]/ZIP Co de Phone Number LABORATORY [place] [address] [place] [address] * MYCODE SST1 (10/18/2023 10:14 AM EDT) MyCode Specimen Freezing of extracted DNA, whole blood and/or serum. 10/19/2023 11:02 AM EDT [facility] Blood Venous blood specimen / Unknown Venipuncture / Unknown 10/18/2023 10:14 AM EDT 10/18/2023 10:17 AM EDT Kristina Parker CHRA LAB BLOOD ORDERABLES [facility] [address] [place] [address] * (ABNORMAL) DIFFERENTIAL, AUTOMATED (10/18/2023 10:14 AM EDT) WBC 3.88(L) 4.00 - 10.80 K/uL 10/18/2023 10:35 PM EDT LAB[facility] Neutrophils % 53.5 40.0 - 75.0 % 10/18/2023 10:35 PM EDT LAB[facility] Lymphocytes % 34.8 18.0 - 42.0 % 10/18/2023 10:35 PM EDT [facility] Monocytes % 9.8 1.0 - 11.0 % 10/18/2023 10:35 PM EDT LAB[facility] Eosinophils % 0.8 0.0 - 6.0 % 10/18/2023 10:35 PM EDT [facility] Basophils % 0.8 0.0 - 2.0 % 10/18/2023 10:35 PM EDT LAB[facility] Immature Granulocytes % 0.3 0.0 - 2.0 % 10/18/2023 10:35 PM EDT LAB[facility] Absolute Neutrophils 2.08 1.80 - 7.70 K/uL 10/18/2023 10:35 PM EDT LAB[facility] Absolute Lymphocytes 1.35 1.00 - 4.80 K/ul 10/18/2023 10:35 PM EDT LAB[facility] Absolute Monocytes 0.38 0.00 - 1.10 K/uL 10/18/2023 10:35 PM EDT [facility] Absolute Eosinophils 0.03 0.00 - 0.70 K/uL 10/18/2023 10:35 PM EDT [facility] Absolute Basophils 0.03 0.00 - 0.20 K/uL 10/18/2023 10:35 PM EDT LAB[facility] Absolute Immature Granulocytes 0.01 0.00 - 0.20 K/uL 10/18/2023 10:35 PM EDT [facility] Blood Venous blood specimen / Unknown Venipuncture / Unknown 10/18/2023 10:14 AM EDT 10/18/2023 10:17 AM EDT Soha Amato MD LAB BLOOD ORDER [facility] [address] [place] [address] * (ABNORMAL) CBC (10/18/2023 10:14 AM EDT) WBC 3.88(L) 4.00 - 10.80 K/uL 10/18/2023 10:35 PM EDT [facility] RBC 4.45 3.85 - 5.15 M/uL 10/18/2023 10:35 PM EDT [facility] HGB 13.5 12.0 - 15.3 g/dL 10/18/2023 10:35 PM EDT LAB[facility] HCT 40.1 36.0 - 45.2 % 10/18/2023 10:35 PM EDT [facility] MCV 90.1 81.5 - 97.5 fL 10/18/2023 10:35 PM EDT [facility] MCH 30.3 27.0 - 34.0 pg 10/18/2023 10:35 PM EDT LAB[facility] MCHC 33.7 32.0 - 36.0 g/dL 10/18/2023 10:35 PM EDT LAB[facility] RDW 13.7 11.5 - 15.5 % 10/18/2023 10:35 PM EDT LAB[facility] PLT 191 140 - 400 K/uL 10/18/2023 10:35 PM EDT [facility] MPV 10.3 6.6 - 11.1 fL 10/18/2023 10:35 PM EDT LABORATORY GM nRBCs 0 <=0 /100 WBCs 10/18/2023 10:35 PM EDT [facility] Blood Venous blood specimen / Unknown Venipuncture / Unknown 10/18/2023 10:14 AM EDT 10/18/2023 10:17 AM EDT Soha Amato MD LAB BLOOD ORDER MARCI [facility] [address] [place] [address] * (ABNORMAL) LIPID PANEL WITH DIRECT LDL IF TG IS HIGH (10/18/2023 10:14 AM EDT) Triglycerides 97 <=174 mg/dL 10/18/2023 10:49 PM EDT LABORATORY [facility] Comment: Triglyceride Reference Ranges (mg/dL): <150 Acceptable 150-174 Borderline high 175-499 High >=500 Very high Cholesterol 210(H) <200 mg/dL 10/18/2023 10:49 PM EDT LAB[facility] Comment: Total Cholesterol Reference Ranges (mg/dL): <200 Desirable 200-239 Borderline high >=240 High HDL Cholesterol 52 >49 mg/dL 10:49 PM EDT LABORATORY [facility] Comment: HDL Cholesterol Reference Ranges (mg/dL): >=60 High (Desirable) <50 Low (Undesirable) For Females <40 Low (Undesirable) For Males Non-HDL Cholesterol 158 <=159 mg/dL 10/18/2023 10:49 PM EDT LABORATORY [facility] Comment: Non-HDL Cholesterol Reference Range (mg/dL): <100 Target level for high risk ASCVD patient <130 Optimal for general population 130-159 Near optimal for general population 160-189 Borderline High 190-219 High >=220 Very High LDL Cholesterol 139(H) <=129 mg/dL 10/18/2023 10:49 PM EDT LABORATORY [facility] Comment: LDL Cholesterol Reference Ranges (mg/dL): <70 Target level for high risk ASCVD patient <100 Optimal for general population 100-129 Near optimal for general population 130-159 Borderline high 160-189 High >=190 Very high Blood Venous blood specimen / Unknown Venipuncture / Unknown 10/18/2023 10:14 AM EDT 10/18/2023 10:17 AM EDT Toan Gómez [facility] LAB BLOOD ORDERABLES LAB[facility]ATORY [facility] [address] [place] [address] * CREATININE (10/18/2023 10:14 AM EDT) Creatinine 0.6 0.5 - 1.0 mg/dL 10/18/2023 10:49 PM EDT LABORATORY [facility] Estimated Glomerular Filtration Rate >90 >=60 mL/min 10/18/2023 10:49 PM EDT LAB[facility] Comment:eGFR is calculated b ased on the CKD-EPI 2020 equation Blood Venous blood specimen / Unknown Venipuncture / Unknown 10/18/2023 10:14 AM EDT 10/18/2023 10:17 AM EDT Soha Amato MD LAB BLOOD ORDER MARCI Performing Organization Address City/[facility] Co de Phone Number [facility] [address] [place] [address] * (ABNORMAL) HEPATIC FUNCTION PANEL (10/18/2023 10:14 AM EDT) [facility] Albumin 4.3 3.8 - 5.0 g/dL 10/18/2023 10:49 PM EDT [facility] AST 54(H) 10 - 35 U/L 10/18/2023 10:49 PM EDT LAB[facility] Alkaline Phosphatase 100 35 - 130 U/L 10/18/2023 10:49 PM EDT [facility] ALT 47(H) 10 - 35 U/L 10/18/2023 10:49 PM EDT [facility] Bilirubin, Total 0.3 <=1.2 mg/dL 10/18/2023 10:49 PM EDT [facility] Bilirubin, Direct <0.2 0.0 - 0.3 mg/dL 10/18/2023 10:49 PM EDT [facility] Protein 6.2 6.0 - 8.3 g/dL 10/18/2023 10:49 PM EDT LAB[facility] Blood Venous blood specimen / Unknown Venipuncture / Unknown 10/18/2023 10:14 AM EDT 10/18/2023 10:17 AM EDT Soha Amato MD LAB BLOOD ORDER MARCI Performing Organization Address City/[facility] Co de Phone Number [facility] [address] [place] [address] documented in this encounter Visit Diagnoses Diagnosis Ankylosing spondylitis of multiple sites in spine (HCC)- Primary Ankylosing spondylitis Encounter for therapeutic drug monitoring MyCode Research Other*[id number] Neutropenia, unspecified type (HCC) documented in this encounter Advance Directives Latest Code Status on File Code Status Date Activated Date Inactivated Comments Full Code 11/03/2021 11:07 AM 11/04/2021 1:17 PM This o rder reflects the patients wishes and were consensually agreed upon. Care Teams Marker Maker Relationship Specialty Start Date End Date Ian Morocho MD [address] [place] [address] PCP - General Family Medicine 12/06/22 documented as of this encounter
--- OUTSIDE RECORDS SUMMARY | 2024-04-08 15:24 | External Medical Summary ---
Author Name Unknown Address Unknown Organization K01:LABORATORY [facility] - [address] [facility] [address] Laboratory Report Ordering Provider Test Date Status ANGELITO HARRIS 10/24/2023 10:48:44 Final Observation Date Value Abnormality Reference (Units ) Status SYNC LEUKOCYTES IN BLOOD BY AUTOMATED COUNT 10/24/2023 10:48:44 4.25 4.00-10.80 (K/uL) Final Segs 10/24/2023 10:48:44 52.6 40.0-75.0 (%) Final Lymphs % 10/24/2023 10:48:44 35.3 18.0-42.0 (%) Final Monos 10/24/2023 10:48:44 10.4 1.0-11.0 (%) Final Eosinophils 10/24/2023 10:48:44 0.7 0.0-6.0 (%) Final Basos 10/24/2023 10:48:44 0.5 0.0-2.0 (%) Final Immature Granulocyte, Percent 10/24/2023 10:48:44 0.5 0.0-2.0 (%) Final Absolute Segs 10/24/2023 10:48:44 2.24 1.80-7.70 (K/uL) Final Lymphs, absolute 10/24/2023 10:48:44 1.50 1.00-4.80 (K/ul) Final Monos, Abs 10/24/2023 10:48:44 0.44 0.00-1.10 (K/uL) Final Eos, Abs 10/24/2023 10:48:44 0.03 0.00-0.70 (K/uL) Final Basos, Abs 10/24/2023 10:48:44 0.02 0.00-0.20 (K/uL) Final Immature Granulocytes, Number 10/24/2023 10:48:44 0.02 0.00-0.20 (K/uL) Final Performing Location LABORATORY [facility] - [address] [facility] [address]
--- OUTSIDE RECORDS SUMMARY | 2024-04-08 15:24 | External Medical Summary | Summary of Care ---
Author Name Unknown Organization [facility] Address [address] [place] [address] Phone [phone] Care Team Providers Care Education Program Manager Name Role Phone Ian Morocho MD Primary Care Provid er Encounter Details Date Type Department Care Team (Late st Contact Info) Description 10/19/2023 Telephone [facility] [address] [place] [address] Soha Amato MD [address] [place] [address] Allergies Active Allergy Reactions Criticality Noted Date Comments Sulfamethoxazole-Trimethoprim Nausea/vomiting 0 04/13/2023 Duloxetine 07/27/2020 MALAISE documented as of this encounter (statuses as of 10/19/2023) Medications Medication Sig Dispensed Refills Start Date [...] EVERY MORNING 30 Tablet 5 10/30/2022 Active Magnesium 250 MG Oral Tablet Take [...] mouth in the morning. 30 Tablet 2 07/13/2023 Active Additional Information Patient not taking.Reported on 10/12/2023 documented as of this encounter (statuses as of 10/19/2023) Active Problems Problem Noted Date Diagnosed Date [...] of test: Expansive testing for breast and lifeguard cancer risk -- 36 genes Genes Included: [...] Dr. Ramires [facility] [phone] Anxiety 12/26/2013 Depression 12/26/2013 Overview: Reviewed prior [...] as of this encounter (statuses as of 10/19/2023) Resolved Problems Problem Noted Date Diagnosed Date [...] as of this encounter (statuses as of 10/19/2023) Immunizations Name Administration Dates Next Due DTaP [...] encounter Miscellaneous Notes * Telephone Encounter - Fara Duenas OSA - 10/19/2023 11:16 AM EDT Please see MyG message. * Telephone Encounter - Soha Amato MD - 10/19/2023 10:27 AM EDT Reviewed lab work and neutropenia resolved and total WBC count almost recovered to normal. This is likely rinvoq induced. Recommend repeat CBC/diff again next week and if back to normal, could try taking rinvoq every other day since it was working for her . Message sent to patient. documented in this encounter Plan of Treatment Upcoming Encounters Date Type Department Care Team (Late st Contact Info) Description 12/25/2023 10:30 AM EDT Telemedicine Rheumatology, [place] [address] [place] [address] Agc5, Pharmacist Rheumatology [address] [place] [address] 01/18/2024 2:30 PM EDT Office Visit Rheumatology, [place] [address] [place] [address] Soha Amato MD [address] [place] [address] 04/25/2024 9:00 AM EDT Office Visit Radiation Oncology, [facility] [address] [place] [address] Rich Benavidez MD [address] [place] [address] 05/22/2024 10:00 AM EDT Office Visit Gynecology/Obstetrics [facility] [address] [place] [address] Romana Streeter CRNP [address] [place], [place] [phone] Scheduled Orders Name Type Priority Associated Diagnoses Orde r Schedule CBC WITH WBC DIFFERENTIAL Lab Routine Other drug-induced neutropenia (HCC) Expected: 10/26/2023 (Approximate), Expires: 10/18/2024 Scheduled Procedures Name Priority Associated Diagnoses Date/Ti me BREAST RECONSTRUCTION; WITH FREE FLAP (EG, FTRAM, ATE, SIEA, GAP FLAP) Malignant neoplasm of left [...] this encounter Medical Devices Implanted Type Area Social Welfare Administrator Device Identifier Shelf Expiration Date Model / Serial / Lot Alloderm Select 16x20 (320 Units) - [id number] - [id number] Implanted:Qty: 1 on 11/03/2021 by Gera Julien MD [place] [facility] [place]: Breast ALLERGAN 02/26/2023 [id number] / [id number] / [id number] Alloderm Select 16x20 (320 Units) - [id number] - [id number] Implanted:Qty: 1 on 11/03/2021 by Gera Julien MD [place] [facility] [place] Left: Breast ALLERGAN 04/28/2023 [id number] / [id number] / [id number] [address] [place] Breast Surveillance Analyst Implanted:Qty: 1 on 11/03/2021 by Gera Julien MD at [facility] Right: Breast MENTOR BREAST IMPLANTS 2024 [facility]-120H / [id number] / [id number] [place] Breast Surveillance Analyst Implanted:Qty: 1 on 11/03/2021 by Gera Julien MD at [facility] Left: Breast MENTOR BREAST IMPLANTS 2024 [facility]-120H / [id number] / [id number] documented as of this encounter Visit Diagnoses Diagnosis Ankylosing spondylitis of multiple sites in spine (HCC)- Primary Ankylosing spondylitis Encounter for therapeutic drug monitoring Other drug-induced neutropenia (HCC) documented in this encounter Advance Directives Latest Code Status on File Code Status Date Activated Date Inactivated Comments Full Code 11/03/2021 11:07 AM 11/04/2021 1:17 PM This o rder reflects the patients wishes and were consensually agreed upon. Care Teams Education Program Manager Relationship Specialty Start Date End Date Ian Morocho MD [address] [place] [address] PCP - General Family Medicine 12/06/22 documented as of this encounter
--- OUTSIDE RECORDS SUMMARY | 2024-04-08 15:24 | External Medical Summary | Continuity of Care Document ---
Author Name Unknown Organization [facility] Address [address] [place] [id number] Care Team Providers Care Drill Setup Operator Name Role Phone Ian Morocho Primary Care Physician [phone] Encounter [facility] [id number] Date(s): 10/29/23 - 10/29/23 [facility] [id number], [place] [address]- [phone] Encounter Diagnosis History of breast cancer in female(Discharge Diagnosis) - 10/29/23 Discharge Disposition: Home or Self Care Attending Physician: MD Tovar Cristina I Referring Physician: MD Morocho Christopher Allergies, Adverse Reactions, Alerts Substance Reaction Severity Status buPROPion agitation, nastiness Active DULoxetine Anxiety Active varenicline agitation Active Immunizations Given and Recorded Vaccine Date [...] PCP, PRN: as needed for anxiety, Pharmacy: [facility] Start Date: 10/01/23 Stop Date: 10/31/23 Status: Ordered BD 3 mL Luer-Keri Syringe 25G x 1" Start: 06/20/23 10:08:00 EST, See Instructions, Disp# 100 each, Refills: 0, Use as directed. Max 1/day. Use new syringe with each injection., Pharmacy: [facility] Start Date: 06/20/23 Status: Ordered BD Luer-Keri Syringe Miscellaneous 25G X 1" 3 ML Start: 09/17/23 11:28:00 EST, BD Luer-Keri Syringe Miscellaneous 25G X 1" 3 ML, See Instructions, Disp# 100 unknown unit, Refills: 0, USE DIRECTED. MAX 1/DAY. USE NEW SYRINGE WITH EACH INJECTION., Pharmacy [facility] Start Date: 09/17/23 Status: Ordered Breo Ellipta 200 mcg-25 mcg/inh inhalation powder Start: 11/16/22 10:15:00 EDT, 1 puff, inhaled, Daily, Disp# 1 each Start Date: 11/16/22 Stop Date: 12/16/22 Status: Ordered citalopram 40 mg oral tablet Start: 12/01/22 14:17:00 EDT, 1 tab, PO, Daily, Disp# 90 tab, Refills: 3, Pharmacy: [facility] Start Date: 12/01/22 Stop Date: 11/26/23 Status: Ordered clopidogrel 75 mg oral tablet Start: 07/02/23 11:12:00 EST, 1 tab, PO, Daily, Disp# 30 tab, Refills: 5, Pharmacy: [facility] Start Date: 07/02/23 Status: [...] into a muscle every 2 weeks, Pharmacy: [facility] Start Date: 10/02/23 Status: Ordered Milk of Magnesia 8% oral suspension Start: 10/29/23 9:42:00 EDT, 15 mL, PO, qhs, Disp# 360 mL, PRN: as needed for constipation, Pharmacy: [facility] Start Date: 10/29/23 Status: Ordered nicotine 4 mg oral transmucosal lozenge Start: 09/05/23 15:45:00 EST, 1 lozenge, buccal, q2h, Disp# 504 lozenge, Pharmacy: [facility] Start Date: 09/05/23 Stop Date: 10/17/23 Status: Ordered nicotine 7 mg/24 hr transdermal film, extended release Start: 09/05/23 15:45:00 EST, 1 patch, transdermal, Daily, Disp# 21 patch, Refills: 1, Pharmacy: [facility] Start Date: 09/05/23 Stop Date: 10/17/23 Status: Ordered omeprazole 40 mg oral delayed release capsule Start: 12/01/22 14:17:00 EDT, 1 cap, PO, qhs, Disp# 90 cap, Refills: 3, Pharmacy: [facility] Start Date: 12/01/22 Stop Date: 11/26/23 Status: Ordered ondansetron 4 mg oral tablet, disintegrating Start: 11/16/22 10:17:00 EDT, 1 tab, PO, tid, PRN: as needed for nausea/vomiting Start Date: 11/16/22 Status: Ordered Penlac Nail Lacquer 8% topical solution Start: 11/16/22 10:58:00 EDT, 1 appl, topical, Daily, Disp# 6.6 mL, Refills: 1, Pharmacy: [facility] Start Date: 11/16/22 Stop [...] TWICE A DAY FOR 14 DAYS, Pharmacy: [facility] Start Date: 03/12/23 Status: Ordered Vitamin B12 1000 mcg/mL injectable solution Start: 12/01/22 14:16:00 EDT, 1,000 mcg =, IM, [id number], Disp# 30 mL, Pharmacy: [facility] Start Date: 12/01/22 Stop Date: 05/30/23 Status: Ordered Mental Status 10/29/23 Barriers to Learning one year None evide nt Mandatory Health Literacy Documentation Yes Health Literacy Communication Barriers N ever Primary Language Divehi Problem List Condition Confirmation Course Effective Dates [...] Dates Health Status Cl inical Service Informant History of breast cancer in female Discharge Diagnosis 10/29/23 Procedures Procedure Date Related Diagnosis Body Site [...] [Reference Range]: 1 Height 165 cm (10/29/23 3:53 PM) Patient Weight 78.4 kg (10/29/23 3:53 PM) Body Mass Index 28.8 kg/m2 (10/29/23 3:53 PM) Temperature [36.5-37.9 DegC] 36.5 DegC (10/29/23 3:53 PM) Heart Rate 90 bpm (10/29/23 3:53 PM) Respiratory Rate 16 br/min (10/29/23 3:53 PM) Blood Pressure 109/74mmHg (10/29/23 3:53 PM) Cuff Pulse Pressure 35 mmHg (10/29/23 3:53 PM) BP Location # 1 Left Arm (10/29/23 3:53 PM) Social History Social History Type Response Tobacco Current every day sm oker, Cigarettes, 0.5 per day. Started age 17 Years. Ready to change: Yes. 1 Smoking Status Current every day he royer smoker Sex Female 1has had hypnotherapy once. Patient Care team information Care Team Personnel Name: MD Morocho Christopher Position: Physician - Family Med Member Role: Primary Care Provider Address: Address: [facility] [address] [place] Care Team Related Persons Name: BEATA GUERRA Address: home [address] [facility], [id number] Name: BEATA GUERRA Address: [facility] Address: home [address], [place] [phone] Name: BEATA GUERRA Address: home [address] [facility], [phone]
--- OUTSIDE RECORDS SUMMARY | 2024-04-08 15:24 | External Medical Summary | Summary of Care ---
Author Name Unknown Organization [facility] Address [address] [place] [address] Phone [phone] Care Team Providers Care Airline Mechanic Name Role Phone Ian Morocho MD Primary Care Provid er Encounter Details Date Type Department Care Team (Late st Contact Info) Description 10/19/2023 Telephone [facility] [address] [place] [address] Soha Amato MD [address] [place] [address] Allergies Active Allergy Reactions Criticality [...] of test: Expansive testing for breast and defense travel administrator cancer risk -- 36 genes Genes Included: [...] trigger point injections Dr. Ramires [facility] [phone] Anxiety 12/26/2013 Depression 12/26/2013 Overview: Reviewed prior [...] Description 12/25/2023 10:30 AM EDT Telemedicine Rheumatology, [place] [address] [place] [address] Agc5, Pharmacist Rheumatology [facility] [place] [address] 01/18/2024 2:30 PM EDT Office Visit Rheumatology, [place] [address] [place] [address] Soha Amato MD [address] [place] [address] 04/25/2024 9:00 AM EDT Office Visit Radiation Oncology, [facility] [address] [place] [address] Rich Benaviedz MD [address] [place], [place] [id number] 05/22/2024 10:00 AM EDT Office Visit Gynecology/Obstetrics [facility] [address] [place] [address] Romana Streeter CRNP [address] [facility] [place] [address] Scheduled Orders Name Type Priority Associated Diagnoses [...] encounter Medical Devices Implanted Type Area Cloth Printer Device Identifier Shelf Expiration Date Model / Serial / Lot Alloderm Select 16x20 (320 Units) - [id number] - [id number] Implanted:Qty: 1 on 11/03/2021 by Gera Julien MD at OR [facility] Right: Breast ALLERGAN 02/26/2023 [id number] / [id number] / [id number] Alloderm Select 16x20 (320 Units) - [id number] - [id number] Implanted:Qty: 1 on 11/03/2021 by Gera Julien MD at OR [facility] Left: Breast ALLERGAN 04/28/2023 [id number] / [id number] / [id number] [address] [place] Breast Electric Tripper Machine Operator Implanted:Qty: 1 on 11/03/2021 by Gera Julien MD at OR [facility] Right: Breast MENTOR BREAST IMPLANTS 2024 [facility] / [id number] / [id number] [address] [place] Breast Electric Tripper Machine Operator Implanted:Qty: 1 on 11/03/2021 by Gera Julien MD at OR [facility] Left: Breast MENTOR BREAST IMPLANTS 2024 [facility] / [id number] / [id number] documented as of this encounter Visit Diagnoses [...] and were consensually agreed upon. Care Teams Airline Mechanic Relationship Specialty Start Date End Date Ian Morocho MD [address] [place] [address] PCP - General Family Medicine 12/06/22 documented as of this encounter
--- OUTSIDE RECORDS SUMMARY | 2024-04-08 15:24 | External Medical Summary | Summary of Care ---
Author Name Unknown Organization [facility] Address [address] [place] [address] Phone [phone] Care Team Providers Care Senior Principal Name Role Phone Ian Morocho MD Primary Care Provid er Reason for Visit * Reason Comments Outpatient Testing Encounter Details Date Type Department Care Team (Late st Contact Info) Description 10/24/2023 10:40 AM EDT Laboratory Laboratory, [place] [address] [place] [address] [place], [facility] [address] [place] [address] Other drug-induced neutropenia (HCC) Allergies Active Allergy Reactions Criticality Noted Date Comments Sulfamethoxazole-Trimethoprim Nausea/vomiting 0 04/13/2023 Duloxetine 07/27/2020 MALAISE documented as of this encounter (statuses as of 10/24/2023) Medications Medication Sig Dispensed Refills Start Date [...] as of this encounter (statuses as of 10/24/2023) Active Problems Problem Noted Date Diagnosed Date [...] of test: Expansive testing for breast and animal doctor cancer risk -- 36 genes Genes Included: [...] trigger point injections [facility]. Ram[facility] [phone] Anxiety 12/26/2013 Depression 12/26/2013 Overview: Reviewed prior [...] as of this encounter (statuses as of 10/24/2023) Resolved Problems Problem Noted Date Diagnosed Date [...] as of this encounter (statuses as of 10/24/2023) Immunizations Name Administration Dates Next Due DTaP [...] Description 12/25/2023 10:30 AM EDT Telemedicine Rheumatology, [place] [address] [place] [address] Agc5, Pharmacist Rheumatology [facility] [place] [address] 01/18/2024 2:30 PM EDT Office Visit Rheumatology, [place] [address] [place] [address] Soha Amato MD [facility] [address] 04/25/2024 9:00 AM EDT Office Visit Radiation Oncology, [facility] [address] [place] [address] Rich Benavidez MD [address] [place] [address] 05/22/2024 10:00 AM EDT Office Visit Gynecology/Obstetrics [facility] [address] [facility] [place] [address] Romana Streeter CRNP [address] [place] [address] Pending Results Name Type Priority Associated Diagnoses Date /Time CBC WITH WBC DIFFERENTIAL Lab Routine Other drug-induced neutropenia (HCC) 10/24/2023 10:48 AM EDT CBC Lab Routine Other drug-induced neutropenia (HCC) 10/24/2023 10:48 AM EDT DIFFERENTIAL, AUTOMATED Lab Routine Other drug-induced neutropenia (HCC) 10/24/2023 10:48 AM EDT Scheduled Procedures Name Priority Associated Diagnoses Date/Ti [...] this encounter Medical Devices Implanted Type Area Documentation Liaison Device Identifier Shelf Expiration Date Model / Serial / Lot Alloderm Select 16x20 (320 Units) - [id number] - [id number] Implanted:Qty: 1 on 11/03/2021 by Gera Julien MD [place] [facility] [place]: Breast ALLERGAN 02/26/2023 [id number] / [id number] / [id number] Alloderm Select 16x20 (320 Units) - [id number] - [id number] Implanted:Qty: 1 on 11/03/2021 by Gera Julien MD [place] [facility] [place]: Breast ALLERGAN 04/28/2023 [id number] / [id number] / [id number] [address] [place] Breast Vocational Instructor Implanted:Qty: 1 on 11/03/2021 by Gear Julien MD [place] [facility] [place]: Breast MENTOR BREAST IMPLANTS 2024 [facility] / [id number] [address] [place] Breast Vocational Instructor Implanted:Qty: 1 on 11/03/2021 by Gera Julien MD [place] [facility] [place]: Breast MENTOR BREAST IMPLANTS 2024 [facility] / [id number] documented as of this encounter Visit Diagnoses Diagnosis Other drug-induced neutropenia (HCC) documented in this encounter Advance Directives Latest Code Status on File Code Status Date Activated Date Inactivated Comments Full Code 11/03/2021 11:07 AM 11/04/2021 1:17 PM This o rder reflects the patients wishes and were consensually agreed upon. Care Teams Senior Principal Relationship Specialty Start Date End Date Ian Morocho MD [address] [address] PCP - General Family Medicine 12/06/22 documented as of this encounter
--- OUTSIDE RECORDS SUMMARY | 2024-04-08 15:24 | External Medical Summary | Summary of Care ---
Author Name Unknown Organization [facility] Address [address] [place] [address] Phone [phone] Care Team Providers Care Hearing Therapy Teacher Name Role Phone Ian Morocho MD Primary Care Provid er Reason for Visit * Reason Comments Outpatient Testing Medication Management Encounter Details Date Type Department Care Team (Late st Contact Info) Description 10/18/2023 10:10 AM EDT Laboratory Laboratory, [place] [address] [place] [address] [place], Laboratory [address] [place], [place] [phone] Ankylosing spondylitis of multiple sites in spine ([facility])*; Encounter for therapeutic drug monitoring; MyCode Research Other*[id number]; Neutropenia, unspecified type ([facility]) Allergies Active Allergy Reactions Criticality Noted Date Comments Sulfamethoxazole-Trimethoprim Nausea/vomiting 0 04/13/2023 Duloxetine 07/27/2020 MALAISE documented as of this encounter (statuses as of 11/01/2023) Medications Medication Sig Dispensed Refills Start Date [...] as of this encounter (statuses as of 11/01/2023) Active Problems Problem Noted Date Diagnosed Date [...] of test: Expansive testing for breast and colored leather setter cancer risk -- 36 genes Genes Included: [...] QHS; s/p trigger point injections Dr. Ramires [facility] [phone] Anxiety 12/26/2013 Depression 12/26/2013 Overview: Reviewed prior [...] as of this encounter (statuses as of 11/01/2023) Resolved Problems Problem Noted Date Diagnosed Date [...] as of this encounter (statuses as of 11/01/2023) Immunizations Name Administration Dates Next Due DTaP [...] Progress Notes * Toan Gómez, [facility] - 11/01/2023 3:04 PM EDT Sin Hoyos, I did see you addressed the repeat labs and had patient decrease Rinvoq to 15 mg every other day. LDL did increase as well, LFts slightly increased. I can have patient follow-up with PCP for increased cholesterol. I do have follow-up on 12/25/23 Thank you! Toan Gómez, Pharm. D., [facility] Clinical Pharmacist 11/01/2023,3:04 PM documented in this encounter Plan of Treatment Upcoming Encounters Date Type Department Care Team (Late st Contact Info) Description 12/25/2023 10:30 AM EDT Telemedicine Rheumatology, [place] [address] [place] [address] Agc5, Pharmacist Rheumatology [address] [place] [address] 01/18/2024 2:30 PM EDT Office Visit Rheumatology, [place] [address] [place] [address] Soha Amato MD [address] [place], [place] [address] 04/25/2024 9:00 AM EDT Office Visit Radiation Oncology, [facility] [address] [place] [address] Rich Benavidez MD [address] [place] [address] 05/22/2024 10:00 AM EDT Office Visit Gynecology/Obstetrics [facility] [address] [place] [address] Romana Streeter CRNP [address] [place] [address] Scheduled Procedures Name Priority Associated Diagnoses Date/Ti [...] this encounter Medical Devices Implanted Type Area Air Duct Mechanic Device Identifier Shelf Expiration Date Model / Serial / Lot Alloderm Select 16x20 (320 Units) - [id number] - [id number] Implanted:Qty: 1 on 11/03/2021 by Gera Julien MD at OR [facility] Right: Breast ALLERGAN 02/26/2023 [id number] / [id number] / [id number] Alloderm Select 16x20 (320 Units) - [id number] - [id number] Implanted:Qty: 1 on 11/03/2021 by Gera Julien MD at OR [facility] Left: Breast ALLERGAN 04/28/2023 [id number] / [id number] / [id number] [address] [place] Breast Gunnery/Ordnance Officer Implanted:Qty: 1 on 11/03/2021 by Gera Julien MD at OR [facility] Right: Breast MENTOR BREAST IMPLANTS 2024 [facility]-120 / [id number] [address] [place] Breast Gunnery/Ordnance Officer Implanted:Qty: 1 on 11/03/2021 by Gera Julien MD at OR [facility] Left: Breast MENTOR BREAST IMPLANTS 2024 [facility]-120 / [id number] documented as of this encounter Procedures Procedure Name Priority Date/Time Associated Diagnosis Comments MYCODE SST1 Routine 10/18/2023 10:14 AM EDT [employer] Other*[id number] MYCODE INITIAL ADULT-2SST Routine 10/18/2023 10:14 AM EDT [employer] Other*[id number] DIFFERENTIAL, AUTOMATED Routine 10/18/2023 10:14 AM EDT Encounter for therapeutic drug monitoring MYCODE SUBSEQUENT ADULT Routine 10/18/2023 10:14 AM EDT [employer] Other*[id number] LIPID PANEL WITH DIRECT LDL IF TG [...] * MYCODE SST2 (10/18/2023 10:14 AM EDT) Pathologist [facility] MyCode Specimen Freezing of extracted DNA, whole blood and/or serum. 10/19/2023 11:[address] [facility] Blood Venous blood specimen / Unknown Venipuncture / Unknown 10/18/2023 10:14 AM EDT 10/18/2023 10:17 AM EDT Kristina FRANKA LAB BLOOD ORDERABLES LABORATORY [facility] [address] [place] [address] * MYCODE SST1 (10/18/2023 10:14 AM EDT) Pathologist [facility] MyCode Specimen Freezing of extracted DNA, whole blood and/or serum. 10/19/2023 11:02 AM EDT LAB[facility]ATORY [facility] Blood Venous blood specimen / Unknown Venipuncture / Unknown 10/18/2023 10:14 AM EDT 10/18/2023 10:17 AM EDT Kristina FRANKA LAB BLOOD ORDERABLES Performing Organization Address [facility]/ZIP Co de Phone Number LABORATORY [facility] [address] [place] [address] * (ABNORMAL) DIFFERENTIAL, AUTOMATED (10/18/2023 10:14 AM EDT) [facility] WBC 3.88(L) 4.00 - 10.80 K/uL 10/18/2023 [...] LAB BLOOD ORDER MARCI LABORATORY [facility] [address] [place] [address] * (ABNORMAL) CBC (10/18/2023 10:14 AM EDT) [...] 400 K/uL 10/18/2023 10:[address] [facility] MPV 10.3 6.6 - 11.1 fL 10/18/2023 10:[address] [facility] nRBCs 0 <=0 /100 WBCs 10/18/2023 10:[address] [facility] Blood Venous blood specimen / Unknown Venipuncture / Unknown 10/18/2023 10:14 AM EDT 10/18/2023 10:17 AM EDT Soha Amato MD LAB BLOOD ORDER MARCI LABORATORY [facility] [address] [place] [address] * (ABNORMAL) LIPID PANEL WITH DIRECT LDL IF TG IS HIGH (10/18/2023 10:14 AM EDT) Triglycerides 97 <=174 mg/dL 10/18/2023 10:[address] [facility] Comment: Triglyceride Reference Ranges (mg/dL): <150 Acceptable 150-174 Borderline high 175-499 High >=500 Very high Cholesterol 210(H) <200 mg/dL 10/18/2023 10:[address] [facility] Comment: Total Cholesterol Reference Ranges (mg/dL): <200 Desirable 200-239 Borderline high >=240 High HDL Cholesterol 52 >49 mg/dL 10:[address] [facility] Comment: HDL Cholesterol Reference Ranges (mg/dL): >=60 High (Desirable) <50 Low (Undesirable) For Females <40 Low (Undesirable) For Males Non-HDL Cholesterol 158 <=159 mg/dL 10/18/2023 10:[address] [facility] Comment: Non-HDL Cholesterol Reference Range (mg/dL): <100 Target level for high risk ASCVD patient <130 Optimal for general population 130-159 Near optimal for general population 160-189 Borderline High 190-219 High >=220 Very High LDL Cholesterol 139(H) <=129 mg/dL 10/18/2023 10:[address] [facility] Comment: LDL Cholesterol Reference Ranges (mg/dL): <70 Target level for high risk ASCVD patient <100 Optimal for general population 100-129 Near optimal for general population 130-159 Borderline high 160-189 High >=190 Very high Blood Venous blood specimen / Unknown Venipuncture / Unknown 10/18/2023 10:14 AM EDT 10/18/2023 10:17 AM EDT Toan Gómez [facility] LAB BLOOD ORDERABLES Performing Organization Address [facility] Co de Phone Number LAB[facility]ATORY [facility] [address] [place] [address] * CREATININE (10/18/2023 10:14 AM EDT) Creatinine 0.6 0.5 - 1.0 mg/dL 10/18/2023 10:49 PM EDT LABORATORY [facility] Estimated Glomerular Filtration Rate >90 >=60 mL/min 10/18/2023 10:49 PM EDT LABORATORY C Comment:eGFR is calculated b ased on the CKD-EPI 2020 equation Blood Venous blood specimen / Unknown Venipuncture / Unknown 10/18/2023 10:14 AM EDT 10/18/2023 10:17 AM EDT Soha Amato MD LAB BLOOD ORDER [facility] Performing Organization Address [facility] de Phone Number LABORATORY C [address] [place] [address] * (ABNORMAL) HEPATIC FUNCTION PANEL (10/18/2023 10:14 AM EDT) Albumin 4.3 3.8 - 5.0 g/dL 10/18/2023 [...] BLOOD ORDER MARCI LABORATORY [facility] [address] [place] [address] documented in this encounter Visit Diagnoses Diagnosis Ankylosing spondylitis of multiple sites in spine (HCC)- Primary Ankylosing spondylitis Encounter for therapeutic drug monitoring My[employer] Other*[id number] Neutropenia, unspecified type (HCC) documented in this encounter Advance Directives Latest Code Status on File Code Status Date Activated Date Inactivated Comments Full Code 11/03/2021 11:07 AM 11/04/2021 1:17 PM This o rder reflects the patients wishes and were consensually agreed upon. Care Teams Hearing Therapy Teacher Relationship Specialty Start Date End Date Ian Morocho MD [address] [address] PCP - General Family Medicine 12/06/22 documented as of this encounter
--- OUTSIDE RECORDS SUMMARY | 2024-04-08 15:24 | External Medical Summary | Summary of Care ---
Author Name Unknown Organization [facility] Address [address] [place] [address] Phone [phone] Care Team Providers Care Cancer Registrar Name Role Phone Ian Morocho MD Primary Care Provid er Reason for Visit * Reason Comments Follow Up L breast Encounter Details Date Type Department Care Team ([facility] st Contact Info) Description 10/19/2023 9:00 AM EDT Office Visit Radiation Oncology, [facility] [address], [place] [id number] Rich Benavidez MD [address], [place] [id number] Stage I breast cancer, left (HCC)* Allergies Active Allergy Reactions Criticality Noted [...] of test: 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 Ramires [facility] [phone] Anxiety 12/26/2013 Depression 12/26/2013 Overview: Reviewed prior [...] Sign Reading Time Taken Comments Blood Pressure 113/78 10/19/2023 9:19 AM EDT Pulse 97 10/19/2023 9:19 AM EDT Temperature 36.4 C (97.5 F) 10/19/2023 9 :19 AM EDT Respiratory Rate 20 10/19/2023 9:19 AM EDT Oxygen Saturation 96% 10/19/2023 9:1 9 AM EDT room air, at rest Inhaled Oxygen Concentration - - Weight 79.3 kg (174 lb 12.8 oz) 10/19/2023 9:19 AM EDT Height - - Body Mass Index 29.09 04/13/2023 3:02 PM EDT documented in this [...] as of this encounter Progress Notes * Rich Benavidez MD - 10/24/2023 12:26 AM EDT RADIATION ONCOLOGY FOLLOW-UP NOTE ABIGAIL WEI Shwetha Bolanos [id number] 42 year old Shwetha Bolanos was seen in follow-up in Radiation Oncology on 10/19/2023. Excerpt from my initial consult visit note 01/10/2022: HISTORY OF PRESENT ILLNESS: 41 year old female with left breast cancer now seen in radiation oncology consultation. Family history of breast cancer but patient had been tested negative for genetic mutations. She hadbeen followed with screening mammograms. She underwent core needle biopsy of right breast calcifications in August that showed DCIS, strongly ER and NC positive. MRI breast in September showed changes from prior excisional biopsy, oval heterogeneously enhancing mass measuring 1 cm and dish no hyperintense enhancing mass measuring 0.8 x 0.6 cm. In October patient opted for bilateral breast mastectomies and immediate breast reconstruction. Pathology: A. Right sentinel lymph node #1, biopsy: One lymph node, negative for carcinoma; (0/1). B. Right sentinel lymph node #2, biopsy: One lymph node, negative for carcinoma; (0/1). C. Right breast, mastectomy: Atypical ductal hyperplasia. Fibrocystic changes. Biopsy cavity. Skin and nipple with no specific pathologic change. D. Left breast, mastectomy: Multifocal invasive ductal carcinoma, grade 2, largest focus 16 mm. Extensive ductal carcinoma in situ, intermediate nuclear grade, cribriform and solid patterns. DCIS is present at the anterior inked specimen edge and 1.5 mm from the posterior margin. Skin and nipple with no specific pathologic change. See synoptic report. Pathologic stage (AJCC 8th edition): mpT1c, pN0 E. Left sentinel lymph node #1, biopsy: Fibroadipose tissue, negative for lymph node tissue. F. Left sentinel lymph node #2, biopsy: One lymph node, negative for carcinoma; (0/1). Synoptic Data Procedure: Total mastectomy (including nipple-sparing and skin-sparing mastectomy) Specimen Laterality: Left Tumor Site: Not specified Tumor Size: Greatest dimension of largest invasive focus >1 mm: 16 mm Histologic Type: Invasive carcinoma of no special type (ductal) Histologic Grade: Glandular (Acinar)/Tubular Differentiation: Score 2 (10% to 75% of tumor area forming glandular/tubular structures) Nuclear Pleomorphism: Score 2 (cells larger than normal with open vesicular nuclei, visible nucleoli, and moderate variability in both size and shape) Mitotic Count: Score 2 Laci Score: Grade 2 (score of 6 or 7) Tumor Focality: Multiple foci of invasive carcinoma Number of foci is at least: 4 Ductal Carcinoma In Situ (DCIS): Present Positive for extensive intraductal component (EIC) Number of blocks with DCIS: 19 Number of blocks examined: 22 Architectural Patterns: Cribriform, Solid Nuclear Grade: Grade II (intermediate) Necrosis: Present, focal (small foci or single cell necrosis) Lobular Carcinoma In Situ (LCIS): Not identified Invasive Carcinoma Margins: Uninvolved by invasive carcinoma Distance from closest margin: 1 mm Closest Margin:anterior Distance from posterior margin: 4 mm DCIS Margins: Positive for DCIS Anterior extent minimal/moderate: DCIS at the margin is between >=1 mm and < 15 mm area in 1 block or in 4 or less low-power butts and /or in 1 to 7 blocks. Along 3 mm of margin Distance from posterior margin: 1.5 mm Regional Lymph Nodes: Uninvolved by tumor cells Number of sentinel nodes examined: 1 Treatment Effect In The Breast: No known presurgical therapy Lymphovascular Invasion: Not identified TNM Descriptors: m (multiple foci of invasive carcinoma) Primary Tumor(pT): pT1c: Tumor >10 mm but <=20 mm in greatest dimension Regional Lymph Nodes Modifier: (sn): Only sentinel node(s) evaluated. Regional Lymph Nodes (pN): pN0: No regional lymph node metastasis identified or ITCs only Ancillary Studies: Estrogen Receptor (ER) Status: Positive (>10% of cells demonstrate nuclear positivity) Percentage of cells with nuclear positivity: 95% Average intensity of tumor cell nuclei staining: Strong Progesterone Receptor (PgR) Status: Positive Percentage of cells with nuclear positivity: 95% Average intensity of staining: Strong HER2 by immunohistochemistry: Negative (Score 0) [This staging is based on AJCC cancer staging manual, 8th edition] RADIATION HISTORY: None ASSESSMENT: 39-year-old female withdrawal family history of breast cancer, negative on genetic testing, found to have multifocal disease in the left breast with extensive DCIS. She underwent bilateral mastectomies with immediate reconstruction and placement of tissue expanders. Final pathologic stage in pT1c, pN0 (sn), M0, ER positive, NC positive, her 2 Rissa negative. Invasive margins were negative. DCIS margin was positive at anterior margin Had been seen by radiation oncology OSH. Recommended observation. Patient is extremely worried about about recurrence and after much reading and deliberation she wants to have radiation therapy in spite of any adverse effect hip may have on her reconstruction. The treatment rationale, side effects, benefits alternatives of radiation therapy to the left chestwall was discussed with her and her who accompanied her today and they appeared to understand agreed to proceed. RADIATION SUMMARY: Course: 1 The patient is a 41 year old female who was simulated for adjuvant radiation therapy to the left chest wall/breast with traffic clerk. Now completed radiation 03/07/2022, as below: Treatment Site Ref. ID Energy Dose/Fx (cGy) #Fx Dose Correction (cGy) Total Dose (cGy) Start Date End Date Elapsed Days Plan_Left Chest wall/breast LT CW BREAST 15X/6X 267 15 / 15 0 4,005 02/08/2022 02/28/2022 20 20_LT CW BST LT CW BOOST 6X 200 5 / 5 0 1,000 03/01/2022 03/07/2022 6 Total: 5,005 02/08/2022 03/07/2022 27 Radiation treatment site: Right chest wall/breast, expanders Radiation start date: 02/08/2022 Radiation completion date: 03/07/2022 Radiation dose: 5005 cGy (4005 cGy/15fx + 1000 cGy/5fx boost, for a total dose of 5005 cGy/20 fx to the boost volume) Radiation dose per fraction: 267 cGy, 200 cGy Number of fractions: 15+5=20 Radiation treatment planninD conformal radiation therapy (3D INDUSTRIAL DESIGN INTERN) Radiation energy: 6 MV photons and 15 MV photons Positioning verification and target localization: orthogonal images and/or portal images and daily Other radiation details: DIBH (deep inspiration breath hold) Concurrent chemotherapy: no ----- ----- ----- ----- ----- ----- ----- ----- ----- ----- The total radiation dose was 5005 cGy in 20 fractions. (4005 cGy/15fx + 1000 cGy/5fx boost, for a total dose of 5005 cGy/20 fx to the boost volume) The patient tolerated radiation therapy very well. At the end of tx course there is mild erythema in the treated left breast/traffic clerk site, only small area of skin breakdown, 1cm in the lower axilla,dry, no discharge. No moist desquamation. Pt also noted mild fatigue. No other acute ornew findings. .Using slivadene cream and aloe gel. The following medications were started or adjusted during radiation therapy: Silvadene Examination at the time of completion of radiation therapy revealed as above... The following imaging studies were obtained during radiation therapy: Nil INTERVAL HISTORY: Seen today in Radiation Oncology Clinic for routine follow-up visit of her left breast cancer, now almost 20 months since completion of her adjuvant radiation therapy to left chest wall /with breast implant, completed 03/07/2022. Since her last visit here 6 months ago on 04/20/2023, she reports she is chronically fatigued with numerous doctor appointments in various places but doing relatively wlell, denies any new health related issues. She has a number of chronic health issues but nothing new or out of the ordinary. She follows with a doctor in [facility] for her pain pump, plastic surgeon in [place], rheumatology in [place],gynecology in a [facility], medical oncology/Dr. Vaughn at [facility] in [place]. She recently had oophorectomy (as she was unable to tolerate tamoxifen), surgery performed at [facility], As recently was treated with Keflex for cellulitis in the left breast a few month back. Medications were reviewed and updated. ZUBROD PERFORMANCE SCALE: 1 restricted in physically strenuous activity but ambulatory and able to carry out work of a light or sedentary nature (light housework or office work) PHYSICAL EXAMINATION: BP 113/78 (BP Site: Right Arm, BP Position: Sitting, BP Cuff Size: Regular) | Pulse 97 | Temp 36.4 C (97.5 F) (Infrared ) | Resp 20 | Wt 79.3 kg (174 lb 12.8 oz) | LMP 10/11/2018 | SpO2 96% Comment: room air, at rest | BMI 29.09 kg/m | BSA 1.91 m Wt Readings from Last 4 Encounters: 10/19/23 79.3 kg (174 lb 12.8 oz) 10/12/23 78.2 kg (172 lb 8 oz) 07/04/23 86.1 kg (189 lb 14.4 oz) 04/20/23 93 kg (205 lb) Weight: weight recently stable General: alert and oriented, no apparent distress, cognition normal, speech normal and swallow normal Lymphatics: no pre-auricular or post-auricular adenopathy, no cervical adenopathy, no supraclavicular adenopathy, no infravicular adenopathy, no axillary adenopathy and no inguinal adenopathy Lungs: air entry good, no clubbing, trachea central, clear to percussion, auscultation and no adventitial breath sounds. (she continues smoke about 10 cigarettes per day, has been trying to stop). Cardiovascular: regular rate and rhythm and no murmurs Breast: no dominant breast masses bilaterally, no visibly or palpably suspicious findings bilaterally. Significant retraction and fibrosis left breast/implant. She is to follow-up with her plastic surgeon shortly. no abnormal masses, no arm edema Abdomen: soft non-tender and non-distended, positive bowel sounds and no hepatosplenomegaly Lower extremities: non-edematous bilaterally RECENT LABS: Results for orders placed or performed in visit on 10/18/23 CBC Result Value Ref Range WBC 3.88 (L) 4.00 - 10.80 K/uL RBC 4.45 3.85 - 5.15 M/uL HGB 13.5 12.0 - 15.3 g/dL HCT 40.1 36.0 - 45.2 % MCV 90.1 81.5 - 97.5 fL MCH 30.3 27.0 - 34.0 pg MCHC 33.7 32.0 - 36.0 g/dL RDW 13.7 11.5 - 15.5 % PLT 191 140 - 400 K/uL MPV 10.3 6.6 - 11.1 fL nRBCs 0 <=0 /100 WBCs Results for orders placed or performed in visit on 10/18/23 DIFFERENTIAL, AUTOMATED Result Value Ref Range WBC 3.88 (L) 4.00 - 10.80 K/uL Neutrophils % 53.5 40.0 - 75.0 % Lymphocytes % 34.8 18.0 - 42.0 % Monocytes % 9.8 1.0 - 11.0 % Eosinophils % 0.8 0.0 - 6.0 % Basophils % 0.8 0.0 - 2.0 % Immature Granulocytes % 0.3 0.0 - 2.0 % Absolute Neutrophils 2.08 1.80 - 7.70 K/uL Absolute Lymphocytes 1.35 1.00 - 4.80 K/ul Absolute Monocytes 0.38 0.00 - 1.10 K/uL Absolute Eosinophils 0.03 0.00 - 0.70 K/uL Absolute Basophils 0.03 0.00 - 0.20 K/uL Absolute Immature Granulocytes 0.01 0.00 - 0.20 K/uL CBC Result Value Ref Range WBC 3.88 (L) 4.00 - 10.80 K/uL RBC 4.45 3.85 - 5.15 M/uL HGB 13.5 12.0 - 15.3 g/dL HCT 40.1 36.0 - 45.2 % MCV 90.1 81.5 - 97.5 fL MCH 30.3 27.0 - 34.0 pg MCHC 33.7 32.0 - 36.0 g/dL RDW 13.7 11.5 - 15.5 % PLT 191 140 - 400 K/uL MPV 10.3 6.6 - 11.1 fL nRBCs 0 <=0 /100 WBCs Results for orders placed or performed in visit on 05/24/20 CBC/DIFF Result Value Ref Range WBC 6.34 4.00 - 10.80 K/uL RBC 4.73 3.85 - 5.15 M/uL HGB 14.7 12.0 - 15.3 g/dL HCT 44.3 36.0 - 45.2 % MCV 93.7 81.5 - 97.5 fL MCH 31.1 27.0 - 34.0 pg MCHC 33.2 32.0 - 36.0 g/dL RDW 13.6 11.5 - 15.5 % PLT 293 140 - 400 K/uL MPV 9.1 6.6 - 11.1 fL NRBC'S 0 0 /100 WBCs Neutrophils % 53.8 40 - 75 % Lymphocytes % 38.0 18 - 42 % Monocytes % 6.0 1 - 11 % Eosinophils % 0.9 0 - 6 % Basophils % 0.8 0 - 2 % IMMATURE GRANULOCYTE 0.5 0 - 2 % Absolute Neutrophils 3.41 1.8 - 7.7 K/uL Absolute Lymphocytes 2.41 1.0 - 4.8 K/uL Absolute Monocytes 0.38 0.0 - 1.1 K/uL Absolute Eosinophils 0.06 0.0 - 0.7 K/uL Absolute Basophils 0.05 0.0 - 0.2 K/uL Absolute Immature Granulocytes 0.03 0.0 - 0.2 K/uL Results for orders placed or performed in visit on 07/04/23 COMPREHENSIVE METABOLIC PANEL Result Value Ref Range BUN 9 6 - 20 mg/dL Creatinine 0.6 0.5 - 1.0 mg/dL Estimated Glomerular Filtration Rate >90 >=60 mL/min Sodium 137 135 - 146 mmol/L Potassium 4.8 3.5 - 5.1 mmol/L Chloride 100 98 - 107 mmol/L CO2 27 22 - 32 mmol/L Anion Gap 10 7 - 15 mmol/L Glucose 123 (H) 70 - 120 mg/dL Albumin 4.4 3.8 - 5.0 g/dL AST 20 10 - 35 U/L Alkaline Phosphatase 108 35 - 130 U/L Bilirubin, Total 0.3 <=1.2 mg/dL Calcium 9.3 8.4 - 10.2 mg/dL Protein 6.5 6.0 - 8.3 g/dL ALT 18 10 - 35 U/L RECENT RADIOGRAPHIC IMAGING: N/a ASSESSMENT: 42 year-old female , family history of breast cancer, negative on genetic testing, found to have multifocal disease in the left breast with extensive DCIS. She underwent bilateral mastectomies with immediate reconstruction and placement of tissue expanders. Final pathologic stage in pT1c, pN0 (sn), M0, ER positive, NC positive, her 2 Rissa negative. Invasive margins were negative. DCIS margin was positive at anterior margin Had been seen by radiation oncology OSH. Recommended observation. Patient extremely worried about about recurrence and after much reading and deliberation she wantedto have radiation therapy in spite of any adverse effect this may have on her reconstruction. S/p adjuvant radiation therapy to the left chest wall/breast reconstruction, completed 03/07/2022. Acute skin reaction settled, has moderate hyperpigmentation. And subsequently retraction/fibrosis in the implant site on the left Was then she was to follow [facility] plastics in the near future, planned for further surgery. Was unable to tolerate adjuvant tamoxifen, underwent oophorectomy in [place]. Status: Clinically JADEN PLAN: The patient will follow-up in Radiation Oncology in 6 months. Follow-up with other physicians is as already scheduled. The patient will contact us in the meantime with questions or concerns. Thank you for having asked us to take part in this patient's care. I spent a total of 30-39 minutes (exact time 32 mins) on the date of service in preparation, delivery, and documentation of the care provided to Shwetha Bolanos excluding any time spent in the performance of separately billed services. Rich Benavidez MD 10/19/2023 documented in this encounter Nursing Notes * Sandee Chappell CMA - 10/19/2023 9:21 AM EDT Chief Complaint Patient presents with Follow Up L breast Patient presents for 6 month return today. She completed 20 fractions to the L chest wall/breast on03/07/22. Patient continues to follow with medical oncology and is scheduled to see them again on 10/29/23. Patient also continues to follow with the surgeon and is planning to have surgery in the fall after smoking cessation. She was working with PT for fluid but it is currently on hold due to finances. Dr. Benavidez was in to see patient and completed a breast exam. She will return to the clinic in 6 months. Hoop Coiler Documentation Provider requested gage designer. Name of gage designer: Sandee Chappell CMA documented in this encounter Plan of Treatment Upcoming Encounters Date Type Department Care Team (Late st Contact Info) Description 12/25/2023 10:30 AM EDT Telemedicine Rheumatology, [place] [address] [place] [address] Agc5, Pharmacist Rheumatology [address] [place] [address] 01/18/2024 2:30 PM EDT Office Visit Rheumatology, [place] [address] [place] [address] Soha Amato MD [address] [place] [address] 04/25/2024 9:00 AM EDT Office Visit Radiation Oncology, [facility] [address] [place] [address] Rich Benavidez MD [address] [facility] [place] [address] 05/22/2024 10:00 AM EDT Office Visit Gynecology/Obstetrics Alexi Roche [address] [place] [address] Romana Streeter CRNP [address] [place] [address] Scheduled Procedures Name Priority Associated Diagnoses Date/Ti [...] this encounter Medical Devices Implanted Type Area [employer] Director Device Identifier Shelf Expiration Date Model / Serial / Lot Alloderm Select 16x20 (320 Units) - [id number] - [id number] Implanted:Qty: 1 on 11/03/2021 by Gera Julien MD at [place] [facility] Right: Breast ALLERGAN 02/26/2023 [id number] / [id number] / [id number] Alloderm Select 16x20 (320 Units) - [id number] - [id number] Implanted:Qty: 1 on 11/03/2021 by Gera Julien MD at [facility] Left: Breast ALLERGAN 04/28/2023 [id number] / [id number] / [id number] [address] [place] Breast College Physics Instructor Implanted:Qty: 1 on 11/03/2021 by Gera Julien MD at [place] [facility] Right: Breast [employer] BREAST IMPLANTS 2024 [facility] / [id number] / [id number] [address] [place] Breast College Physics Instructor Implanted:Qty: 1 on 11/03/2021 by Gera Julien MD at [facility] Left: Breast [employer] BREAST IMPLANTS 2024 [facility]-120H / [id number] / [id number] documented as of this encounter Visit Diagnoses Diagnosis Stage I breast cancer, left (HCC)- Primary documented in this encounter Advance Directives Latest Code Status on File Code Status Date Activated Date Inactivated Comments Full Code 11/03/2021 11:07 AM 11/04/2021 1:17 PM This o rder reflects the patients wishes and were consensually agreed upon. Care Teams Cancer Registrar Relationship Specialty Start Date End Date Ian Morocho MD [address] [place] [address] PCP - General Family Medicine 12/06/22 documented as of this encounter
--- OUTSIDE RECORDS SUMMARY | 2024-04-08 15:25 | External Medical Summary ---
Author Name Unknown Address Unknown Organization [id number]:[facility] [place] [facility] [address] [place] [address] Laboratory Report Ordering Provider Test Date Status ANGELITO HARRIS 10/18/2023 10:14:18 Final Observation Date Value Abnormality Reference (Units ) Status Creatinine 10/18/2023 10:14:18 0.6 0.5-1.0 (mg/dL) Final Glomerular filtration rate/1.73 sq M.predicted [Volume Rate/Area] in Serum, Plasma or Blood by Creatinine-based formula (CKD-EPI) 10/18/2023 10:14:18 >90 >=60 (mL/min) Final eGFR is calculated based on the CKD-EPI 2020 equation Performing Location [facility] [place] [facility] [address] [place] [address]
--- OUTSIDE RECORDS SUMMARY | 2024-04-08 15:25 | External Medical Summary ---
Author Name Unknown Address Unknown Organization [id number]:[facility] [place] [address] [place] [address] Laboratory Report Ordering Provider Test Date Status ANGELITO HARRIS 10/18/2023 10:14:18 Final Observation Date Value Abnormality Reference (Units ) Status Albumin 10/18/2023 10:14:18 4.3 3.8-5.0 (g/dL) Final AST (Aspartate aminotransferase) 10/18/2023 10:14:18 54 Above high normal 10-35 (U/L) Final Alk Phos 10/18/2023 10:14:18 100 35-130 (U/L) Final ALT (Alanine aminotransferase) 10/18/2023 10:14:18 47 Above high normal 10-35 (U/L) Final Bilirubin, Total 10/18/2023 10:14:18 0.3 <=1.2 (mg/dL) Final Bilirubin, Direct 10/18/2023 10:14:18 <0.2 0.0-0.3 (mg/dL) Final Protein 10/18/2023 10:14:18 6.2 6.0-8.3 (g/dL) Final Performing Location [facility] [place] [address] [facility] [address]
--- OUTSIDE RECORDS SUMMARY | 2024-04-08 15:25 | External Medical Summary | Summary of Care ---
Author Name Unknown Organization [facility] Address [address] [place] [address] Phone [phone] Care Team Providers Care Sword Swallower Name Role Phone Ian Morocho MD Primary Care Provid er Reason for Visit * Reason Comments Rheum Follow Up Encounter Details Date Type Department Care Team ([facility] st Contact Info) Description 10/12/2023 11:30 AM EDT Office Visit Rheumatology, [place] [address] [place] [address] Soha Amato MD [address] [place] [address] Ankylosing spondylitis of multiple sites in spine ([facility])*; Encounter for therapeutic drug monitoring; Neutropenia, unspecified type ([facility]) Allergies Active Allergy Reactions Criticality Noted Date Comments Sulfamethoxazole-Trimethoprim Nausea/vomiting 0 04/13/2023 Duloxetine 07/27/2020 MALAISE documented as of this encounter (statuses as of 10/12/2023) Medications Medication Sig Dispensed Refills Start Date [...] as of this encounter (statuses as of 10/12/2023) Active Problems Problem Noted Date Diagnosed Date [...] of test: Expansive testing for breast and ob/gyn nurse cancer risk -- 36 genes Genes Included: [...] trigger point injections Dr. Ramires [facility] [phone] Anxiety 12/26/2013 Depression 12/26/2013 Overview: Reviewed prior [...] as of this encounter (statuses as of 10/12/2023) Resolved Problems Problem Noted Date Diagnosed Date [...] as of this encounter (statuses as of 10/12/2023) Immunizations Name Administration Dates Next Due DTaP [...] Comments:1/2 pack a day,6 yearssmokes electronic cigarette Alcohol Use Standard Drinks/Week Comments [...] Sign Reading Time Taken Comments Blood Pressure 116/70 10/12/2023 11:13 AM EDT Pulse 96 10/12/2023 11:13 AM EDT Temperature 36.7 C (98 F) 10/12/2023 11:13 AM EDT Respiratory Rate - - Oxygen Saturation 98% 10/12/2023 11:13 AM EDT Inhaled Oxygen Concentration - - Weight 78.2 kg (172 lb 8 oz) 10/12/2023 11:13 AM EDT Height - - Body Mass Index 28.71 04/13/2023 3:02 PM EDT documented in this [...] Progress Notes * Soha Amato MD - 10/12/2023 11:30 AM EDT Since Last Visit: Last seen 06/29/2023. She has been on rinvoq since our last visit and had been tolerating it, except for some nausea and headaches. However, currently reviewed lab work done earlier this week including CBC/differential, which showed leukopenia with neutropenia and ANC 680, so I recommended she hold rinvoq. She felt rinvoq was working miraculously for pain in her hip and low back pain/SI pain and much more tolerable and comfortable. Sleeping better. Already noticing worsening pain day 3 off of rinvoq. Still struggling with a lot of fatigue. 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 She developed other symptoms over the years [...] 2012. Seen by Dr. 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 Waldron, his note was reviewed) diagnosed with grade 1 anterior uveitis. She was treated with pred-forte drops at that time. She has not had another episode since then. 2. Cutaneous Ulcers: Notes painful mouth ulcers every 3-4 months as well as painful ulcer in inner labia about every 4 months. These go away on their own. She has apparently seen Clerk To Justice for this and wastold she was negative [...] 2 hours, wiped out by 2:30 pm. [phone], progressed more into chronic pain syndrome and hasn't been able to work. 2010, primary care physician wondered about ankylosing spondylitis with methotrexate and folic acid and trigger point injections, has improved her symptoms by about 40-45%. I am the 3rd work study student she has seen. Saw Dr. Osorio at [facility] and saw Dr. Lazar at [facility]. Lost insurance for a period of time. 3. Raynaud's: For several years in fingers and toes. Symptomatic for an hour. 4. Bowel Symptoms and Reflux: Can have alternating constipation or diarrhea, non-bloody. Reviewed 2005 EGD with esophageal biopsy (chronic inflammation, no eosinophils), gastric biopsy (non-specific inflammation), and small bowel biopsy (villous atrophy, but not with characteristic crypts seen in celiac disease). Of note, her celiac antibodies were negative in 2011 with a normal IgA. She has never [...] normal. 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 She has seen several Rheumatologists for this and I have reviewed their notes, Dr. Osorio (2010 and 2011), Dr. Lazra (2013), and Dr. Weber (2010). They did [...] [place] [...] visit: had double mastectomy for breast cancer ER/NH positive, Her2 negative. Having radiation therapy. Started [...] Is using celebrex. Will be evaluated in [place] with pain management for spinal stimulator and pain pump. All other 10 point ROS completed and negative. Musculoskeletal ROS: . Joint pain and back pain and back stiffness, neck pain Other ROS: . Constitutional: fatigue, weight gain and trouble sleeping . Head normal . Eyes: normal . Ears, nose, throat, mouth: normal . Cardiovascular: normal . Respiratory: normal . Gastrointestinal: normal . Genitourinary: normal . Skin: rash . Neurologic: numbness . Psychiatric: normal . Endocrine: normal . Hematologic/lymphatic: normal . Allergic/immunologic: normal PMH was updated at this visit. Past Medical History: Diagnosis Date Anxiety 12/26/2013 BRCA negative 12/28/2021 Genetic Testing Completed 12/27/2021: Test Results: Negative Type of test: Expansive testing for breast and ob/gyn nurse cancer risk -- 36 genes Genes Included: [...] Surgical History: Procedure Laterality Date BREAST RECONSTRUCTION W/ENVIRONMENTAL AIDE Bilateral 11/03/2021 TISSUE ENVIRONMENTAL AIDE PLACEMENT IN BREAST RECONSTRUCTION performed by Gera Julien MD at [facility] BX LYMPH NODE DEEP AXIL Bilateral 11/03/2021 BIOPSY LYMPH NODE DEEP AXILLARY OPEN performed by Camille Dunne MD at [facility] COLONOSCOPY, DIAGNOSTIC (RECTUM) 11/01/2018 hyperplastic polyps, repeat 5 yrs/COLONOSCOPY FLEXIBLE PROXIMAL DIAGNOSTIC performed by Beatriz Tony MD at [facility] COLPOSCOPY OF CERVIX W/BIOPSY 2003 EGD, FLEXIBLE, DIAGNOSTIC 03/23/2015 acid reflux, sm HH/ESOPHAGOGASTRODUODENOSCOPY (EGD), FLEXIBLE, TRANSORAL, DIAGNOSTIC performed by Brice Manzo MD at [facility] EGD, FLEXIBLE, DIAGNOSTIC 10/28/2018 normal bx, hiatal hernia/ESOPHAGOGASTRODUODENOSCOPY (EGD), FLEXIBLE, TRANSORAL, DIAGNOSTIC performed by Beatriz Tony MD at [facility] EXC BREAST LESION RADMARK Right 12/22/2020 EXCISION OF BREAST LESION RADIOLOGICAL MARKER performed by Camille Dunne MD at OR [facility] HYSTEROSCOPY;ENDOMETRIAL ABLAT 2008 IMPLANT, BIOLOGIC, SOFT TISSUE REINFORCE Bilateral 11/03/2021 IMPLANT, BIOLOGIC, SOFT TISSUE REINFORCE performed by Gera Julien MD at [facility] MAMMOGRAM BREAST NEEDLE BIOPSY CORE RIGHT Right 02/28/2017 Benign MAMMOGRAM BREAST NEEDLE BIOPSY CORE RIGHT Right 09/26/2021 MASTECTOMY, SIMPLE, COMPLETE Bilateral 11/03/2021 MASTECTOMY SIMPLE COMPLETE performed by Camille Dunne MD at [facility] MRI GUIDED BREAST BX RIGHT Right 11/10/2020 complex sclerosing lesion NH TOTAL ABDOMINAL HYSTERECT W/WO RMVL TUBE OVARY 08/09/2020 REMOVAL OF OVARY/OVIDUCT(S) Bilateral 09/2022 endometriosis REMOVAL OF TONSILS, UNDER AGE 11 1988 and adenoidectomy SENTINAL LYMPH NODE IDENTIFICATION, INTRAOP Bilateral 11/03/2021 SENTINAL LYMPH NODE IDENTIFICATION, INTRAOP performed by Camille Dunne MD at OR [facility] SINUS SURGERY PROCEDURE NEC 2010 US GUIDED [...] ONE TABLET BY MOUTH EVERY MORNING 30 Tablet5 NSS 0.9 % SOLN 19.8 mL with [...] Apply to open area 22 g 0 Magnesium 250 MG Oral Tablet Take by mouth daily. (Patient not taking: Reported on 10/12/2023) Rinvoq 15 MG Oral Tablet Extended Release 24 Hour (Upadacitinib ER) Take 1 Tablet by mouth in the morning. (Patient not taking: Reported on 10/12/2023) 30 Tablet 2 No current facility-administered medications for this visit. [...] use: Yes Comment: rare Physical Exam: BP 116/70 | Pulse 96 | Temp 36.7 C (98 F) | Wt 78.2 kg (172 lb 8 oz) | LMP 10/11/2018 | SpO2 98% | BMI 28.71 kg/m | BSA 1.89 m General: alert, fatigued Head: normocephalic, atraumatic Eyes: sclera clear without injection or icterus, no redness Lungs: clear to auscultation bilaterally without wheezes, rales or rhonchi Heart: regular rate & rhythm, +S1, +S2, no murmurs, rubs or gallops Extremities: no clubbing, cyanosis, or edema Neuro: alert and answers questions appropriately Skin: acneform rash on chin, left elbow with non-tender hyperpigmentation with mild scale MUSCULOSKELETAL: -Hands: normal -Wrists: normal -Elbows: normal -Shoulders: normal -Back: diffuse paraspinal muscle tenderness -Hips: normal -Knees: normal -Ankles: normal Assessment: 42 y/o female with history of fibromyalgia and [...] by her oncologist. (Dr. Marilee Tovar at [facility]). Rinvoq significantly improved symptoms for her, however, does have some nausea and headaches, but recent lab work with neutr openia with ANC 680, which is likely medication side effect, prompting us to hold medication. AgainI think this is most likely a medication side effect, rather than a primary hematologic/malignant issue. Will remain off of rinvoq for now and repeat CBC/differential next week. If neutrophils recover, we could consider trying rinvoq again at every other day dosing. ICD-10-CM 1. Ankylosing spondylitis of multiple sites in spine ([facility]) M45.0 2. Encounter for therapeutic drug monitoring Z51.81 3. Neutropenia, unspecified type ([facility]) D70.9 Plan: 1. Cbc with wbc differential next week 2. Continue to hold rinvoq. 3. Will contact patient after labs back to decide on if able to resume at lower dose or next steps if not able to continue rinvoq. 4. Follow-up visit again in 3 months I spent a total of 30-39 minutes (exact time 35 mins) on the date of service in preparation, delivery, and documentation of the care provided to Shwetha Bolanos excluding any time spent in the performance of separately billed services. Note to Drs. Morocho and La Amato MD Associate Department of Rheumatology [facility] documented in this encounter Nursing Notes * Marnie Arciniega, DIGITAL SOLUTION ARCHITECT - 10/12/2023 11:15 AM EDT Patient was instructed to not get up on the exam table/exam chair until directed and assisted by their provider; patient is to remain seated in the chair/ wheelchair/ exam table/ exam chair for fall prevention and safety reasons. Patient is aware to have assistance to step down off exam table/exam chair with personnel. Patient voiced full comprehension of instructions. documented in this encounter Plan of Treatment Upcoming Encounters Date Type Department Care Team (Late st Contact Info) Description 10/19/2023 9:00 AM EDT Office Visit Radiation Oncology, [facility] [address] [place] [address] Rich Benavidez MD [address] [place] [address] 12/25/2023 10:30 AM EDT Telemedicine Rheumatology, [address] [address] Agc5, Pharmacist Rheumatology [address] [place] [address] 01/18/2024 2:30 PM EDT Office Visit Rheumatology, [address] [address] Soha Amato MD [address] [place] [address] 05/22/2024 10:00 AM EDT Office Visit Gynecology/Obstetrics [facility] [address] [facility] [place] [address] BackerRomana CRNP [address] [facility] [place] [address] Scheduled Orders Name Type Priority Associated Diagnoses Orde r Schedule CBC WITH WBC DIFFERENTIAL Lab Routine Neutropenia, unspecified type (HCC) Expected: 10/17/2023 (Approximate), Expires: 10/11/2024 Scheduled Procedures Name Priority Associated Diagnoses Date/Ti [...] Vaccines (2 - Tdap) 02/02/2020 02/01/2010, 12/14/2004 Lipid Panel 12/19/2022 12/19/2017, 12/17/2014 Depression Screening 01/18/2023 01/18/2022 Influenza Vaccine (FLU shot) (#1) 2023 05/16/2022, 05/24/2020, 08/04/2019, Additional history exists COLONOSCOPY-EVERY 5 YRS AGES 18-100 11/02/2023 11/01/2018, 11/01/2018 Diabetes Screening 07/04/2026 07/04/2023, 1 08/02/2021, 05/05/2022, Additional history exists Pap Smear Discontinued 04/13/2023, 01/03/2022 GARDASIL-HPV IMMUNIZATION SERIES Aged Out No longer eligible based on patient's age to complete this topic MENINGOCOCCAL (MENACTRA/MENVEO) Aged Out No longer eligible based on patient's age to complete this topic documented as of this encounter Medical Devices Implanted Type Area Supervisor Accounts Receivable Device Identifier Shelf Expiration Date Model / Serial / Lot Alloderm Select 16x20 (320 Units) - [id number] - [id number] Implanted:Qty: 1 on 11/03/2021 by Gera Julien MD at [facility] Right: Breast ALLERGAN 02/26/2023 [id number] / [id number] / [id number] Alloderm Select 16x20 (320 Units) - [id number] - [id number] Implanted:Qty: 1 on 11/03/2021 by Gera Julien MD at [facility] Left: Breast ALLERGAN 04/28/2023 [id number] / [id number] / [id number] [address] [place] Breast Linux Systems Analyst Implanted:Qty: 1 on 11/03/2021 by Gera Julien MD at [facility] Right: Breast MENTOR BREAST IMPLANTS 2024 [facility] / [id number] [address] [place] Breast Linux Systems Analyst Implanted:Qty: 1 on 11/03/2021 by Gera Julien MD at [facility] Left: Breast MENTOR BREAST IMPLANTS 2024 [facility] / [id number] / [id number] documented as of this encounter Visit Diagnoses Diagnosis Ankylosing spondylitis of multiple sites in spine (HCC)- Primary Ankylosing spondylitis Encounter for therapeutic drug monitoring Neutropenia, unspecified type (HCC) documented in this encounter Advance Directives Latest Code Status on File Code Status Date Activated Date Inactivated Comments Full Code 11/03/2021 11:07 AM 11/04/2021 1:17 PM This o rder reflects the patients wishes and were consensually agreed upon. Care Teams Sword Swallower Relationship Specialty Start Date End Date Ian Morocho MD [address] [place] [address] PCP - General Family Medicine 12/06/22 documented as of this encounter
--- OUTSIDE RECORDS SUMMARY | 2024-04-08 15:25 | External Medical Summary ---
Author Name Unknown Address Unknown Organization [id number]:[facility] [place] [address] [place] [facility] [place] [address] Laboratory Report Ordering Provider Test Date Status SHAKA MURILLO 10/18/2023 10:14:18 Final Observation Date Value Abnormality Reference (Units ) Status Triglyceride 10/18/2023 10:14:18 97 <=174 ( mg/dL) Final Triglyceride Reference Range s (mg/dL):
<150 Acceptable
150-174 Borderline high
175-499 High
>=500 Very high Cholesterol 10/18/2023 10:14:18 210 Above high normal <200 (mg/dL) Final Total Cholesterol Reference Ranges (mg/dL):
<200 Desirable
200-239 Borderline high
>=240 High HDL 10/18/2023 10:14:18 52 >49 (mg/dL ) Final HDL Cholesterol Reference Ra nges (mg/dL):
>=60 High (Desirable)
<50 Low (Undesirable) For Females
<40 Low (Undesirable) For Males NON-HDL CHOLESTEROL 10/18/2023 10:14:18 158 <=159 (mg/dL) Final Non-HDL Cholesterol Referenc e Range (mg/dL):
<100 Target level for high risk ASCVD patient
<130 Optimal for general population
130-159 Near optimal for general population
160-189 Borderline High
190-219 High
>=220 Very High LDL, (calculated) 10/18/2023 10:14:18 139 Above high n ormal <=129 (mg/dL) Final LDL Cholesterol Reference Ra nges (mg/dL):
<70 Target level for high risk ASCVD patient
<100 Optimal for general population
100-129 Near optimal for general population
130-159 Borderline high
160-189 High
>=190 Very high Performing Location [facility] [place] [address] [facility] [address]
--- OUTSIDE RECORDS SUMMARY | 2024-04-08 15:25 | External Medical Summary ---
Author Name Unknown Address Unknown Organization K01:LAB[facility]ATORY [facility] [place] [address] [place] [address] Laboratory Report Ordering Provider Test Date Status SHALONDA ARCINIEGA 10/18/2023 10:14:18 Final Observation Date Value Abnormality Reference (Units ) Status MYCODE SPECIMEN-SST 10/18/2023 10:14:18 Freezing of extracted DNA, whole blood and/or serum. Final Performing Location LABORATORY C - [address] [place] [address]
--- OUTSIDE RECORDS SUMMARY | 2024-04-08 15:25 | External Medical Summary ---
Author Name Unknown Address Unknown Organization K01:[facility] [place] [facility] [address] [facility] [address] Laboratory Report Ordering Provider Test Date Status ANGELITO HARRIS 10/18/2023 10:14:18 Final Observation Date Value Abnormality Reference (Units ) Status WBC, Total 10/18/2023 10:14:18 3.88 Below low normal 4.00-10.80 (K/uL) Final RBC 10/18/2023 10:14:18 4.45 3.85-5.15 (M/uL) Final Hemoglobin 10/18/2023 10:14:18 13.5 12.0-15.3 (g/dL) Final HCT 10/18/2023 10:14:18 40.1 36.0-45.2 (%) Final MCV 10/18/2023 10:14:18 90.1 81.5-97.5 (fL) Final MCH 10/18/2023 10:14:18 30.3 27.0-34.0 (pg) Final MCHC 10/18/2023 10:14:18 33.7 32.0-36.0 (g/dL) Final RDW 10/18/2023 10:14:18 13.7 11.5-15.5 (%) Final Platelets 10/18/2023 10:14:18 191 140-400 (K/uL) Final MPV 10/18/2023 10:14:18 10.3 6.6-11.1 (fL) Final Nucleated erythrocytes/100 leukocytes [Ratio] in Blood by Automated count 10/18/2023 10:14:18 0 <=0 (/100 WBCs) Final Performing Location [facility] [place] [address] [place] [address]
--- OUTSIDE RECORDS SUMMARY | 2024-04-08 15:25 | External Medical Summary | Summary of Care ---
Author Name Unknown Organization [facility] Address [address] [place] [address] Phone [phone] Care Team Providers Care Executive Sous Chef Name Role Phone Ian Morocho MD Primary Care Provid er Reason for Visit * Reason Comments Outpatient Testing Encounter Details Date Type Department Care Team (Late st Contact Info) Description 10/18/2023 10:10 AM EDT Laboratory Laboratory, [place] [address] [place] [address] [place], Laboratory [address], [place] [id number] Encounter for therapeutic drug monitoring; Ankylosing spondylitis of multiple sites in spine ([facility]); [employer] Other*[id number]; Neutropenia, unspecified type ([facility]) Allergies Active Allergy Reactions Criticality Noted Date Comments Sulfamethoxazole-Trimethoprim Nausea/vomiting 0 04/13/2023 Duloxetine 07/27/2020 MALAISE documented as of this encounter (statuses as of 10/18/2023) Medications Medication Sig Dispensed Refills Start Date [...] as of this encounter (statuses as of 10/18/2023) Active Problems Problem Noted Date Diagnosed Date [...] of test: Expansive testing for breast and paper bundler cancer risk -- 36 genes Genes Included: [...] point injections Dr. Ramires [facility] [phone] Anxiety 12/26/2013 Depression 12/26/2013 Overview: Reviewed prior [...] as of this encounter (statuses as of 10/18/2023) Resolved Problems Problem Noted Date Diagnosed Date [...] as of this encounter (statuses as of 10/18/2023) Immunizations Name Administration Dates Next Due DTaP [...] 9:00 AM EDT Office Visit Radiation Oncology, [facility] [address] [place] [address] Rich Benavidez MD [address] [place], [place] [address] [place] [address] 12/25/2023 10:30 AM EDT Telemedicine Rheumatology, [place] [address] [place] [address] Agc5, Pharmacist Rheumatology [facility] [address] [place], [place] [id number] 01/18/2024 2:30 PM EDT Office Visit Rheumatology, [place] [address] [place] [address] Soha Amato MD [address] [place] [address] 05/22/2024 10:00 AM EDT Office Visit Gynecology/Obstetrics [facility] [address] [facility] [place] [address] BackerRomana CRNP [address] [place] [address] Pending Results Name Type Priority Associated Diagnoses Date /Time CBC WITH WBC DIFFERENTIAL Lab Routine Encounter for therapeutic drug monitoring 10/18/2023 10:14 AM EDT HEPATIC FUNCTION PANEL Lab Routine Encounter for therapeutic drug monitoring 10/18/2023 10:14 AM EDT CREATININE Lab Routine Encounter for therapeutic drug monitoring 10/18/2023 10:14 AM EDT LIPID PANEL WITH DIRECT LDL IF TG IS HIGH Lab Routine Ankylosing spondylitis of multiple sites in spine (HCC) 10/18/2023 10:14 AM EDT MYCODE SUBSEQUENT ADULT Lab Routine [employer] Other*[id number] 10/18/2023 10:14 AM EDT CBC Lab Routine Encounter for therapeutic drug monitoring 10/18/2023 10:14 AM EDT DIFFERENTIAL, AUTOMATED Lab Routine Encounter for therapeutic drug monitoring 10/18/2023 10:14 AM EDT MYCODE SST1 Lab Routine [employer] Other*[id number] 10/18/2023 10:14 AM EDT MYCODE SST2 Lab Routine [employer] Other*[id number] 10/18/2023 10:14 AM EDT Scheduled Procedures Name Priority Associated [...] this encounter Medical Devices Implanted Type Area Software Project Manager Device Identifier Shelf Expiration Date Model / Serial / Lot Alloderm Select 16x20 (320 Units) - [id number] - [id number] Implanted:Qty: 1 on 11/03/2021 by Grea Julien MD at [place] [facility] Right: Breast ALLERGAN 02/26/2023 [id number] / [id number] / [id number] Alloderm Select 16x20 (320 Units) - [id number] - [id number] Implanted:Qty: 1 on 11/03/2021 by Gera Julien MD at OR [facility] Left: Breast ALLERGAN 04/28/2023 [id number] / [id number] / [id number] [address] [place] Breast Mail Processing Associate Implanted:Qty: 1 on 11/03/2021 by Gera Julien MD at [facility] Right: Breast MENTOR BREAST IMPLANTS 2024 [facility] / [id number] / [id number] [place] Breast Mail Processing Associate Implanted:Qty: 1 on 11/03/2021 by Gera Julien MD at [facility] Left: Breast MENTOR BREAST IMPLANTS 2024 [facility] / [id number] / [id number] documented as of this encounter Visit Diagnoses Diagnosis Encounter for therapeutic drug monitoring Ankylosing spondylitis of multiple sites in spine (HCC) Ankylosing spondylitis [employer] Other*[id number] Neutropenia, unspecified type (HCC) documented in this encounter Advance Directives Latest Code Status on File Code Status Date Activated Date Inactivated Comments Full Code 11/03/2021 11:07 AM 11/04/2021 1:17 PM This o rder reflects the patients wishes and were consensually agreed upon. Care Teams Executive Sous Chef Relationship Specialty Start Date End Date Ian Morocho MD [address] [place] [address] PCP - General Family Medicine 12/06/22 documented as of this encounter
--- OUTSIDE RECORDS SUMMARY | 2024-04-08 15:25 | External Medical Summary ---
Author Name Unknown Address Unknown Organization K01:LABORATORY [facility] [place] [address] [place] [address] Laboratory Report Ordering Provider Test Date Status SHALONDA ARCINIEGA 10/18/2023 10:14:18 Final Observation Date Value Abnormality Reference (Units ) Status MYCODE SPECIMEN-SST 10/18/2023 10:14:18 Freezing of extracted DNA, whole blood and/or serum. Final Performing Location LABORATORY C - [address] [place] [address]
--- OUTSIDE RECORDS SUMMARY | 2024-04-08 15:25 | External Medical Summary ---
Author Name Unknown Address Unknown Organization [id number]:[facility] - [address] [facility] [address] Laboratory Report Ordering Provider Test Date Status ANGELITO HARRIS 10/18/2023 10:14:18 Final Observation Date Value Abnormality Reference (Units ) Status SYNC LEUKOCYTES IN BLOOD BY AUTOMATED COUNT 10/18/2023 10:14:18 3.88 Below low normal 4.00-10.80 (K/uL) Final Segs 10/18/2023 10:14:18 53.5 40.0-75.0 (%) Final Lymphs % 10/18/2023 10:14:18 34.8 18.0-42.0 (%) Final Monos 10/18/2023 10:14:18 9.8 1.0-11.0 (%) Final Eosinophils 10/18/2023 10:14:18 0.8 0.0-6.0 (%) Final Basos 10/18/2023 10:14:18 0.8 0.0-2.0 (%) Final Immature Granulocyte, Percent 10/18/2023 10:14:18 0.3 0.0-2.0 (%) Final Absolute Segs 10/18/2023 10:14:18 2.08 1.80-7.70 (K/uL) Final Lymphs, absolute 10/18/2023 10:14:18 1.35 1.00-4.80 (K/ul) Final Monos, Abs 10/18/2023 10:14:18 0.38 0.00-1.10 (K/uL) Final Eos, Abs 10/18/2023 10:14:18 0.03 0.00-0.70 (K/uL) Final Basos, Abs 10/18/2023 10:14:18 0.03 0.00-0.20 (K/uL) Final Immature Granulocytes, Number 10/18/2023 10:14:18 0.01 0.00-0.20 (K/uL) Final Performing Location [facility] - [address] [facility] [address]
--- NOTE | 2024-04-08 15:47 | Electrocardiogram Report ---
Test Reason : Blood Pressure : */* mmHG Vent. Rate : 70 BPM Atrial Rate : 70 BPM P-R Int : 140 ms QRS Dur : 90 ms QT Int : 448 ms P-R-T Axes : 50 45 51 degrees QTcB Int : 483 ms Normal sinus rhythm RSR' or QR pattern in V1 suggests right ventricular conduction delay Poor R wave progression, consider anterior CA vs. lead placement vs. LVH T wave abnormality, consider lateral ischemia Abnormal ECG When compared with ECG of 09-Aug-2021 18:24, Nonspecific T wave abnormality has replaced inverted T waves in Inferior leads T wave inversion now evident in Anterior leads Confirmed by Brice Madrid ([id number]) on 04/08/2024 3:47:20 PM Referred By: REFERRED SELF Confirmed By: Brice Madrid
[2024-04-08] MEDS ORDERED: ONDANSETRON INJ 2 MG/ML 2 ML VIAL IV PRN (17:03)
[2024-04-08] MEDS ORDERED: ALPRAZolam 0.5 MG TABLET PO PRN (17:03)
[2024-04-08] MEDS ORDERED: POLYETHYLENE (MIRALAX) 17 GM PACK PO PRN (17:03)
[2024-04-08] MEDS ORDERED: ACETAMINOPHEN 325 MG TAB PO PRN (17:03)
[2024-04-08] MEDS ORDERED: oxyCODONE HCL IR 5 MG TAB (IMMEDIATE RELEASE) PO PRN ×3 (17:03→22:02)
[2024-04-08] MEDS ORDERED: HYDROCODONE/ACETAMOPHEN 5/325MG TAB PO PRN (17:03)
[2024-04-08] MEDS: GABAPENTIN 300 MG CAP PO SCH (17:24)
[2024-04-08] MEDS: PSEUDOEPHEDRINE HCL 30 MG TAB PO PRN (18:33)
[2024-04-08] MEDS: PANTOprazole 40 MG TAB PO SCH (20:19)
[2024-04-08] MEDS: CLOPIDOGREL BISULFATE 75 MG TAB PO SCH (20:20)
[2024-04-08] MEDS: SODIUM CHLORIDE 0.65% NA SOLN 45 ML (OCEAN) SCH (20:26)
[2024-04-08] MEDS: ACETAMINOPHEN 500 MG TAB PO SCH (22:30)
[2024-04-08] MEDS: CITALOPRAM 40 MG TAB PO SCH (22:30)
[2024-04-09] MEDS: KETOROLAC 30 MG/ML VIAL IV PRN (05:42)
[2024-04-09 06:36] LABS: BUN Creatinine Ratio 15.1 (10-20); Creatinine Clr Calc Pharmacy 138.1 ml/min; Est GFR (African American) 133.8 ml/min; Est GFR (Non-African American) 115.5 ml/min; Potassium 3.9 mmol/L (3.5-5.1)
--- NOTE | 2024-04-09 07:04 | Hospitalist Progress Note ---
Date of Service April 09, 2024 Assessment & Plan (1) Hypotension: (2) Pyelonephritis: Plan Pyelonephritis - with UTI, bilateral pyelitis, and left pyelonephritis seen on CT scan - patient with increased urinary frequency, urinary incontinence, abdominal pain, low back pain, and chills on admission - UA on admission showed trace blood and WBCs - 2 g of IV Rocephin given in ER - WBC on admission 6.32, hypotensive, other VSS; no other signs of systemic infection at this time - CRP on admission 15.30, lactate 0.7 - Zofran as needed, QTc 483 on admisson - Continue with Ceftriaxone 2g IV Q24h - Urine culture pending - Holding home Rinvoq Hypotension - likely secondary to infection - PSH office pressures appear to be 100/70s during regular visits - asymptomatic - continue to monitor for MAP < 60 Chronic stable diagnoses: Anxiety/depression - Continue Xanax prn and Celexa Gastroparesis - continue omeprazole and MiraLAX. Factor 5 Liden - continue plavix Ankylosing spondylitis - Continue hydrocodone, holding Rinvoq at this time VTE ppx: continue home plavix and SCDs Admission and Anticipated Discharge Date Admission Date: April 08, 2024 Supervising Physician Co-Signing Physician Notes I personally examined the patient and verified all buchanan points of history and exam, discussed case, and agree with decision making with Dr Lackey feeling better overall. Still very weak. Vitals noted, in general she is awake and alert pleasant no distress. HEENT normocephalic atraumatic mucous membranes moist. Breathing unlabored no accessory muscle use good effort. Skin without rashes pallor or icterus. Neuro without focal deficits. Pyelonephritisimproving. Continue ceftriaxone. POTSseems to be exacerbating her symptomsnot surprising given POTS physiology would probably be accentuated by the physiologic response to an infectionIV fluids for now. Discussed compression and/or midodrine if needed. Otherwise as above. DVT prophylaxisambulation Subjective Pt states that her symptoms of some dysuria and back pain started Sunday of last week. She states that today she is feeling maybe just a little bit better but still feels very fatigued and not much of an appetite yet. No chest pain or SOB. No nausea or vomiting. She does note a hx of UTIs in the past. Still having chills and sweats. Review of Systems Review of Systems: Per HPI. Physical Exam Physical Exam: General:Alert and oriented, no acute distress, fatigued appearing this morning Cardio: Regular rate and rhythm, Resp:Lungs clear to auscultation b/l, no wheezes or rhonchi, GI: Soft and nontender Skin: Warm, pink, dry, Results & Data Results & Data Vital Signs (Past 12 Hours) Vital Signs Temp Pulse Pulse Resp BP Pulse Ox O2 Del Method 04/09/24 04:00 36.9 C 79 18 96/54 L 97 Room Air 04/08/24 23:00 36.9 C 91 H 18 92/52 L 95 Room Air 04/08/24 21:48 96 H 04/08/24 19:30 36.7 C 82 18 97/54 L 96 Room Air Resident Activity Tracking Resident Involvement: Resident Care Provided Care Provided: Adult Hospital Medicine
[2024-04-09 07:32] LABS: Hematocrit (blood only) 29.7 % (37.0-47.0); Mean Corpuscular Hgb Conc 33.7 g/dL (32.0-36.0); Mean Corpuscular Volume 86.1 fL (80.0-100.0); Mean Platelet Volume 9.8 fL (9.4-12.4); Platelet Count 142 K/uL (130-400); RDW Coefficient of Variation 14.5 % (11.5-14.5); RDW Standard Deviation 44.9 fL (36.4-46.3); Red Blood Count 3.45 M/uL (4.20-5.40); White Blood Count 5.11 K/ul (4.8-10.8)
--- NOTE | 2024-04-09 07:54 | Billing Data ---
Date of Service April 08, 2024 Coding Level of Care Code 51585 INT INP/OBS CARE
[2024-04-09] MEDS ORDERED: CITALOPRAM 40 MG TAB PO SCH (09:00)
[2024-04-09] MEDS: cefTRIAXone SODIUM 2,000 MG/50 ML BAG IV SCH (13:36)
--- NOTE | 2024-04-09 17:55 | Billing Data ---
Date of Service April 09, 2024 Coding Level of Care Code 27337 SUB INP/OBS CARE MIN
--- NOTE | 2024-04-09 17:55 | Billing Data ---
Date of Service April 09, 2024 Coding Level of Care Code 97813 SUB INP/OBS CARE MIN
[2024-04-09] MEDS: LACTATED RINGER'S 1,000 ML IV SCH (18:17)
--- NOTE | 2024-04-10 06:43 | Hospitalist Progress Note ---
Date of Service April 10, 2024 Assessment & Plan (1) Hypotension: (2) Pyelonephritis: Plan Pyelonephritis - with UTI, bilateral pyelitis, and left pyelonephritis seen on CT scan - patient with increased urinary frequency, urinary incontinence, abdominal pain, low back pain, and chills on admission - UA on admission showed trace blood and WBCs - 2 g of IV Rocephin given in ER - WBC on admission 6.32, hypotensive, other VSS; no other signs of systemic infection at this time - CRP on admission 15.30, lactate 0.7 - Zofran as needed, QTc 483 on admisson - Continue with Ceftriaxone 2g IV Q24h - Urine culture pending - Holding home Rinvoq Hypotension - likely secondary to infection - PSH office pressures appear to be 100/70s during regular visits - asymptomatic - continue to monitor for MAP < 60 Chronic stable diagnoses: Anxiety/depression - Continue Xanax prn and Celexa Gastroparesis - continue omeprazole and MiraLAX. Factor 5 Liden - continue plavix Ankylosing spondylitis - Continue hydrocodone, holding Rinvoq at this time VTE ppx: continue home plavix and SCDs Admission and Anticipated Discharge Date Admission Date: April 09, 2024 Review of Systems Review of Systems: Per HPI. Physical Exam Physical Exam: General:Alert and oriented, no acute distress, fatigued appearing this morning Cardio: Regular rate and rhythm, Resp:Lungs clear to auscultation b/l, no wheezes or rhonchi, GI: Soft and nontender Skin: Warm, pink, dry, Results & Data Results & Data Vital Signs (Past 12 Hours) Vital Signs Temp Pulse Pulse Resp BP BP Pulse Ox 04/10/24 03:11 37.1 C 83 17 102/69 96 04/09/24 22:48 36.7 C 80 16 95/59 L 96 04/09/24 22:30 75 04/09/24 21:18 04/09/24 19:41 36.7 C 70 16 96/59 L 92/56 L 96 O2 Del Method 04/10/24 03:11 Room Air 04/09/24 22:48 Room Air 04/09/24 22:30 04/09/24 21:18 Room Air 04/09/24 19:41 Room Air
[2024-04-10 07:45] LABS: Hematocrit (blood only) 26.9 % (37.0-47.0); Hemoglobin 9.4 g/dl (12.0-16.0); Mean Corpuscular Hemoglobin 29.6 pg (25.0-34.0); Mean Corpuscular Hgb Conc 34.9 g/dL (32.0-36.0); Mean Corpuscular Volume 84.6 fL (80.0-100.0); Mean Platelet Volume 10.6 fL (9.4-12.4); Platelet Count 155 K/uL (130-400); RDW Coefficient of Variation 14.4 % (11.5-14.5); RDW Standard Deviation 44.5 fL (36.4-46.3); Red Blood Count 3.18 M/uL (4.20-5.40)
[2024-04-10 08:16] VITALS: RESP 18
[2024-04-10 08:18] LABS: BUN Creatinine Ratio 10.9 (10-20); Calcium 8.2 mg/dl (8.6-10.3); Creatinine Clr Calc Pharmacy 159.2 ml/min; Est GFR (African American) 140.2 ml/min; Potassium 4.1 mmol/L (3.5-5.1)
--- NOTE | 2024-04-10 10:48 | Discharge Summary ---
Date of Service April 10, 2024 Admission HPI Per Admitting Provider Patient is a 43-year-old with a past medical history of fibromyalgia, endometriosis, gastroparesis, ankylosing spondylitis, depression, anxiety, factor 5 liden, and breast cancer s/p double mastectomy. She presents today with ongoing UTI symptoms since Sunday last week. She stated that it started with increasing urinary frequency on Sunday. By Sunday she started to have constant abdominal and low back pain along with urinary incontinence. She has felt feverish on and off; with sweats and chills. Last night was her worst episode of chills. She also has had headaches on and off since her symptoms began on Sunday. On Sunday she started drinking liquid IV to help with hydration. She has had a history of UTIs that felt similar, but never pyelonephritis. She denies dizziness, lightheadedness, nausea, vomiting, swelling, numbness, and tingling. Her appetite has not been well since symptoms began about one week ago. She has chronic constipation which she takes Miralax as needed at home. She was on her way to her cardiology appointment this morning to be assessed for POTS disease, but came to the ER instead. She currently takes Rinvoq for her ankylosing spondylitis, along with daily hydrocodone. She take Xanax for anxiety about 2-3 times per week. She had a history of breast cancer in which she has a double mastectomy in 2021. She was a former smoker who quit in December of this year, she smoke 1 ppd for 20 years. She does not drink alcohol or use illicit drugs. She took her home medications last night, but not this morning. She quit taking her Rinvoq 2 days ago due to her UTI like symptoms. She wishes to be full code at this time. Admission Exam Per Admitting Provider The patient is awake, alert and oriented 3, well developed and well nourished, normocephalic and atraumatic, in no acute distress. Non-toxic appearing. HEENT- EOMI, mucous membranes moist. Hearing grossly intact. Heart-normal S1 and S2. No murmurs, rubs or gallops. Lungs-clear bilaterally, no respiratory distress, no accessory muscle use. Abdomen-normal bowel sounds and soft. No ascites noted. Non-tender. No CVA tenderness. Extremities- no clubbing, cyanosis, or edema. Rheumatologic-normal range of motion. Principal Diagnosis Pyelonephritis Discharge Exam General:Alert and oriented, no acute distress, more energetic appearing today Cardio: Regular rate and rhythm, Resp:Lungs clear to auscultation b/l, no wheezes or rhonchi, GI: Soft and nontender Skin: Warm, pink, dry, Discharge Data Allergies Allergy/AdvReac Type Severity Reaction Status Date / Time No Known Allergies Allergy Unknown Verified 12/06/21 08:25 Consultations 04/08/24 12:37 ED Decision to Admit Stat Ordered Studies 04/08/24 10:59 CT Abd and Pelvis [CT abd pelvis IV con only] Stat Hospital Course (1) Hypotension: (2) Pyelonephritis: Plan Pyelonephritis - with UTI, bilateral pyelitis, and left pyelonephritis seen on CT scan - patient with increased urinary frequency, urinary incontinence, abdominal pain, low back pain, and chills on admission - UA on admission showed trace blood and WBCs - treated with Ceftriaxone 2g IV Q24h, will discharge with 8 more days of cefpodoxime for about 10 day course of antibiotics - Urine culture negative but started after antibiotics - Holding home Rinvoq fur duration of antibiotic regime Hypotension - likely secondary to infection +/- POTS - PSH office pressures appear to be 100/70s during regular visits - asymptomatic - MAP maintained >65 throughout stay - counseled prior to discharge on fluid goals and salt loading Total Time Total Time Spent Total Time Spent (In Minutes): <30 Discharge Plan Discharge Items Patient Disposition: Home - Self-Care Reason For Visit: UTI/PYELONEPHRITIS Discharge Diagnosis: Pyelonephritis Activity: Resume your previous activity Non-emergency contact: Primary Care Provider Call non-emergency contact if: you have any medication questions, your symptoms worsen and your temperature is above 101.5 Follow-up/Referrals: Ian Morocho MD [Primary Care Provider] - (PLEASE CALL YOUR PRIMARY CARE PROVIDER TO SCHEDULE A HOSPITAL DISCHARGE FOLLOW-UP APPOINTMENT WITHIN 7-10 DAYS) Diet: Regular Addtl Attending Provider Instructions: You were admitted to the hospital for a kidney infection (which we call pyelonephritis, which is in contrast to a bladder infection which is further down and referred to as a urinary tract infection/UTI, although the bacteria is typically the same in both cases.) We treated you with IV antibiotics to start and you will continue with an equivalent oral version for about the next 8 days for a full 10 day course of antibiotics. While UTIs are very common and only need an oral antibiotic, infections that have ascended up to the kidneys causing pyelonephritis generally require a few doses of IV antibiotics before an oral version can be started. At this point, as you are continuing to improve by the day and as eating and drinking has improved, we feel it is safe for you to go home and finish your antibiotic course at home. You should continue to keep very well hydrated, 70-80 ounces of noncaffeinated fluids daily. As we talked about with POTS, you may also notice that you feel better if you drink fluids with electrolytes or increase your overall salt intake, as this will help your body hold onto more of the water you drink in the blood vessels. You may also want to try compression stockings as well, the more official medical grade ones tend to work better but are much more tedious to put on. You can try ones off of [employer] or from any pharmacy first to see how you tolerate them before graduating to tighter ones that may provide more relief if you are able to. Please plan to follow up with a family doctor sometime at the beginning or middle of next week. Please call your family doctor and let them know you have been in the hospital so you can get. If symptoms worsen, you get a fever above 100.5 F over this upcoming weekend or are unable to tolerate eating and drinking, please return to the hospital. Your next dose of antibiotic will be tonight. Pending Studies at Discharge: No Stand-Alone Forms: [facility] Medications and DC Order Prescriptions: New cefpodoxime 200 mg tablet 200 mg PO BID 8 Days Qty: 16 0RF Rx Instructions: must administer with a meal/food Continued cholecalciferol (vitamin D3) 50 mcg (2,000 unit) capsule 50 mcg PO DAILY vitamin B complex [B Complex-Vitamin B12] Tablet 1 tab PO DAILY clopidogrel [Plavix] 75 mg Tablet 75 mg PO HS omeprazole 40 mg Capsule,Delayed Release(Dr/Ec) 40 mg PO HS alprazolam [Xanax] 0.5 mg Tablet 0.5 mg PO DAILY PRN (Reason: Anxiety) citalopram [Celexa] 40 mg Tablet 40 mg PO DAILY hydrocodone-acetaminophen 5-325 mg Tablet 1 tab PO DIRECTED PRN (Reason: Pain) gabapentin 100 mg capsule 300 mg PO TID Held Rinvoq tablet 15 mg PO Q OTHER DAY Hold Instructions: Resume on 04/18/24. Hold this medication until your antibiotic course is completed. Once you have finished your antibiotic, you may restart this medication the next day. Discharge Orders: Discharge Order (Routine); Ordered 04/10/24 Ordered By: Michelle Lackey Admission Data Admit Date/Time: 04/09/24 17:52 Attending Provider: Stan Diehl Admit Provider: Stan Diehl Primary Care Provider: Ian Morocho Other Providers: Merrill Garcia Other Interventions: Discharge Summary Assessment (RN) Last Done: 04/10/24 12:07 Supervising Physician Co-Signing Physician Notes I personally examined the patient and verified all buchanan points of history and exam, discussed case, and agree with decision making with Dr Lackey . Vitals noted, in general she is awake and alert pleasant no distress. HEENT normocephalic atraumatic mucous membranes moist. Breathing unlabored no accessory muscle use good effort. Skin without rashes pallor or icterus. Neuro without focal deficits. Pyelonephritisimproving. safe for home on p.o. antibiotics. Discussed POTS and management again as well. DVT prophylaxisambulation Resident Activity Tracking Resident Involvement: Resident Care Provided Care Provided: Adult Hospital Medicine
[2024-04-10 12:31] VITALS: BP 124/84; PULSE 82; TEMP 98.4; O2SAT 97
--- NOTE | 2024-04-10 18:26 | Billing Data ---
Date of Service April 10, 2024 Coding Level of Care Code 27567 IN/OBS DISCH 30 MIN/LESS
== END 2024-04-10 12:57 | disposition home or self-care (01) | DRG 690 ==
LOC: ED 10:44 → 2N 10:44 → SUATTDRO 13:33 → 2N 16:21

== ENCOUNTER 2025-05-08 12:05 | Inpatient (IN) ==
--- NOTE | 2025-05-08 12:37 | XRay Report ---
XR chest 1V portable CLINICAL HISTORY: Sepsis COMPARISON STUDY: 08/09/2021 FINDINGS: Heart size and pulmonary vasculature are normal. Multiple surgical clips overlie the mid ch est. No consolidation or pleural effusion seen. No pneumothorax. IMPRESSION: No acute findings. ACT 112: Negative or not required by law. Electronically signed by: Gurmeet Oh M.D. 05/08/2025 12:34 PM
[2025-05-08] MEDS: cefTRIAXone SODIUM 2,000 MG/50 ML BAG IV STA (12:38)
[2025-05-08] MEDS: SODIUM CHLORIDE 0.9% 1,000 ML IV SCH ×2 (12:39→18:10)
[2025-05-08 12:44] LABS: Hematocrit (blood only) 39.3 % (37.0-47.0); Hemoglobin 13.4 g/dl (12.0-16.0); Immature Granulocytes # (auto) 0.07 K/uL (0.01-0.20); Immature Granulocytes % (auto) 0.8 %; Mean Corpuscular Hemoglobin 29.3 pg (25.0-34.0); Mean Corpuscular Volume 85.8 fL (80.0-100.0); Platelet Count 158 K/uL (130-400); RDW Standard Deviation 42.6 fL (36.4-46.3); Red Blood Count 4.58 M/uL (4.20-5.40); White Blood Count 9.26 K/ul (4.8-10.8)
[2025-05-08 13:03] LABS: Alanine Aminotransferase 8.0 U/L (7-52); Albumin Level 3.7 gm/dl (3.4-5.0); Alkaline Phosphatase 108.0 U/L (34-104); Anion Gap 10.0 (3-11); Bilirubin,Total 0.8 mg/dl (0.2-1.0); Blood Urea Nitrogen 8.0 mg/dl (6-23); Calcium 8.8 mg/dl (8.6-10.3); Carbon Dioxide 24.0 mmol/L (21-32); Chloride 98.0 mmol/L (98-107); Creatinine Clr Calc Pharmacy 106.1 ml/min; Glucose 133.0 mg/dl (70-99(Fasting)); Magnesium 1.4 mg/dl (1.7-2.4); Potassium 3.5 mmol/L (3.5-5.1); Sodium 132.0 mmol/L (136-145); Total Protein 6.8 gm/dl (6.0-8.3)
--- NOTE | 2025-05-08 13:06 | Emergency Department Note ---
Impression & Plan UTI (urinary tract infection), Pyelonephritis, Sepsis ED Provider Note NAME: WILLIS GUERRA AGE: 44 SEX: F : 1980 ARRIVES VIA: Walk-In INFORMANT: [Patient][, ] ED PROVIDER(S): [Jena Nicholson MD] CHIEF COMPLAINT: Flank pain HPI: This is a 44-year-old female presented for flank pain, chills, fever. Patient notes that for the past 5 to 7 days she has had UTI type symptoms. She has urgency, frequency and dysuria. She took at home urine test that showed white blood cells in her urine. She began having symptoms that worsened in the past 2 days including fevers and chills. She want to come yesterday but she felt so weak and tired that she could not get out the door. Her sister brings her in today. She states she felt similar to when she had a UTI previously requiring inpatient admission. 3 weeks ago patient had an immunologic injection for her ankylosing spondylitis. ROS: See above HPI for pertinent positives & negatives. A total of [10] systems reviewed and were otherwise negative. PAST MEDICAL HISTORY: [See Below] PAST SURGICAL HISTORY: [See Below] FAMILY HISTORY: [See Below] SOCIAL HISTORY: [See Below] HOME MEDICATIONS: [See Below] ALLERGIES: [See Below] VITALS: See Below PHYSICAL EXAMINATION: General: resting comfortably in no acute distress Head: Normocephalic and atraumatic Eyes: Normal inspection, extraocular muscles intact Ear, nose, throat: Normal external exam Neck: Normal range of motion Respiratory: lungs clear to auscultation bilaterally Cardiovascular: Regular rate/rhythm, no murmur GI: soft, nontender, no guarding or rebound, bilateral CVA tenderness Extremities: nontender, moves all extremities Neuro: The patient awake and alert, appropriately conversive, no focal deficits, symmetric faces Skin: Warm, dry, and intact MEDICAL DECISION MAKING: This is a 44-year-old female presenting for flank pain, chills she has a UTI. She feels like she has a bad UTI/infection. Will do screening blood work. Patient is tachycardic, rate 140s at triage. 120s in the room here. Blood pressure borderline 99/73 here. Will give fluid resuscitation and empiric antibiotics, ceftriaxone. - Bloodwork is reviewed showing no significant leukocytosis, anemia, electrolyte or creatinine abnormality. Slowly elevated lactic acid level, significant elevated procalcitonin -Urinalysis significantly positive for infection. CT imaging confirms cystitis, pyelonephritis and pyelitis bilaterally -Patient has improved symptoms after 2 L normal saline as well as ceftriaxone. -Will admit the patient for urosepsis under Dr. Pizano Differential diagnosis: Sepsis, pyelonephritis, pyelitis, renal colic, diverticulitis, appendicitis, cholecystitis Independent History obtained from: Sister Diagnostics interpreted by me: ECG: ECG independently interpreted by me with sinus tachycardia rate of 127 [normal KS], [normal QRS], [normal QTc], [no ST segment elevations consistent with STEMI criteria] T wave abnormalities in the inferior lateral leads Cardiac Monitoring: An order was placed for continuous cardiac monitoring. The monitor shows a rate of 89 with sinus rhythm. Critical Care Note: I have personally spent 36 minutes of critical care time in the direct management of this patient. This includes bedside care, interpretation of diagnostic studies, and testing, discussion with consultants, patient, and family members, and other required patient management activities. This 36 minutes is in excess of all separately billable procedures. Past Med/Surg History Problem List (Updated 05/08/25 @ 17:40 by Jena Nicholson MD) Sepsis (Acute) Pyelonephritis (Acute) UTI (urinary tract infection) (Acute) Sepsis Hypomagnesemia Hypotension Hyponatremia (Acute) Hypokalemia (Acute) Pyelonephritis (Acute) Malignant neoplasm of overlapping sites of left breast in female, estrogen receptor positive (Chronic 09/26/21) Thumb laceration (Acute) Headache (Acute) Arthritis (Chronic) COVID-19 (Acute) Encounter for pre-operative examination Medical History Dysautonomia orthostatic hypotension syndrome History of TIA (transient ischemic attack) Acute hypotension Endometriosis Chronic back pain Gastroparesis Fibromyalgia Ankylosing spondylitis Depression Anxiety Factor 5 Leiden mutation, heterozygous reason for plavix Surgical History H/O: hysterectomy 07/2020 H/O bilateral mastectomy History of right breast biopsy benign History of left breast biopsy benign History of endometrial ablation History of colonoscopy with polypectomy History of esophagogastroduodenoscopy (EGD) History of oral surgery History of wisdom tooth extraction History of tonsillectomy and adenoidectomy Hx of sinus surgery Family History Father Family history of diabetes mellitus Mother Cancer breast Grandmother (Maternal) Cancer breast Sister Cancer breast Other No family history of adverse response to anesthesia Social History Smoking Status: Former smoker Tobacco Type: Cigarettes Cigarettes Per Day: 4 per day; Second Hand Exposure: No; Do You Dip or Chew Tobacco: No; Hx Alcohol Use: No Hx Substance Use: No Preferred Language: Dominican Communication Ability: Effective Hearing Ability: Normal Hand Buffer Required: No Beliefs That Will Affect Care: None marital status: Current Living Situation: Family Current Living Situation Comment: Lives with and daughter current occupational status: disabled Feels Safe at Home: Yes Diet: regular during the past year weight has: remained stable Physical Activity Frequency: Does not Exercise Assistive Devices: Cane, Raised Toilet Seat and Other Allergies Allergies Allergy/AdvReac Type Severity Reaction Status Date / Time No Known Allergies Allergy Unknown Verified 12/06/21 08:25 Home Meds Home Medications Medication Instructions Recorded Confirmed alprazolam 0.5 mg tablet (Xanax) 0.5 mg PO DAILY PRN Anxiety 01/30/20 05/08/25 clopidogrel 75 mg tablet (Plavix) 75 mg PO HS 01/30/20 05/08/25 omeprazole 40 mg capsule,delayed 40 mg PO HS 01/30/20 05/08/25 release citalopram 40 mg tablet (Celexa) 40 mg PO DAILY 08/09/21 05/08/25 cholecalciferol (vitamin D3) 50 50 mcg PO DAILY 12/06/21 05/08/25 mcg (2,000 unit) capsule vitamin B complex (B 1 tab PO DAILY 12/06/21 05/08/25 Complex-Vitamin B12 tablet) midodrine 2.5 mg tablet 2.5 mg PO BID 05/08/25 05/08/25 Results & Data (ED) Vital Signs Vital Signs - 24 hr 05/08/25 12:07 05/08/25 12:26 05/08/25 12:30 Temperature 36.7 C Temperature Source Oral Pulse Rate 146 H 127 H 121 H Pulse Rate [Apical] Pulse Rate from SpO2 Sensor Pulse Rhythm Regular Pulse Strength Normal Respiratory Rate 20 12 Respiratory Effort / Characteristics Non-Labored Spontaneous Respiratory Depth Normal Respiratory Pattern Regular Blood Pressure 99/73 L 103/64 Blood Pressure Mean 81 85 Pulse Oximetry 98 94 Oxygen Delivery Method Room Air Room Air Sepsis Recent Fever Within 48 Hours Yes Sepsis New/Unexplained Change in Mental Status No Sepsis Action Taken by Nursing Physician Notified 05/08/25 12:45 05/08/25 12:52 05/08/25 13:00 Temperature Temperature Source Pulse Rate 122 H 119 H 116 H Pulse Rate [Apical] Pulse Rate from SpO2 Sensor Pulse Rhythm Pulse Strength Respiratory Rate 13 21 16 Respiratory Effort / Characteristics Respiratory Depth Respiratory Pattern Blood Pressure 95/77 L 96/68 L Blood Pressure Mean 82 87 Pulse Oximetry 96 92 95 Oxygen Delivery Method Room Air Room Air Room Air Sepsis Recent Fever Within 48 Hours Sepsis New/Unexplained Change in Mental Status Sepsis Action Taken by Nursing 05/08/25 13:15 05/08/25 13:30 05/08/25 14:06 Temperature Temperature Source Pulse Rate 86 126 H Pulse Rate [Apical] 106 H Pulse Rate from SpO2 Sensor 123 H Pulse Rhythm Pulse Strength Respiratory Rate 24 28 H 16 Respiratory Effort / Characteristics Respiratory Depth Respiratory Pattern Blood Pressure 105/62 92/67 L Blood Pressure Mean 71 79 Pulse Oximetry 92 95 Oxygen Delivery Method Room Air Room Air Sepsis Recent Fever Within 48 Hours Sepsis New/Unexplained Change in Mental Status Sepsis Action Taken by Nursing 05/08/25 14:10 05/08/25 14:15 05/08/25 14:30 Temperature 37.4 C Temperature Source Oral Pulse Rate 109 H 107 H Pulse Rate [Apical] Pulse Rate from SpO2 Sensor 108 H 108 H Pulse Rhythm Pulse Strength Respiratory Rate 16 15 Respiratory Effort / Characteristics Respiratory Depth Respiratory Pattern Blood Pressure 105/69 91/64 L Blood Pressure Mean 76 73 Pulse Oximetry 92 92 Oxygen Delivery Method Room Air Room Air Sepsis Recent Fever Within 48 Hours Sepsis New/Unexplained Change in Mental Status Sepsis Action Taken by Nursing Laboratory Data 05/08/25 12:27 05/08/25 12:27 Lab Results 05/08/25 05/08/25 Range/Units 12:27 13:34 WBC 9.26 (4.8-10.8) K/ul RBC 4.58 (4.20-5.40) M/uL Hgb 13.4 (12.0-16.0) g/dl Hct 39.3 (37.0-47.0) % MCV 85.8 (80.0-100.0) fL MCH 29.3 (25.0-34.0) pg MCHC 34.1 (32.0-36.0) g/dL RDW Std Deviation 42.6 (36.4-46.3) fL RDW Coeff of Jean Claude 13.7 (11.5-14.5) % Plt Count 158 (130-400) K/uL MPV 8.7 L (9.4-12.4) fL Immature Gran % (Auto) 0.8 % Neut % (Auto) 85.5 % Lymph % (Auto) 9.4 % [place] % (Auto) 3.9 % Eos % (Auto) 0.1 % Baso % (Auto) 0.3 % Neut # (Auto) 7.92 H (1.40-6.50) K/uL Lymph # (Auto) 0.87 L (1.20-3.40) K/uL [place] # (Auto) 0.36 (0.11-0.59) K/uL Eos # (Auto) 0.01 (0.00-0.50) K/uL Baso # (Auto) 0.03 (0.00-0.20) K/uL Immature Gran # (Auto) 0.07 (0.01-0.20) K/uL Sodium 132 L (136-145) mmol/L Potassium 3.5 (3.5-5.1) mmol/L Chloride 98 (98-107) mmol/L Carbon Dioxide 24 (21-32) mmol/L Anion Gap 10 (3-11) BUN 8 (6-23) mg/dl Creatinine 0.70 (0.6-1.2) mg/dl Est Cr Clr Drug Dosing 106.1 ml/min eGFR 108.62 BUN/Creatinine Ratio 11.4 (10-20) Glucose 133 H (70-99(Fasting)) mg/dl Lactate 2.2 H* (0.4-2.0) mmol/L Calcium 8.8 (8.6-10.3) mg/dl Magnesium 1.4 L (1.7-2.4) mg/dl Total Bilirubin 0.8 (0.2-1.0) mg/dl Direct Bilirubin 0.2 (0-0.2) mg/dl AST 9 L (13-39) U/L ALT 8 (7-52) U/L Alkaline Phosphatase 108 H (34-104) U/L Troponin I High Sens 4.8 (0-14) pg/ml Total Protein 6.8 (6.0-8.3) gm/dl Albumin 3.7 (3.4-5.0) gm/dl Procalcitonin 12.80 H (0-0.5) ng/ml Urine Color Yellow Urine Appearance Cloudy A (Clear) Urine pH 6.0 (4.5-7.5) Ur Specific [place] 1.009 (1.000-1.030) Urine Protein 1+ H (Negative) Urine Glucose (UA) Negative (Negative) Urine Ketones Negative (Negative) Urine Blood 1+ H (Negative) Urine Nitrite Positive A (Negative) Urine Bilirubin Negative (Negative) Urine Urobilinogen Negative (Negative) Ur Leukocyte Esterase 3+ H (Negative) Urine WBC (Auto) >50 H (0-5) /hpf Urine RBC (Auto) 0-2 (0-2) /hpf U Hyaline Cast (Auto) 3-5 H (0-2) /lpf U Epithel Cells (Auto) 0-2 (0-2) /hpf Urine Bacteria (Auto) 3+ H (None Seen) Urine Comment Administered Medications Magnesium Sulfate/Dextrose (Magnesium Sulfate / D5w) 1 gm in 100 mls @ 50 mls/hr IV Q2H MOI Stop: 05/08/25 18:44 Last Admin: 05/08/25 15:46 Dose: 50 mls/hr Documented By: CLAUDIA Discontinued Medications Sodium Chloride (Nss) 1,000 mls @ 999 mls/hr IV .Q1H1M MOI Stop: 05/08/25 13:15 Last Infusion: 05/08/25 14:09 Dose: Infused Documented By: Admin: 05/08/25 12:39 Dose: 999 mls/hr Documented By: GHULAM Ceftriaxone Sodium (Rocephin) 2,000 mg in 50 mls @ 100 mls/hr IV NOW STA Stop: 05/08/25 12:55 Last Infusion: 05/08/25 14:09 Dose: Infused Documented By: Admin: 05/08/25 12:38 Dose: 100 mls/hr Documented By: GHULAM Sodium Chloride (Nss) 1,000 mls @ 999 mls/hr IV .Q1H1M ONE Stop: 05/08/25 14:22 Last Infusion: 05/08/25 16:43 Dose: Infused Documented By: Admin: 05/08/25 13:29 Dose: 999 mls/hr Documented By: MANI Acetaminophen (Ofirmev) 1,000 mg in 100 mls @ 400 mls/hr IV NOW STA Stop: 05/08/25 14:29 Last Infusion: 05/08/25 14:38 Dose: Infused Documented By: Admin: 05/08/25 14:17 Dose: 400 mls/hr Documented By: MANI Sodium Chloride (Nss) 1,000 mls @ 999 mls/hr IV .Q1H1M ONE Stop: 05/08/25 16:23 Last Infusion: 05/08/25 16:43 Dose: Infused Documented By: Admin: 05/08/25 15:43 Dose: 999 mls/hr Documented By: CLAUDIA Ioversol (Optiray 320 100ml) 93 ml IV ONCE ONE Stop: 05/08/25 13:59 Last Admin: 05/08/25 13:59 Dose: 93 ml Documented By: ALEJO Ketorolac Tromethamine (Ketorolac Tromethamine 15 Mg/Ml Vial) 15 mg IV NOW ONE Stop: 05/08/25 13:23 Last Admin: 05/08/25 13:29 Dose: 15 mg Documented By: MANI Midodrine (Midodrine Hcl 2.5 Mg Tab) 2.5 mg PO ONE ONE Stop: 05/08/25 16:46 Last Admin: 05/08/25 16:46 Dose: 2.5 mg Documented By: CLAUDIA Imaging Data Radiologist's Impression: Chest X-Ray 05/08/25 12:14 XR chest 1V portable CLINICAL HISTORY: Sepsis COMPARISON STUDY: 08/09/2021 FINDINGS: Heart size and pulmonary vasculature are normal. Multiple surgical clips overlie the mid chest. No consolidation or pleural effusion seen. No pneumothorax. IMPRESSION: No acute findings. ACT 112: Negative or not required by law. Electronically signed by: Gurmeet Oh M.D. 05/08/2025 12:34 PM Abdomen/Pelvis CT 05/08/25 13:22 CT SCAN OF THE ABDOMEN AND PELVIS WITH IV CONTRAST CLINICAL HISTORY: Flank pain. Sepsis. COMPARISON STUDY: CT of the abdomen and pelvis April 08, 2024. PET/CT April 26, 2023. TECHNIQUE: Following the IV administration of 93 cc of Optiray 320, CT scan of the abdomen and pelvis is performed from the lung bases to the proximal femora. Images are reviewed in the axial, sagittal, and coronal planes. IV contrast was administered without complication. A dose lowering technique was utilized adhering to the principles of ALARA. CT DOSE: 1152.8 mGy.cm FINDINGS: A few small left lower lobe pulmonary nodules remain unchanged since prior CT. These are benign. There is no pneumatosis, free air or portal venous gas. There are no ureteral calculi and there is no hydronephrosis. There is moderate bladder wall thickening with mucosal hyperemia and adjacent stranding. There is trace left perinephric stranding. There is urothelial thickening and increased enhancement of the bilateral ureters and collecting systems. Subtle hypoenhancing foci within the kidneys are noted. There is no evidence for renal abscess. There is no evidence for a bowel obstruction. No hepatic lesions are present. Size of the spleen is at the upper limits of normal. The adrenal glands and pancreas are unremarkable. No lymphadenopathy. IMPRESSION: 1. Findings suggestive of cystitis, bilateral pyelitis and probable bilateral pyelonephritis. No renal abscess. 2. No urinary calculi or hydronephrosis. 3. No bowel obstruction. No bowel wall thickening. ACT 112: Negative or not required by law. Electronically signed by: Jose De Jesus Bennett M.D. 05/08/2025 2:22 PM Discharge Plan Visit Data Chief Complaint: Urinary Symptoms Stated Complaint: UTI KIDNEY INFECT MAYBE ED Provider: Jena Nicholsno Discharge Problem: UTI (urinary tract infection), Pyelonephritis, Sepsis Patient Disposition: Admitted As Inpatient Condition: Serious Discharge Instructions Interventions: ED Discharge Assessment Last Done: 05/08/25 16:54
[2025-05-08] MEDS: SODIUM CHLORIDE 0.9% 1,000 ML IV ONE ×2 (13:29→15:43)
[2025-05-08] MEDS: KETOROLAC TROMETHAMINE 15 MG/ML VIAL IV ONE (13:29)
[2025-05-08] MEDS: OPTIRAY 320 100ml IV ONE (13:59)
[2025-05-08 14:08] LABS: Appearance Urine Cloudy (Clear); Bacteria Urine Automated 3+ (None Seen); Epithelial Cell Urine Auto 0-2 /hpf (0-2); Glucose Urine UA Negative (Negative); RBC Urine Automated 0-2 /hpf (0-2); WBC Urine Automated >50 /hpf (0-5)
[2025-05-08] MEDS: ACETAMINOPHEN 1,000 MG/100 ML VIAL IV STA (14:17)
--- NOTE | 2025-05-08 14:23 | CT Scan Report ---
CT SCAN OF THE ABDOMEN AND PELVIS WITH IV CONTRAST CLINICAL HISTORY: Flank pain. Sepsis. COMPARISON STUDY: CT of the abdomen and pelvis April 08, 2024. PET/CT April 26, 2023. TECHNIQUE: Following the IV administration of 93 cc of Optiray 320, CT scan of the abdomen and pelvi s is performed from the lung bases to the proximal femora. Images are reviewed in the axial, sagittal , and coronal planes. IV contrast was administered without complication. A dose lowering technique wa s utilized adhering to the principles of ALARA. CT DOSE: 1152.8 mGy.cm FINDINGS: A few small left lower lobe pulmonary nodules remain unchanged since prior CT. These are be nign. There is no pneumatosis, free air or portal venous gas. There are no ureteral calculi and there is no hydronephrosis. There is moderate bladder wall thickening with mucosal hyperemia and adjacent stranding. There is trace left perinephric stranding. There is urothelial thickening and increased en hancement of the bilateral ureters and collecting systems. Subtle hypoenhancing foci within the kidne ys are noted. There is no evidence for renal abscess. There is no evidence for a bowel obstruction. N o hepatic lesions are present. Size of the spleen is at the upper limits of normal. The adrenal gland s and pancreas are unremarkable. No lymphadenopathy. IMPRESSION: 1. Findings suggestive of cystitis, bilateral pyelitis and probable bilateral pyelonephritis. No kandis l abscess. 2. No urinary calculi or hydronephrosis. 3. No bowel obstruction. No bowel wall thickening. ACT 112: Negative or not required by law. Electronically signed by: Jose De Jesus Bennett M.D. 05/08/2025 2:22 PM
--- NOTE | 2025-05-08 14:53 | History & Physical Report ---
Date of Service May 08, 2025 Assessment & Plan (1) Sepsis: (2) Pyelonephritis: (3) Hyponatremia: (4) Hypomagnesemia: Plan This patient is a 44-year-old female with a history of ankylosing spondylitis recently started on Simponi infusion, breast cancer in remission s/p bilateral mastectomy and radiation, B12 deficiency, GERD, fibromyalgia, trigeminal neuralgia, Raynaud's phenomenon, gastroparesis, factor V Leiden mutation, TIA, endometriosis now s/p hysterectomy, chronic pain on chronic opioids, anxiety disorder, and orthostasis who presents to the ED with 5 days of urinary frequency, incontinence, dysuria, and bilateral flank pain. Denies fevers or chills but has had nausea without vomiting. She has been very fatigued and could barely get up and around. She took a home urine dipstick which showed white blood cells but she decided not to come in at that point. In the ED, she was hypotensive, tachycardic, afebrile, with grossly abnormal urinalysis, elevated lactate at 2.2, and elevated procalcitonin at 12.8. CT abdomen/pelvis with bilateral pyelitis and pyelonephritis with cystitis. She was given IV fluid boluses which improved her blood pressure, IV ceftriaxone, IV Toradol and Tylenol for the pain. She will be admitted for sepsis with acute pyelonephritis. #Sepsis with shock/acute pyelonephritis-with tachycardia, hypotension, elevated lactate, elevated procalcitonin, abnormal urinalysis, and evidence of acute pyelonephritis and UTI clinically and on CT abdomen/pelvis as the source of infection. She is immunosuppressed on Simponi. Hypotension in the ED responded to fluids but then became hypotensive again. Bolused another 1 L of normal saline and BPs improved, lactate down to 0.7 from 2.2. - Admit to medical floor with telemetry - Continue IV ceftriaxone 2 g once daily -IV Zofran as needed for nausea - Give IV morphine for severe pain and continue home hydrocodone for moderate pain, Tylenol for pain or fever - Give 2 more liters of normal saline and bolus as needed - Follow blood cultures, urine culture - Follow CBC, CMP in the a.m. and follow procalcitonin in 2 days #Hypomagnesemia/hyponatremia-with low mag at 1.4, sodium mildly low at 132 likely secondary to dehydration and hypovolemia from sepsis - Replace mag with 4 g of IV magnesium sulfate and follow mag level in the morning - Giving normal saline - Follow BMP #Abnormal ECG/dysautonomic orthostasis-with diffuse T wave inversions through precordial leads with some ST depression in anterolateral leads fairly unchanged from previous. She had a dobutamine stress test in 03/2024 which was normal and she follows with cardiology. Troponin initially is negative. She denies chest pains. She is followed by cardiology for orthostasis and was recently started on midodrine which she reports she only takes at bedtime but it is prescribed twice daily - Trend serial troponin - Continue midodrine 2.5 mg p.o. twice daily and give an extra dose this afternoon for hypotension #Ankylosing spondylitis/fibromyalgia/trigeminal neuralgia/chronic pain on chronic opioids/anxiety disorder-on Simponi which was recently started 3 weeks ago. Follows with rheumatology. - Hold further immunosuppressants until infection is cleared - Continue home hydrocodone as needed for pain - Continue citalopram and Xanax as needed #GERD/gastroparesis-no acute issues - Continue PPI-consider transitioning to Protonix as omeprazole can interact with Plavix making it less effective #Factor V Leiden mutation with history of TIA-has a history of TIA remotely and was found to have factor V Leiden mutation. Remains on Plavix - Continue Plavix DVT prophylaxis-Lovenox SQ, SCDs Disposition-admit to medical floor with telemetry History of Present Illness Chief Complaint: Flank pain, nausea, urinary symptoms Primary Care Provider: Ian Morocho MD This patient is a 44-year-old female with a history of ankylosing spondylitis recently started on Simponi infusion, breast cancer in remission s/p bilateral mastectomy and radiation, B12 deficiency, GERD, fibromyalgia, trigeminal neuralgia, Raynaud's phenomenon, gastroparesis, factor V Leiden mutation, TIA, endometriosis now s/p hysterectomy, chronic pain on chronic opioids, anxiety disorder, and orthostasis who presents to the ED with 5 days of urinary frequency, incontinence, dysuria, and bilateral flank pain. Denies fevers or chills but has had nausea without vomiting. She has been very fatigued and could barely get up and around. She took a home urine dipstick which showed white blood cells but she decided not to come in at that point. In the ED, she was hypotensive, tachycardic, afebrile, with grossly abnormal urinalysis, elevated lactate at 2.2, and elevated procalcitonin at 12.8. CT abdomen/pelvis with bilateral pyelitis and pyelonephritis with cystitis. She was given IV fluid boluses which improved her blood pressure, IV ceftriaxone, IV Toradol and Tylenol for the pain. She will be admitted for sepsis with acute pyelonephritis. Allergies Allergy/AdvReac Type Severity Reaction Status Date / Time No Known Allergies Allergy Unknown Verified 12/06/21 08:25 Home Medications Medication Instructions Recorded Confirmed Type alprazolam 0.5 mg tablet (Xanax) 0.5 mg PO DAILY PRN Anxiety 01/30/20 05/08/25 History clopidogrel 75 mg tablet (Plavix) 75 mg PO HS 01/30/20 05/08/25 History omeprazole 40 mg capsule,delayed 40 mg PO HS 01/30/20 05/08/25 History release citalopram 40 mg tablet (Celexa) 40 mg PO DAILY 08/09/21 05/08/25 History cholecalciferol (vitamin D3) 50 50 mcg PO DAILY 12/06/21 05/08/25 History mcg (2,000 unit) capsule vitamin B complex (B 1 tab PO DAILY 12/06/21 05/08/25 History Complex-Vitamin B12 tablet) midodrine 2.5 mg tablet 2.5 mg PO BID 05/08/25 05/08/25 History Past Med/Surg History Problem List Sepsis Hypomagnesemia Hypotension Hyponatremia (Acute) Hypokalemia (Acute) Pyelonephritis (Acute) Malignant neoplasm of overlapping sites of left breast in female, estrogen receptor positive (Chronic 09/26/21) Thumb laceration (Acute) Headache (Acute) Arthritis (Chronic) COVID-19 (Acute) Encounter for pre-operative examination Medical History Dysautonomia orthostatic hypotension syndrome History of TIA (transient ischemic attack) Acute hypotension Endometriosis Chronic back pain Gastroparesis Fibromyalgia Ankylosing spondylitis Depression Anxiety Factor 5 Leiden mutation, heterozygous reason for plavix Surgical History H/O: hysterectomy 07/2020 H/O bilateral mastectomy History of right breast biopsy benign History of left breast biopsy benign History of endometrial ablation History of colonoscopy with polypectomy History of esophagogastroduodenoscopy (EGD) History of oral surgery History of wisdom tooth extraction History of tonsillectomy and adenoidectomy Hx of sinus surgery Family History Father Family history of diabetes mellitus Mother Cancer breast Grandmother (Maternal) Cancer breast Sister Cancer breast Other No family history of adverse response to anesthesia Social History Smoking Status: Former smoker Tobacco Type: Cigarettes Cigarettes Per Day: 4 per day; Second Hand Exposure: No; Do You Dip or Chew Tobacco: No; Hx Alcohol Use: No Hx Substance Use: No Preferred Language: Tam[place] Communication Ability: Effective Hearing Ability: Normal Nursing Assoc Required: No Beliefs That Will Affect Care: None marital status: Current Living Situation: Family Current Living Situation Comment: Lives with and daughter current occupational status: disabled Feels Safe at Home: Yes Diet: regular during the past year weight has: remained stable Physical Activity Frequency: Does not Exercise Assistive Devices: Cane, Raised Toilet Seat and Other Review of Systems Review of Systems: All systems reviewed & are unremarkable except as noted in HPI & below Denies headache or lightheadedness, no chest pains or shortness of breath, no fevers or chills Physical Exam Constitutional: WD/WN, vitals as above Eyes: PERRL, conjunctivae normal, anicteric sclerae ENMT: external ear and nose normal, oropharynx normal Neck: trachea midline, no thyromegaly Respiratory: normal respiratory effort, lungs clear to auscultation Cardiovascular: RRR, no murmur, no edema Chest (Breasts): Chest: normal inspection of chest Gastrointestinal (Abdomen): normal bowel sounds, soft, nontender, no hepatosplenomegaly (Except positive bilateral CVA tenderness) Musculoskeletal: Extremities: extremities normal to inspection; no cyanosis and no clubbing Skin: no rashes, warm and dry Neurologic: moves all extremities and awake; no focal motor deficits Psychiatric: A+Ox3, euthymic affect Lymphatic: no lymphedema Results & Data Results & Data Vital Signs (Past 12 Hours) Vital Signs Temp Pulse Pulse Resp BP Pulse Ox O2 Del Method 05/08/25 14:10 37.4 C 05/08/25 14:06 106 H 16 05/08/25 13:15 86 24 105/62 92 Room Air 05/08/25 13:00 116 H 16 96/68 L 95 Room Air 05/08/25 12:52 119 H 21 92 Room Air 05/08/25 12:45 122 H 13 95/77 L 96 Room Air 05/08/25 12:30 121 H 12 103/64 94 Room Air 05/08/25 12:26 127 H 05/08/25 12:07 36.7 C 146 H 20 99/73 L 98 Room Air Laboratory Results CBC, CMP, lactate, magnesium, troponin, procalcitonin, UA reviewed Diagnostic Findings CT abdomen/pelvis, CXR reviewed ECG Additional Comments: ECG on 05/08/2025 at 1217 with sinus tachycardia, rate 127, diffuse T wave inversions and ST depressions in all precordial leads especially anterolateral, unchanged from previous Code Status & VTE Plan Code Status Full code VTE Prophylaxis Plan VTE Prophylaxis will be ordered: Yes PG Care Time/CCT Total # of Minutes Spent Total Time Spent with Patient: Total time spent is greater than 50% in coordination of care (as documented) at patient's floor/unit and/or counseling patient: Coding Level of Care Code 07197 INT INP/OBS CARE 3/75MIN Diagnoses Sepsis A41.9 Pyelonephritis N12 Hyponatremia E87.1 Hypomagnesemia E83.42
[2025-05-08] MEDS: MAGNESIUM SULFATE / D5W 1 GM/100 ML BAG IV SCH (15:46)
[2025-05-08] MEDS: MIDODRINE HCL 2.5 MG TAB PO ONE (16:46)
[2025-05-08] MEDS ORDERED: HYDROCODONE/ACETAMOPHEN 5/325MG TAB PO PRN (17:26)
[2025-05-08] MEDS ORDERED: ONDANSETRON INJ 2 MG/ML 2 ML VIAL IV PRN (17:26)
[2025-05-08] MEDS ORDERED: MoRPHine SULFATE 2 MG/ML CARP IV PRN (17:26)
[2025-05-08] MEDS: ENOXAPARIN INJ 40 MG/0.4 ML SYR SQ SCH (18:28)
[2025-05-08] MEDS: MIDODRINE HCL 2.5 MG TAB PO SCH (18:28)
[2025-05-08] MEDS: ACETAMINOPHEN 325 MG TAB PO PRN (18:33)
[2025-05-08] MEDS: FLUTICASONE PROPIONATE NA SPR 16 GM BTL SCH (21:13)
[2025-05-08] MEDS: CLOPIDOGREL BISULFATE 75 MG TAB PO SCH (21:13)
[2025-05-08] MEDS: CITALOPRAM 40 MG TAB PO SCH (21:13)
[2025-05-09 02:20] LABS: A calco-baum cmplx NotReported Not Detected (NotDetected); Bact fragilis Not Reported Not Detected (NotDetected); Blood Culture Id Panel See PCR Comment (NotDetected); C auris Not Reported Not Detected (NotDetected); CTX-M Resistant Gene Not Detected (NotDetected); Calbicans Not Reported Not Detected (NotDetected); Candida glabrata Not Reported Not Detected (NotDetected); Candida krusei Not Reported Not Detected (NotDetected); Cneoformans/gatti Not Reported Not Detected (NotDetected); Cparapsilosis Not Reported Not Detected (NotDetected); Ctropicalis Not Reported Not Detected (NotDetected); E cloacae compx Not Reported Not Detected (NotDetected); Efaecalis Not Reported Not Detected (NotDetected); Efaecium Not Reported Not Detected (NotDetected); Enterobacterales DETECTED (NotDetected); Enterobacterales Not Reported DETECTED (NotDetected); Escherichia coli Not Reported DETECTED (NotDetected); H influenzae Not Reported Not Detected (NotDetected); IMP Resistant Gene Not Detected (NotDetected); K aerogenes Not Reported Not Detected (NotDetected); KPC Resistant Gene Not Detected (NotDetected); Koxytoca Not Reported Not Detected (NotDetected); Kpneumoniae grp Not Reported Not Detected (NotDetected); Lmonocyt Not Reported Not Detected (NotDetected); N meningitidis Not Reported Not Detected (NotDetected); NDM Resistant Gene Not Detected (NotDetected); OXA 48 Like Resistant Gene Not Detected (NotDetected); P aeruginosa Not Reported Not Detected (NotDetected); Proteus spp Not Reported Not Detected (NotDetected); Salmonella spp Not Reported Not Detected (NotDetected); Staph lugdunensis Not Reported Not Detected (NotDetected); Staph spp. Not Reported Not Detected (NotDetected); Staphaureus Not Reported Not Detected (NotDetected); Staphepi Not Reported Not Detected (NotDetected); Stenmaltophilia Not Reported Not Detected (NotDetected); Strep agal(GrpB) Not Reported Not Detected (NotDetected); Strep pneum Not Reported Not Detected (NotDetected); Strep pyog (GrpA) Not Reported Not Detected (NotDetected); Strep spp Not Reported Not Detected (NotDetected); VIM Resistant Gene Not Detected (NotDetected); mcr-1 Colistin Resistant Gene Not Detected (NotDetected)
[2025-05-09 07:47] VITALS: RESP 16
[2025-05-09 08:04] LABS: Hematocrit (blood only) 31.7 % (37.0-47.0); Hemoglobin 10.6 g/dl (12.0-16.0); Mean Corpuscular Hemoglobin 29.4 pg (25.0-34.0); Mean Corpuscular Volume 88.1 fL (80.0-100.0); Platelet Count 116 K/uL (130-400); RDW Standard Deviation 45.6 fL (36.4-46.3); Red Blood Count 3.60 M/uL (4.20-5.40); White Blood Count 9.51 K/ul (4.8-10.8)
[2025-05-09 08:21] LABS: Alanine Aminotransferase 4.0 U/L (7-52); Albumin Globulin Ratio 1.2 (0.9-2); Albumin Level 2.7 gm/dl (3.4-5.0); Alkaline Phosphatase 75.0 U/L (34-104); Anion Gap 4.0 (3-11); Bilirubin,Total 0.4 mg/dl (0.2-1.0); Blood Urea Nitrogen 7.0 mg/dl (6-23); Calcium 7.6 mg/dl (8.6-10.3); Carbon Dioxide 24.0 mmol/L (21-32); Chloride 109.0 mmol/L (98-107); Creatinine Clr Calc Pharmacy 112.2 ml/min; Globulin 2.2 gm/dl (2.5-4.0); Glucose 122.0 mg/dl (70-99(Fasting)); Magnesium 2.0 mg/dl (1.7-2.4); Potassium 3.5 mmol/L (3.5-5.1); Sodium 137.0 mmol/L (136-145); Total Protein 4.9 gm/dl (6.0-8.3)
[2025-05-09] MEDS: VITAMIN B COMPLEX TAB PO SCH (08:41)
[2025-05-09] MEDS: CHOLECALCIFEROL 25 MCG (1000 UNITS) TAB PO SCH (08:41)
[2025-05-09] MEDS: POLYETHYLENE (MIRALAX) 17 GM PACK PO PRN (08:42)
[2025-05-09] MEDS ORDERED: CITALOPRAM 40 MG TAB PO SCH (09:00)
[2025-05-09 09:15] LABS: ALC (manual) 2.57 K/uL (1.2-3.4); ANC (manual) 6.66 K/uL (1.4-6.5); Dohle Bodies 1+
[2025-05-09] MEDS: SODIUM CHLORIDE 0.9% 1,000 ML IV SCH (10:12)
[2025-05-09] MEDS: cefTRIAXone SODIUM 2,000 MG/50 ML BAG IV SCH (14:03)
--- NOTE | 2025-05-09 16:30 | Hospitalist Progress Note ---
Date of Service May 09, 2025 Assessment & Plan (1) Sepsis: (2) Pyelonephritis: (3) Hyponatremia: (4) Hypomagnesemia: Plan This patient is a 44-year-old female with a history of ankylosing spondylitis recently started on Simponi infusion, breast cancer in remission s/p bilateral mastectomy and radiation, B12 deficiency, GERD, fibromyalgia, trigeminal neuralgia, Raynaud's phenomenon, gastroparesis, factor V Leiden mutation, TIA, endometriosis now s/p hysterectomy, chronic pain on chronic opioids, anxiety disorder, and orthostasis who presents to the ED with 5 days of urinary frequency, incontinence, dysuria, and bilateral flank pain. She is admitted with E. coli septicemia from acute pyelonephritis. # E. coli septicemia with shock/acute pyelonephritis-with tachycardia, hypotension, elevated lactate, elevated procalcitonin, abnormal urinalysis, and evidence of acute pyelonephritis and UTI clinically and on CT abdomen/pelvis as the source of infection. She is immunosuppressed on Simponi. Hypotension in the ED responded to fluids but then became hypotensive again. Bolused another 1 L of normal saline and BPs improved, lactate down to 0.7 from 2.2. Flank pain is improving, tachycardia improved, blood pressures soft but overall improved. Blood cultures now positive for E. coli, sensitivities pending. Urine culture with pinpoint growth-pending - Continued stay on medical floor with telemetry - Continue IV ceftriaxone 2 g once daily - Continue IV Zofran as needed for nausea - Continue IV morphine for severe pain and continue home hydrocodone for moderate pain, Tylenol for pain or fever - Give 1 more liter of normal saline - Follow blood culture sensitivities, urine culture - Follow CBC, CMP, and procalcitonin in the a.m. #Hypomagnesemia/hyponatremia-with low mag at 1.4 on admission, sodium mildly low at 132 likely secondary to dehydration and hypovolemia from sepsis. Magnesium repleted and now normalized. Sodium also now normal at 137 after normal saline IV fluids given - Follow BMP, magnesium in the morning #Abnormal ECG/dysautonomic orthostasis-ECG with tachycardia and diffuse T wave inversions through precordial leads with some ST depression in anterolateral leads fairly unchanged from previous. She had a dobutamine stress test in 03/2024 which was normal and she follows with cardiology. Troponin negative x 2 on serial trend. She denies chest pains. She is followed by cardiology for orthostasis and was recently started on midodrine which she reports she only takes at bedtime but it is prescribed twice daily. Repeat ECG on 05/09 now with normal sinus rhythm and ongoing diffuse T wave inversions in precordial leads similar to previous. Remains asymptomatic. BPs are improved. - Continue midodrine 2.5 mg p.o. twice daily #Ankylosing spondylitis/fibromyalgia/trigeminal neuralgia/chronic pain on chronic opioids/anxiety disorder-on Simponi which was recently started 3 weeks ago. Follows with rheumatology. - Hold further immunosuppressants until infection is cleared - Continue home hydrocodone as needed for pain - Continue citalopram and Xanax as needed #GERD/gastroparesis-no acute issues - Continue PPI-consider transitioning to Protonix after discharge as omeprazole can interact with Plavix, making it less effective #Factor V Leiden mutation with history of TIA-has a history of TIA remotely and was found to have factor V Leiden mutation. Remains on Plavix - Continue Plavix #Anemia/thrombocytopenia-hemoglobin 10, platelets in the 1 teens, she has been anemic in the past and is likely anemia of chronic disease. Some of what we are seeing here is likely hemodilutional although sepsis could cause thrombocytopenia. No evidence of liver dysfunction on laboratory values, and no evidence of splenomegaly on imaging - Follow CBC DVT prophylaxis-Lovenox SQ, SCDs Disposition-continued stay on medical floor with telemetry Admission and Anticipated Discharge Date Admission Date: May 08, 2025 Subjective Patient still feels very tired and worn out. Her flank pain has improved however. She wishes that she could be in her own bed as she is having trouble sleeping in the hard hospital bed. She is independent in the room and denies lightheadedness. Blood pressures remain soft. Telemetry with normal sinus rhythm and sinus tachycardia now resolved but had been as high as the 140s overnight, now rates in the 80s Physical Exam Constitutional: WD/WN, vitals as above Neck: trachea midline, no thyromegaly Respiratory: normal respiratory effort, lungs clear to auscultation Cardiovascular: RRR, no murmur, no edema Chest (Breasts): Chest: normal inspection of chest Gastrointestinal (Abdomen): normal bowel sounds, soft, nontender, no hepatosplenomegaly Musculoskeletal: Extremities: extremities normal to inspection; no cyanosis and no clubbing Skin: no rashes, warm and dry Neurologic: moves all extremities and awake; no focal motor deficits Psychiatric: A+Ox3, euthymic affect Lymphatic: no lymphedema Results & Data Results & Data Vital Signs (Past 12 Hours) Vital Signs Temp Pulse Pulse Resp BP Pulse Ox O2 Del Method 05/09/25 15:55 36.7 C 92 H 16 108/69 98 Room Air 05/09/25 14:19 86 05/09/25 11:40 36.8 C 81 16 95/65 L 93 Room Air 05/09/25 09:40 92 H 05/09/25 07:46 37.1 C 84 16 91/59 L 93 Room Air 05/09/25 05:00 90 Laboratory Results CBC, BMP, LFTs, magnesium, serial troponin, blood cultures, urine culture reviewed PG Care Time/CCT Total # of Minutes Spent Total Time Spent with Patient: Total time spent is greater than 50% in coordination of care (as documented) at patient's floor/unit and/or counseling patient: Coding Level of Care Code 91318 SUB INP/OBS CARE 3/50MIN Diagnoses Sepsis A41.9 Pyelonephritis N12 Hyponatremia E87.1 Hypomagnesemia E83.42
[2025-05-09] MEDS: KETOROLAC TROMETHAMINE 15 MG/ML VIAL IV PRN (17:34)
--- NOTE | 2025-05-10 06:08 | Electrocardiogram Report ---
Test Reason : Blood Pressure : */* mmHG Vent. Rate : 127 BPM Atrial Rate : 127 BPM P-R Int : 132 ms QRS Dur : 78 ms QT Int : 302 ms P-R-T Axes : -12 13 -10 degrees QTcB Int : 438 ms Sinus tachycardia Possible Inferior infarct Abnormal ECG When compared with ECG of 08-Apr-2024 14:54, Vent. rate has increased by 57 bpm Borderline criteria for Inferior infarct now present Confirmed by Donald Browning ([id number]) on 05/10/2025 6:08:31 AM Referred By: Soha Amato Confirmed By: Donald Browning
--- NOTE | 2025-05-10 06:09 | Electrocardiogram Report ---
Test Reason : Blood Pressure : */* mmHG Vent. Rate : 85 BPM Atrial Rate : 85 BPM P-R Int : 122 ms QRS Dur : 86 ms QT Int : 378 ms P-R-T Axes : 29 35 35 degrees QTcB Int : 449 ms Normal sinus rhythm T wave abnormality, consider anterolateral ischemia Abnormal ECG When compared with ECG of 08-May-2025 12:17, Vent. rate has decreased by 42 bpm Confirmed by Donald Browning ([id number]) on 05/10/2025 6:09:51 AM Referred By: Soha Amato Confirmed By: Donald Browning
[2025-05-10 07:45] VITALS: TEMP 98.2
[2025-05-10 08:05] LABS: Hematocrit (blood only) 32.5 % (37.0-47.0); Hemoglobin 10.9 g/dl (12.0-16.0); Immature Granulocytes # (auto) 0.15 K/uL (0.01-0.20); Immature Granulocytes % (auto) 1.9 %; Mean Corpuscular Hemoglobin 30.0 pg (25.0-34.0); Mean Corpuscular Volume 89.5 fL (80.0-100.0); Platelet Count 142 K/uL (130-400); RDW Standard Deviation 46.9 fL (36.4-46.3); Red Blood Count 3.63 M/uL (4.20-5.40); White Blood Count 7.92 K/ul (4.8-10.8)
[2025-05-10 08:29] LABS: Anion Gap 6.0 (3-11); Blood Urea Nitrogen 5.0 mg/dl (6-23); Calcium 8.2 mg/dl (8.6-10.3); Carbon Dioxide 25.0 mmol/L (21-32); Chloride 109.0 mmol/L (98-107); Creatinine Clr Calc Pharmacy 112.2 ml/min; Glucose 106.0 mg/dl (70-99(Fasting)); Potassium 3.8 mmol/L (3.5-5.1); Sodium 140.0 mmol/L (136-145)
[2025-05-10 08:53] LABS: Alanine Aminotransferase 5.0 U/L (7-52); Albumin Globulin Ratio 1.2 (0.9-2); Albumin Level 2.9 gm/dl (3.4-5.0); Alkaline Phosphatase 89.0 U/L (34-104); Bilirubin,Total 0.4 mg/dl (0.2-1.0); Globulin 2.5 gm/dl (2.5-4.0); Magnesium 1.9 mg/dl (1.7-2.4); Total Protein 5.4 gm/dl (6.0-8.3)
[2025-05-10 11:00] VITALS: BP 112/74; O2SAT 97
--- NOTE | 2025-05-10 13:35 | Discharge Summary ---
Discharge Summary Date of Service May 10, 2025 Principal Dx & Hospital Course #1 = Principal Diagnosis (1) Sepsis: (2) Pyelonephritis: (3) Hyponatremia: (4) Hypomagnesemia: Plan This patient is a 44-year-old female with a history of ankylosing spondylitis recently started on Simponi infusion, breast cancer in remission s/p bilateral mastectomy and radiation, B12 deficiency, GERD, fibromyalgia, trigeminal neuralgia, Raynaud's phenomenon, gastroparesis, factor V Leiden mutation, TIA, endometriosis now s/p hysterectomy, chronic pain on chronic opioids, anxiety disorder, and orthostasis/dysautonomia who presents to the ED with 5 days of urinary frequency, incontinence, dysuria, and bilateral flank pain. She is admitted with E. coli septicemia from acute pyelonephritis. # E. coli septicemia with shock/acute pyelonephritis-with tachycardia, hypotension, elevated lactate, elevated procalcitonin, abnormal urinalysis, and evidence of acute pyelonephritis and UTI clinically and on CT abdomen/pelvis as the source of infection. She is immunosuppressed on Simponi. Hypotension in the ED responded to fluids but then became hypotensive again. Bolused another 1 L of normal saline and BPs improved, lactate down to 0.7 from 2.2. Flank pain and tachycardia are now resolved, remains afebrile, blood pressures normalized. Blood cultures positive for E. coli, resistant to ampicillin, Unasyn, and cefazolin. Urine culture with E. coli, sensitivities pending but most likely the same organism. Procalcitonin trended down to 7.9 and patient overall feeling much improved. Her midodrine from home was increased to twice daily from once daily at bedtime as she had been taking it. She has defervesced and is clinically improved, no need to repeat blood cultures for gram-negative bacteremia. -She received 3 doses of IV ceftriaxone and will discharge to home to finish out 7 more days of cefpodoxime 300 mg p.o. twice daily for a total of 10-day course -Advised to call her PCP at the first sign of dysuria in the future given her history and her state of immunosuppression to prevent future septicemia - Follow-up final urine culture sensitivities after discharge by PCP #Hypomagnesemia/hyponatremia-with low mag at 1.4 on admission, sodium mildly low at 132 likely secondary to dehydration and hypovolemia from sepsis. Magnesium repleted and now normalized. Sodium also now normal at 140 after normal saline IV fluids given #Abnormal ECG/dysautonomic orthostasis-ECG with tachycardia and diffuse T wave inversions through precordial leads with some ST depression in anterolateral leads fairly unchanged from previous. She had a dobutamine stress test in 03/2024 which was normal and she follows with cardiology. Troponin negative x 2 on serial trend. She denies chest pains. She is followed by cardiology for orthostasis and was recently started on midodrine which she reports she only takes at bedtime but it is prescribed twice daily. Repeat ECG on 05/09 now with normal sinus rhythm and ongoing diffuse T wave inversions in precordial leads similar to previous. Remains asymptomatic. BPs are improved. No events on telemetry-had normal sinus rhythm throughout her stay with rates in the 70s to 90s - Continue midodrine 2.5 mg p.o. twice daily upon discharge #Ankylosing spondylitis/fibromyalgia/trigeminal neuralgia/chronic pain on chronic opioids/anxiety disorder-on Simponi which was recently started 3 weeks ago. Follows with rheumatology. - Hold further immunosuppressants until infection is cleared-her alteration inspector is aware of her hospitalization for sepsis - Continue home hydrocodone as needed for pain - Continue citalopram and Xanax as needed #GERD/gastroparesis-chronic issues with gastroparesis and abdominal pain - Continue PPI-recommend transitioning to Protonix upon discharge as omeprazole can interact with Plavix, making it less effective - Patient has an appointment with GI coming up at [facility] for further evaluation #Factor V Leiden mutation with history of TIA-has a history of TIA remotely and was found to have factor V Leiden mutation. Remains on Plavix - Continue Plavix #Anemia/thrombocytopenia-hemoglobin 10, platelets in the 1 teens, she has been anemic in the past and is likely anemia of chronic disease. Some of what we are seeing here is likely hemodilutional although sepsis could cause thrombocytopenia. Platelets improved to normal after IV fluids stopped. No ev idence of liver dysfunction on laboratory values, and no evidence of splenomegaly on imaging. Hemoglobin remains mildly low but stable at 10.9 and may also be hemodilutional - Follow CBC as an outpatient DVT prophylaxis-Lovenox SQ, SCDs Disposition-stable for discharge to home, much improved Notes For Next Care Provider Follow CBC as an outpatient Medication Changes From Visit Added cefpodoxime 300 mg p.o. twice daily x 7 days Changed omeprazole to pantoprazole 40 mg p.o. daily Admission HPI Per Admitting Provider This patient is a 44-year-old female with a history of ankylosing spondylitis recently started on Simponi infusion, breast cancer in remission s/p bilateral mastectomy and radiation, B12 deficiency, GERD, fibromyalgia, trigeminal neuralgia, Raynaud's phenomenon, gastroparesis, factor V Leiden mutation, TIA, endometriosis now s/p hysterectomy, chronic pain on chronic opioids, anxiety disorder, and orthostasis who presents to the ED with 5 days of urinary frequency, incontinence, dysuria, and bilateral flank pain. Denies fevers or chills but has had nausea without vomiting. She has been very fatigued and could barely get up and around. She took a home urine dipstick which showed white blood cells but she decided not to come in at that point. In the ED, she was hypotensive, tachycardic, afebrile, with grossly abnormal urinalysis, e levated lactate at 2.2, and elevated procalcitonin at 12.8. CT abdomen/pelvis with bilateral pyelitis and pyelonephritis with cystitis. She was given IV fluid boluses which improved her blood pressure, IV ceftriaxone, IV Toradol and Tylenol for the pain. She will be admitted for sepsis with acute pyelonephritis. Discharge Exam Constitutional WD/WN, vitals as above Neck trachea midline, no thyromegaly Respiratory normal respiratory effort, lungs clear to auscultation Cardiovascular RRR, no murmur, no edema Chest (Breasts) Chest: normal inspection of chest Gastrointestinal (Abdomen) normal bowel sounds, soft, nontender, no hepatosplenomegaly Abdomen mildly distended on the day of discharge but nontender Musculoskeletal Extremities: extremities normal to inspection; no cyanosis and no clubbing Skin no rashes, warm and dry Neurologic moves all extremities and awake; no focal motor deficits Psychiatric A+Ox3, euthymic affect Lymphatic no lymphedema Discharge Plan Discharge Items Patient Disposition: Home - Self-Care Reason For Visit: ACUTE PYELONEPHRITIS Discharge Diagnosis: E. coli septicemia with septic shock Acute pyelonephritis Condition on Discharge: Good Activity: As commented below Lifting: Gradually increase as tolerated Bathing: No limitations Exercise/Sports: Gradually increase as tolerated Non-emergency contact: Primary Care Provider Call non-emergency contact if: you have any medication questions, your symptoms worsen, you have a fever and your temperature is above 101 Follow-up/Referrals: Ian Morocho MD [Primary Care Provider] - (Follow-up within 1-2 weeks) Diet: Regular Addtl Attending Provider Instructions: Please finish out 7 more days of the antibiotic called cefpodoxime, twice daily, for your bloodstream and kidney infection. If you develop worsening back pain, lethargy, fevers or chills, or urinary symptoms, please return to the hospital or call your doctor. Please make sure you let your alteration inspector know that you had sepsis as they may delay your next treatment for your ankylosing spondylitis. Due to an interaction of omeprazole with Plavix, your omeprazole will be transitioned to pantoprazole like you were taking in the hospital. A new prescription will be sent to your pharmacy for this. For your low blood pressures and dysautonomia, it is recommended that you take your midodrine in the morning and in the evening at least while you are recovering from this illness. After that, you can take it once daily in the morning. It was a pleasure taking care of you! If you have any questions about your care before your hospital follow-up visit with your primary care provider, please call [phone] and ask to be transferred to the [facility] Medicine office. Sincerely, Abril Pizano M.D. Pending Studies at Discharge: Yes (Urine culture sensitivities) Stand-Alone Forms: My [facility], Smoking Cessation Medications and DC Order Prescriptions: New pantoprazole 40 mg Tablet,Delayed Release (Dr/Ec) 40 mg PO HS Qty: 30 0RF cefpodoxime 200 mg tablet 200 mg PO BID Qty: 14 0RF Rx Instructions: must administer with a meal/food Continued cholecalciferol (vitamin D3) 50 mcg (2,000 unit) capsule 50 mcg PO DAILY Patient Comments: 05/08- otc unable to verify vitamin B complex [B Complex-Vitamin B12] Tablet 1 tab PO DAILY Patient Comments: 05/08- otc unable to verify clopidogrel [Plavix] 75 mg Tablet 75 mg PO HS alprazolam [Xanax] 0.5 mg Tablet 0.5 mg PO DAILY PRN (Reason: Anxiety) citalopram [Celexa] 40 mg Tablet 40 mg PO DAILY midodrine 2.5 mg tablet 2.5 mg PO BID Patient Comments: 05/08-last filled 01/30 90 day supply #180 Discontinued omeprazole 40 mg Capsule,Delayed Release(Dr/Ec) 40 mg PO HS Discharge Orders: Discharge Order (Routine); Ordered 05/10/25 Ordered By: Abril Pizano Admission Data Admit Date/Time: 05/08/25 14:53 Attending Provider: Abril Pizano Admit Provider: Abril Pizano Primary Care Provider: Ian Morocho Other Providers: Abril Pizano Hospital Stay Data Consultations 05/08/25 14:37 ED Decision to Admit Stat Diagnostic Imagining Performed 05/08/25 13:22 CT abd pelvis IV con only Stat Pending Results Patient Have Any Pending Studies at Discharge: Yes (Urine culture sensitivities) Discharge Instructions Given to Patient (Per Discharging Provider) Please finish out 7 more days of the antibiotic called cefpodoxime, twice daily, for your bloodstream and kidney infection. If you develop worsening back pain, lethargy, fevers or chills, or urinary symptoms, please return to the hospital or call your doctor. Please make sure you let your alteration inspector know that you had sepsis as they may delay your next treatment for your ankylosing spondylitis. Due to an interaction of omeprazole with Plavix, your omeprazole will be transitioned to pantoprazole like you were taking in the hospital. A new prescription will be sent to your pharmacy for this. For your low blood pressures and dysautonomia, it is recommended that you take your midodrine in the morning and in the evening at least while you are recovering from this illness. After that, you can take it once daily in the morning. It was a pleasure taking care of you! If you have any questions about your care before your hospital follow-up visit with your primary care provider, please call [phone] and ask to be transferred to the [facility] Medicine office. Sincerely, Abril Pizano M.D. Total Time Total Time Spent Total Time Spent (In Minutes): 35 minutes Total Time Includes: Examination of the Patient, Discharge Planning and Medication Reconciliation Coding Level of Care Code 08743 INP/OBS DISCH >30 MIN Diagnoses Sepsis A41.9 Pyelonephritis N12 Hyponatremia E87.1 Hypomagnesemia E83.42
[2025-05-10 14:23] VITALS: PULSE 86
--- NOTE | 2025-05-11 15:21 | Electrocardiogram Report ---
Test Reason : Blood Pressure : */* mmHG Vent. Rate : 81 BPM Atrial Rate : 81 BPM P-R Int : 136 ms QRS Dur : 90 ms QT Int : 392 ms P-R-T Axes : 83 87 96 degrees QTcB Int : 455 ms Normal sinus rhythm T wave abnormality, consider anterolateral ischemia Abnormal ECG When compared with ECG of 09-May-2025 08:50, Nonspecific T wave abnormality no longer evident in Inferior leads Confirmed by Hayes Gonsalez ([id number]) on 05/11/2025 3:20:48 PM Referred By: Soha Amato Confirmed By: Hayes Gonsalez
== END 2025-05-10 14:24 | disposition home or self-care (01) | DRG 871 ==
LOC: SUATTDRO → ED 12:05 → 2W 14:53